=== PATIENT | female | born 1950 | race Caucasian/White ===

== ENCOUNTER 2016-12-08 02:57 | Observation (INO) | payer OTHER ==
[~2016-12-08] VITALS: Ht 180.3 cm; Wt 74.0 kg
[~2016-12-08 02:57] MED LIST: LSX20 PO; MELO15TA4 PO; NRN600 PO; ONDA4TAB10 SL; OXYC-609 PO; OXYC1TAB3 PO; POTA10TA33 PO
[2016-12-08] MEDS ORDERED: ONDANSETRON INJ 2 MG/ML 2 ML VIAL IV STA (03:10)
[2016-12-08] MEDS ORDERED: SODIUM CHLORIDE 0.9% 1000ML 1,000 ML IV STA ×2 (03:10)
[2016-12-08 03:21] LABS: BASO % 0.4 %; BASO ABS # 0.02 K/uL (0-0.2); COMPLETE YES; EOS % 1.4 %; HEMATOCRIT 35.4 % (37-47); IG% 0.2 %; LYMPH % 23.9 %; LYMPH ABS # 1.35 K/uL (1.2-3.4); MEAN CELL VOLUME 91.2 fL (80-100); MEAN CORPUSCULAR HEMOGLOBIN 31.4 pg (25-34); MEAN CORPUSCULAR HGB CONC 34.5 g/dl (32-36); MEAN PLATELET VOLUME 10.8 fL (7.4-10.4); MONO % 8.2 %; NEUT % 65.9 %; PLATELET COUNT 264 K/uL (130-400); RED BLOOD COUNT 3.88 M/uL (4.2-5.4); WHITE BLOOD COUNT 5.64 K/uL (4.8-10.8)
[2016-12-08] MEDS: MoRPHine SULFATE 4 MG/ML 1 ML CARP\\VIAL IV PRN ×2 (03:27→05:29)
[2016-12-08 03:39] LABS: ALT/SGPT 35 U/L (12-78); BLOOD UREA NITROGEN 16 mg/dl (7-18); BUN/CREATININE RATIO 27.8 (10-20); CALCIUM 7.8 mg/dl (8.5-10.1); CARBON DIOXIDE 23 mmol/L (21-32); CHLORIDE 113 mmol/L (98-107); CREATININE 0.58 mg/dl (0.60-1.20); GLUCOSE 82 mg/dl (70-99); MAGNESIUM 2.2 mg/dl (1.8-2.4); POTASSIUM 3.7 mmol/L (3.5-5.1); SODIUM 146 mmol/L (136-145)
[2016-12-08 03:40] LABS: ALKALINE PHOSPHATASE 182 U/L (45-117); AST/SGOT 30 U/L (15-37)
[2016-12-08] MEDS ORDERED: OXYC1TAB3 PO (03:49)
[2016-12-08 03:53] LABS: MANUAL MICROSCOPIC REQUIRED? NO; REVIEW REQ? NO; URINE APPEARANCE CLEAR (CLEAR); URINE BILIRUBIN NEG (NEG); URINE COLOR YELLOW; URINE EPITHELIAL CELL AUTO 20-30 /lpf (0-5); URINE NITRITE NEG (NEG); URINE PH 5.5 (4.5-7.5); URINE SPECIFIC GRAVITY 1.012 (1.000-1.030); UROBILINOGEN NEG (NEG)
--- NOTE | 2016-12-08 04:06 | EMERGENCY ROOM VISIT NOTE ---
History Report prepared by Antoinette: Delmis Hart Under the Supervision of: Norman GrahamO. First contact with patient: 03:00 Chief Complaint: ILLNESS Stated Complaint: NAUSEA/VOMITING/DIARRHEA History of Present Illness The patient is a 66 year old female who presents to the Emergency Room with complaints of a worsening illness for the past 6 weeks. She states that this started initially with nausea and vomiting. For the past 3-4 days she has been experiencing "uncontrollable diarrhea." She states that it is constant and she is unable to get off the toilet. She is feeling weak. Today she had a sudden onset of abdominal pain and states that she "doubled over in pain." Her abdomen is distended. She had a full gastric bypass surgery in 2010 and had a bowel obstruction after the surgery. The patient states that her current symptoms remind her of her previous bowel obstruction. She spoke with someone at [facility] who was concerned for a bowel obstruction and sent the patient to the ED for further evaluation. The patient was brought to the ED by ambulance. She received 110 mcg Fentanyl and 4 mg Zofran en route to the ED. This has helped alleviate her pain and she rates her current pain as a 1/10 in severity. The patient denies any personal history of C-diff colitis. She also denies any fevers. Source of History: patient Onset: AUDIOVISUAL TECH Position: abdomen Symptom Intensity: 1/10 Timing: worsening Modifying Factors (Relieving): narcotics, anti-emetics Associated Symptoms: + abdominal pain, + diarrhea, + nausea, + vomiting, + weakness, No fevers Review of Systems See HPI for pertinent positives & negatives. A total of 10 systems reviewed and were otherwise negative. Past Medical & Surgical Medical Problems: (1) Abdominal pain (2) Abdominal wall cellulitis (3) Abdominal wall cellulitis (4) Abdominal wall fluid collections (5) AMS - resolved suspect prescription medication abuse (6) Arm pain, left (7) Benign hypertension (8) Bypass gastroenterostomy (9) Cervical strain (10) Cholecystectomy (11) Chronic abdominal pain (12) Chronic hepatitis C (13) Closed head injury (14) Concussion (15) Contusion of hip (16) Depressive disorder (17) Diabetes mellitus type 2 (18) Esophageal Reflux (19) Hysterectomy (20) Knee contusion (21) Knee contusion (22) Left wrist fracture (23) Pain in wrist (24) Paralytic ileus (25) Polyneuropathy (26) Postoperative pain (27) Postoperative pain of extremity (28) Postoperative pain of extremity (29) Postoperative wound infection (30) PUD (peptic ulcer disease) (31) Pulmonary nodule (32) Shoulder contusion (33) Shoulder contusion (34) Suprapubic abdominal pain (35) Suprapubic abdominal pain (36) Urinary retention (37) Urinary tract infection (38) UTI (urinary tract infection) (39) UTI (urinary tract infection) (40) UTI (urinary tract infection) Surgical Problems: (1) H/O esophagogastroduodenoscopy Family History Diabetes mellitus Hypertension Social History Smoking Status: Current Every Day Smoker Alcohol Use: none Drug Use: none Marital Status: in relationship Housing Status: lives with significant other Occupation Status: disabled Current/Historical Medications Scheduled Oxycodone HCl (Oxycodone HCl), 5 MG PO QID Potassium Chloride (Potassium Chloride Sr), 10 MEQ PO DAILY Zolpidem Tartrate (Zolpidem Tartrate), 10 MG PO HS Scheduled PRN Furosemide (Furosemide), 20 MG PO DAILY PRN for Edema Gabapentin (Gabapentin), 600 MG PO TID PRN for Pain Oxycodone Ir (Roxicodone Ir), 5 MG PO Q6H PRN for Pain Allergies Coded Allergies: Iodinated Contrast Media (Verified Allergy, Severe, ANAHYLACTIC REACTION, 12/08/16) Acetaminophen (Verified Allergy, Mild, VOMITING, 12/08/16) Tramadol (Verified Allergy, Mild, nausea, hives, 12/08/16) Lisinopril (Verified Allergy, Unknown, FEELS LIKE SOMETHING IS CRAWLING ON HER., 12/08/16) Physical Exam Vital Signs Date Time Temp Pulse Resp B/P Pulse Ox O2 Delivery O2 Flow Rate FiO2 12/08/16 05:30 73 16 136/78 98 Room Air 12/08/16 04:00 68 16 133/74 94 Room Air 12/08/16 03:03 73 12/08/16 02:59 36.9 74 17 132/75 97 Room Air Physical Exam GENERAL: Patient is awake, alert, mildly anxious appearing. EYES: The conjunctivae are clear. The pupils are round and reactive. EARS, NOSE, MOUTH AND THROAT: The nose is without any evidence of any deformity. Mucous membranes are dry tongue is midline NECK: The neck is nontender and supple. RESPIRATORY: Normal respiratory effort is noted there is no evidence of wheezing rhonchi or rales CARDIOVASCULAR: Regular rate and rhythm noted there no murmurs rubs or gallops normal S1 normal S2 GASTROINTESTINAL: The abdomen is moderately distended and diffusely tender, no specific guarding or rigidity noted. MUSCULOSKELETAL/EXTREMITIES: There is no evidence of gross deformity full range of motion is noted in the hips and shoulders SKIN: There is no obvious evidence of any rash. There are no petechiae, pallor or cyanosis noted. NEUROLOGIC: Patient is awake alert and oriented x3 Medical Decision & Procedures ER Provider Diagnostic Interpretation: Chest x-ray as interpreted by myself reveals no free air, no acute infiltrates, cardiomegaly noted, no change from 04/24/16. Radiology results as stated below per my review and radiologist interpretation: CT ABDOMEN & PELVIS: The visualized lower thorax is unremarkable. The gallbladder is surgically absent with mild pneumobilia. The liver, spleen, pancreas, and adrenal glands are unremarkable. Nonobstructing calculus within the left kidney. Otherwise, the kidneys, ureters and urinary bladder are unremarkable. The uterus is surgically absent. No adnexal masses. Post surgical changes noted within the stomach and small bowel. No bowel obstruction, pneumatosis or free air. No free fluid. No acute osseous abnormality. Radiologist: Doroteo Bran MD Laboratory Results 12/08/16 02:28 Red Blood Count 3.88, Mean Corpuscular Volume 91.2, Mean Corpuscular Hemoglobin 31.4, Mean Corpuscular Hemoglobin Concent 34.5, Mean Platelet Volume 10.8, Neutrophils (%) (Auto) 65.9, Lymphocytes (%) (Auto) 23.9, Monocytes (%) (Auto) 8.2, Eosinophils (%) (Auto) 1.4, Basophils (%) (Auto) 0.4, Neutrophils # (Auto) 3.72, Lymphocytes # (Auto) 1.35, Monocytes # (Auto) 0.46, Eosinophils # (Auto) 0.08, Basophils # (Auto) 0.02 12/08/16 02:28 Test 12/08/16 02:28 12/08/16 03:25 White Blood Count 5.64 K/uL (4.8-10.8) Red Blood Count 3.88 M/uL (4.2-5.4) Hemoglobin 12.2 g/dL (12.0-16.0) Hematocrit 35.4 % (37-47) Mean Corpuscular Volume 91.2 fL (80-100) Mean Corpuscular Hemoglobin 31.4 pg (25-34) Mean Corpuscular Hemoglobin Concent 34.5 g/dl (32-36) Platelet Count 264 K/uL (130-400) Mean Platelet Volume 10.8 fL (7.4-10.4) Neutrophils (%) (Auto) 65.9 % Lymphocytes (%) (Auto) 23.9 % Monocytes (%) (Auto) 8.2 % Eosinophils (%) (Auto) 1.4 % Basophils (%) (Auto) 0.4 % Neutrophils # (Auto) 3.72 K/uL (1.4-6.5) Lymphocytes # (Auto) 1.35 K/uL (1.2-3.4) Monocytes # (Auto) 0.46 K/uL (0.11-0.59) Eosinophils # (Auto) 0.08 K/uL (0-0.5) Basophils # (Auto) 0.02 K/uL (0-0.2) RDW Standard Deviation 50.6 fL (36.4-46.3) RDW Coefficient of Variation 15.1 % (11.5-14.5) Immature Granulocyte % (Auto) 0.2 % Immature Granulocyte # (Auto) 0.01 K/uL (0.00-0.02) Anion Gap 10.0 mmol/L (3-11) Est Creatinine Clear Calc Drug Dose 103.2 ml/min Estimated GFR () 111.3 Estimated GFR (Non- 96.1 BUN/Creatinine Ratio 27.8 (10-20) Calcium Level 7.8 mg/dl (8.5-10.1) Magnesium Level 2.2 mg/dl (1.8-2.4) Total Bilirubin 0.3 mg/dl (0.2-1) Direct Bilirubin < 0.1 mg/dl (0-0.2) Aspartate Amino Transf (AST/SGOT) 30 U/L (15-37) Alanine Aminotransferase (ALT/SGPT) 35 U/L (12-78) Alkaline Phosphatase 182 U/L (45-117) Total Protein 6.1 gm/dl (6.4-8.2) Albumin 2.9 gm/dl (3.4-5.0) Lipase 287 U/L (73-393) Urine Color YELLOW Urine Appearance CLEAR (CLEAR) Urine pH 5.5 (4.5-7.5) Urine Specific [place] 1.012 (1.000-1.030) Urine Protein NEG (NEG) Urine Glucose (UA) NEG (NEG) Urine Ketones NEG (NEG) Urine Occult Blood NEG (NEG) Urine Nitrite NEG (NEG) Urine Bilirubin NEG (NEG) Urine Urobilinogen NEG (NEG) Urine Leukocyte Esterase TRACE (NEG) Urine WBC (Auto) 1-5 /hpf (0-5) Urine RBC (Auto) 0-4 /hpf (0-4) Urine Hyaline Casts (Auto) 0 /lpf (0-5) Urine Epithelial Cells (Auto) 20-30 /lpf (0-5) Urine Bacteria (Auto) NEG (NEG) Date/Time Source Procedure Growth Status 12/08/16 03:25 Stool C.difficile Toxin B Gene (PCR) - Final No C. difficile toxin B gene detected Complete Laboratory results per my review. Medications Administered Medications (Trade) Dose Ordered Sig/Rocky Route Start Time Stop Time Status Last Admin Dose Admin Sodium Chloride (Nss 1000ml) 1,000 ml @ 999 mls/hr Q1H1M STAT IV 12/08/16 03:10 12/08/16 04:10 DC 12/08/16 03:25 999 MLS/HR Morphine Sulfate (MoRPHine SULFATE INJ) 4 mg Q15M PRN IV 12/08/16 03:15 12/22/16 03:14 12/08/16 05:29 4 MG Ondansetron HCl (Zofran Inj) 4 mg NOW STAT IV 12/08/16 03:10 12/08/16 03:12 DC 12/08/16 03:25 4 MG ED Course 0308: The patient was evaluated in room B10. A complete history and physical examination were performed. 0310: Zofran 4 mg IV, NSS 1000 ml @ 250 mls/hr IV, NSS 1000 ml @ 999 mls/hr IV 0315: Morphine sulfate 4 mg IV PRN 0520: I reassessed the patient at this time. She is still uncomfortable. I discussed the results and treatment plan with the patient. I answered all pertaining questions that she had. She expressed understanding and verbalized agreement. 0531: I spoke with Dr. Bear. We discussed the patients results and treatment plan. The patient will be evaluated by the [facility] for further management. Medical Decision Differential diagnosis: Etiologies such as appendicitis, diverticulitis, PUD, biliary pathology, UTI, pancreatitis, obstruction, mesenteric ischemia, aortic pathology, infections, inflammatory bowel disease, renal colic, as well as others were entertained. Nursing notes reviewed. The prehospital medic command call was taken on this patient. The patient is a 66-year-old female who has a history gastric bypass who presented to the emergency department for an evaluation of abdominal pain nausea vomiting and diarrhea. The patient has a history of gastric bypass and has had similar episodes in the past. She has had ongoing symptoms for proximally 4 weeks but started having worsening symptoms over the last few days. The patient was treated with IV fluids IV pain medicine and IV antiemetics. Her CAT scan did not reveal any signs of definite obstruction. She was found have signs of dehydration on laboratory as well as clinical findings. Because the patient's ongoing symptoms I discussed her case with the on-call [facility] hospitalist group. They've agreed to evaluate the patient in the emergency department for further management and disposition. Consults Time Called: [phone] Consulting Physician: Dr. Bear Returned Call: [address] Bear. We discussed the patients results and treatment plan. The patient will be evaluated by the [facility] for further management. Impression Primary Impression: Diarrhea Additional Impressions: Diffuse abdominal pain Dehydration Scribe Attestation The scribe's documentation has been prepared under my direction and personally reviewed by me in its entirety. I confirm that the note above accurately reflects all work, treatment, procedures, and medical decision making performed by me. Departure Information Dispostion Being Evaluated By Hospitalist Referrals Justus Haynes M.D. (PCP) Patient Instructions My [facility] Problem Qualifiers Primary Impression: Diarrhea Diarrhea type: unspecified type Qualified Codes: R19.7 - Diarrhea, unspecified
[2016-12-08] MEDS ORDERED: OXYCODONE IR HOME PACK PO ONE (05:30)
[2016-12-08] MEDS ORDERED: ONDANSETRON HOME PACK 4MG OD TAB PO ONE (05:30)
--- NOTE | 2016-12-08 06:22 | History and Physical ---
History & Physical Date & Time of Service: Dec 08, 2016 at 06:09 Chief Complaint: Nausea/Vomiting/Diarrhea Primary Care Physician: Justus Haynes M.D. History of Present Illness Source: patient Michelle Mckee is a 66 year old female with history of gastric bypass in 2000 who presents with abdominal pain over the last 5 weeks. She reports she was concerned she may have a bowel obstruction as she did after her bypass surgery, which she ended up needing an EGD for dilation. She reports she has felt abdominal distention and bloating, but has not been vomiting. She woke up today and was dry heaving, writhing in pain, and so her daughter brought her in. She did have 5-6 loose bowel movements today. She denies any antibiotic use. Past Medical/Surgical History Medical Problems: (1) Abdominal pain Status: Resolved (2) Abdominal wall cellulitis Status: Resolved (3) Abdominal wall cellulitis Status: Resolved (4) Abdominal wall fluid collections Status: Resolved (5) AMS - resolved suspect prescription medication abuse Status: Resolved (6) Arm pain, left Status: Resolved (7) Benign hypertension Status: Chronic (8) Bypass gastroenterostomy Status: Resolved (9) Cervical strain Status: Resolved (10) Cholecystectomy Status: Resolved (11) Chronic abdominal pain Status: Chronic (12) Chronic hepatitis C Status: Chronic (13) Closed head injury Status: Resolved (14) Concussion Status: Resolved (15) Contusion of hip Status: Resolved (16) Depressive disorder Status: Chronic (17) Diabetes mellitus type 2 Status: Chronic (18) Esophageal Reflux Status: Chronic (19) Hysterectomy Status: Resolved (20) Knee contusion Status: Resolved (21) Knee contusion Status: Resolved (22) Left wrist fracture Status: Resolved (23) Pain in wrist Status: Resolved (24) Paralytic ileus Status: Resolved (25) Polyneuropathy Status: Chronic (26) Postoperative pain Status: Resolved (27) Postoperative pain of extremity Status: Resolved (28) Postoperative pain of extremity Status: Resolved (29) Postoperative wound infection Status: Resolved (30) PUD (peptic ulcer disease) Status: Chronic (31) Pulmonary nodule Status: Chronic (32) Shoulder contusion Status: Resolved (33) Shoulder contusion Status: Resolved (34) Suprapubic abdominal pain Status: Resolved (35) Suprapubic abdominal pain Status: Resolved (36) Urinary retention Status: Resolved (37) Urinary tract infection Status: Resolved (38) UTI (urinary tract infection) Status: Resolved (39) UTI (urinary tract infection) Status: Resolved (40) UTI (urinary tract infection) Status: Resolved Surgical Problems: (1) H/O esophagogastroduodenoscopy Status: Chronic Family History Diabetes mellitus Hypertension Social History Smoking Status: Current Every Day Smoker Drug Use: none Marital Status: in relationship Housing status: lives with family, other Occupational Status: disabled Immunizations History of Influenza Vaccine: No Influenza Vaccine Date: Sep 01, 2011 History of Tetanus Vaccine?: No Tetanus Immunization Date: Dec 29, 2001 History of Pneumococcal: Yes History of Hepatitis B Vaccine: Unknown Multi-Drug Resistant Organisms History of MDRO: No Allergies Coded Allergies: Iodinated Contrast Media (Verified Allergy, Severe, ANAHYLACTIC REACTION, 12/08/16) Acetaminophen (Verified Allergy, Mild, VOMITING, 12/08/16) Tramadol (Verified Allergy, Mild, nausea, hives, 12/08/16) Lisinopril (Verified Allergy, Unknown, FEELS LIKE SOMETHING IS CRAWLING ON HER., 12/08/16) Home Medications Scheduled Oxycodone HCl (Oxycodone HCl), 5 MG PO QID Potassium Chloride (Potassium Chloride Sr), 10 MEQ PO DAILY Zolpidem Tartrate (Zolpidem Tartrate), 10 MG PO HS Scheduled PRN Furosemide (Furosemide), 20 MG PO DAILY PRN for Edema Gabapentin (Gabapentin), 600 MG PO TID PRN for Pain Oxycodone Ir (Roxicodone Ir), 5 MG PO Q6H PRN for Pain Review of Systems See HPI for pertinent positives & negatives. A total of 10 systems reviewed and were otherwise negative. Physical Exam Vital Signs Date Time Temp Pulse Resp B/P Pulse Ox O2 Delivery O2 Flow Rate FiO2 12/08/16 05:30 73 16 136/78 98 Room Air 12/08/16 04:00 68 16 133/74 94 Room Air 12/08/16 03:03 73 12/08/16 02:59 36.9 74 17 132/75 97 Room Air General Appearance: WD/WN, + mild distress Head: normocephalic, atraumatic Eyes: normal inspection ENT: hearing grossly normal Neck: supple, no JVD Respiratory/Chest: lungs clear, normal breath sounds, no respiratory distress Cardiovascular: regular rate, rhythm, no murmur, normal peripheral pulses Abdomen/GI: soft, + tenderness (deep tenderness to RUQ), + pertinent finding ( soft bowel sounds) Back: no CVA tenderness, no muscle spasm Extremities/Musculoskelatal: no pedal edema Neurologic/Psych: alert, normal mood/affect, oriented x 3 Skin: no rash Diagnostics Laboratory Results Results Past 24 Hours Test 12/08/16 02:28 12/08/16 03:25 Range/Units White Blood Count 5.64 4.8-10.8 K/uL Red Blood Count 3.88 4.2-5.4 M/uL Hemoglobin 12.2 12.0-16.0 g/dL Hematocrit 35.4 37-47 % Mean Corpuscular Volume 91.2 80-100 fL Mean Corpuscular Hemoglobin 31.4 25-34 pg Mean Corpuscular Hemoglobin Concent 34.5 32-36 g/dl Platelet Count 264 130-400 K/uL Mean Platelet Volume 10.8 7.4-10.4 fL Neutrophils (%) (Auto) 65.9 % Lymphocytes (%) (Auto) 23.9 % Monocytes (%) (Auto) 8.2 % Eosinophils (%) (Auto) 1.4 % Basophils (%) (Auto) 0.4 % Neutrophils # (Auto) 3.72 1.4-6.5 K/uL Lymphocytes # (Auto) 1.35 1.2-3.4 K/uL Monocytes # (Auto) 0.46 0.11-0.59 K/uL Eosinophils # (Auto) 0.08 0-0.5 K/uL Basophils # (Auto) 0.02 0-0.2 K/uL RDW Standard Deviation 50.6 36.4-46.3 fL RDW Coefficient of Variation 15.1 11.5-14.5 % Immature Granulocyte % (Auto) 0.2 % Immature Granulocyte # (Auto) 0.01 0.00-0.02 K/uL Sodium Level 146 136-145 mmol/L Potassium Level 3.7 3.5-5.1 mmol/L Chloride Level 113 98-107 mmol/L Carbon Dioxide Level 23 21-32 mmol/L Anion Gap 10.0 3-11 mmol/L Blood Urea Nitrogen 16 7-18 mg/dl Creatinine 0.58 0.60-1.20 mg/dl Est Creatinine Clear Calc Drug Dose 103.2 ml/min Estimated GFR () 111.3 Estimated GFR (Non- 96.1 BUN/Creatinine Ratio 27.8 10-20 Random Glucose 82 70-99 mg/dl Calcium Level 7.8 8.5-10.1 mg/dl Magnesium Level 2.2 1.8-2.4 mg/dl Total Bilirubin 0.3 0.2-1 mg/dl Direct Bilirubin < 0.1 0-0.2 mg/dl Aspartate Amino Transf (AST/SGOT) 30 15-37 U/L Alanine Aminotransferase (ALT/SGPT) 35 12-78 U/L Alkaline Phosphatase 182 45-117 U/L Total Protein 6.1 6.4-8.2 gm/dl Albumin 2.9 3.4-5.0 gm/dl Lipase 287 73-393 U/L Urine Color YELLOW Urine Appearance CLEAR CLEAR Urine pH 5.5 4.5-7.5 Urine Specific [place] 1.012 1.000-1.030 Urine Protein NEG NEG Urine Glucose (UA) NEG NEG Urine Ketones NEG NEG Urine Occult Blood NEG NEG Urine Nitrite NEG NEG Urine Bilirubin NEG NEG Urine Urobilinogen NEG NEG Urine Leukocyte Esterase TRACE NEG Urine WBC (Auto) 1-5 0-5 /hpf Urine RBC (Auto) 0-4 0-4 /hpf Urine Hyaline Casts (Auto) 0 0-5 /lpf Urine Epithelial Cells (Auto) 20-30 0-5 /lpf Urine Bacteria (Auto) NEG NEG Microbiology Results 12/08/16 C.difficile Toxin B Gene (PCR) - Final, Complete No C. difficile toxin B gene detected 12/08/16 WBC Smear, Received Pending 12/08/16 Shiga Toxin Test, Received Pending 12/08/16 Stool Culture, Received Pending Diagnostic Radiology CT ABDOMEN & PELVIS: The visualized lower thorax is unremarkable. The gallbladder is surgically absent with mild pneumobilia. The liver, spleen, pancreas, and adrenal glands are unremarkable. Nonobstructing calculus within the left kidney. Otherwise, the kidneys, ureters and urinary bladder are unremarkable. The uterus is surgically absent. No adnexal masses. Post surgical changes noted within the stomach and small bowel. No bowel obstruction, pneumatosis or free air. No free fluid. No acute osseous abnormality. Radiologist: Doroteo Bran MD Impression Assessment and Plan Documented By: Jackson Bear 66 yo F with history of gastric bypass who presents with 5 week history of abdominal pain, bloating, and persistent nausea/ vomiting/diarrhea. Differential includes colitis, bowel obstruction (from hernia v adhesions) - it was attempted for pt to be transferred to [facility] for EGD / potential dilation but there were no beds. Plan: - Consult GI - NPO with IV fluids - Zofran / Phenergan PRN for nausea - Received morphine IV in ED - Dilaudid 0.5mg IV q6h for pain - SCDs - Hold PO Oxycodone / Ambien / Gabapentin - Will hold off on Heparin until coag repeated / ensure its normal - Pt clearly stated she would NOT want chest compressions or intubation in event of cardiac arrest - DNR Resident Physician Supervision Note: I was present with [Name of resident] during the history and exam. I discussed the case with the resident and agree with the findings and plan as documented in the note. Any exceptions or clarifications are listed here: Pt seen examined personally - has had above symptoms for over one month but claims acute worsening and has Hx of internal hernias. There is no current evidence of obstruction Plan: Was unable to tolerate PO in the ER and is admitted for IVF, antiemetics, pain control and GI eval - requesting referal to a local sizer hand as she currently travels to [place] Has explicitly stated she is DNR/DNI Level of Care Med/Surg Resuscitation Status DO NOT RESUSCITATE VTE Prophylaxis VTE Risk Assessment Done? Y/N: Yes Risk Level: Moderate Given or contraindicated: SCD's Resident Tracking Resident Involvement: Resident Care Provided Care Provided: Adult Hospital Medicine
[2016-12-08] MEDS ORDERED: IV FLUIDS COMPLETED PRN (06:30)
[2016-12-08 06:53] VITALS: BP 147/85; PULSE 67; TEMP 36.5; O2SAT 95
--- NOTE | 2016-12-08 07:11 | DIAGNOSTIC IMAGING REPORT ---
CT SCAN OF THE ABDOMEN AND PELVIS WITHOUT CONTRAST CLINICAL HISTORY: Upper abdominal pain. History of gastric bypass. COMPARISON STUDY: 07/04/2016 TECHNIQUE: CT scan of the abdomen and pelvis was performed from the lung bases to the proximal femurs. Images are reviewed in the axial, sagittal, and coronal planes. IV contrast was not administered for this examination. CT DOSE: 345.82 mGy.cm FINDINGS: Lower chest: The heart is normal in size and configuration, without pericardial effusion. The lung bases and pleural spaces are clear. There is elevation right hemidiaphragm Liver: There is pneumobilia. No focal masses are visualized in this noncontrast study. There is borderline hepatomegaly. Gallbladder: Surgically absent Spleen: Normal in size and attenuation. Pancreas: Unremarkable. Adrenal glands: Unremarkable. Kidneys: There is a 2 mm lower pole left renal calculus. There is a punctate upper pole left renal calculus. No right renal calculi are visualized. No ureteral or bladder calculi are visualized. Bowel: There are postsurgical changes relating to a prior gastric bypass. There is mild dilatation of proximal small bowel loops. There is a small bowel feces sign, and stasis is suspected. There are no findings to indicate a high-grade bowel obstruction. There is scattered stool within the colon. Peritoneum: There is no intraperitoneal free air or abdominal ascites. Vasculature: The abdominal aorta is normal in course and caliber. Adenopathy: None. Pelvic viscera: The uterus appears surgically absent Skeletal structures: No destructive osseous lesions are seen. IMPRESSION: 1. Surgically absent gallbladder and uterus. 2. Pneumobilia 3. Left-sided nephrolithiasis. No ureteral or bladder calculi identified 4. Postsurgical changes are prior gastric bypass. 5. Mildly dilated proximal small bowel loops with a small bowel feces sign. Stasis is suspected. There are no findings to indicate a high-grade bowel obstruction. There is no free air. Electronically signed by: Phuc Burton M.D. 12/08/2016 7:10 AM Dictated Date/Time: 12/08/2016 7:04 AM
--- NOTE | 2016-12-08 07:15 | DIAGNOSTIC IMAGING REPORT ---
SINGLE VIEW CHEST CLINICAL HISTORY: Generalized abdominal pain. Atypical chest pain. FINDINGS: An AP, portable, upright chest radiograph is compared to study dated 04/24/2016 and correlated with chest CT dated 01/18/2015. The examination is degraded by portable technique and patient rotation. The cardiomediastinal silhouette is unremarkable. There is chronic elevation of the right hemidiaphragm with mild bibasilar atelectasis. Apparent density at the medial right lung base likely represents vascular crowding due to volume loss. A calcification containing left upper lobe pulmonary nodule measuring up to 12 mm unchanged from prior studies. No large pleural effusion or pneumothorax is seen. The skeletal structures are osteopenic. There are healed left-sided rib fractures. IMPRESSION: No acute cardiopulmonary abnormality. Electronically signed by: Lei Love M.D. 12/08/2016 7:14 AM Dictated Date/Time: 12/08/2016 7:12 AM
[2016-12-08 07:59] LABS: PROTHROMBIN TIME (PATIENT) 11.1 SECONDS (9.0-12.0)
[2016-12-08 08:00] VITALS: BP 147/85; PULSE 67; TEMP 36.5; O2SAT 94; Ht 180.3 cm; Wt 74.0 kg
[2016-12-08] MEDS: SODIUM CHLOR 0.45% + 20MEQ KCL 1,000 ML IV SCH ×2 (08:00→16:24)
[2016-12-08] MEDS ORDERED: PANTOprazole INJ 40 MG in SYRINGE 0 ML IV SCH (09:30)
[2016-12-08] MEDS: HYDROmorphone INJ 0.5 MG/0.5 ML SYR IV PRN ×3 (10:55→22:34)
--- NOTE | 2016-12-08 11:28 | Gastrointestinal Consultation ---
Gastrointestinal Consultation Date of Consultation: Dec 08, 2016 Attending Physician: Satya Terry Consulting Physician: Jama Calle Reason for Consultation: Abd pain, bloating History of Present Illness Patient is a 66 year old female w hx of gastric bypass in 2011 who presented in ED w c/o abd pain across upper abd quadrants, n/v and loose stools x 1 week. She reported hx of ? gastric outlet after her bypass surgery needing dilation. Also noted to have marginal ulcer found in the past. She noticed red specks of particles in stools and emesis. Her H/H is normal. Cdiff obtained negative, stool cx pending. She had CXR which was unremarkable. CT abd/pelvis showed fecal stasis in small bowel loops but no signs of bowel obstruction or free air noted. She is a smoker, continues to smoke 1.5 PPD. Denies taking any PPI on daily basis, but did take some Mylanta from [facility] when recently her reflux symptoms are worse. Previous EGDs: 2010, 2011, 2013 - no signs of ulcer disease but hx of esophagitis treated w Misoprostol, Carafate, PPIs Previous Colonoscopy: 2012 - colon polyp Past Medical/Surgical History Medical Problems: (1) Acute chest pain Status: Acute (2) Chronic leukopenia Status: Acute (3) Dehydration Status: Acute (4) Diarrhea Status: Acute (5) Diffuse abdominal pain Status: Acute (6) Esophageal Reflux Status: Chronic (7) Fracture of fibula, distal, right, closed Status: Acute (8) Knee injury Status: Acute (9) PUD (peptic ulcer disease) Status: Chronic (10) Pyelonephritis Status: Acute Surgical Problems: (1) H/O esophagogastroduodenoscopy Status: Chronic Past Medical History: See above, also hx of abd cellulitis, AMS (suspected to be from Rx med abuse), HTN, Hep C, DM II, GERD Past Surgical History: Cholecystectomy Hysterectomy Family History Diabetes mellitus Hypertension Social History Smoking Status: Current Every Day Smoker Alcohol Use: none Drug Use: none, other (hx of prescriptive drug abuse ) Marital Status: in relationship Housing Status: lives with significant other Occupation Status: disabled Allergies Coded Allergies: Acetaminophen (Verified Allergy, Mild, VOMITING, 12/08/16) Tramadol (Verified Allergy, Mild, nausea, hives, 12/08/16) Iodinated Diagnostic Agents (Verified Allergy, Unknown, ANAPHYLACTIC REACTION, 12/08/16) Lisinopril (Verified Allergy, Unknown, FEELS LIKE SOMETHING IS CRAWLING ON HER., 12/08/16) Current Medications Home Meds and Scripts Medications Dose Route/Sig Max Daily Dose Days Date Category Dose Instructions Roxicodone Ir (Oxycodone HCl) 5 Mg Tab 5 Mg PO Q6H PRN 12/08/16 Reported Furosemide 20 Mg Tab 20 Mg PO DAILY PRN 10/09/16 Reported Zolpidem Tartrate 10 Mg Tab 10 Mg PO HS 10/09/16 Reported Oxycodone HCl 5 Mg Tab 5 Mg PO QID 10/09/16 Reported Gabapentin 600 Mg Tab 600 Mg PO TID PRN 10/09/16 Reported Potassium Chloride Sr (Potassium Chloride) 10 Meq Tab 10 Meq PO DAILY 10/09/16 Reported pt only takes when takes lasix Review of Systems Constitutional: No chills, No fever Respiratory: No cough, No shortness of breath Cardiac: No chest pain, No edema Abdomen: + diarrhea, + nausea, + pain, + vomiting Physical Exam Date Time Temp Pulse Resp B/P Pulse Ox O2 Delivery O2 Flow Rate FiO2 12/08/16 08:00 36.5 67 17 147/85 94 Room Air 12/08/16 06:53 36.5 67 17 147/85 95 Room Air 12/08/16 06:17 70 16 133/80 95 Room Air 12/08/16 05:30 73 16 136/78 98 Room Air 12/08/16 04:00 68 16 133/74 94 Room Air 12/08/16 03:03 73 12/08/16 02:59 36.9 74 17 132/75 97 Room Air General Appearance: WD/WN, no apparent distress Eyes: normal inspection, PERRL, EOMI Neck: supple, no JVD, trachea midline Respiratory/Chest: normal breath sounds, no respiratory distress, no accessory muscle use Cardiovascular: regular rate, rhythm, no gallop, no murmur Abdomen: normal bowel sounds, soft, + tenderness (epigastric) Extremities: normal inspection, no pedal edema, no calf tenderness Neurologic/Psych: alert, normal mood/affect, oriented x 3 Skin: normal color, no jaundice, no rash Laboratory Results Last 24 Hours Test 12/08/16 02:28 12/08/16 03:25 1/19/17 07:13 White Blood Count 5.64 K/uL Red Blood Count 3.88 M/uL Hemoglobin 12.2 g/dL Hematocrit 35.4 % Mean Corpuscular Volume 91.2 fL Mean Corpuscular Hemoglobin 31.4 pg Mean Corpuscular Hemoglobin Concent 34.5 g/dl Platelet Count 264 K/uL Mean Platelet Volume 10.8 fL Neutrophils (%) (Auto) 65.9 % Lymphocytes (%) (Auto) 23.9 % Monocytes (%) (Auto) 8.2 % Eosinophils (%) (Auto) 1.4 % Basophils (%) (Auto) 0.4 % Neutrophils # (Auto) 3.72 K/uL Lymphocytes # (Auto) 1.35 K/uL Monocytes # (Auto) 0.46 K/uL Eosinophils # (Auto) 0.08 K/uL Basophils # (Auto) 0.02 K/uL RDW Standard Deviation 50.6 fL RDW Coefficient of Variation 15.1 % Immature Granulocyte % (Auto) 0.2 % Immature Granulocyte # (Auto) 0.01 K/uL Sodium Level 146 mmol/L Potassium Level 3.7 mmol/L Chloride Level 113 mmol/L Carbon Dioxide Level 23 mmol/L Anion Gap 10.0 mmol/L Blood Urea Nitrogen 16 mg/dl Creatinine 0.58 mg/dl Est Creatinine Clear Calc Drug Dose 103.2 ml/min Estimated GFR () 111.3 Estimated GFR (Non- 96.1 BUN/Creatinine Ratio 27.8 Random Glucose 82 mg/dl Calcium Level 7.8 mg/dl Magnesium Level 2.2 mg/dl Total Bilirubin 0.3 mg/dl Direct Bilirubin < 0.1 mg/dl Aspartate Amino Transf (AST/SGOT) 30 U/L Alanine Aminotransferase (ALT/SGPT) 35 U/L Alkaline Phosphatase 182 U/L Total Protein 6.1 gm/dl Albumin 2.9 gm/dl Lipase 287 U/L Urine Color YELLOW Urine Appearance CLEAR Urine pH 5.5 Urine Specific [place] 1.012 Urine Protein NEG Urine Glucose (UA) NEG Urine Ketones NEG Urine Occult Blood NEG Urine Nitrite NEG Urine Bilirubin NEG Urine Urobilinogen NEG Urine Leukocyte Esterase TRACE Urine WBC (Auto) 1-5 /hpf Urine RBC (Auto) 0-4 /hpf Urine Hyaline Casts (Auto) 0 /lpf Urine Epithelial Cells (Auto) 20-30 /lpf Urine Bacteria (Auto) NEG Prothrombin Time 11.1 SECONDS Prothromb Time International Ratio 1.0 Impression Patient is a 66 year old female w upper quadrants abd pain, n/v, loose stools. Hx of gastric bypass w marginal ulcer disease, esophagitis. She continues to smoke 1.5 PPD, not taking any PPI. She had CXR - normal; CT abd/pelvis w/o signs of bowel obstruction or free air though fecal stasis in small bowel loops. Hx of narcotic abuse, suspect has narcotic induced constipation vs ulcer disease causing her abd pain Plan - Protonix 40mg BID - Keep NPO; EGD eval by Dr. Calle this AM - Relistor 12mg SC every 2 days x 2 doses - Start Miralax 17g BID bowel regimen - Avoid narcotic use on this pt. I performed a history and physical examination of the patient. I have discussed the patient's case, impression and plan with ANA Schneider. Her note reflects my findings and plan. After evaluating patient, an upper endoscopy will rule out high risk lesions. Jama Calle MD
[2016-12-08 11:30] VITALS: BP 147/85; PULSE 67; TEMP 36.5; O2SAT 94
[2016-12-08] MEDS ORDERED: LIDOCAINE HCL 2% 2 ML VIAL (20MG/ML) ONE (11:33)
[2016-12-08] MEDS ORDERED: PROPOFOL IV EMULSION 10 MG/ML 20 ML VIAL IV ONE (11:33)
[2016-12-08] MEDS ORDERED: MIDAZOLAM HCL 1 MG/ML 2ML VIAL ONE (11:57)
[2016-12-08] MEDS ORDERED: FENTANYL CITRATE INJ 50 MCG/1 ML 2 ML VIAL ONE (11:57)
--- NOTE | 2016-12-08 12:27 | Anesthesiology Progress Note ---
Anesthesia Post Op Note Date & Time Dec 08, 2016 at 12:26 Vital Signs Pain Intensity: 9.0 Vital Signs Past 12 Hours Date Time Temp Pulse Resp B/P Pulse Ox O2 Delivery O2 Flow Rate FiO2 12/08/16 12:20 36.8 67 18 99/53 93 Room Air 12/08/16 11:40 36.8 65 16 149/74 96 Room Air 12/08/16 11:30 36.5 67 17 147/85 94 Room Air 12/08/16 08:00 36.5 67 17 147/85 94 Room Air 12/08/16 06:53 36.5 67 17 147/85 95 Room Air 12/08/16 06:17 70 16 133/80 95 Room Air 12/08/16 05:30 73 16 136/78 98 Room Air 12/08/16 04:00 68 16 133/74 94 Room Air 12/08/16 03:03 73 12/08/16 02:59 36.9 74 17 132/75 97 Room Air Notes Mental Status: alert / awake / arousable, participated in evaluation Pt Amnestic to Procedure: Yes Nausea / Vomiting: adequately controlled Pain: adequately controlled Airway Patency, RR, SpO2: stable & adequate BP & HR: stable & adequate Hydration State: stable & adequate Anesthetic Complications: no major complications apparent
[2016-12-08] MEDS ORDERED: INFLUENZA VIRUS QUAD VACCINE 0.5 ML SYR IM. ONE (12:30)
[2016-12-08] MEDS ORDERED: INFLUENZA ADMINISTRATION CHARGE ONE (12:30)
[2016-12-08] MEDS ORDERED: PNEUMOCOCCAL ADMINISTRATION CHARGE ONE (12:30)
[2016-12-08] MEDS ORDERED: PNEUMOCOCCAL POLYSACCHARIDES 25 MCG/0.5 ML VIAL/SYR IM. ONE (12:30)
--- NOTE | 2016-12-08 12:30 | GI REPORT ---
Procedure Date: 12/08/2016 11:45 AM Procedure: Upper GI endoscopy Indications: Epigastric abdominal pain Medicines: See the Anesthesia note for documentation of the administered medications Complications: No immediate complications. Estimated Blood Loss: Estimated blood loss: none. Procedure: Pre-Anesthesia Assessment: - Prior to the procedure, a History and Physical was performed, and patient medications, allergies and sensitivities were reviewed. The patient's tolerance of previous anesthesia was reviewed. - The risks and benefits of the procedure and the sedation options and risks were discussed with the patient. All questions were answered and informed consent was obtained. - Patient identification and proposed procedure were verified prior to the procedure by the physician and the nurse. The procedure was verified in the pre-procedure area. - Pre-procedure physical examination revealed no contraindications to sedation. - After reviewing the risks and benefits, the patient was deemed in satisfactory condition to undergo the procedure. After obtaining informed consent, the endoscope was passed under direct vision. Throughout the procedure, the patient's blood pressure, pulse, and oxygen saturations were monitored continuously. The On-site loaner was introduced through the mouth, and advanced to the afferent and efferent jejunal loops. The upper GI endoscopy was accomplished without difficulty. The patient tolerated the procedure well. Findings: The esophagus was normal. Evidence of a gastric bypass was found. A gastric pouch with a normal size was found. The gastrojejunal anastomosis was characterized by healthy appearing mucosa. The jejunojejunal anastomosis was characterized by healthy appearing mucosa. The examined jejunum was normal. Impression: - Normal esophagus. - Gastric bypass with a normal-sized pouch. Gastrojejunal anastomosis characterized by healthy appearing mucosa. - No ulcers seen. - Normal examined jejunum. - No specimens collected. Recommendation: - [facility]. Jama Calle M.D. Jama Calle MD 12/08/2016 12:29:06 PM This report has been signed electronically. Note Initiated On: 12/08/2016 11:45 AM
[2016-12-08] MEDS: METHYLNALTREXONE BROMIDE INJ 12 MG/0.6 ML SYR SQ SCH (13:30)
[2016-12-08 14:58] VITALS: BP 137/77; PULSE 87; TEMP 36.6; O2SAT 96
[2016-12-08] MEDS: POLYETHYLENE (MIRALAX) 17 GM PACK PO SCH (20:15)
[2016-12-08] MEDS: PANTOprazole INJ 40 MG in SYRINGE 0 ML IV SCH (20:16)
[2016-12-08] MEDS: ZOLPIDEM TARTRATE 5 MG TAB PO PRN (21:13)
[2016-12-08 22:54] VITALS: BP 145/81; PULSE 65; TEMP 36.7; O2SAT 99
--- NOTE | 2016-12-08 23:04 | Progress Note ---
Progress Note Hospitalist Progress Note - 12/08/16 3502 S: pt underwent EGD today which showed normal gastric pouch mucosa and the anastomotic site was normal. I saw her post-EGD and she c/o bloating and abdominal pain (junction of epigastric region with the LUQ). She reports 1-2 months of "greasy, bubbly" stools. These occur almost immediately after eating, and occur several times/day. She also mentions vomiting sometimes filled with blood. No blood per rectum. O: VSS, no fever gen - NAD heart - RRR, s1, s2 lungs - CTA b/l abd - mildly distended/protuberant; midline scar; BS+; tender LUQ/epigastric region (mild) with palpation ext - no edema A/P: Chronic abd pain Chronic narcotic dependence (gets 120 tabs of oxycodone every 30 days per pharmacy records) Chronic diarrhea -- question malabsorption based on patient's description Fecal stasis in the small intestine on CT Appreciate GI input Send fecal fat r/o malabsorption Could this be bacterial overgrowth? Dumping? But less likely given that she is 7 years out from her bypass Infectious? Celiac? Other? try to limit narcotic use supportive care, IVF, advance diet as tolerated defer other recs to TERRY GUERRA MD
[2016-12-09] MEDS: SODIUM CHLOR 0.45% + 20MEQ KCL 1,000 ML IV SCH ×2 (00:04→08:11)
[2016-12-09] MEDS ORDERED: KETOROLAC TROMETHAMINE 10 MG TAB PO STA (02:13)
[2016-12-09] MEDS ORDERED: KETOROLAC TROMETHAMINE 10 MG TAB PO PRN (02:15)
[2016-12-09] MEDS ORDERED: NAPROXEN 375 MG TAB PO STA (02:30)
--- NOTE | 2016-12-09 02:30 | Progress Note ---
Progress Note RESIDENT NIGHT COVERAGE NOTE Overnight, received multiple calls that pt has been requesting her home doses of Oxycodone and Ambien 10mg qHS. Did not feel comfortable giving these at full doses. Gave 5mg Ambien. She reported severe pain despite dilaudid 0.5mg q6h previously ordered. Reported she is 'allergic' to tylenol, tramadol, and toradol. Will prescribe Naproxen and continue dilaudid q6h as prescribed. Day team to please review. Resident Tracking Resident Involvement: Stereotyper Coverage Note Care Provided: Adult Hospital Medicine
[2016-12-09] MEDS: HYDROmorphone INJ 0.5 MG/0.5 ML SYR IV PRN (05:24)
[2016-12-09 07:06] VITALS: BP 153/79; PULSE 59; TEMP 36.5; O2SAT 98
[2016-12-09] MEDS: POLYETHYLENE (MIRALAX) 17 GM PACK PO SCH ×2 (08:11→20:17)
[2016-12-09] MEDS: PANTOprazole INJ 40 MG in SYRINGE 0 ML IV SCH (08:11)
[2016-12-09 08:29] LABS: BUN/CREATININE RATIO 8.6 (10-20); CREATININE 0.49 mg/dl (0.60-1.20); POTASSIUM 4.4 mmol/L (3.5-5.1)
[2016-12-09] MEDS ORDERED: ERGOCALCIFEROL 50,000 INTER.UNIT CAP PO SCH (10:00)
[2016-12-09] MEDS: OXYCODONE HCL IR 5 MG TAB (IMMEDIATE RELEASE) PO PRN ×3 (10:42→20:17)
[2016-12-09] MEDS: CYANOCOBALAMIN 1000 MCG/ML VIAL IM SCH (10:42)
[2016-12-09] MEDS ORDERED: CHOLESTYRAMINE LIGHT 4 GM PKT PO ONE (12:16)
[2016-12-09 14:49] VITALS: BP 125/77; PULSE 58; TEMP 36.7; O2SAT 96
--- NOTE | 2016-12-09 16:27 | DIAGNOSTIC IMAGING REPORT ---
ABDOMEN 2 VIEWS CLINICAL HISTORY: Abdominal pain. History of gastric bypass. COMPARISON STUDY: 08/24/2014 FINDINGS: There is elevation right hemidiaphragm. No free air is visualized. There are surgical wallace and clips in the upper abdomen consistent with a prior gastric bypass. Surgical clips within the right upper quadrant likely representing prior cholecystectomy. There are mildly prominent gas-filled left upper quadrant small bowel loops, but there are no transition zones to indicate a high-grade bowel obstruction. There is scattered stool throughout the colon. IMPRESSION: 1. Postsurgical changes 2. Elevation right hemidiaphragm 3. Nonspecific bowel gas pattern with mildly prominent left upper quadrant small bowel loops. No conventional radiographic evidence of a high-grade bowel obstruction. No evidence of free air. Electronically signed by: Phuc Burton M.D. 12/09/2016 4:25 PM Dictated Date/Time: 12/09/2016 4:22 PM
[2016-12-09] MEDS: RIFAXIMIN TAB 550 MG TAB PO SCH (18:20)
--- NOTE | 2016-12-09 21:03 | Progress Note ---
Subjective Date of Service: Dec 09, 2016. Subjective Pt evaluation today including: conversation w/ patient, physical exam, chart review, lab review, review of studies (x-rays of abdomen), conversation w/ risk assessment consultant (GI), review of inpatient medication list Pain: continues with LUQ pain PO Intake: tolerating regular diet Voiding: no voiding problems reports ongoing "diarrhea" and that she was "up all night last night" because of diarrhea staff report that this cannot be confirmed and that she often flushes the toilet before staff can see the stool the stool has been reported to be pasty; patient states it is "greasy" and "bubbly" no nausea or emesis Problem List Medical Problems: (1) Acute chest pain Status: Acute (2) Chronic leukopenia Status: Acute (3) Dehydration Status: Acute (4) Diarrhea Status: Acute (5) Diffuse abdominal pain Status: Acute (6) Esophageal Reflux Status: Chronic (7) Fracture of fibula, distal, right, closed Status: Acute (8) Knee injury Status: Acute (9) PUD (peptic ulcer disease) Status: Chronic (10) Pyelonephritis Status: Acute Surgical Problems: (1) H/O esophagogastroduodenoscopy Status: Chronic Review of Systems Constitutional: No chills, No fever Respiratory: No shortness of breath Cardiac: No chest pain Abdomen: + diarrhea, + pain, + see HPI, No GI bleeding, No nausea, No vomiting Objective Vital Signs Date Time Temp Pulse Resp B/P Pulse Ox O2 Delivery O2 Flow Rate FiO2 12/09/16 16:00 Room Air 12/09/16 14:49 36.7 58 20 125/77 96 12/09/16 08:00 Room Air 12/09/16 07:06 36.5 59 20 153/79 98 12/09/16 00:00 Room Air 12/08/16 22:54 36.7 65 20 145/81 99 Room Air Physical Exam General Appearance: no apparent distress ENT: pharynx normal Neck: no JVD Respiratory/Chest: lungs clear, no respiratory distress, no accessory muscle use Cardiovascular: regular rate, rhythm, no gallop, no murmur Abdomen: normal bowel sounds, soft, no organomegaly, + distended (mild), + tenderness (LUQ) Extremities: no pedal edema Neurologic/Psychiatric: alert, oriented x 3 Skin: + pertinent finding (multiple tattoos) Comments: rectal (chaperoned by DRUM BARKER OPERATOR) - no fissures; one internal hemorrhoid, small, nontender; no masses; stool grossly normal with no blood; no fecal impaction. Laboratory Results Last 24 Hours Test 12/09/16 07:23 Erythrocyte Sedimentation Rate 2 mm/hr Sodium Level 143 mmol/L Potassium Level 4.4 mmol/L Chloride Level 111 mmol/L Carbon Dioxide Level 25 mmol/L Anion Gap 7.0 mmol/L Blood Urea Nitrogen 4 mg/dl Creatinine 0.49 mg/dl Est Creatinine Clear Calc Drug Dose 186.9 ml/min Estimated GFR () 117.7 Estimated GFR (Non- 101.5 BUN/Creatinine Ratio 8.6 Random Glucose 85 mg/dl Calcium Level 8.0 mg/dl Vitamin B12 Level 171 pg/mL 25-Hydroxy Vitamin D Total 13.4 ng/ml Folate 11.28 ng/mL Assessment and Plan 66yo female: 1. chronic LUQ abd pain - CT abd/pelvis at presentation with fecal stasis throughout the small bowel. No other pathology. Patient reporting copious "diarrhea." Stool cx and c diff negative. Fecal fat sent and pending. x-rays today with scattered stool but I don't see severe constipation. bile acid diarrhea with resulting pain? bacterial overgrowth? IBS? functional? narcotic related? other? questran started by GI today. in the event this is bacterial overgrowth will start rifaximin 550mg BID x 10 days. Monitor. EGD was normal; sed rate 2. 2. vit b12 def - 2nd to gastric bypass status. start b12 injections, 1000mcg daily x 7 days; then once weekly x 4 weeks; then monthly for life. 3. vit D def - ergocalciferol 94457 units twice weekly x 8 weeks. 4. 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 5. hypernatremia - resolved; stop fluids. 6. hepC status - noted. 7. mild protein calorie malnutrition - noted; MVI, boost, etc. 8. DVT proph - lovenox 40mg daily. Continued [facility] stay due to: other (abd pain) Discharge planning: home
[2016-12-09] MEDS ORDERED: ENOXAPARIN 40 MG/0.4 ML SYR SQ ONE (21:15)
[2016-12-09] MEDS: ZOLPIDEM TARTRATE 5 MG TAB PO PRN (21:29)
[2016-12-09] MEDS: CHOLESTYRAMINE LIGHT 4 GM PKT PO SCH (21:30)
[2016-12-09 23:20] VITALS: BP 152/85; PULSE 87; TEMP 36.5; O2SAT 96
[2016-12-10] MEDS: OXYCODONE HCL IR 5 MG TAB (IMMEDIATE RELEASE) PO PRN ×6 (00:18→21:13)
[2016-12-10] MEDS: RIFAXIMIN TAB 550 MG TAB PO SCH ×2 (06:14→16:58)
[2016-12-10 07:17] VITALS: BP 152/78; PULSE 60; TEMP 36.5; O2SAT 96
[2016-12-10] MEDS: CEROVITE ADV FORMULA TAB PO SCH (08:49)
[2016-12-10] MEDS: PANTOprazole SOD 40 MG TAB PO SCH (08:49)
[2016-12-10] MEDS: POLYETHYLENE (MIRALAX) 17 GM PACK PO SCH ×2 (08:50→20:09)
[2016-12-10] MEDS: BOOST VANILLA PO SCH ×4 (08:52→16:57)
[2016-12-10] MEDS: ENOXAPARIN 40 MG/0.4 ML SYR SQ SCH (08:54)
[2016-12-10] MEDS: CYANOCOBALAMIN 1000 MCG/ML VIAL IM SCH (08:58)
[2016-12-10] MEDS: CHOLESTYRAMINE LIGHT 4 GM PKT PO SCH ×2 (11:01→22:00)
[2016-12-10] MEDS: CARISOPRODOL 350 MG TAB PO SCH ×2 (13:12→20:09)
[2016-12-10] MEDS: METHYLNALTREXONE BROMIDE INJ 12 MG/0.6 ML SYR SQ SCH (13:16)
[2016-12-10 15:12] VITALS: BP 132/65; PULSE 88; TEMP 36.8; O2SAT 96
[2016-12-10 16:00] VITALS: O2SAT 96
[2016-12-10] MEDS: ZOLPIDEM TARTRATE 5 MG TAB PO PRN (21:12)
--- NOTE | 2016-12-10 21:32 | Progress Note ---
Subjective Date of Service: Dec 10, 2016. Subjective Pt evaluation today including: conversation w/ patient, physical exam, chart review, lab review, conversation w/ senior treasury consultant (GI) Pain: left side of abdomen mainly, and slight on right PO Intake: staff report she is eating despite the pain Voiding: no voiding problems continues to have "diarrhea like crazy - I was up all night with it" staff report some loose stool but they are not aware of copious diarrhea all night last night the stool is still "greasy and bubbly" no nausea she now has blood per rectum when she wipes feels bloated in her abdomen Problem List Medical Problems: (1) Acute chest pain Status: Acute (2) Chronic leukopenia Status: Acute (3) Dehydration Status: Acute (4) Diarrhea Status: Acute (5) Diffuse abdominal pain Status: Acute (6) Esophageal Reflux Status: Chronic (7) Fracture of fibula, distal, right, closed Status: Acute (8) Knee injury Status: Acute (9) PUD (peptic ulcer disease) Status: Chronic (10) Pyelonephritis Status: Acute Surgical Problems: (1) H/O esophagogastroduodenoscopy Status: Chronic Review of Systems Constitutional: No chills, No fever Respiratory: No shortness of breath Cardiac: No chest pain Abdomen: + pain, + see HPI Musculoskeletal: + problem reported (back pain - chronic) Objective Vital Signs Date Time Temp Pulse Resp B/P Pulse Ox O2 Delivery O2 Flow Rate FiO2 12/10/16 16:00 96 Room Air 12/10/16 15:12 36.8 88 20 132/65 96 12/10/16 08:00 Room Air 12/10/16 07:17 36.5 60 20 152/78 96 Room Air 12/10/16 04:02 Room Air 12/10/16 00:00 Room Air 12/09/16 23:20 36.5 87 18 152/85 96 Room Air Physical Exam General Appearance: no apparent distress ENT: pharynx normal Neck: no JVD Respiratory/Chest: lungs clear, no respiratory distress, no accessory muscle use Cardiovascular: regular rate, rhythm, no gallop, no murmur Abdomen: normal bowel sounds, no organomegaly, + distended (mild), + tenderness (LUQ) Extremities: no pedal edema Neurologic/Psychiatric: alert, + pertinent finding (anxious ) Laboratory Results Last 24 Hours Test 12/10/16 18:15 Assessment and Plan 66yo female: 1. chronic LUQ abd pain - CT abd/pelvis at presentation with fecal stasis throughout the small bowel. No other pathology. Patient reporting copious "diarrhea" with significant frequency but this has not been witnessed by staff. Stool cx and c diff negative. Fecal fat sent and pending. x-rays 12/09/16 with scattered stool and small amount of bowel dilatation in the left upper quadrant. bile acid diarrhea with resulting pain? bacterial overgrowth? IBS? celiac? other malabsorptive d/o? other? questran started by GI in the event this is bacterial overgrowth started rifaximin 550mg BID x 10 days --- today is day #2. EGD was normal; sed rate 2. send - * stool for giardia, O/P, and stool pH * check TTG to r/o celiac * consider stool for trypsin, chymotrypsin, etc but doubt she has pancreatic insufficiency will speak with GI again in am 2. vit b12 def - 2nd to gastric bypass status. started b12 injections, 1000mcg daily x 7 days; then once weekly x 4 weeks; then monthly for life. 3. vit D def - ergocalciferol 85731 units twice weekly x 8 weeks. 4. 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 5. hypernatremia - resolved. 6. hepC status - noted. Most recent HepC RNA was negative suggesting full clearance. 7. mild protein calorie malnutrition - noted; MVI, boost, etc. 8. DVT proph - lovenox 40mg daily. re-eval in AM recheck BMP in AM Continued [facility] stay due to: other (abd pain and ongoing diarrhea ) Discharge planning: home
[2016-12-11 00:07] VITALS: BP 111/66; PULSE 76; TEMP 36.5; O2SAT 94
[2016-12-11] MEDS: OXYCODONE HCL IR 5 MG TAB (IMMEDIATE RELEASE) PO PRN ×4 (01:43→15:06)
[2016-12-11] MEDS: RIFAXIMIN TAB 550 MG TAB PO SCH (06:09)
[2016-12-11 07:18] VITALS: BP 132/71; PULSE 65; TEMP 36.9; O2SAT 97
[2016-12-11 07:59] LABS: BUN/CREATININE RATIO 17.3 (10-20); CALCIUM 8.2 mg/dl (8.5-10.1); CREATININE 0.49 mg/dl (0.60-1.20); POTASSIUM 4.2 mmol/L (3.5-5.1)
[2016-12-11] MEDS: BOOST VANILLA PO SCH ×2 (08:46)
[2016-12-11] MEDS: CYANOCOBALAMIN 1000 MCG/ML VIAL IM SCH (08:49)
[2016-12-11] MEDS: PANTOprazole SOD 40 MG TAB PO SCH (08:50)
[2016-12-11] MEDS: CARISOPRODOL 350 MG TAB PO SCH ×2 (08:50→14:14)
[2016-12-11] MEDS: CEROVITE ADV FORMULA TAB PO SCH (08:50)
[2016-12-11] MEDS: POLYETHYLENE (MIRALAX) 17 GM PACK PO SCH (08:50)
[2016-12-11] MEDS: ENOXAPARIN 40 MG/0.4 ML SYR SQ SCH (08:51)
[2016-12-11] MEDS: CHOLESTYRAMINE LIGHT 4 GM PKT PO SCH (10:38)
[2016-12-11] MEDS ORDERED: NURSING VERBAL MED ORDER ONE (12:30)
[2016-12-11] MEDS ORDERED: ONDANSETRON INJ 2 MG/ML 2 ML VIAL IV PRN (12:45)
--- NOTE | 2016-12-11 13:55 | Progress Note ---
Progress Note Pt with continued nausea and diarrhea, symptoms seem unchanged from admit. Vital Signs Past 12 Hours Date Time Temp Pulse Resp B/P Pulse Ox O2 Delivery O2 Flow Rate FiO2 12/11/16 07:52 Room Air 12/11/16 07:18 36.9 65 18 132/71 97 Room Air 12/11/16 04:00 Room Air Appears comfortable - sitting by lunch tray, which is mostly eaten, and two empty yogurt containers. Abd - mild distention, non tender Labs reviewed A/P: Post RYGB Abd pain, diarrhea CT shows constipation - I believe that her diarrhea is from overflow, and that her abdominal pain is largely from dysmotility. I reviewed her prior imaging- it is possible that she has an anastamotic stricture at her distal enteroenteric anastamosis - there is some fecalization of her jejunum on her most recent CT, although I cannot precisely tell which SB loops are involved; also, prior CTs show mild dilation of her small intestine - but I think her symptom presentation at present is largely due to large bowel motility. - She appears to be tolerating PO quite well, per nursing reports, and labs do not show evidence of dehydration. She appears to be ok for d/c, but will defer to hospitalist regarding this. Would recommend completion of empiric therapy for SIB with Cipro 500 BID x 10 days; completion of miralax purge (1 bottle Miralax in 64 oz of Gatorade over 2 days); institution of maintenance laxative regimen with miralax and dulcolax. I also reviewed behavioral therapies for constipation - use of defecatory routine, squatty potty, abd massage, core strengthening exercises. She can f/u with us in clinic as needed, and may consider eventual enterography as outpt to again eval possibility of anastamotic stricture.
[2016-12-11] MEDS ORDERED: CIPR-255 PO (14:31)
[2016-12-11] MEDS ORDERED: CYNI1000 IM (14:31)
[2016-12-11] MEDS ORDERED: VTMD PO (14:31)
[2016-12-11] MEDS ORDERED: MRLP17 PO (14:31)
[2016-12-11] MEDS ORDERED: SM350 PO (14:31)
[2016-12-11] MEDS ORDERED: CNT PO (14:31)
--- NOTE | 2016-12-11 14:44 | Discharge Instructions ---
Discharge Instructions Admission Reason for Admission: Abdominal Pain Discharge Discharge Diagnosis / Problem: Abdominal pain likely due to severe/excess stool & gas in your colon Discharge Goals Goal(s): Decrease discomfort, Improve disease control, Learn about illness, Diagnostic testing, Therapeutic intervention Activity Recommendations Activity Limitations: resume your previous activity Driving or Machine Use: it is best not to drive if you are taking oxycodone / pain medication . Instructions / Follow-Up Instructions / Follow-Up From Dr. Fischer - 1. For your stool issues - * START miralax purge/prep first thing tomorrow AM * BUY 1 bottle of miralax and two 32 ounce gatorades * mix 1 capful of miralax in 8 ounces of gatorade * drink 1 glass of this mixture every 2 hours while awake on day #1 (Monday) * continue the same process on day #2 (Monday) * you will have consumed the entire bottle of miralax by the end of Monday evening * you will have large numbers of bowel movements with this "miralax purge" * starting Monday or of this week continue on a "bowel maintenance program" * take miralax 1 capful in 8 ounces of water/gatorade TWICE A DAY * take dulcolax by mouth daily or every other day * avoid use of immodium or pepto-bismal as this will make your problems worse * take cipro 500mg twice daily for 7 days; this will restore the normal, healthy "balance" of bacteria throughout your GI tract 2. There are numerous stool studies that have been sent out. These will take 1 week to return. We will contact you if any of these are abnormal. 3. Vitamin B12 deficiency - * you are scheduled to receive DAILY vitamin B12 injections this week - see the appointment information contained in this instruction sheet 4. Vitamin D deficiency - * take vitamin D capsule (ergocalciferol) 12156 units twice week (Mondays and Fridays) for 8 weeks * have your vitamin D and B12 levels rechecked in 2-3 months by your family doctor 5. Follow up appointments - * See Dr. Haynes's office tomorrow as scheduled * See the [facility] GI team in 1-2 weeks (ANA Schneider) Current Hospital Diet Patient's current hospital diet: Regular Diet Discharge Diet Recommended Diet: Regular Diet Procedures Procedures Performed: EGD - gastric pouch normal with no ulcer or irritation Pending Studies Studies pending at discharge: yes List of pending studies: stool studies Medical Emergencies . Who to Call and When: Medical Emergencies: If at any time you feel your situation is an emergency, please call 911 immediately. . Non-Emergent Contact Non-Emergency issues call your: Primary Care Provider Call Non-Emergent contact if: temperature is above 100.5, your pain is not controlled, your pain is worsening, your pain is unusual for you, your pain is concerning you, you have any medication questions . . "Provider Documentation" section prepared by Satya Fischer. VTE Core Measure Inpt VTE Proph given/why not?: SCD's
[2016-12-11 14:47] VITALS: BP 132/71; PULSE 65; TEMP 36.9; O2SAT 97
[2016-12-12] MEDS ORDERED: ONDA4TAB65 PO (15:54)
--- NOTE | 2016-12-12 15:58 | Progress Note ---
Progress Note Called by pt for missing rx. States she was to be sent with zofran yesterday but did not get a rx for this. Is having issues with bowel prep causing nausea. Zofran rx sent electronically to pharmacy confirmed by pt
--- NOTE | 2016-12-12 19:51 | Discharge Summary ---
Discharge Summary Admission Date: Dec 08, 2016 at 06:09 Discharge Date: Dec 11, 2016 Discharge Disposition: Home Principal Diagnosis: abdominal pain, thought 2nd to narcotic bowel Problems/Secondary Diagnoses: 1. gastric bypass status 2. vitamin B12 deficiency 3. vitamin D deficiency 4. 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 h/o PUD and GERD 6. h/o T2DM and HTN - presumably resolved in the setting of gastric bypass 7. hypernatremia - resolved 8. mild protein calorie malnutrition Immunizations: Have You Had Influenza Vaccine: No Influenza Vaccine Date: Sep 01, 2011 History of Tetanus Vaccine?: No Tetanus Immunization Date: Dec 29, 2001 History of Pneumococcal: Yes History of Hepatitis B Vaccine: Unknown Procedures: 1. CT abd/pelvis - IMPRESSION: 1. Surgically absent gallbladder and uterus. 2. Pneumobilia 3. Left-sided nephrolithiasis. No ureteral or bladder calculi identified 4. Postsurgical changes are prior gastric bypass. 5. Mildly dilated proximal small bowel loops with a small bowel feces sign. Stasis is suspected. There are no findings to indicate a high-grade bowel obstruction. There is no free air. 2. EGD - Jama Calle MD - Findings: The esophagus was normal. Evidence of a gastric bypass was found. A gastric pouch with a normal size was found. The gastrojejunal anastomosis was characterized by healthy appearing mucosa. The jejunojejunal anastomosis was characterized by healthy appearing mucosa. The examined jejunum was normal. Consultations: gastroenterology - Jama Calle MD Medication Reconciliation New Medications: Ciprofloxacin Hcl (Cipro) 500 Mg Tab 500 MG PO BID for 7 Days, #14 TAB 0 Refills Ondansetron Hcl (Zofran) 4 Mg Tab 4 MG PO PRN, #20 TAB Carisoprodol (Carisoprodol) 350 Mg Tab 350 MG PO TID, #1 TAB 0 Refills Cyanocobalamin (Cyanocobalamin) 1,000 Mcg/Ml Inj 1000 MCG IM DIRECTED, #1 0 Refills these will be provided at your family doctor's office Ergocalciferol (Vitamin D) 50,000 Interunit Cap 35203 INTERUNIT PO Mondays & Fridays, #8 CAP 1 Refill Multivitamins/Minerals (Certavite/Antioxidants) 1 Tab Tab 1 TAB PO QAM, #100 TAB 3 Refills Polyethylene (Miralax) 17 Gm Pow 17 GM PO DIRECTED, #1 BTL 1 Refill Continued Medications: Furosemide (Furosemide) 20 Mg Tab 20 MG PO DAILY PRN for Edema Gabapentin (Gabapentin) 600 Mg Tab 600 MG PO TID PRN for Pain Oxycodone HCl (Oxycodone HCl) 5 Mg Tab 5 MG PO QID Oxycodone Ir (Roxicodone Ir) 5 Mg Tab 5 MG PO Q6H PRN for Pain, TAB Potassium Chloride (Potassium Chloride Sr) 10 Meq Tab 10 MEQ PO DAILY pt only takes when takes lasix Zolpidem Tartrate (Zolpidem Tartrate) 10 Mg Tab 10 MG PO HS Referrals At Discharge Follow up Referrals: [facility] Referral - Please Call For Appointment with Keerthi Ding CRNP Discharge Exam Physical Exam: General Appearance: no apparent distress ENT: pharynx normal Neck: no JVD Respiratory/Chest: lungs clear, no respiratory distress, no accessory muscle use Cardiovascular: regular rate, rhythm, no gallop, no murmur, normal peripheral pulses Abdomen / GI: normal bowel sounds, non tender, soft, no organomegaly, + pertinent finding (old scar over abdominal wall ) Extremities: no pedal edema Neurologic/Psychiatric: alert, oriented x 3 Skin: + pertinent finding (tattoos) Hospital Course HISTORY OF PRESENT ILLNESS: Michelle Mckee is a 66 year old female with history of gastric bypass in 2000 who presented with left upper quadrant abdominal pain for approximately 5-6 weeks. She reports she was concerned she may have a bowel obstruction as she did after her bypass surgery, which she ended up needing an EGD for dilation. She reports she has felt abdominal distention and bloating but has not been vomiting. She woke up today and was dry heaving, writhing in pain, and so her daughter brought her in. She reports having at least 5-6 loose bowel movements each day for several weeks, described as "[place]." She denies any antibiotic use. HOSPITAL COURSE: The patient's GI symptoms were felt to be due to fecal stasis, likely as a result of narcotic bowel, as she had been taking oxycodone multiple times each day for several years. Bacterial overgrowth was also considered. She was seen in consultation by Meño STEWART and underwent EGD by Dr. Jama Calle to ensure her abdominal pain was not due to gastric pouch ulceration, an anastomotic ulcer or stricture, etc. The EGD was normal (see full report above). Stool studies were sent including stool culture and c. diff toxin both of which were negative. At discharge the following studies were pending - * TTG to exclude celiac disease * qualitative fecal fat * giardia antigen * stool pH * stool for O & P She was treated with relistor and other constipation aids during her stay with some relief of symptoms. A regular diet was tolerated without vomiting prior to discharge. At discharge the following was recommended: 1. completion of a 7-day course of cipro twice daily in the event some of her loose stools/bloating is due to bacterial overgrowth 2. miralax prep over 2 days, followed by bowel maintenance program with miralax & dulcolax 3. avoidance of immodium, pepto-bismol, etc She will follow-up with ANA Schneider, at [facility] to ensure resolution of all GI symptoms. Other issues addressed: 1. vitamin B12 deficiency - level was <200. She was given daily B12 injections , and was asked to resume daily injections starting on 12/12/16 at her PCP's office. After a week of daily injections recommend once weekly x 4 weeks, then monthly thereafter indefinitely due to gastric bypass status. 2. vitamin D deficiency - she was advised to take ergocalciferol 61770 units twice weekly for 2 months. Level was 13. All other medical problems including her chronic pain syndrome were stable while here. Total Time Spent: Greater than 30 minutes This includes examination of the patient, discharge planning, medication reconciliation, and communication with other providers. Discharge Instructions Please refer to the electronic Patient Visit Report (Discharge Instructions) for additional information. Follow-Up 1. see Dr. Justus Haynes's office for daily B12 injections for 5 days beginning 12/12/16 2. see ANA Schneider - [facility] - within 1-2 weeks 3. Ksenia Wolf PA-C on MondayDecember 13 at 11:00 am Additional Copies To Lorenza Mcgill M.D.; Justus Haynes M.D.; Jama Calle MD; Keerthi Ding CRNP; Ksenia WolfP.A.
[2016-12-20 14:31] LABS: O&P GIARDIA AG NOT DETECTED (NOT DETECTED); O&P SOURCE OTHER-STOOL; PH FECAL** TC 1304X 5.88 pH units (5.92-8.00)
[2017-05-13] MEDS ORDERED: MULT-890 PO (07:53)
[2017-05-13] MEDS ORDERED: CYNI1000 IM (07:53)
[2017-05-13] MEDS ORDERED: RXC5 PO (07:53)
[2017-05-13] MEDS ORDERED: LVNIS40 SQ (07:53)
[2017-05-13] MEDS ORDERED: CALCTAB7 PO (07:53)
[2017-05-13] MEDS ORDERED: ERGO1CAP41 PO (07:53)
[2017-08-10] MEDS ORDERED: POTA10TA33 PO (13:42)
== END 2016-12-11 15:05 | disposition home or self-care (01) ==
LOC: ENRESERVDT → ENRESERVTM → EDBD 02:57 → C.EDB 02:58 → C.MS2W 06:09
PROVIDERS: ADMIT Internal Medicine; ATTEND Internal Medicine
DX: R10.12 Left upper quadrant pain (principal); E53.8 Deficiency of other specified B group vitamins; E55.9 Vitamin D deficiency, unspecified; E87.0 Hyperosmolality and hypernatremia; E44.1 Mild protein-calorie malnutrition; M47.816 Spondylosis without myelopathy or radiculopathy, lumbar region; R19.7 Diarrhea, unspecified; K59.00 Constipation, unspecified; K21.9 Gastro-esophageal reflux disease without esophagitis; I10 Essential (primary) hypertension; B18.2 Chronic viral hepatitis C; F17.200 Nicotine dependence, unspecified, uncomplicated; Z51.81 Encounter for therapeutic drug level monitoring; Z79.899 Other long term (current) drug therapy; Z79.891 Long term (current) use of opiate analgesic; Z98.84 Bariatric surgery status; Z66 Do not resuscitate; Z86.79 Personal history of other diseases of the circulatory system; Z86.39 Personal history of other endocrine, nutritional and metabolic disease; Z87.11 Personal history of peptic ulcer disease; Z87.19 Personal history of other diseases of the digestive system; Z82.49 Family history of ischemic heart disease and other diseases of the circulatory system; Z83.3 Family history of diabetes mellitus

== ENCOUNTER 2017-01-30 21:02 | Emergency (ER) | payer OTHER ==
[~2017-01-30] VITALS: Ht 177.8 cm; Wt 78.4 kg
[~2017-01-30 21:02] MED LIST changes: +CIPR-255 PO; +CNT PO; +CYNI1000 IM; -MELO15TA4 PO; +MRLP17 PO; -ONDA4TAB10 SL; +SM350 PO; +VTMD PO
[2017-01-30 21:28] VITALS: TEMP 36.7; Ht 177.8 cm; Wt 78.4 kg
[2017-01-30] MEDS ORDERED: KETOROLAC TROMETHAMINE 60 MG/2 ML VIAL IM STA (21:42)
[2017-01-30] MEDS ORDERED: CYCLOBENZAPRINE HCL 10 MG TAB PO STA (21:42)
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
[2017-01-30 22:19] VITALS: BP 153/90
--- NOTE | 2017-01-30 22:32 | DIAGNOSTIC IMAGING REPORT ---
CT OF THE HEAD WITHOUT CONTRAST CLINICAL HISTORY: Headache. COMPARISON STUDY: Head CT January 18, 2015 and MRI of the brain January 19, 2015. CT DOSE: 537.48 mGy.cm TECHNIQUE: Helical axial images of the head were obtained without IV contrast. Automated exposure control was utilized for the study. FINDINGS: No acute intracranial hemorrhage, midline shift or mass effect is present. Ventricular system is normal. Basilar cisterns are patent. There are no extra-axial collections. Lyon-white differentiation is maintained. There are no CT findings to suggest acute dural sinus thrombosis or acute territorial infarct. Visualized portions of the sinuses and mastoid air cells are clear. IMPRESSION: No acute intracranial findings. Electronically signed by: Sukhwinder Mix M.D. 01/30/2017 10:31 PM Dictated Date/Time: 01/30/2017 10:29 PM
[2017-01-30] MEDS ORDERED: IBUP-1428 PO (23:09)
[2017-01-30] MEDS ORDERED: CYCL10TA6 PO (23:09)
[2017-01-30 23:44] VITALS: PULSE 70; O2SAT 97
[2017-05-13] MEDS ORDERED: ERGO1CAP41 PO (07:53)
[2017-05-13] MEDS ORDERED: CALCTAB7 PO (07:53)
[2017-05-13] MEDS ORDERED: CYNI1000 IM (07:53)
[2017-05-13] MEDS ORDERED: LVNIS40 SQ (07:53)
[2017-05-13] MEDS ORDERED: MULT-890 PO (07:53)
[2017-05-13] MEDS ORDERED: RXC5 PO (07:53)
[2017-08-10] MEDS ORDERED: POTA10TA33 PO (13:42)
== END 2017-01-30 23:46 | disposition home or self-care (01) ==
LOC: C.EDB 21:03
DX: G44.209 Tension-type headache, unspecified, not intractable (principal); R42 Dizziness and giddiness; R11.0 Nausea; I10 Essential (primary) hypertension; G89.29 Other chronic pain; R10.9 Unspecified abdominal pain; B18.2 Chronic viral hepatitis C; F32.9 Major depressive disorder, single episode, unspecified; E11.9 Type 2 diabetes mellitus without complications; K21.9 Gastro-esophageal reflux disease without esophagitis; K56.0 Paralytic ileus; G62.9 Polyneuropathy, unspecified; K27.9 Peptic ulcer, site unspecified, unspecified as acute or chronic, without hemorrhage or perforation; R91.1 Solitary pulmonary nodule; F17.200 Nicotine dependence, unspecified, uncomplicated; Z90.710 Acquired absence of both cervix and uterus; Z98.84 Bariatric surgery status; Z83.3 Family history of diabetes mellitus; Z82.49 Family history of ischemic heart disease and other diseases of the circulatory system

== ENCOUNTER → 2017-02-14 | Outpatient (CLI) | payer OTHER ==
[~2017-02-14] MED LIST changes: +CALCTAB7 PO; +CEPH500C PO; -CIPR-255 PO; -CNT PO; +ERGO1CAP41 PO; +ERGO500037 PO; +KETO10TA PO; +LVNIS40 SQ; -MRLP17 PO; +MULT-890 PO; +OXYC-164 PO; -OXYC-609 PO; -OXYC1TAB3 PO; +RXC5 PO; -SM350 PO; -VTMD PO; +ZOLP10TA6 PO
[2017-02-14 13:03] LABS: URINE APPEARANCE CLEAR (CLEAR); URINE BILIRUBIN NEG (NEG); URINE COLOR YELLOW; URINE NITRITE NEG (NEG); URINE SPECIFIC GRAVITY 1.018 (1.000-1.030); UROBILINOGEN NEG (NEG)
[2017-02-14 13:07] LABS: MANUAL MICROSCOPIC REQUIRED? NO; REVIEW REQ? NO
== END | disposition home or self-care (01) ==
LOC: C.LABBFT 09:05
PROVIDERS: ATTEND Physician Assistant Medical
DX: R35.0 Frequency of micturition (principal)

== ENCOUNTER 2017-05-09 15:41 | Inpatient (IN) | payer OTHER ==
[~2017-05-09] VITALS: Ht 177.8 cm; Wt 75.0 kg
[~2017-05-09 15:41] MED LIST changes: -CALCTAB7 PO; -CEPH500C PO; -CYNI1000 IM; -ERGO1CAP41 PO; -ERGO500037 PO; -KETO10TA PO; -LSX20 PO; -LVNIS40 SQ; -MULT-890 PO; -OXYC-164 PO; -POTA10TA33 PO; -RXC5 PO; -ZOLP10TA6 PO
[2017-05-09] MEDS ORDERED: SODIUM CHLORIDE 0.9% 1000ML 1,000 ML IV STA (15:53)
[2017-05-09] MEDS ORDERED: HYDROmorphone INJ 1 MG/ML SYR IV STA ×4 (15:53→18:40)
[2017-05-09] MEDS ORDERED: KETOROLAC TROMETHAMINE 30 MG/ML VIAL IV STA (15:53)
[2017-05-09] MEDS ORDERED: ONDANSETRON INJ 2 MG/ML 2 ML VIAL IV STA (15:53)
--- NOTE | 2017-05-09 16:10 | EMERGENCY ROOM VISIT NOTE ---
History Report prepared by Antoinette: Delmis Hart Under the Supervision of: Dr. Rell Nazario M.D. First contact with patient: 15:48 Chief Complaint: HIP PAIN Stated Complaint: FALL, HIP PAIN History of Present Illness The patient is a 66 year old female who presents to the Emergency Room with complaints of constant right hip pain secondary to a fall occurring COREMAKER BENCH. The patient states that she fell down 4-5 cement stairs two days ago and landed on her right hip. This afternoon she was trying to take the garbage out and she fell down the cement stairs again. She estimates that she fell down 4 stairs today and landed on her right hip. The patient is currently complaining of severe right hip pain that is worsened with movement. She does not take any blood thinners. She denies any other injury. She denies any alcohol use. The patient was brought to the ED by ambulance. Source of History: patient Onset: COREMAKER BENCH Position: other (right hip) Symptom Intensity: severe Timing: constant Modifying Factors (Worsening): movement Note: The patient denies any other injury. Review of Systems See HPI for pertinent positives & negatives. A total of 10 systems reviewed and were otherwise negative. Past Medical & Surgical Medical Problems: (1) Abdominal pain (2) Abdominal wall cellulitis (3) Abdominal wall cellulitis (4) Abdominal wall fluid collections (5) AMS - resolved suspect prescription medication abuse (6) Arm pain, left (7) Benign hypertension (8) Bypass gastroenterostomy (9) Cervical strain (10) Cholecystectomy (11) Chronic abdominal pain (12) Chronic hepatitis C (13) Closed head injury (14) Concussion (15) Contusion of hip (16) Depressive disorder (17) Diabetes mellitus type 2 (18) Esophageal Reflux (19) Hysterectomy (20) Knee contusion (21) Knee contusion (22) Left wrist fracture (23) Pain in wrist (24) Paralytic ileus (25) Polyneuropathy (26) Postoperative pain (27) Postoperative pain of extremity (28) Postoperative pain of extremity (29) Postoperative wound infection (30) PUD (peptic ulcer disease) (31) Pulmonary nodule (32) Shoulder contusion (33) Shoulder contusion (34) Suprapubic abdominal pain (35) Suprapubic abdominal pain (36) Urinary retention (37) Urinary tract infection (38) UTI (urinary tract infection) (39) UTI (urinary tract infection) (40) UTI (urinary tract infection) Surgical Problems: (1) H/O esophagogastroduodenoscopy (2) History of gastric bypass Family History Diabetes mellitus Hypertension Social History Smoking Status: Current Every Day Smoker Alcohol Use: none Drug Use: none, other Marital Status: in relationship Housing Status: lives with significant other Occupation Status: disabled Current/Historical Medications Scheduled Zolpidem Tartrate (Zolpidem Tartrate), 10 MG PO HS Scheduled PRN Gabapentin (Gabapentin), 600 MG PO TID PRN for Pain Allergies Coded Allergies: Tramadol (Verified Allergy, Mild, nausea, hives, 01/30/17) Iodinated Diagnostic Agents (Verified Allergy, Unknown, ANAPHYLACTIC REACTION, 01/30/17) Lisinopril (Verified Allergy, Unknown, FEELS LIKE SOMETHING IS CRAWLING ON HER., 01/30/17) Acetaminophen (Verified Adverse Reaction, Mild, VOMITING, 01/30/17) Physical Exam Vital Signs Date Time Temp Pulse Resp B/P (MAP) Pulse Ox O2 Delivery O2 Flow Rate FiO2 05/09/17 18:29 87 18 147/81 95 Room Air 05/09/17 18:01 83 16 139/95 94 Room Air 05/09/17 16:51 76 16 137/70 93 Room Air 05/09/17 16:15 76 05/09/17 16:13 76 18 174/88 95 Room Air 05/09/17 15:59 96 Room Air 05/09/17 15:50 36.6 82 16 149/88 96 Room Air Physical Exam GENERAL: Patient is a healthy-appearing well-nourished female. Tearful on exam. HEAD: Normocephalic atraumatic EYES: Ocular movements intact pupils equal and react to light OROPHARYNX mucous membranes are moist no exudates present no erythema or edema present NECK: Supple no nuchal rigidity CHEST: Good equal expansion LUNGS: Clear and equal to auscultation CARDIAC: Normal S1 and S2 ABDOMEN: Soft nontender no guarding BACK: No CVA tenderness EXTREMITIES: Severe bruising to the right hip area, 3/5 strength of the right hip, right foot in neurovascularly intact. NEURO: Patient is following commands and answering questions appropriately. Alert and oriented x3 Cranial Nerves 2-12 grossly intact Medical Decision & Procedures ER Provider Diagnostic Interpretation: Radiology results as stated below per my review and radiologist interpretation: PELVIS 1 OR 2 VIEW ROUTINE, RIGHT FEMUR 2 VIEWS ROUTINE CLINICAL HISTORY: Pt c/o Rt hip pain COMPARISON STUDY: Pelvis 01/18/2015. FINDINGS: Right femoral neck fracture which demonstrates mild superior displacement. The femoral head remains within the acetabulum. The pelvic bones and left hip show no fracture or dislocation the bones are osteopenic. No fractures within the distal right femur. IMPRESSION: Mild displaced right femoral neck fracture Electronically signed by: Raul Abreu M.D. 05/09/2017 4:56 PM Dictated Date/Time: 05/09/2017 4:48 PM PELVIS 1 OR 2 VIEW ROUTINE, RIGHT FEMUR 2 VIEWS ROUTINE CLINICAL HISTORY: Pt c/o Rt hip pain COMPARISON STUDY: Pelvis 01/18/2015. FINDINGS: Right femoral neck fracture which demonstrates mild superior displacement. The femoral head remains within the acetabulum. The pelvic bones and left hip show no fracture or dislocation the bones are osteopenic. No fractures within the distal right femur. IMPRESSION: Mild displaced right femoral neck fracture Electronically signed by: Raul Abreu M.D. 05/09/2017 4:56 PM Dictated Date/Time: 05/09/2017 4:48 PM CHEST ONE VIEW PORTABLE HISTORY: Hip fracture. Preop. COMPARISON: Chest 12/08/2016. FINDINGS: Mild elevation of the right hemidiaphragm, unchanged. Epigastric surgical clips and suture material are again noted. The heart remains mildly enlarged. No pleural effusions. No pneumothorax. No new focal lung consolidations. No evidence for pulmonary edema. Mild interstitial thickening is likely chronic. Old, healed left-sided rib fractures. Stable 1.2 cm left upper lobe nodule. IMPRESSION: No significant change compared to the prior study. No acute process. Additional findings as described above. Electronically signed by: Raul Abreu M.D. 05/09/2017 5:45 PM Dictated Date/Time: 05/09/2017 5:43 PM Laboratory Results 05/09/17 16:05 Red Blood Count 3.46, Mean Corpuscular Volume 94.2, Mean Corpuscular Hemoglobin 31.8, Mean Corpuscular Hemoglobin Concent 33.7, Mean Platelet Volume 10.2, Neutrophils (%) (Auto) 69.7, Lymphocytes (%) (Auto) 19.0, Monocytes (%) (Auto) 9.5, Eosinophils (%) (Auto) 1.1, Basophils (%) (Auto) 0.5, Neutrophils # (Auto) 3.09, Lymphocytes # (Auto) 0.84, Monocytes # (Auto) 0.42, Eosinophils # (Auto) 0.05, Basophils # (Auto) 0.02 05/09/17 16:05 Test 05/09/17 15:45 05/09/17 16:05 Bedside Glucose 98 mg/dl (70-90) White Blood Count 4.43 K/uL (4.8-10.8) Red Blood Count 3.46 M/uL (4.2-5.4) Hemoglobin 11.0 g/dL (12.0-16.0) Hematocrit 32.6 % (37-47) Mean Corpuscular Volume 94.2 fL (80-100) Mean Corpuscular Hemoglobin 31.8 pg (25-34) Mean Corpuscular Hemoglobin Concent 33.7 g/dl (32-36) Platelet Count 258 K/uL (130-400) Mean Platelet Volume 10.2 fL (7.4-10.4) Neutrophils (%) (Auto) 69.7 % Lymphocytes (%) (Auto) 19.0 % Monocytes (%) (Auto) 9.5 % Eosinophils (%) (Auto) 1.1 % Basophils (%) (Auto) 0.5 % Neutrophils # (Auto) 3.09 K/uL (1.4-6.5) Lymphocytes # (Auto) 0.84 K/uL (1.2-3.4) Monocytes # (Auto) 0.42 K/uL (0.11-0.59) Eosinophils # (Auto) 0.05 K/uL (0-0.5) Basophils # (Auto) 0.02 K/uL (0-0.2) RDW Standard Deviation 50.6 fL (36.4-46.3) RDW Coefficient of Variation 15.1 % (11.5-14.5) Immature Granulocyte % (Auto) 0.2 % Immature Granulocyte # (Auto) 0.01 K/uL (0.00-0.02) Prothrombin Time 11.0 SECONDS (9.0-12.0) Prothromb Time International Ratio 1.0 (0.9-1.1) Anion Gap 6.0 mmol/L (3-11) Est Creatinine Clear Calc Drug Dose 117.3 ml/min Estimated GFR () 116.1 Estimated GFR (Non- 100.2 BUN/Creatinine Ratio 14.7 (10-20) Calcium Level 7.3 mg/dl (8.5-10.1) Total Bilirubin 0.6 mg/dl (0.2-1) Direct Bilirubin 0.2 mg/dl (0-0.2) Aspartate Amino Transf (AST/SGOT) 48 U/L (15-37) Alanine Aminotransferase (ALT/SGPT) 42 U/L (12-78) Alkaline Phosphatase 189 U/L (45-117) Total Protein 5.5 gm/dl (6.4-8.2) Albumin 2.4 gm/dl (3.4-5.0) 25-Hydroxy Vitamin D Total 36.9 ng/ml (30-100) Ethyl Alcohol mg/dL < 3.0 mg/dl (0-3) Labs reviewed by ED physician. Medications Administered Medications (Trade) Dose Ordered Sig/Rocky Route Start Time Stop Time Status Last Admin Dose Admin Sodium Chloride 1,000 ml @ 999 mls/hr Q1H1M STAT IV 05/09/17 15:53 05/09/17 16:53 DC 05/09/17 16:11 999 MLS/HR Hydromorphone HCl (Dilaudid Inj) 1 mg NOW STAT IV 05/09/17 15:53 05/09/17 15:55 DC 05/09/17 16:11 1 MG Ketorolac Tromethamine (Toradol Inj) 30 mg NOW STAT IV 05/09/17 15:53 05/09/17 15:55 DC 05/09/17 16:12 30 MG Ondansetron HCl (Zofran Inj) 4 mg NOW STAT IV 05/09/17 15:53 05/09/17 15:55 DC 05/09/17 16:11 4 MG Hydromorphone HCl (Dilaudid Inj) 1 mg NOW STAT IV 05/09/17 16:34 05/09/17 16:36 DC 05/09/17 16:44 1 MG Metoclopramide HCl (Reglan Inj) 10 mg NOW STAT IV 05/09/17 16:34 05/09/17 16:36 DC 05/09/17 16:50 10 MG Hydromorphone HCl (Dilaudid Inj) 1 mg NOW STAT IV 05/09/17 17:04 05/09/17 17:05 DC 05/09/17 17:25 1 MG Hydromorphone HCl (Dilaudid Inj) 1 mg NOW STAT IV 05/09/17 18:40 05/09/17 18:42 DC 05/09/17 18:52 1 MG Promethazine HCl 25 mg/Sodium Chloride 51 ml @ 204 mls/hr NOW STAT IV 05/09/17 18:40 05/09/17 18:54 DC 05/09/17 19:16 204 MLS/HR Oxycodone HCl (Roxicodone Immediate Rel Tab) 5 mg Q4H PRN PO 05/09/17 18:45 05/23/17 18:44 05/09/17 20:40 5 MG Hydromorphone HCl (Dilaudid Inj) 0.5 mg Q20M PRN IV 05/09/17 18:45 05/23/17 18:44 05/09/17 22:27 0.5 MG ECG Indication: other Rate (beats per minute): 78 Rhythm: normal sinus Findings: no acute ischemic change, no ectopy ED Course 1548: Past medical records reviewed. The patient was evaluated in room A12A. A complete history and physical examination was performed. 1553: Zofran 4 mg IV, Toradol 30 mg IV, Dilaudid 1 mg IV, NSS 1000 ml @ 999 mls/ hr IV 1634: Reglan 10 mg IV, Dilaudid 1 mg IV 1701: I updated the patient on her results. She is still having pain. 1704: Dilaudid 1 mg IV 1718: I spoke with Dr. Guevara of orthopedics. We discussed the patient's case and he will evaluate her in the hospital for further management. 1730: I reassessed the patient at this time. I discussed the results and treatment plan with the patient. I answered all pertaining questions that she had. She expressed understanding and verbalized agreement. 1759: I spoke with Dr. Kendrick Pastor. We discussed the patients case, and the patient will be evaluated by the [facility] for further management. Medical Decision Differential diagnosis: Etiologies such as fracture, dislocation, neurovascular compromise, compartment syndrome, soft tissue injury, as well as others were entertained. Medication Reconciliation: I attest that I have personally reviewed the patient' s current medication list Blood pressure Screening: Patient was found to have a slightly elevated blood pressure due to circumstances. I do not believe that the patient requires hypertension monitoring. This is a 66-year-old female who presents emergency department complaining of right hip pain. Due to the nature the patient's pain the patient was sent for x -rays of her femur and pelvis. This was concerning for an intertrochanteric neck femoral fracture. I did discuss the case with both the hospitalist service as well as the orthopedic service. Patient was given multiple doses of Dilaudid 3 fully catheter was placed. Patient was in agreement with treatment plan. Consults Time Called: 171 Consulting Physician: Dr. Guevara Returned Call: [phone] Guevara of orthopedics. We discussed the patient's case and he will evaluate her in the hospital for further management. Additional Consults: Time Called: 1721 Consulted Physician: Dr. Kendrick Dorantes Returned Call: [phone] Additional Comments: I spoke with Dr. Kendrick Pastor. We discussed the patients case, and the patient will be evaluated by the [facility] for further management. Impression Primary Impression: Fall Additional Impression: Hip fracture, right Scribe Attestation The scribe's documentation has been prepared under my direction and personally reviewed by me in its entirety. I confirm that the note above accurately reflects all work, treatment, procedures, and medical decision making performed by me. Departure Information Dispostion Being Evaluated By Hospitalist Referrals Justus Haynes M.D. (PCP) Patient Instructions My [facility] Problem Qualifiers Primary Impression: Fall Encounter type: initial encounter Qualified Codes: W19.XXXA - Unspecified fall, initial encounter Additional Impression: Hip fracture, right Encounter type: initial encounter Fracture type: closed Qualified Codes: S72.001A - Fracture of unspecified part of neck of right femur, initial encounter for closed fracture
[2017-05-09 16:22] LABS: BASO % 0.5 %; BASO ABS # 0.02 K/uL (0-0.2); COMPLETE YES; EOS % 1.1 %; HEMATOCRIT 32.6 % (37-47); IG% 0.2 %; LYMPH ABS # 0.84 K/uL (1.2-3.4); MEAN CELL VOLUME 94.2 fL (80-100); MEAN CORPUSCULAR HEMOGLOBIN 31.8 pg (25-34); MEAN CORPUSCULAR HGB CONC 33.7 g/dl (32-36); MEAN PLATELET VOLUME 10.2 fL (7.4-10.4); MONO % 9.5 %; NEUT % 69.7 %; PLATELET COUNT 258 K/uL (130-400); RED BLOOD COUNT 3.46 M/uL (4.2-5.4); WHITE BLOOD COUNT 4.43 K/uL (4.8-10.8)
[2017-05-09] MEDS ORDERED: METOCLOPRAMIDE HCL INJ 5 MG/ML 2 ML VIAL IV STA (16:34)
[2017-05-09 16:42] LABS: BUN/CREATININE RATIO 14.7 (10-20); CALCIUM 7.3 mg/dl (8.5-10.1); CREATININE 0.51 mg/dl (0.60-1.20); POTASSIUM 3.3 mmol/L (3.5-5.1)
--- NOTE | 2017-05-09 16:57 | DIAGNOSTIC IMAGING REPORT ---
PELVIS 1 OR 2 VIEW ROUTINE, RIGHT FEMUR 2 VIEWS ROUTINE CLINICAL HISTORY: Pt c/o Rt hip pain COMPARISON STUDY: Pelvis 01/18/2015. FINDINGS: Right femoral neck fracture which demonstrates mild superior displacement. The femoral head remains within the acetabulum. The pelvic bones and left hip show no fracture or dislocation the bones are osteopenic. No fractures within the distal right femur. IMPRESSION: Mild displaced right femoral neck fracture Electronically signed by: Raul Abreu M.D. 05/09/2017 4:56 PM Dictated Date/Time: 05/09/2017 4:48 PM
--- NOTE | 2017-05-09 17:46 | DIAGNOSTIC IMAGING REPORT ---
CHEST ONE VIEW PORTABLE HISTORY: Hip fracture. Preop. COMPARISON: Chest 12/08/2016. FINDINGS: Mild elevation of the right hemidiaphragm, unchanged. Epigastric surgical clips and suture material are again noted. The heart remains mildly enlarged. No pleural effusions. No pneumothorax. No new focal lung consolidations. No evidence for pulmonary edema. Mild interstitial thickening is likely chronic. Old, healed left-sided rib fractures. Stable 1.2 cm left upper lobe nodule. IMPRESSION: No significant change compared to the prior study. No acute process. Additional findings as described above. Electronically signed by: Raul Abreu M.D. 05/09/2017 5:45 PM Dictated Date/Time: 05/09/2017 5:43 PM
[2017-05-09] MEDS ORDERED: PROMETHAZINE HCL INJ 25 MG in SODIUM CHLORIDE 0.9% 50ML 50 ML IV STA (18:40)
[2017-05-09] MEDS ORDERED: ONDANSETRON INJ 2 MG/ML 2 ML VIAL IV PRN (18:45)
[2017-05-09] MEDS ORDERED: NALOXONE HCL 0.4 MG/1 ML VIAL/CARP IV PRN (18:45)
[2017-05-09] MEDS ORDERED: HYDROmorphone INJ 0.5 MG/0.5 ML SYR IV PRN (18:45)
[2017-05-09] MEDS ORDERED: GABAPENTIN 600 MG TAB PO PRN (19:00)
[2017-05-09] MEDS ORDERED: HYDROmorphone INJ 1 MG/ML SYR IV PRN (19:00)
[2017-05-09] MEDS ORDERED: ALUMINUM/MAGNESIUM/SIMETH (MAALOX MAX) 30 ML UDC PO PRN (19:00)
[2017-05-09] MEDS ORDERED: MAGNESIUM HYDROXIDE SUSP 30 ML UDC PO PRN (19:00)
[2017-05-09] MEDS ORDERED: DIGOXIN IV 250 MCG in SYRINGE 9 ML IV ONE (19:00)
[2017-05-09] MEDS ORDERED: ACETAMINOPHEN 325 MG TAB PO PRN (19:00)
[2017-05-09] MEDS ORDERED: POLYETHYLENE (MIRALAX) 17 GM PACK PO PRN (19:30)
--- NOTE | 2017-05-09 19:43 | DIAGNOSTIC IMAGING REPORT ---
RIGHT HIP UNILATERAL 1 VIEW CLINICAL HISTORY: fracture Right COMPARISON STUDY: Right femur 05/09/2017. FINDINGS: Crosstable lateral view the right hip was submitted. The right femoral neck fracture is not well visualized due to the overlapping soft tissue. IMPRESSION: The right femoral neck fracture is not well visualized due to the overlapping soft tissue. Electronically signed by: Raul Abreu M.D. 05/09/2017 7:41 PM Dictated Date/Time: 05/09/2017 7:40 PM
--- NOTE | 2017-05-09 19:58 | History and Physical ---
History & Physical Date & Time of Service: May 09, 2017 at 18:59 Chief Complaint: Fall, Hip Pain Primary Care Physician: Justus Haynes M.D. History of Present Illness Source: patient, clinic records, hospital records This patient is a 66-year-old female that presents to the emergency department complaining of severe right hip pain for the last 2-1/2 days. The patient reports having 2 falls, the first being 2-1/2 days ago. She reports falling down for cement steps and landing on her right hip. She had a similar fall today while trying to take out the trash down the same steps. Her pain is worse with ambulation. She does admit that she felt slightly off balance the other day. She attributes this to drinking a large amount of Pepsi that day. She has a history of type 2 diabetes and does not typically drink Pepsi. When she does, she sometimes gets dizzy. She did not check her blood sugars at home. She cannot find her glucometer. Her symptoms have resolved. She denies any chest pain or pressure. No heart palpitations. No recent illnesses. Workup in the emergency department reveals a right femoral neck fracture. Orthopedics has been consulted. Pending clearance from medicine, there is plan for surgical repair in the morning. Of note, the patient is supposed to be taking a vitamin D supplement once weekly. She is also supposed to be taking vitamin B12 injections. 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 She has not been compliant with these medications as of late. Past Medical/Surgical History History of chronic back pain History of narcotic seeking behavior History of hepatitis C-treated Depression Diabetes-diet controlled Status post gastric bypass procedure Vitamin D and D deficiency Insomnia Status post gastric bypass as noted above, appendectomy, cholecystectomy, hysterectomy, carpal tunnel surgery Family History Diabetes mellitus Hypertension Social History Smoking Status: Current Every Day Smoker (smokes one to 2 packs of cigarettes per day) Alcohol Use: occasionally Drug Use: none, other Marital Status: , in relationship Housing status: lives with family, other Occupational Status: retired, disabled Immunizations History of Influenza Vaccine: No Influenza Vaccine Date: Sep 01, 2011 History of Tetanus Vaccine?: No Tetanus Immunization Date: Dec 29, 2001 History of Pneumococcal: Yes History of Hepatitis B Vaccine: Unknown Multi-Drug Resistant Organisms History of MDRO: No Allergies Coded Allergies: Tramadol (Verified Allergy, Mild, nausea, hives, 01/30/17) Iodinated Diagnostic Agents (Verified Allergy, Unknown, ANAPHYLACTIC REACTION, 01/30/17) Lisinopril (Verified Allergy, Unknown, FEELS LIKE SOMETHING IS CRAWLING ON HER., 01/30/17) Acetaminophen (Verified Adverse Reaction, Mild, VOMITING, 01/30/17) Home Medications Scheduled Zolpidem Tartrate (Zolpidem Tartrate), 10 MG PO HS Scheduled PRN Gabapentin (Gabapentin), 600 MG PO TID PRN for Pain Review of Systems 10 system review performed and negative unless noted in HPI or below Physical Exam Vital Signs Date Time Temp Pulse Resp B/P (MAP) Pulse Ox O2 Delivery O2 Flow Rate FiO2 05/09/17 18:29 87 18 147/81 95 Room Air 05/09/17 18:01 83 16 139/95 94 Room Air 05/09/17 16:51 76 16 137/70 93 Room Air 05/09/17 16:15 76 05/09/17 16:13 76 18 174/88 95 Room Air 05/09/17 15:59 96 Room Air 05/09/17 15:50 36.6 82 16 149/88 96 Room Air General Appearance: + mild distress (appears to be in mild pain) Head: normocephalic Eyes: EOMI Neck: no JVD Respiratory/Chest: lungs clear Cardiovascular: regular rate, rhythm Abdomen/GI: normal bowel sounds, non tender, soft Extremities/Musculoskelatal: + pertinent finding (no edema appreciated in the lower extremity is bilaterally. Right lower extremity is slightly shorter than the left. Right lower extremity is also externally rotated. Distal pulses intact bilaterally.) Neurologic/Psych: no motor/sensory deficits, oriented x 3 Skin: warm/dry Diagnostics Laboratory Results Results Past 24 Hours Test 05/09/17 16:05 Range/Units White Blood Count 4.43 4.8-10.8 K/uL Red Blood Count 3.46 4.2-5.4 M/uL Hemoglobin 11.0 12.0-16.0 g/dL Hematocrit 32.6 37-47 % Mean Corpuscular Volume 94.2 80-100 fL Mean Corpuscular Hemoglobin 31.8 25-34 pg Mean Corpuscular Hemoglobin Concent 33.7 32-36 g/dl Platelet Count 258 130-400 K/uL Mean Platelet Volume 10.2 7.4-10.4 fL Neutrophils (%) (Auto) 69.7 % Lymphocytes (%) (Auto) 19.0 % Monocytes (%) (Auto) 9.5 % Eosinophils (%) (Auto) 1.1 % Basophils (%) (Auto) 0.5 % Neutrophils # (Auto) 3.09 1.4-6.5 K/uL Lymphocytes # (Auto) 0.84 1.2-3.4 K/uL Monocytes # (Auto) 0.42 0.11-0.59 K/uL Eosinophils # (Auto) 0.05 0-0.5 K/uL Basophils # (Auto) 0.02 0-0.2 K/uL RDW Standard Deviation 50.6 36.4-46.3 fL RDW Coefficient of Variation 15.1 11.5-14.5 % Immature Granulocyte % (Auto) 0.2 % Immature Granulocyte # (Auto) 0.01 0.00-0.02 K/uL Prothrombin Time 11.0 9.0-12.0 SECONDS Prothromb Time International Ratio 1.0 0.9-1.1 Sodium Level 146 136-145 mmol/L Potassium Level 3.3 3.5-5.1 mmol/L Chloride Level 112 98-107 mmol/L Carbon Dioxide Level 28 21-32 mmol/L Anion Gap 6.0 3-11 mmol/L Blood Urea Nitrogen 7 7-18 mg/dl Creatinine 0.51 0.60-1.20 mg/dl Est Creatinine Clear Calc Drug Dose 117.3 ml/min Estimated GFR () 116.1 Estimated GFR (Non- 100.2 BUN/Creatinine Ratio 14.7 10-20 Random Glucose 82 70-99 mg/dl Calcium Level 7.3 8.5-10.1 mg/dl Total Bilirubin 0.6 0.2-1 mg/dl Direct Bilirubin 0.2 0-0.2 mg/dl Aspartate Amino Transf (AST/SGOT) 48 15-37 U/L Alanine Aminotransferase (ALT/SGPT) 42 12-78 U/L Alkaline Phosphatase 189 45-117 U/L Total Protein 5.5 6.4-8.2 gm/dl Albumin 2.4 3.4-5.0 gm/dl Ethyl Alcohol mg/dL < 3.0 0-3 mg/dl Diagnostic Radiology Patient: BRANDY REINA Address1: [address] [place] [address] Rec: [id number] Address2: Acct ID: [id number] [facility] Zip: [place] [address] Date: 1950 Sex: F Room/Bed: Ref Phy: Justus Haynes M.D. SC: JALEN Att Phy: Report #: [id number] Mattie Phy: Justus Haynes M.D. Test: CXR1P Admit Phy: Inseam Trimmer: JUAN JOSE Interpreting Phy: Raul Abreu MD Diagnosis: FALL, HIP PAIN Ordering Phy: Rell Nazario MD Service Date: 05/09/17 Admit Date: 05/09/17 MNE: PWRSCRIBE CONF: DICTATED BY: Raul Abreu M.D.]] CC: Rell Nazario, Justus Hale M.D. Endcc: [~ rep ct add3]] CHEST ONE VIEW PORTABLE HISTORY: Hip fracture. Preop. COMPARISON: Chest 12/08/2016. FINDINGS: Mild elevation of the right hemidiaphragm, unchanged. Epigastric surgical clips and suture material are again noted. The heart remains mildly enlarged. No pleural effusions. No pneumothorax. No new focal lung consolidations. No evidence for pulmonary edema. Mild interstitial thickening is likely chronic. Old, healed left-sided rib fractures. Stable 1.2 cm left upper lobe nodule. IMPRESSION: No significant change compared to the prior study. No acute process. Additional findings as described above. Electronically signed by: Raul Abreu M.D. 05/09/2017 5:45 PM Dictated Date/Time: 05/09/2017 5:43 PM The status of this report is Signed. Draft = Not yet reviewed or approved by Radiologist. Signed = Reviewed and approved by Radiologist. Patient: BRANDY REINA Address1: [address] [place] [address] Rec: [id number] Address2: Acct ID: [id number] [facility] Zip: [place] [address] Date: 1950 Sex: F Room/Bed: Ref Phy: Justus Haynes M.D. SC: JALEN Kc Phy: Report #: [id number] Mattie Phy: Justus Haynes M.D. Test: HIP1 Admit Phy: Inseam Trimmer: CARMINA Interpreting Phy: Raul Abreu MD Diagnosis: FALL, HIP PAIN Ordering Phy: Jayjay Guevara M.D. Service Date: 05/09/17 Admit Date: 05/09/17 MNE: PWRSCRIBE CONF: DICTATED BY: Raul Abreu M.D.]] CC: Rell Nazario MD Hester, Christopher E., M.D. Sherbondy, Paul S., M.D. Endcc: [~ rep ct add3]] RIGHT HIP UNILATERAL 1 VIEW CLINICAL HISTORY: fracture Right COMPARISON STUDY: Right femur 05/09/2017. FINDINGS: Crosstable lateral view the right hip was submitted. The right femoral neck fracture is not well visualized due to the overlapping soft tissue. IMPRESSION: The right femoral neck fracture is not well visualized due to the overlapping soft tissue. Electronically signed by: Raul Abreu M.D. 05/09/2017 7:41 PM Dictated Date/Time: 05/09/2017 7:40 PM The status of this report is Signed. Draft = Not yet reviewed or approved by Radiologist. Signed = Reviewed and approved by Radiologist. Impression Assessment and Plan 66 y/o female presenting to the emergency department complaining of severe right hip pain after 2 falls this week down 4-5 concrete steps. Found to have a right femoral neck fracture on x-ray. The patient does admit to feeling slightly off balance during the initial fall. It is possible that this is related to hyperglycemia as it has happened in the patient in the past when she indulges and drinking soda. Right hip fracture -Given the fact that the patient would never ambulate without surgical intervention, the benefit of surgery outweigh the risks; therefore, the patient is cleared to proceed with surgical intervention tomorrow -Dr. Guevara evaluated the patient in the emergency Department. Plan for OR in am -NPO after midnight -Check vitamin D level -Check vitamin B12 level -Begin vitamin D 50,000 units biweekly -Dilaudid 1 mg IV every 2 hours as needed for pain -PT/OT planning Chronic pain/diabetic neuropathy -Continue gabapentin 600 mg 3 times daily DM II-diet controlled -follow BSGs AC, HS and with meals -insulin sliding scale -check HgbA1C Mild hypernatremia/hypokalemia-likely secondary to dehydration -received NS 1 L bolus in ED -replete KCl 40 mg po x 1 -recheck PRP in am Insomnia -Continue Ambien 10 mg as needed at night Pulmonary nodule-noted and stable Tobacco abuse -encourage cessation DVT prophylaxis -Teds, SCDs for now. Chemical means will be held with the anticipation of surgery in the AM CODE STATUS -LEVEL I FULL CODE This chart was completed in part utilizing [employer] Speech Voice Recognition software. Attempts were made to minimize the grammatical errors, random word insertions, pronoun errors and incomplete sentences. Any formal questions or concerns about the content, text or information contained within the body of this dictation should be directly addressed to the provider for clarification. I personally and independently interviewed and examined the patient I reviewed labs and imaging I agree with above mentioned physical exam, History and ROS I discussed and formulated the assessment and plan with Mrs. Rodriguez 68-year-old female S/P recurrent mechanical fall and right hip fracture rest of ROS is positive for cough and syncope PE as above assessment: S/P fall with Right hip fracture (groud level , osteoporosis related) Plan: despite of her surgical risk, benefits out ways the risk and thus patient is cleared for surgical intervention in am Prosper Pastor [facility] Hospitalist Level of Care Med/Surg Resuscitation Status FULL RESUSCITATION VTE Prophylaxis VTE Risk Assessment Done? Y/N: Yes Risk Level: Moderate Given or contraindicated: T.E.D. Stockings, SCD's, Contraindicated
[2017-05-09 20:00] VITALS: BP 136/84; PULSE 76; TEMP 36.9; O2SAT 94; Ht 177.8 cm; Wt 75.0 kg
[2017-05-09] MEDS ORDERED: POTASSIUM CHLORIDE 10 MEQ TABCR PO SCH (20:00)
--- NOTE | 2017-05-09 20:16 | ORTHOPEDIC CONSULTATION ---
DATE OF CONSULTATION: 05/09/2017 CHIEF COMPLAINT: Right hip pain. HISTORY OF PRESENT ILLNESS: The patient is a 66-year-old female, who reports that she fell 2 days ago down 4 steps because her blood sugar was high and she lost her balance. She had pain in her right hip along with bruising. She was able to continue to walk, although she states she had pain in her right hip and she could not walk very far, but she was bearing full weight. She subsequently fell again today down several steps and was unable to walk. She lost her balance going down the steps because of pain in her right leg. She has no prior history of right hip injuries. PAST MEDICAL HISTORY: She has neuropathy. She may have a low bone density and she had diabetes in the past and she thinks it may have come back. She had a blood clot in her leg many, many years ago, but it is unclear whether this was actually a deep venous thrombosis or hematoma. She had it removed with surgery. PAST SURGICAL HISTORY: She states that surgically she has had hernias repaired in her abdomen, gallbladder removed, hysterectomy and a gastric bypass weight loss-type of surgery performed. MEDICATIONS: She takes vitamins, Ambien and gabapentin. ALLERGIES: TYLENOL CAUSES UPSET STOMACH. TRAMADOL GIVES HER A RASH. SHE ALSO HAS LISTED ALLERGIES TO IODINATED DIAGNOSTIC AGENTS AND LISINOPRIL. SOCIAL HISTORY: She states that she drinks rarely and she started smoking 1-2 packs of cigarettes a day, 3 years ago. She occasionally smoked prior to that. She is a retired hairdresser. REVIEW OF SYSTEMS: She is not having any issues with bleeding, recurrent infections drug resistant infections, MRSA or metal sensitivity. PHYSICAL EXAMINATION: She is awake and alert, responses to questions appropriately. She has full movement of the cervical spine and both upper extremities. She has no lumbar tenderness. Her pelvis is stable to compression and distraction. She has tenderness in the right hip area. There is a bluish and purple ecchymosis over a large area of the right hip, lateral and posterior. Her right leg is shortened and externally rotated. She reports altered sensation in both of her legs, more so on the right versus the left. She can feel light touch, but it does not feel normal. She has 2+ dorsalis pedis and posterior tib pulses. She can flex and extend her ankle and toes bilaterally with normal strength. She can do a leg lift on the left side and bend her knee, but other than moving her ankle, she cannot do anything on the right side. DIAGNOSTIC IMAGING: Radiographs of the pelvis, right hip and femur show a displaced midcervical femoral neck fracture. There is no arthritis. She radiographically appears to have diminished bone density. There is no fracture elsewhere of the femur. There is no hip arthritis. IMPRESSION: Right femoral neck fracture. PLAN: Findings are discussed. I have recommended that she be admitted to the hospital. Pain control. The geriatric fracture program pathway. I have recommended operative intervention. She agrees to proceed. The plan will be for a bipolar hemiarthroplasty, cemented versus uncemented. We discussed the benefits of hip replacement surgery including early ambulatory mobility. We discussed risks of surgery including, leg length inequality, instability, wearing out or malfunctioning or breakage of the implant, a possible need for further surgery. There is a risk of things like infection, bleeding, pain, scarring, blood vessel injury, blood clots, embolisms, heart attack, stroke or . She will be made n.p.o. after midnight. She is not on any blood thinners. She received a preop dose of intravenous antibiotics. Mechanical devices will be utilized for DVT prophylaxis along with a pillow between her knees. She will eventually need assessment for fall precautions, education as well as a home safety education and balance/fall prevention program, osteoporosis assessment. Currently, she will need decubitus precautions and pain control. LABORATORY DATA: Her white count is 4, hemoglobin 11, hematocrit 33, platelet count 258. INR is 1. Chemistry shows sodium 146, potassium 3.3, creatinine is 0.5, total protein and albumin are low. AST is 48. Her alcohol was less than 3.0. MTDD
--- NOTE | 2017-05-09 20:24 | Anesthesiology Progress Note ---
Anesthesia Progress Note Date of Service May 09, 2017. Progress Notes The patient is a 66 y/o female scheduled for R hip bipolar hemiarthroplasty tomorrow. She fell down steps today with no LOC. PMH includes smoking, hepatitis C, GERD, diet controlled DM, anemia, and depression. The patient had a gastric bypass several in 2010 and was active prior to her fall. Her CXR shows NAD with mild elevated R hemidiaphragm and a long nodule. Her EKG shows NSR with nonspecific ST changes. Labs are significant for hgb 11 and potassium of 3.3. On exam the patient has MP 1 airway with good neck extension. She has upper and lower dentures. Her lungs are clear. Her heart is RRR and she is negative for carotid bruits. The patient was consented for both general anesthesia and spinal anesthesia which will be determined tomorrow. She was counseled to remain NPO after 2300 except for sips of water with pills.
[2017-05-09] MEDS: OXYCODONE HCL IR 5 MG TAB (IMMEDIATE RELEASE) PO PRN (20:40)
[2017-05-09] MEDS: ZOLPIDEM TARTRATE 10 MG TAB PO SCH (20:44)
[2017-05-09] MEDS ORDERED: INSULIN ASPART 100 UNITS/ML 3 ML PEN SC SCH (21:00)
[2017-05-09] MEDS: DOCUSATE SODIUM/SENNA 50/8.6MG TAB PO SCH (21:00)
[2017-05-09] MEDS: HYDROmorphone INJ 0.5 MG/0.5 ML SYR IV PRN (22:27)
[2017-05-09 22:45] LABS: URINE APPEARANCE CLEAR (CLEAR); URINE BILIRUBIN NEG (NEG); URINE COLOR DK YELLOW; URINE EPITHELIAL CELL AUTO >30 /lpf (0-5); URINE NITRITE NEG (NEG); URINE PH 5.5 (4.5-7.5); URINE SPECIFIC GRAVITY 1.022 (1.000-1.030); UROBILINOGEN NEG (NEG)
[2017-05-09 22:49] LABS: MANUAL MICROSCOPIC REQUIRED? NO; REVIEW REQ? YES
[2017-05-09 23:51] VITALS: BP 130/71; PULSE 82; TEMP 36.6; O2SAT 95
[2017-05-10] VITALS (9 sets, daily range): BP systolic 97–143; BP diastolic 59–82; PULSE 54–99; TEMP 36.6–38.3; O2SAT 96–99
[2017-05-10] MEDS: HYDROmorphone INJ 0.5 MG/0.5 ML SYR IV PRN ×5 (00:49→17:21)
[2017-05-10] MEDS ORDERED: NURSING DECISION MEDICATION ORDER SCH (01:00)
[2017-05-10] MEDS: OXYCODONE HCL IR 5 MG TAB (IMMEDIATE RELEASE) PO PRN ×4 (05:06→23:45)
[2017-05-10] MEDS: INSULIN ASPART 100 UNITS/ML 3 ML PEN SC SCH ×3 (05:56→18:00)
[2017-05-10] MEDS ORDERED: CEFAZOLIN IV 2,000 MG in DEXTROSE 5% 50ML 50 ML IV SCH (06:00)
[2017-05-10] MEDS ORDERED: CEFAZOLIN 2000 MG/60 ML D5W IV SCH (06:00)
[2017-05-10] MEDS ORDERED: BUPIVACAINE 0.5 % 5 MG/1 ML PF 10ML VIAL ONE ×2 (06:24→06:58)
[2017-05-10] MEDS ORDERED: MIDAZOLAM HCL 1 MG/ML 2ML VIAL ONE (06:38)
[2017-05-10] MEDS ORDERED: FENTANYL CITRATE INJ 50 MCG/1 ML 2 ML VIAL ONE (06:38)
--- NOTE | 2017-05-10 06:38 | History & Physical Bridge Note ---
H&P Re-Evaluation Bridge Note: I have examined the patient, reviewed the History & Physical and in the interval since the performance of the History & Physical I have noted the following changes of clinical significance: No changes noted
[2017-05-10] MEDS ORDERED: HYDROmorphone INJ 2 MG/ML SYR/VIAL ONE (08:03)
[2017-05-10] MEDS ORDERED: DEXAMETHASONE SOD INJ 4 MG/ML VIAL ONE (08:16)
[2017-05-10] MEDS ORDERED: GLYCOPYRROLATE INJ 0.2 MG/ML VIAL ONE (08:16)
[2017-05-10] MEDS ORDERED: ONDANSETRON INJ 2 MG/ML 2 ML VIAL ONE (08:16)
[2017-05-10] MEDS ORDERED: LIDOCAINE HCL 2% 2 ML VIAL (20MG/ML) ONE (08:16)
[2017-05-10] MEDS ORDERED: PROPOFOL IV EMULSION 10 MG/ML 20 ML VIAL IV ONE (08:16)
[2017-05-10] MEDS ORDERED: NEOSTIGMINE METHYLSULFATE 5 MG/5 ML SYR ONE (08:16)
[2017-05-10] MEDS ORDERED: ROCURONIUM BROMIDE 10 MG/ML 5 ML VIAL ONE (08:16)
[2017-05-10] MEDS ORDERED: EpHEDrine SULFATE INJ 50 MG/ML AMP IV PRN (08:30)
[2017-05-10] MEDS ORDERED: ATROPINE SULFATE 0.1 MG/ML 5ML SYR IV PRN (08:30)
[2017-05-10] MEDS ORDERED: ONDANSETRON INJ 2 MG/ML 2 ML VIAL IV PRN (08:30)
[2017-05-10] MEDS ORDERED: BACITRACIN 50000 UNIT VIAL IR ONE (08:39)
[2017-05-10] MEDS ORDERED: ERGOCALCIFEROL 50,000 INTER.UNIT CAP PO SCH (09:00)
[2017-05-10] MEDS ORDERED: BUPIVACAINE 0.5 % 5 MG/1 ML MPF 30ML VIAL ONE (09:58)
[2017-05-10] MEDS ORDERED: LIDOCAINE/EPINEPHRINE 1% 20 ML VIAL ONE (09:58)
--- NOTE | 2017-05-10 10:00 | [facility] Operative Report ---
Operative Report Operative Date May 10, 2017. Pre-Operative Diagnosis Right Femoral Neck Fracture Post-Operative Diagnosis same Procedure(s) Performed right hip hemiarthroplasty Surgeon Dr. Jayjay Guevara Meter Installer And Remover Surgeon(s) Lul Mckeon PA-C Findings same Specimens A. Right Femoral Head Drains none Anesthesia spinal Complication(s) None Disposition Recovery Room / PACU Indications sustained injury to right hip, xrays obtained, surgery recommended, consents signed Description of Procedure taken to the OR, prepped and draped, I was present the entire case, please see Dr. Guevara's op note for further detail. I attest to the content of the Intraoperative Record and any orders documented therein. Any exceptions are noted below.
[2017-05-10] MEDS ORDERED: MAGNESIUM HYDROXIDE SUSP 30 ML UDC PO PRN (10:15)
[2017-05-10] MEDS ORDERED: BISACODYL 10 MG SUPP PR PRN (10:15)
[2017-05-10] MEDS ORDERED: SOD PHOSPHATE/SOD BIPHOSPHATE ENEMA 132 ML BTL PR PRN (10:15)
--- NOTE | 2017-05-10 10:20 | [facility] Post Operative Brief Note ---
Immediate Operative Summary Operative Date May 10, 2017. Pre-Operative Diagnosis Right Femoral Neck Fracture Post-Operative Diagnosis Right Femoral Neck Fracture Procedure(s) Performed Right Hip Bipolar Hemiarthroplasty Surgeon Dr. Jayjay Guevara Property Management Intern Surgeon(s) Lul Mckeon PA-C, angelina hartmann Estimated Blood Loss 50ml Findings femoral neck fracture Specimens A. Right Femoral Head Drains 0 Anesthesia general Complication(s) None Disposition Recovery Room / PACU
[2017-05-10] MEDS: FENTANYL CITRATE INJ 50 MCG/1 ML 2 ML VIAL IV PRN ×4 (10:51→11:04)
[2017-05-10] MEDS: HYDROmorphone INJ 1 MG/ML SYR IV PRN ×4 (11:09→11:24)
--- NOTE | 2017-05-10 11:14 | OPERATIVE REPORT ---
DATE OF OPERATION: 05/10/2017 PREOPERATIVE DIAGNOSIS: Right femoral neck fracture. POSTOPERATIVE DIAGNOSIS: Same. PROCEDURE: Cemented right hip bipolar hemiarthroplasty. SURGEON: Dr. Guevara. BROOMCORN PRESS FEEDER: Dr. Alonso Borrego. SECOND BROOMCORN PRESS FEEDER: Lul Mckeon PA-C. ANESTHESIA: General. INDICATIONS FOR PROCEDURE: The patient is a 66-year-old female status post fall resulting in a displaced right femoral neck fracture. She has been admitted to the hospital, cleared and evaluated by medicine, and is here for surgical fixation. PROCEDURE IN DETAIL: Informed consent was obtained, the patient identified as Michelle Mckee. She identified the operative site as the right hip, I marked it with my initials. A preop surgical timeout was performed. A preop dose of IV antibiotics was given. She was taken to the operating room, positioned supine on the operating room table. Spinal anesthetic was attempted but not successful. A general anesthetic was given. She was positioned decubitus with the right side up. The Stulberg positioner was utilized. An axillary roll was inserted. Bony prominences were inspected and padded. Her right leg supine was a centimeter shorter than the left which was perhaps 1.5 cm in the lateral position. The entire right lower extremity was prepped and draped in the usual sterile fashion. There was a large bluish black and purple bruise over the buttocks and right upper lateral thigh. DVT prophylaxis intraoperatively with SCDs, postoperatively early mobility, mechanical devices and Lovenox. The procedure began by performing a posterior approach to the hip using approximately 15-20 cm incision. Electrocautery was utilized down through the 2-inch adipose layer until the abductor mechanism was identified which was then divided in line with the incision. The short external rotators were then released off the proximal femur. The gemelli were tied for later repair. A capsulotomy was performed and preserved for later repair. The femoral neck fracture was evident. After dividing the iliotibial band, it was noted that there was serosanguineous fluid collected consistent with a small hematoma which was evacuated. The femoral head was removed from the acetabulum and sized to a 50. The ligamentum teres was transected near the acetabulum. The labrum was intact circumferentially. The 50 trial was assessed and found to have good stability and fit. The neck cutting guide was applied. The hemalatha was made and the cut was then made approximately 1 fingerbreadth above the lesser trochanter. Box cutting guide, followed by the canal finder and lateralizing reamer. Broaching began at size 9 and proceeded up to size 15, at which point the broach could not be countersunk and there was good fit and fill and no rotational laxity. The calcar was planed and trialing was performed with reasonable stability with the 0 neck length. The canal was plugged 1.5 cm distal to the tip of the implant. The canal was prepared with pulse lavage and dried. This was followed by retrograde fill and pressurization using 2 bags of Simplex P cement in a doughy liquidy state. The implant was then inserted, taking care to avoid varus positioning and placed into approximately 20-25 degrees of anteversion which is the position of broaching. After the cement had hardened and extraneous cement was dried, trialing again was performed. There was a shuck in extension and in mid position which was eliminated by going up to the +3.5 neck length. The neck was cleaned and the head shell and liner were applied. The acetabulum was inspected. All soft tissues were irrigated. The hip was reduced. The leg lengths at this time showed lengthening of about a centimeter. There was a negative shuck in full extension and mid position. The hip could be internally rotated 45 degrees in abduction and flexion and about 30 degrees in adduction and flexion prior to any tendency for dislocation to occur. Irrigation was performed. Because of her IODINE ALLERGY, we did not use Ioban or iodine solution. The external rotators were repaired to the joint capsule after the joint capsule was repaired back to the greater trochanter using stitches pass through the bone and the hip abductor tendon. The skin was closed in layers with 0 and 2-0 Vicryl to eliminate space. This was preceded by closure on the gluteal fascia with a running #1 Vicryl and the IT band with interrupted #2 FiberWire. #1 Vicryl was utilized on the gluteal fascia. The leg was cleaned with wet and dry sponges. A soft sterile dressing was applied along with an abduction pillow. The patient awoke from anesthesia without difficulty, taken to recovery in stable condition. Resected bone was sent for specimen. Counts were correct at the end of case. Blood loss was approximately 50 mL. At the conclusion of the operation, there was no one available to speak to. Components inserted were a Kevin LDFX size 14 stem, a 50 mm outer diameter bipolar shell, a 28 mm +3.5 head, and a distal cementralizer 13 mm plus appropriate bipolar polyethylene liner. The distal cementralizer was affixed to the implant with cement prior to insertion. The plan will be for DVT prophylaxis with Lovenox, hip precautions, rehab, PT and OT, probable correction facility versus acute care rehab. Will need fall prevention program as well as osteoporosis assessment and workup. I attest to the content of the Intraoperative Record and any orders documented therein. Any exceptions are noted below. [facility]
--- NOTE | 2017-05-10 11:20 | DIAGNOSTIC IMAGING REPORT ---
AP PELVIS, CROSSTABLE LATERAL RIGHT HIP History: Right hip hemiarthroplasty. Degenerative arthritis. Postop. FINDINGS: The patient is status post a right hip hemiarthroplasty. The hardware is intact. No fracture or dislocation. Skin wallace are in place. IMPRESSION: Right hip hemiarthroplasty. No evidence for hardware complication Electronically signed by: Raul Abreu M.D. 05/10/2017 11:19 AM Dictated Date/Time: 05/10/2017 11:18 AM
--- NOTE | 2017-05-10 11:44 | Anesthesiology Progress Note ---
Anesthesia Post Op Note Date & Time May 10, 2017 at 11:43 Vital Signs Pain Intensity: 4 Vital Signs Past 12 Hours Date Time Temp Pulse Resp B/P (MAP) Pulse Ox O2 Delivery O2 Flow Rate FiO2 05/10/17 11:35 36.4 50 16 113/54 99 Nasal Cannula 2 05/10/17 11:25 66 16 103/49 100 Nasal Cannula 2 05/10/17 11:15 48 16 101/53 100 Nasal Cannula 2 05/10/17 11:05 55 16 123/64 100 Nasal Cannula 2 05/10/17 10:55 50 16 113/53 100 Nasal Cannula 2 05/10/17 10:45 70 16 131/61 100 Mask 10 05/10/17 10:35 63 16 125/56 100 Mask 10 05/10/17 10:27 36.7 80 16 135/84 100 Mask 10 05/10/17 06:04 36.7 78 16 143/79 (100) 97 Room Air 05/09/17 23:51 36.6 82 16 130/71 (90) 95 Room Air Notes Mental Status: alert / awake / arousable, participated in evaluation Pt Amnestic to Procedure: Yes Nausea / Vomiting: adequately controlled Pain: adequately controlled Airway Patency, RR, SpO2: stable & adequate BP & HR: stable & adequate Hydration State: stable & adequate Anesthetic Complications: no major complications apparent
[2017-05-10] MEDS: KETOROLAC TROMETHAMINE 15 MG/ML VIAL IV. SCH ×3 (12:12→23:45)
[2017-05-10] MEDS: SODIUM CHLORIDE 0.9% 1000ML 1,000 ML IV SCH ×2 (12:12→20:02)
--- NOTE | 2017-05-10 15:29 | Progress Note ---
Subjective Date of Service: May 10, 2017. Subjective Pt evaluation today including: conversation w/ patient, physical exam, chart review, lab review, review of studies, conversation w/ solar sales consultant, review of inpatient medication list Has procedure done this morning Pain fairly controlled No complaining Deny fever and chill Denied chest pain Problem List Medical Problems: (1) Acute chest pain Status: Acute (2) Chronic leukopenia Status: Acute (3) Dehydration Status: Acute (4) Diarrhea Status: Acute (5) Diffuse abdominal pain Status: Acute (6) Esophageal Reflux Status: Chronic (7) Fall Status: Acute (8) Fracture of fibula, distal, right, closed Status: Acute (9) Headache Status: Acute (10) Hip fracture, right Status: Acute (11) Knee injury Status: Acute (12) PUD (peptic ulcer disease) Status: Chronic (13) Pyelonephritis Status: Acute Surgical Problems: (1) H/O esophagogastroduodenoscopy Status: Chronic Review of Systems Constitutional: No fever, No chills, No sweats, No weight loss, No weakness, No fatigue, No problem reported Eyes: No worsening of vision, No eye pain, No redness, No discharge, No diplopia ENT: No hearing loss, No unusual epistaxis, No nasal symptoms, No sore throat, No tinnitus, No dental problems, No trouble swallowing Respiratory: No cough, No sputum, No wheezing, No shortness of breath, No dyspnea on exertion, No dyspnea at rest, No hemoptysis Cardiac: No chest pain, No orthopnea, No PND, No edema, No claudication, No palpitations Abdomen: No pain, No nausea, No vomiting, No diarrhea, No constipation Musculoskeletal: + joint pain, No muscle pain, No swelling, No calf pain Female : No dysuria, No urinary frequency, No hematuria, No incontinence, No abnormal vaginal bleeding, No vaginal discharge Neurologic: No memory loss, No paralysis, No weakness, No numbness/tingling, No vertigo, No balance problems Psychiatric: No depression symptoms, No anhedonism, No anxiety, No insomnia, No substance abuse Heme: No abnormal bleeding/bruising, No clotting problems, No swollen lymph nodes, No night sweats Endo: No fatigue, No excessive thirst, No excessive urination Skin: No rash, No itch, No new/changing skin lesions, No color change, No bleeding Objective Vital Signs Date Time Temp Pulse Resp B/P (MAP) Pulse Ox O2 Delivery O2 Flow Rate FiO2 05/10/17 14:00 78 16 109/61 (77) 99 2.0 05/10/17 13:03 78 16 134/74 (94) 99 2.0 05/10/17 12:30 54 16 122/82 (95) 98 2.0 05/10/17 12:00 36.6 55 16 97/59 (72) 96 Nasal Cannula 2.0 05/10/17 12:00 96 Nasal Cannula 2.0 05/10/17 12:00 96 Room Air 2.0 05/10/17 11:35 36.4 50 16 113/54 99 Nasal Cannula 2 05/10/17 11:25 66 16 103/49 100 Nasal Cannula 2 05/10/17 11:15 48 16 101/53 100 Nasal Cannula 2 05/10/17 11:05 55 16 123/64 100 Nasal Cannula 2 05/10/17 10:55 50 16 113/53 100 Nasal Cannula 2 05/10/17 10:45 70 16 131/61 100 Mask 10 05/10/17 10:35 63 16 125/56 100 Mask 10 05/10/17 10:27 36.7 80 16 135/84 100 Mask 10 05/10/17 06:04 36.7 78 16 143/79 (100) 97 Room Air 05/09/17 23:51 36.6 82 16 130/71 (90) 95 Room Air 05/09/17 23:20 Room Air 05/09/17 20:00 36.9 76 18 136/84 94 Room Air 05/09/17 19:30 81 19 142/80 05/09/17 19:16 144/74 98 Room Air 05/09/17 19:00 89 20 156/79 94 Room Air 05/09/17 18:29 87 18 147/81 95 Room Air 05/09/17 18:01 83 16 139/95 94 Room Air 05/09/17 16:51 76 16 137/70 93 Room Air 05/09/17 16:15 76 05/09/17 16:13 76 18 174/88 95 Room Air 05/09/17 15:59 96 Room Air 05/09/17 15:50 36.6 82 16 149/88 96 Room Air Physical Exam General Appearance: WD/WN, no apparent distress, + thin, + pertinent finding ( local mild pale) Eyes: normal inspection, PERRL, EOMI, sclerae normal ENT: normal ENT inspection, hearing grossly normal, pharynx normal Neck: supple, no adenopathy, thyroid normal, no JVD, no carotid bruits, trachea midline Respiratory/Chest: chest non-tender, normal breath sounds, no respiratory distress, no accessory muscle use, + decreased breath sounds Cardiovascular: regular rate, rhythm, no edema, no gallop, no JVD, no murmur Abdomen: normal bowel sounds, non tender, soft, no organomegaly, no pulsatile mass Extremities: normal range of motion, non-tender, normal inspection, no pedal edema, no calf tenderness, normal capillary refill, pelvis stable Neurologic/Psychiatric: 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, no motor/sensory deficits, alert, normal mood/affect, oriented x 3 Skin: normal color, warm/dry, no rash Lymphatic: no adenopathy Laboratory Results Last 24 Hours Test 05/09/17 15:45 05/09/17 16:05 05/09/17 20:20 05/09/17 22:30 Bedside Glucose 98 mg/dl White Blood Count 4.43 K/uL Red Blood Count 3.46 M/uL Hemoglobin 11.0 g/dL Hematocrit 32.6 % Mean Corpuscular Volume 94.2 fL Mean Corpuscular Hemoglobin 31.8 pg Mean Corpuscular Hemoglobin Concent 33.7 g/dl Platelet Count 258 K/uL Mean Platelet Volume 10.2 fL Neutrophils (%) (Auto) 69.7 % Lymphocytes (%) (Auto) 19.0 % Monocytes (%) (Auto) 9.5 % Eosinophils (%) (Auto) 1.1 % Basophils (%) (Auto) 0.5 % Neutrophils # (Auto) 3.09 K/uL Lymphocytes # (Auto) 0.84 K/uL Monocytes # (Auto) 0.42 K/uL Eosinophils # (Auto) 0.05 K/uL Basophils # (Auto) 0.02 K/uL RDW Standard Deviation 50.6 fL RDW Coefficient of Variation 15.1 % Immature Granulocyte % (Auto) 0.2 % Immature Granulocyte # (Auto) 0.01 K/uL Prothrombin Time 11.0 SECONDS Prothromb Time International Ratio 1.0 Sodium Level 146 mmol/L Potassium Level 3.3 mmol/L Chloride Level 112 mmol/L Carbon Dioxide Level 28 mmol/L Anion Gap 6.0 mmol/L Blood Urea Nitrogen 7 mg/dl Creatinine 0.51 mg/dl Est Creatinine Clear Calc Drug Dose 117.3 ml/min Estimated GFR () 116.1 Estimated GFR (Non- 100.2 BUN/Creatinine Ratio 14.7 Random Glucose 82 mg/dl Calcium Level 7.3 mg/dl Total Bilirubin 0.6 mg/dl Direct Bilirubin 0.2 mg/dl Aspartate Amino Transf (AST/SGOT) 48 U/L Alanine Aminotransferase (ALT/SGPT) 42 U/L Alkaline Phosphatase 189 U/L Total Protein 5.5 gm/dl Albumin 2.4 gm/dl 25-Hydroxy Vitamin D Total 36.9 ng/ml Ethyl Alcohol mg/dL < 3.0 mg/dl Vitamin B12 Level 194 pg/mL Urine Color DK YELLOW Urine Appearance CLEAR Urine pH 5.5 Urine Specific [place] 1.022 Urine Protein TRACE Urine Glucose (UA) NEG Urine Ketones NEG Urine Occult Blood NEG Urine Nitrite NEG Urine Bilirubin NEG Urine Urobilinogen NEG Urine Leukocyte Esterase TRACE Urine WBC (Auto) 10-30 /hpf Urine RBC (Auto) 0-4 /hpf Urine Hyaline Casts (Auto) 10-30 /lpf Urine Epithelial Cells (Auto) >30 /lpf Urine Bacteria (Auto) NEG Urine Renal Epithelial Cells 0-5 /lpf Test 05/10/17 04:44 05/10/17 05:54 05/10/17 10:32 Bedside Glucose 99 mg/dl 143 mg/dl Assessment and Plan 66-year-old white female admitted because of Right Femoral Neck Fracture on Right Femoral Neck Fracture s/p: Right Hip Bipolar Hemiarthroplasty on 05/10/[address] Jayjay Guevara Stable PT OT, activity, discharge plan, DVT prophylaxis, will discussed with orthopedic surgeon Mechanical falls continue PT OT evaluation and treatment Hyper-natremia upon admission, will follow-up labs Hypokinemia upon admission, will follow-up labs Vitamin B12 deficiency was started supplementation Vitamin D level checked which is normal -Dilaudid 1 mg IV every 2 hours as needed for pain -PT/OT planning Chronic pain/diabetic neuropathy -Continue gabapentin 600 mg 3 times daily DM II-diet controlled -follow BSGs AC, HS and with meals -insulin sliding scale -check HgbA1C Mild hypernatremia/hypokalemia-likely secondary to dehydration -received NS 1 L bolus in ED -replete KCl 40 mg po x 1 -recheck PRP in am Insomnia -Continue Ambien 10 mg as needed at night Pulmonary nodule-noted and stable Tobacco abuse -encourage cessation DVT prophylaxis -Teds, SCDs for now. Chemical means will be held with the anticipation of surgery in the AM CODE STATUS -LEVEL I FULL CODE Continued [facility] stay due to: multiple IV medications needed Discharge planning: rehab hospital
[2017-05-10] MEDS: CEFAZOLIN IV 1,000 MG in DEXTROSE 5% 50ML 50 ML IV SCH ×2 (15:37→21:41)
[2017-05-10] MEDS ORDERED: CYANOCOBALAMIN 1000 MCG/ML VIAL IM SCH (16:00)
[2017-05-10 16:25] LABS: BASO % 0.2 %; BASO ABS # 0.01 K/uL (0-0.2); COMPLETE YES; HEMATOCRIT 30.6 % (37-47); IG% 0.2 %; LYMPH % 9.9 %; LYMPH ABS # 0.58 K/uL (1.2-3.4); MEAN CELL VOLUME 96.5 fL (80-100); MEAN CORPUSCULAR HEMOGLOBIN 31.9 pg (25-34); MEAN PLATELET VOLUME 9.7 fL (7.4-10.4); MONO % 10.1 %; NEUT % 79.6 %; PLATELET COUNT 225 K/uL (130-400); RED BLOOD COUNT 3.17 M/uL (4.2-5.4); WHITE BLOOD COUNT 5.87 K/uL (4.8-10.8)
[2017-05-10 16:44] LABS: BUN/CREATININE RATIO 14.7 (10-20); CALCIUM 7.2 mg/dl (8.5-10.1); CREATININE 0.58 mg/dl (0.60-1.20); MAGNESIUM 2.1 mg/dl (1.8-2.4)
[2017-05-10 16:48] LABS: POTASSIUM 3.7 mmol/L (3.5-5.1)
--- NOTE | 2017-05-10 18:06 | PROGRESS NOTE ---
DATE: 05/10/2017 SUBJECTIVE: Michelle is in pain. I have spoken to her nurse about her pain medication regimen and I have also contacted pharmacy. Will increase her dose of Dilaudid and double her dosage of the oxycodone. She also has Tylenol, which causes nausea and Toradol for pain. Pain medications are adjusted and reviewed with nurse. She is afebrile. Her vital signs are stable. Her dressing is clean and dry. Her thigh is soft. Bruising is noted. She has a 2+ dorsalis pedis. She reports less sensation diffusely in the right leg versus the left but does have intact sensation to light touch. She has 5/5 ankle and toe plantar flexion and dorsiflexion strength. Her abduction pillow is in place. Radiographs of the right hip show good alignment of the implant. The prosthesis is reduced. Leg lengths are difficult to determine, but approximately look equal. There is no fracture or complication evident. IMPRESSION: Right femoral neck fracture status post bipolar hemiarthroplasty. PLAN: I spoke to the patient and her daughter about the surgery. Everything went well. Will do our best as possible to get her pain under control. We talked about the plan in terms of therapy and rehabilitation. Continue routine course of postop IV antibiotics. She will be started on Lovenox for DVT prophylaxis along with mechanical devices.
[2017-05-10] MEDS: DOCUSATE SODIUM/SENNA 50/8.6MG TAB PO SCH (21:41)
[2017-05-10] MEDS: ZOLPIDEM TARTRATE 10 MG TAB PO SCH (21:41)
[2017-05-10] MEDS ORDERED: NURSING VERBAL MED ORDER ONE (23:15)
[2017-05-11] MEDS: HYDROmorphone INJ 1 MG/ML SYR IV PRN ×3 (02:35→18:58)
[2017-05-11 02:50] VITALS: BP 132/70; PULSE 82; TEMP 37.3; O2SAT 95
[2017-05-11] MEDS: SODIUM CHLORIDE 0.9% 1000ML 1,000 ML IV SCH (05:58)
[2017-05-11] MEDS: KETOROLAC TROMETHAMINE 15 MG/ML VIAL IV. SCH (05:58)
[2017-05-11 07:10] VITALS: BP 129/76; PULSE 78; TEMP 37.2; O2SAT 96
[2017-05-11 07:31] LABS: BASO % 0.2 %; BASO ABS # 0.01 K/uL (0-0.2); EOS % 1.6 %; HEMATOCRIT 24.6 % (37-47); LYMPH % 16.9 %; LYMPH ABS # 0.75 K/uL (1.2-3.4); MEAN CELL VOLUME 95.7 fL (80-100); MEAN CORPUSCULAR HEMOGLOBIN 30.4 pg (25-34); MEAN CORPUSCULAR HGB CONC 31.7 g/dl (32-36); MEAN PLATELET VOLUME 10.1 fL (7.4-10.4); NEUT % 70.3 %; PLATELET COUNT 194 K/uL (130-400); RED BLOOD COUNT 2.57 M/uL (4.2-5.4); WHITE BLOOD COUNT 4.44 K/uL (4.8-10.8)
[2017-05-11] MEDS: OXYCODONE HCL IR 5 MG TAB (IMMEDIATE RELEASE) PO PRN ×3 (07:47→20:25)
[2017-05-11 07:51] LABS: COMPLETE YES
[2017-05-11 07:53] LABS: ESTIMATED AVERAGE GLUCOSE 82 mg/dl; HA1C FLAG Normal (Normal)
[2017-05-11 08:05] LABS: BUN/CREATININE RATIO 22.9 (10-20); CALCIUM 6.6 mg/dl (8.5-10.1); CREATININE 0.37 mg/dl (0.60-1.20); MAGNESIUM 2.1 mg/dl (1.8-2.4); POTASSIUM 3.9 mmol/L (3.5-5.1)
--- NOTE | 2017-05-11 09:06 | Progress Note ---
Orthopedic SOAP Note Subjective Date of Service: May 11, 2017. Post OP Day: 1 Reports: feeling well, pain controlled w PO medications, Denies: complaints, chest pain, SOB, nausea / vomiting, light headedness, calf pain, using SHAGGER Problem List Medical Problems: (1) Acute chest pain Status: Acute (2) Chronic leukopenia Status: Acute (3) Dehydration Status: Acute (4) Diarrhea Status: Acute (5) Diffuse abdominal pain Status: Acute (6) Esophageal Reflux Status: Chronic (7) Fall Status: Acute (8) Fracture of fibula, distal, right, closed Status: Acute (9) Headache Status: Acute (10) Hip fracture, right Status: Acute (11) Knee injury Status: Acute (12) PUD (peptic ulcer disease) Status: Chronic (13) Pyelonephritis Status: Acute Surgical Problems: (1) H/O esophagogastroduodenoscopy Status: Chronic Objective calves soft nontender, N/V intact, hip located, capillary refill less than 2 sec., dressing C/D/I, A&O x3, toes mobile resting comfortably, sitting up, eating breakfast in bed Date Time Temp Pulse Resp B/P (MAP) Pulse Ox O2 Delivery O2 Flow Rate FiO2 05/11/17 07:10 37.2 78 17 129/76 (93) 96 Room Air 05/11/17 02:50 37.3 82 18 132/70 (90) 95 Room Air 05/10/17 23:50 Room Air 05/10/17 23:42 37.1 05/10/17 22:51 38.3 05/10/17 22:47 38.3 99 16 142/69 (93) 99 Room Air 05/10/17 15:45 Room Air 05/10/17 15:41 36.7 86 20 133/79 (97) 98 Nasal Cannula 2.0 05/10/17 14:00 78 16 109/61 (77) 99 2.0 05/10/17 13:03 78 16 134/74 (94) 99 2.0 05/10/17 12:30 54 16 122/82 (95) 98 2.0 05/10/17 12:00 36.6 55 16 97/59 (72) 96 Nasal Cannula 2.0 05/10/17 12:00 96 Nasal Cannula 2.0 05/10/17 12:00 96 Room Air 2.0 05/10/17 11:35 36.4 50 16 113/54 99 Nasal Cannula 2 05/10/17 11:25 66 16 103/49 100 Nasal Cannula 2 05/10/17 11:15 48 16 101/53 100 Nasal Cannula 2 05/10/17 11:05 55 16 123/64 100 Nasal Cannula 2 05/10/17 10:55 50 16 113/53 100 Nasal Cannula 2 05/10/17 10:45 70 16 131/61 100 Mask 10 05/10/17 10:35 63 16 125/56 100 Mask 10 05/10/17 10:27 36.7 80 16 135/84 100 Mask 10 Laboratory Results 24 Hours: Test 05/10/17 16:16 05/11/17 07:20 White Blood Count 5.87 K/uL 4.44 K/uL Red Blood Count 3.17 M/uL 2.57 M/uL Hemoglobin 10.1 g/dL 7.8 g/dL Hematocrit 30.6 % 24.6 % Mean Corpuscular Volume 96.5 fL 95.7 fL Mean Corpuscular Hemoglobin 31.9 pg 30.4 pg Mean Corpuscular Hemoglobin Concent 33.0 g/dl 31.7 g/dl Platelet Count 225 K/uL 194 K/uL Mean Platelet Volume 9.7 fL 10.1 fL Neutrophils (%) (Auto) 79.6 % 70.3 % Lymphocytes (%) (Auto) 9.9 % 16.9 % Monocytes (%) (Auto) 10.1 % 11.0 % Eosinophils (%) (Auto) 0.0 % 1.6 % Basophils (%) (Auto) 0.2 % 0.2 % Neutrophils # (Auto) 4.68 K/uL 3.12 K/uL Lymphocytes # (Auto) 0.58 K/uL 0.75 K/uL Monocytes # (Auto) 0.59 K/uL 0.49 K/uL Eosinophils # (Auto) 0.00 K/uL 0.07 K/uL Basophils # (Auto) 0.01 K/uL 0.01 K/uL Assessment post op day 1 s/p Right hip hemiarthroplasty Plan continue post op care DVT prophylaxis with Lovenox 40mg daily pain control with prescribed medications PT/OT WBAT right LE with walker total hip precautions abduction pillow while in bed ice right hip change dressing tomorrow morning resume diet discharge planning will discuss findings further with Dr. Guevara
[2017-05-11] MEDS ORDERED: NURSING VERBAL MED ORDER ONE (09:30)
[2017-05-11] MEDS: MULTIVITAMIN TAB PO SCH (09:32)
[2017-05-11] MEDS: ENOXAPARIN 40 MG/0.4 ML SYR SQ SCH (09:33)
[2017-05-11] MEDS: INSULIN ASPART 100 UNITS/ML 3 ML PEN SC SCH ×4 (09:38→21:53)
--- NOTE | 2017-05-11 12:15 | Progress Note ---
Subjective Date of Service: May 11, 2017. Subjective Pt evaluation today including: conversation w/ patient, physical exam, chart review, lab review, review of studies, conversation w/ senior health consultant, review of inpatient medication list Doing well, pleasant, pain well controlled, no complaining Eating meals, Problem List Medical Problems: (1) Acute chest pain Status: Acute (2) Chronic leukopenia Status: Acute (3) Dehydration Status: Acute (4) Diarrhea Status: Acute (5) Diffuse abdominal pain Status: Acute (6) Esophageal Reflux Status: Chronic (7) Fall Status: Acute (8) Fracture of fibula, distal, right, closed Status: Acute (9) Headache Status: Acute (10) Hip fracture, right Status: Acute (11) Knee injury Status: Acute (12) PUD (peptic ulcer disease) Status: Chronic (13) Pyelonephritis Status: Acute Surgical Problems: (1) H/O esophagogastroduodenoscopy Status: Chronic Review of Systems Constitutional: No fever, No chills, No sweats, No weight loss, No weakness, No fatigue, No problem reported Eyes: No worsening of vision, No eye pain, No redness, No discharge, No diplopia ENT: No hearing loss, No unusual epistaxis, No nasal symptoms, No sore throat, No tinnitus, No dental problems, No trouble swallowing Respiratory: No cough, No sputum, No wheezing, No shortness of breath, No dyspnea on exertion, No dyspnea at rest, No hemoptysis Cardiac: No chest pain, No orthopnea, No PND, No edema, No claudication, No palpitations Abdomen: No pain, No nausea, No vomiting, No diarrhea, No constipation Musculoskeletal: + joint pain, No muscle pain, No swelling, No calf pain Female : No dysuria, No urinary frequency, No hematuria, No incontinence, No abnormal vaginal bleeding, No vaginal discharge Neurologic: No memory loss, No paralysis, No weakness, No numbness/tingling, No vertigo, No balance problems Psychiatric: No depression symptoms, No anhedonism, No anxiety, No insomnia, No substance abuse Heme: No abnormal bleeding/bruising, No clotting problems, No swollen lymph nodes, No night sweats Endo: No fatigue, No excessive thirst, No excessive urination Skin: No rash, No itch, No new/changing skin lesions, No color change, No bleeding Objective Vital Signs Date Time Temp Pulse Resp B/P (MAP) Pulse Ox O2 Delivery O2 Flow Rate FiO2 05/11/17 07:50 Room Air 05/11/17 07:10 37.2 78 17 129/76 (93) 96 Room Air 05/11/17 02:50 37.3 82 18 132/70 (90) 95 Room Air 05/10/17 23:50 Room Air 05/10/17 23:42 37.1 05/10/17 22:51 38.3 05/10/17 22:47 38.3 99 16 142/69 (93) 99 Room Air 05/10/17 15:45 Room Air 05/10/17 15:41 36.7 86 20 133/79 (97) 98 Nasal Cannula 2.0 05/10/17 14:00 78 16 109/61 (77) 99 2.0 05/10/17 13:03 78 16 134/74 (94) 99 2.0 05/10/17 12:30 54 16 122/82 (95) 98 2.0 Physical Exam General Appearance: WD/WN, no apparent distress Eyes: normal inspection, PERRL, EOMI, sclerae normal ENT: normal ENT inspection, hearing grossly normal, pharynx normal Neck: supple, no adenopathy, thyroid normal, no JVD, no carotid bruits, trachea midline Respiratory/Chest: chest non-tender, lungs clear, normal breath sounds, no respiratory distress, no accessory muscle use Cardiovascular: regular rate, rhythm, no edema, no gallop, no JVD, no murmur Abdomen: normal bowel sounds, non tender, soft, no organomegaly, no pulsatile mass Extremities: non-tender, normal inspection, no pedal edema, no calf tenderness , normal capillary refill, pelvis stable 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, no motor/sensory deficits, alert, normal mood/affect, oriented x 3 Skin: normal color, warm/dry, no rash Lymphatic: no adenopathy Laboratory Results Last 24 Hours Test 05/10/17 16:16 05/10/17 16:50 05/10/17 20:29 05/11/17 07:20 White Blood Count 5.87 K/uL 4.44 K/uL Red Blood Count 3.17 M/uL 2.57 M/uL Hemoglobin 10.1 g/dL 7.8 g/dL Hematocrit 30.6 % 24.6 % Mean Corpuscular Volume 96.5 fL 95.7 fL Mean Corpuscular Hemoglobin 31.9 pg 30.4 pg Mean Corpuscular Hemoglobin Concent 33.0 g/dl 31.7 g/dl Platelet Count 225 K/uL 194 K/uL Mean Platelet Volume 9.7 fL 10.1 fL Neutrophils (%) (Auto) 79.6 % 70.3 % Lymphocytes (%) (Auto) 9.9 % 16.9 % Monocytes (%) (Auto) 10.1 % 11.0 % Eosinophils (%) (Auto) 0.0 % 1.6 % Basophils (%) (Auto) 0.2 % 0.2 % Neutrophils # (Auto) 4.68 K/uL 3.12 K/uL Lymphocytes # (Auto) 0.58 K/uL 0.75 K/uL Monocytes # (Auto) 0.59 K/uL 0.49 K/uL Eosinophils # (Auto) 0.00 K/uL 0.07 K/uL Basophils # (Auto) 0.01 K/uL 0.01 K/uL RDW Standard Deviation 53.4 fL 53.8 fL RDW Coefficient of Variation 15.3 % 15.4 % Immature Granulocyte % (Auto) 0.2 % 0.0 % Immature Granulocyte # (Auto) 0.01 K/uL 0.00 K/uL Sodium Level 141 mmol/L 142 mmol/L Potassium Level 3.7 mmol/L 3.9 mmol/L Chloride Level 107 mmol/L 110 mmol/L Carbon Dioxide Level 29 mmol/L 27 mmol/L Anion Gap 5.0 mmol/L 5.0 mmol/L Blood Urea Nitrogen 9 mg/dl 8 mg/dl Creatinine 0.58 mg/dl 0.37 mg/dl Est Creatinine Clear Calc Drug Dose 103.2 ml/min 161.7 ml/min Estimated GFR () 111.3 129.1 Estimated GFR (Non- 96.1 111.4 BUN/Creatinine Ratio 14.7 22.9 Random Glucose 106 mg/dl 119 mg/dl Estimated Average Glucose 82 mg/dl Hemoglobin A1c 4.5 % Calcium Level 7.2 mg/dl 6.6 mg/dl Magnesium Level 2.1 mg/dl 2.1 mg/dl Bedside Glucose 116 mg/dl 185 mg/dl Red Blood Cell Morphology Unremarkable Test 05/11/17 08:04 Bedside Glucose 125 mg/dl Assessment and Plan 66-year-old white female admitted because of Right Femoral Neck Fracture on Right Femoral Neck Fracture s/p: Right Hip Bipolar Hemiarthroplasty on 05/10/[address] Jayjay Guevara Continue Stable PT OT, activity, discharge plan, DVT prophylaxis has started, Per recommend of orthopedic surgeon , which can be seen in [place] continue post op care DVT prophylaxis with Lovenox 40mg daily pain control with prescribed medications PT/OT WBAT right LE with walker total hip precautions abduction pillow while in bed ice right hip change dressing tomorrow morning resume diet discharge planning Was having spiking fever last p.m. up to 38.3, patient has no any signs of infection, no more fever, will continue watch Mechanical falls continue PT OT evaluation and treatment Hyper-natremia upon admission, will follow-up labs Hypokinemia upon admission, will follow-up labs Vitamin B12 deficiency was started supplementation Vitamin D level checked which is normal -Dilaudid 1 mg IV every 2 hours as needed for pain Chronic pain/diabetic neuropathy -Continue gabapentin 600 mg 3 times daily DM II-diet controlled, -follow BSGs AC, HS and with meals -insulin sliding scale -checked HgbA1C which is 5.4 Mild hypernatremia/hypokalemia-likely secondary to dehydration Resolved Insomnia -Continue Ambien 10 mg as needed at night Pulmonary nodule-noted and stable Tobacco abuse -encourage cessation DVT prophylaxis -Teds, SCDs for now. Chemical means will be held with the anticipation of surgery in the AM CODE STATUS -LEVEL I FULL CODE Continued [facility] stay due to: multiple IV medications needed Discharge planning: rehab hospital
--- NOTE | 2017-05-11 13:54 | Orthopedic Progress Note ---
Orthopedic Progress Note Date of Service May 11, 2017. Subjective Post OP Day: 1 Reports: feeling well, complaints (states that she has never had this much pain with surgery before. Describes her pain as a deep burning pain. More tolerable today.), Denies: chest pain, SOB, nausea / vomiting, light headedness , calf pain Objective calves soft nontender, N/V intact, hip located, capillary refill less than 2 sec., dressing C/D/I, A&O x3, toes mobile Ecchymosis around right hip and thigh. Nontender with palpation right knee. Strength 5/5 distally. Distal pulses 1+ Date Time Temp Pulse Resp B/P (MAP) Pulse Ox O2 Delivery O2 Flow Rate FiO2 05/11/17 07:50 Room Air 05/11/17 07:10 37.2 78 17 129/76 (93) 96 Room Air 05/11/17 02:50 37.3 82 18 132/70 (90) 95 Room Air 05/10/17 23:50 Room Air 05/10/17 23:42 37.1 05/10/17 22:51 38.3 05/10/17 22:47 38.3 99 16 142/69 (93) 99 Room Air 05/10/17 15:45 Room Air 05/10/17 15:41 36.7 86 20 133/79 (97) 98 Nasal Cannula 2.0 05/10/17 14:00 78 16 109/61 (77) 99 2.0 Laboratory Results 24 Hours: Test 05/10/17 16:16 05/11/17 07:20 White Blood Count 5.87 K/uL 4.44 K/uL Red Blood Count 3.17 M/uL 2.57 M/uL Hemoglobin 10.1 g/dL 7.8 g/dL Hematocrit 30.6 % 24.6 % Mean Corpuscular Volume 96.5 fL 95.7 fL Mean Corpuscular Hemoglobin 31.9 pg 30.4 pg Mean Corpuscular Hemoglobin Concent 33.0 g/dl 31.7 g/dl Platelet Count 225 K/uL 194 K/uL Mean Platelet Volume 9.7 fL 10.1 fL Neutrophils (%) (Auto) 79.6 % 70.3 % Lymphocytes (%) (Auto) 9.9 % 16.9 % Monocytes (%) (Auto) 10.1 % 11.0 % Eosinophils (%) (Auto) 0.0 % 1.6 % Basophils (%) (Auto) 0.2 % 0.2 % Neutrophils # (Auto) 4.68 K/uL 3.12 K/uL Lymphocytes # (Auto) 0.58 K/uL 0.75 K/uL Monocytes # (Auto) 0.59 K/uL 0.49 K/uL Eosinophils # (Auto) 0.00 K/uL 0.07 K/uL Basophils # (Auto) 0.01 K/uL 0.01 K/uL Assessment & Plan Assessment: 1. post op day 1 s/p Right hip hemiarthroplasty 2. Acute blood loss anemia - asymptomatic Plan: Continue to monitor H/H. Asymptomatic. No need for transfusion at this time. Had post op fever of 83.3, but resolved currently. Patient seen by director of admissions, not diabetic according to hgb A1C and FBG. Smoking cessation. DVT prophylaxis with Lovenox 40mg daily x 4 weeks pain control with prescribed medications PT/OT WBAT right LE with walker total hip precautions abduction pillow while in bed ice right hip change dressing tomorrow morning resume diet Plan for discharge to [facility] - referral placed, possible discharge Monday. will discuss findings further with Dr. Guevara seen and examined. agree with above. PSS Discharge Planning Discharge Planning: rehab hospital Pain Management: Percocet DVT Prophylaxis: TEDs, Lovenox (40mg daily x 4 weeks) Therapy: Physical Therapy, Occupational Therapy
--- NOTE | 2017-05-11 14:05 | Discharge Instructions ---
Discharge Instructions Date of Service May 11, 2017. Admission Reason for Admission: Hip Fracture, Right Discharge Discharge Diagnosis / Problem: right femoral neck fracture Discharge Goals Goal(s): Decrease discomfort, Improve function, Increase independence Activity Recommendations Activity Level: Assistance Required Therapies: Physical Therapy, Weight Bearing Status (WBAT RLE), Occupational Therapy Weightbearing Status: Right weightbearing (as tolerated) Shower/Bathe: may shower/bathe in 3 days . Additional Information Patient informed of condition: Yes Advance Directives: No DNR: No Level of Care: Acute Rehab Communicable Disease: No Prognosis: Stable Beck Catheter: No Instructions / Follow-Up Instructions / Follow-Up New Medicine: * You will likely be taking one or more of these medications: 1. Lovenox - You will be on Lovenox for 4 weeks after surgery to prevent blood clots. Aspirin, 81 mg is OK is ok to take while on Lovenox. 2. Percocet - Take, as directed, when you need it, every four to six hours to control your pain. 4. Colace & Senokot - Take to prevent constipation which can be caused by narcotics. These can be bought [id number] at the pharmacy * The most common side effects of pain medicine and iron are nausea and constipation. If nausea or constipation is too much of a problem or if you have any questions about your new medicines or doses, call [facility] at . We will try to help you manage these issues. VERY IMPORTANT TO READ AND REVIEW" Blood Clots and Blood Thinning Medicine: * You are given Lovenox during the immediate post-operative period to lessen the risk of blood clots forming in your legs and/or lungs. * You need to get your blood checked in a week - CBC Physical Therapy: * Do your physical therapy at home. These are the exercises you learned while in the hospital (quad sets, leg raises, calf pumps, gluteal squeezes, knee bending, and heel props.) You should do these exercises 3-4 times per day. * You will either go to inpatient rehab ([facility]), home with Home Therapy and nursing or home with outpatient rehab. You should do rehab with the therapist 2-3 times per week. You should do therapy on your own daily. * You may bear full weight on your leg with crutches or walker unless otherwise advised. Home Exercise: * You were shown a series of exercises (heel props, heel slides, etc.) in the hospital. Do these exercises three to four times each day including the exercises you were shown in physical therapy. Walking: * You may be up for short periods of time. Standing and walking for 1-2 hours at a time is usually okay. You should not stand or walk for excessive periods of time as this may cause increased pain and swelling. SELF CARE INSTRUCTIONS AFTER TOTAL HIP REPLACEMENT Until the incision and soft tissues around your hip have healed, there is a possibility that the hip prosthesis could dislocate. A. Observe the following precautions to prevent dislocation: 1. Don't bend your hip greater than 90 degrees. 2. Avoid crossing your legs or ankles while standing or lying. 3. Sit with your feet placed 6 inches apart. 4. When sitting, keep your knees below your hips. Sit on a firm surface, avoid deep, soft chairs and couches. Use an elevated toilet seat in the bathroom. 5. Don't bend over at the waist. Use a long handled shoehorn and a sock aid to help you put on your shoes and socks. A fraternity adviser can help you supervisor picking crew objects that are too high or too low to reach. 6. Keep car riding to a minimum for at least one month after surgery. B. Your balance may be shaky for a while. Use crutches or a walker until directed by your doctor. C. Use hand rails when walking on stairs. D. Wear low heeled shoes with non-slip soles. E. Be sure that your floors are free of things that could trip you - throw rugs , electrical cords, small objects. Avoid wet and waxed floors, especially with crutches and canes. F. Try to walk several times a day with rest periods between. G. Continue with all the exercises taught to you in the hospital. Again, make walking a part of your daily routine. VERY IMPORTANT TO READ AND REVIEW A. Take Coumadin (blood thinning medication) as directed by your doctor. If you are on Coumadin, have a pro-time (blood test) drawn according to your doctor's instructions. This will tell the doctor how well the Coumadin is thinning your blood. B. There are a few signs you need to watch for after you are home. If you notice any of the followin. Increased severe hip pain. Some pain is expected especially when you exercise. 2. Increased swelling in your leg or knee; pain or swelling of the calf muscle in either lower leg. 3. Any fluid drainage from the incision. 4. Shortness of breath or chest pain. TEDs/Elastic Stockings: * The white elastic stockings help limit swelling and prevent blood clots from forming in your legs. The more you wear them, the more they work. * Wear them for six weeks. Prevention of Infection: * Take antibiotics one hour before any dental cleaning, dental work, urological procedure, gastrointestinal procedure or any invasive surgery in order to prevent your new joint from getting infected. * You may get the antibiotics from the doctor performing the procedure or we will call in a prescription to the pharmacy of your choice. Call the office for a prescription at least 2 days prior to your appointment. Things to Watch For: * Drainage from the incision site that occurs more than one week after your surgery. * Severely increased leg pain or swelling. * Increased redness at the incision site. * Fever above 101 degrees Fahrenheit. * Unusual chest pain or shortness of breath. * Unusual pain or burning with urination. Follow-Up Visit: You will follow-up with Dr. Guevara 10-14 days after surgery. The office number is . You have a follow up scheduled with Dr. Guevara/Dede Morejon PA-C on at 9:15 a.m. Current Hospital Diet Patient's current hospital diet: Diabetes Type 2 Diet Discharge Diet Recommended Diet: Regular Diet Procedures Procedures Performed: Right Hip Bipolar Hemiarthroplasty Pending Studies Studies pending at discharge: no Physician Orders On Transfer Special Precautions: Posterior hip precautions Dressing Changes: Daily and as needed. Ok to shower, do not scrub or soak wound. Pat incision dry. Vital Signs: per routine Laboratory Results Hemoglobin A1c Test 05/10/17 16:16 Range/Units Estimated Average Glucose 82 mg/dl Hemoglobin A1c 4.5 4.5-5.6 % Medical Emergencies . Who to Call and When: Medical Emergencies: If at any time you feel your situation is an emergency, please call 911 immediately. . Non-Emergent Contact Non-Emergency issues call your: Surgeon Call Non-Emergent contact if: temperature is above 101, wound has increased drainage, wound has increased redness, wound has increased pain, you have any medication questions . . "Provider Documentation" section prepared by Dede Morejon. . Core Measure Problem Core Measures: None [place] Drug Monitoring [place] Search Results: patient reviewed within database, see additional documentation (Patient received 120 oxycodone 5mg on 04/03/17. She may need additional pain medication to help with her immediate post operative pain control.)
[2017-05-11 15:32] VITALS: BP 101/59; PULSE 96; TEMP 38; O2SAT 95
[2017-05-11] MEDS: ZOLPIDEM TARTRATE 10 MG TAB PO SCH (21:48)
[2017-05-11] MEDS: DOCUSATE SODIUM/SENNA 50/8.6MG TAB PO SCH (21:49)
[2017-05-11] MEDS: CALCIUM 600MG + VIT D 400 IU TAB PO SCH (21:49)
[2017-05-11 22:23] VITALS: BP 136/97; PULSE 88; TEMP 37.2; O2SAT 96
[2017-05-12] MEDS: OXYCODONE HCL IR 5 MG TAB (IMMEDIATE RELEASE) PO PRN ×6 (00:57→21:59)
[2017-05-12 07:23] VITALS: BP 103/69; PULSE 86; TEMP 36.9; O2SAT 94
[2017-05-12 07:32] LABS: BASO % 0.4 %; BASO ABS # 0.02 K/uL (0-0.2); EOS % 1.3 %; HEMATOCRIT 25.1 % (37-47); IG% 0.2 %; LYMPH % 18.6 %; LYMPH ABS # 1.01 K/uL (1.2-3.4); MEAN CELL VOLUME 96.2 fL (80-100); MEAN CORPUSCULAR HEMOGLOBIN 31.8 pg (25-34); MEAN CORPUSCULAR HGB CONC 33.1 g/dl (32-36); NEUT % 70.5 %; PLATELET COUNT 182 K/uL (130-400); RED BLOOD COUNT 2.61 M/uL (4.2-5.4); WHITE BLOOD COUNT 5.44 K/uL (4.8-10.8)
[2017-05-12] MEDS: INSULIN ASPART 100 UNITS/ML 3 ML PEN SC SCH ×4 (08:00→21:00)
[2017-05-12 08:13] LABS: ANISOCYTOSIS PRESENT; COMPLETE YES; POLYCHROMASIA 1+
--- NOTE | 2017-05-12 08:22 | Orthopedic Progress Note ---
Orthopedic Progress Note Date of Service May 12, 2017. Subjective Post OP Day: 2 Reports: complaints (States had a "horrible night" last night, doesn't think she 's getting pain meds as often as she should. States "that she shouldn't have to deal with this while she's here. She getting up and moving and doing the best she can and the pain could be better controlled". She states its a deep burning pain), chest pain (states mild pain in chest at rest, occasionally. "doesn't think it's anything to worry about"), Denies: SOB, nausea / vomiting, light headedness Additional Notes: States feels weak. I asked about her pain medication usage prior to admission, she stated that she hasn't taken pain medication in 3 months prior to her admission. She also wants to talk to someone regarding her gabapentin. She states that it makes her lose her balance and she's afraid of falling again. Objective calves soft nontender, N/V intact, hip located, capillary refill less than 2 sec., incision C/D/I, A&O x3, toes mobile Ecchymosis of right thigh. Tolerates flexion of knee, turning on her left side for dressing change. Tolerates gentle log rolling of right hip without any pain. Date Time Temp Pulse Resp B/P (MAP) Pulse Ox O2 Delivery O2 Flow Rate FiO2 05/12/17 07:23 36.9 86 19 103/69 (80) 94 Room Air 05/11/17 23:15 Room Air 05/11/17 22:23 37.2 88 18 136/97 (110) 96 Room Air 05/11/17 15:45 Room Air 05/11/17 15:32 38.0 96 18 101/59 (73) 95 Room Air Laboratory Results 24 Hours: Test 05/12/17 07:25 White Blood Count 5.44 K/uL Red Blood Count 2.61 M/uL Hemoglobin 8.3 g/dL Hematocrit 25.1 % Mean Corpuscular Volume 96.2 fL Mean Corpuscular Hemoglobin 31.8 pg Mean Corpuscular Hemoglobin Concent 33.1 g/dl Platelet Count 182 K/uL Mean Platelet Volume 10.0 fL Neutrophils (%) (Auto) 70.5 % Lymphocytes (%) (Auto) 18.6 % Monocytes (%) (Auto) 9.0 % Eosinophils (%) (Auto) 1.3 % Basophils (%) (Auto) 0.4 % Neutrophils # (Auto) 3.84 K/uL Lymphocytes # (Auto) 1.01 K/uL Monocytes # (Auto) 0.49 K/uL Eosinophils # (Auto) 0.07 K/uL Basophils # (Auto) 0.02 K/uL Assessment & Plan Assessment: 1. post op day 2 s/p Right hip hemiarthroplasty 2. Acute blood loss anemia - asymptomatic Plan: Continue to monitor H/H. Asymptomatic. No need for transfusion at this time. Had post op slight fever thru the night, resolved with Tylenol Patient seen by forming department supervisor, not diabetic according to hgb A1C and FBG. Smoking cessation discussed. DVT prophylaxis with Lovenox 40mg daily x 4 weeks pain control with prescribed medications PT/OT WBAT right LE with walker total hip precautions abduction pillow while in bed ice right hip Resume diet Plan for discharge to [facility] - referral Rufus kessler from ortho standpoint for discharge to [facility] when medically stable. will discuss findings further with Dr. Guevara Discharge Planning Discharge Planning: rehab hospital Pain Management: Percocet DVT Prophylaxis: TEDs, Lovenox (40mg daily x 4 weeks) Therapy: Physical Therapy, Occupational Therapy
[2017-05-12] MEDS ORDERED: ERGOCALCIFEROL 50,000 INTER.UNIT CAP PO SCH (09:00)
[2017-05-12] MEDS: ENOXAPARIN 40 MG/0.4 ML SYR SQ SCH (10:28)
[2017-05-12] MEDS: CALCIUM 600MG + VIT D 400 IU TAB PO SCH ×2 (10:28→21:03)
[2017-05-12] MEDS: MULTIVITAMIN TAB PO SCH (10:29)
--- NOTE | 2017-05-12 15:04 | PROGRESS NOTE ---
DATE: 05/12/2017 Michelle should continue on Lovenox 40 mg subQ daily for a period of 4-6 weeks for DVT prophylaxis.
--- NOTE | 2017-05-12 15:04 | PROGRESS NOTE ---
DATE: 05/12/2017 DATE: 05/12/2017. SUBJECTIVE: Michelle is happy, resting comfortably in bed. She has recently got some pain medication. She did have a bad night last evening regarding her pain medication. I spoke with her nurse. I also spoke with Michelle and discussed with her that she has 2 different medications that are narcotics and are available for pain control. She can have these every 4 hours and if she staggers them she can have pain medication every 2 hours if that is what was necessary. She reports doing well with therapy. I have reviewed the therapy notes. She is not lightheaded or dizzy. She did have a temperature of 38.0, otherwise vital signs are stable. Blood pressure is good. She is not tachycardic. Her hemoglobin today is 8, platelet count 182. Hemoglobin A1c is within normal limits. Her leg is not notably swollen. She has normal motor function intact sensation, 1+ posterior tibial pulses. The right leg may be approximately a centimeter longer than the left as measured clinically. She has not noted any leg length inequality when ambulating. IMPRESSION: Right hip bipolar hemiarthroplasty. PLAN: Findings were discussed. She will follow up with me in 2 weeks. She can be released to [facility] when she is accepted. She will need to continue her pain medication and a stool softener as well as her regular medicines. If there are any issues with her wound, drainage, fevers or any other problems or questions, please call my office or return to see me sooner. She can weightbear as tolerated with walker. She will eventually need a fall prevention program and assessment of her bone density. She should stop smoking. Total hip precautions are reinforced as well as use of the hip abduction pillow.
[2017-05-12 15:06] VITALS: BP 112/70; PULSE 85; TEMP 37.2; O2SAT 93
--- NOTE | 2017-05-12 15:38 | Progress Note ---
Subjective Date of Service: May 12, 2017. Subjective Pt evaluation today including: conversation w/ patient, physical exam, chart review, lab review, review of studies, conversation w/ organizational development consultant, review of inpatient medication list Reportedly was having a rough night last night because of right hip pain not well controlled Currently the pain is better controlled Problem List Medical Problems: (1) Acute chest pain Status: Acute (2) Chronic leukopenia Status: Acute (3) Dehydration Status: Acute (4) Diarrhea Status: Acute (5) Diffuse abdominal pain Status: Acute (6) Esophageal Reflux Status: Chronic (7) Fall Status: Acute (8) Fracture of fibula, distal, right, closed Status: Acute (9) Headache Status: Acute (10) Hip fracture, right Status: Acute (11) Knee injury Status: Acute (12) PUD (peptic ulcer disease) Status: Chronic (13) Pyelonephritis Status: Acute Surgical Problems: (1) H/O esophagogastroduodenoscopy Status: Chronic Review of Systems Constitutional: + fatigue, No fever, No chills, No sweats, No weight loss, No weakness, No problem reported Eyes: No worsening of vision, No eye pain, No redness, No discharge, No diplopia ENT: No hearing loss, No unusual epistaxis, No nasal symptoms, No sore throat, No tinnitus, No dental problems, No trouble swallowing Respiratory: No cough, No sputum, No wheezing, No shortness of breath, No dyspnea on exertion, No dyspnea at rest, No hemoptysis Cardiac: No chest pain, No orthopnea, No PND, No edema, No claudication, No palpitations Abdomen: No pain, No nausea, No vomiting, No diarrhea, No constipation Musculoskeletal: + joint pain, No muscle pain, No swelling, No calf pain Female : No dysuria, No urinary frequency, No hematuria, No incontinence, No abnormal vaginal bleeding, No vaginal discharge Neurologic: No memory loss, No paralysis, No weakness, No numbness/tingling, No vertigo, No balance problems Psychiatric: No depression symptoms, No anhedonism, No anxiety, No insomnia, No substance abuse Heme: No abnormal bleeding/bruising, No clotting problems, No swollen lymph nodes, No night sweats Endo: No fatigue, No excessive thirst, No excessive urination Skin: No rash, No itch, No new/changing skin lesions, No color change, No bleeding Objective Vital Signs Date Time Temp Pulse Resp B/P (MAP) Pulse Ox O2 Delivery O2 Flow Rate FiO2 05/12/17 15:06 37.2 85 18 112/70 (84) 93 Room Air 05/12/17 09:00 Room Air 05/12/17 07:23 36.9 86 19 103/69 (80) 94 Room Air 05/11/17 23:15 Room Air 05/11/17 22:23 37.2 88 18 136/97 (110) 96 Room Air 05/11/17 15:45 Room Air Physical Exam General Appearance: WD/WN, no apparent distress, + pertinent finding (present conversational) Eyes: normal inspection, PERRL, EOMI, sclerae normal ENT: normal ENT inspection, hearing grossly normal, pharynx normal Neck: supple, no adenopathy, thyroid normal, no JVD, no carotid bruits, trachea midline Respiratory/Chest: chest non-tender, lungs clear, normal breath sounds, no respiratory distress, no accessory muscle use Cardiovascular: regular rate, rhythm, no edema, no gallop, no JVD, no murmur Abdomen: normal bowel sounds, non tender, soft, no organomegaly, no pulsatile mass Extremities: non-tender, no pedal edema, no calf tenderness, normal capillary refill, pelvis stable, + pertinent finding (right hip in dress) Neurologic/Psychiatric: molecular biologist II-XII nml as tested, no motor/sensory deficits, alert, normal mood/affect, oriented x 3 Skin: normal color, warm/dry, no rash Lymphatic: no adenopathy Laboratory Results Last 24 Hours Test 05/11/17 16:49 05/11/17 20:48 05/12/17 07:25 05/12/17 08:10 Bedside Glucose 116 mg/dl 112 mg/dl 98 mg/dl White Blood Count 5.44 K/uL Red Blood Count 2.61 M/uL Hemoglobin 8.3 g/dL Hematocrit 25.1 % Mean Corpuscular Volume 96.2 fL Mean Corpuscular Hemoglobin 31.8 pg Mean Corpuscular Hemoglobin Concent 33.1 g/dl Platelet Count 182 K/uL Mean Platelet Volume 10.0 fL Neutrophils (%) (Auto) 70.5 % Lymphocytes (%) (Auto) 18.6 % Monocytes (%) (Auto) 9.0 % Eosinophils (%) (Auto) 1.3 % Basophils (%) (Auto) 0.4 % Neutrophils # (Auto) 3.84 K/uL Lymphocytes # (Auto) 1.01 K/uL Monocytes # (Auto) 0.49 K/uL Eosinophils # (Auto) 0.07 K/uL Basophils # (Auto) 0.02 K/uL RDW Standard Deviation 54.0 fL RDW Coefficient of Variation 15.4 % Immature Granulocyte % (Auto) 0.2 % Immature Granulocyte # (Auto) 0.01 K/uL Polychromasia 1+ Anisocytosis PRESENT Test 05/12/17 12:14 Bedside Glucose 109 mg/dl Assessment and Plan 66-year-old white female admitted because of Right Femoral Neck Fracture on Right Femoral Neck Fracture s/p: Right Hip Bipolar Hemiarthroplasty on 05/10/[address] Jayjay Guevara Continue Stable Possible acute blood loss anemia, hemoglobin stable and better PT OT, activity, discharge plan, DVT prophylaxis has started, Per recommend of orthopedic surgeon , which can be seen in below Continue to monitor H/H. Asymptomatic. No need for transfusion at this time. Had post op slight fever thru the night, resolved with Tylenol Patient seen by community association manager, not diabetic according to hgb A1C and FBG. Smoking cessation discussed. DVT prophylaxis with Lovenox 40mg daily x 4 weeks pain control with prescribed medications WBAT right LE with walker total hip precautions abduction pillow while in bed ice right hip Plan for discharge to [facility] - referral placed,Ok from ortho standpoint for discharge to [facility] when medically stable. Was having spiking fever last p.m. up to 38 post op, no more fever, however and this is second time spiking fever after admission Will follow up closely patient has no any signs of infection, Mechanical falls continue PT OT evaluation and treatment Hyper-natremia upon admission, will follow-up labs Hypokinemia upon admission, will follow-up labs Vitamin B12 deficiency was started supplementation Vitamin D level checked which is normal -Dilaudid 1 mg IV every 2 hours as needed for pain Chronic pain/diabetic neuropathy -Patient said she is not able to tolerate gabapentin 600 mg 3 times daily, - She requested discontinuation - She reported she did not taking at home - I agreed, I encouraged patient to talk to PCP about this the follow up with DM II-diet controlled, -follow BSGs AC, HS and with meals -insulin sliding scale -checked HgbA1C which is 5.4 Mild hypernatremia/hypokalemia-likely secondary to dehydration Resolved Insomnia -Continue Ambien 10 mg as needed at night Pulmonary nodule-noted and stable Tobacco abuse -encourage cessation DVT prophylaxis -Teds, SCDs for now. Chemical means will be held with the anticipation of surgery in the AM CODE STATUS -LEVEL I FULL CODE Continued [facility] stay due to: multiple IV medications needed Discharge planning: rehab hospital
[2017-05-12] MEDS: HYDROmorphone INJ 1 MG/ML SYR IV PRN (16:51)
[2017-05-12] MEDS: ZOLPIDEM TARTRATE 10 MG TAB PO SCH (21:03)
[2017-05-12] MEDS: DOCUSATE SODIUM/SENNA 50/8.6MG TAB PO SCH (21:03)
[2017-05-13 00:16] VITALS: BP 104/64; PULSE 86; TEMP 37.1; O2SAT 93
[2017-05-13] MEDS: OXYCODONE HCL IR 5 MG TAB (IMMEDIATE RELEASE) PO PRN ×3 (02:13→10:28)
[2017-05-13 06:09] LABS: BASO % 0.4 %; BASO ABS # 0.02 K/uL (0-0.2); EOS % 2.1 %; HEMATOCRIT 24.5 % (37-47); IG% 0.4 %; LYMPH % 23.4 %; LYMPH ABS # 1.22 K/uL (1.2-3.4); MEAN CELL VOLUME 95.7 fL (80-100); MEAN CORPUSCULAR HEMOGLOBIN 32.4 pg (25-34); MEAN CORPUSCULAR HGB CONC 33.9 g/dl (32-36); MEAN PLATELET VOLUME 10.1 fL (7.4-10.4); NEUT % 63.7 %; PLATELET COUNT 214 K/uL (130-400); RED BLOOD COUNT 2.56 M/uL (4.2-5.4); WHITE BLOOD COUNT 5.21 K/uL (4.8-10.8)
[2017-05-13 06:32] LABS: COMPLETE YES
[2017-05-13 06:48] LABS: CREATININE 0.49 mg/dl (0.60-1.20); PHOSPHORUS 3.7 mg/dl (2.5-4.9); POTASSIUM 4.5 mmol/L (3.5-5.1)
[2017-05-13 07:38] VITALS: BP 110/68; PULSE 77; TEMP 36.9; O2SAT 94
[2017-05-13] MEDS ORDERED: CYNI1000 IM (07:53)
[2017-05-13] MEDS ORDERED: LVNIS40 SQ (07:53)
[2017-05-13] MEDS ORDERED: RXC5 PO (07:53)
[2017-05-13] MEDS ORDERED: ERGO1CAP41 PO (07:53)
[2017-05-13] MEDS ORDERED: MULT-890 PO (07:53)
[2017-05-13] MEDS ORDERED: CALCTAB7 PO (07:53)
[2017-05-13] MEDS: INSULIN ASPART 100 UNITS/ML 3 ML PEN SC SCH ×2 (08:00→12:00)
[2017-05-13] MEDS: MULTIVITAMIN TAB PO SCH (09:16)
[2017-05-13] MEDS: ENOXAPARIN 40 MG/0.4 ML SYR SQ SCH (09:16)
[2017-05-13] MEDS: CALCIUM 600MG + VIT D 400 IU TAB PO SCH (09:16)
[2017-05-13] MEDS ORDERED: OXYC-164 PO (10:30)
--- NOTE | 2017-05-13 11:48 | Discharge Instructions ---
Discharge Instructions Date of Service May 13, 2017. Admission Reason for Admission: Hip Fracture, Right Discharge Discharge Diagnosis / Problem: Right hip fracture Discharge Goals Goal(s): Decrease discomfort, Improve function, Diagnostic testing, Therapeutic intervention Activity Recommendations Activity Limitations: resume your previous activity (as tolerated. See orthopedics discharge instructions) . Instructions / Follow-Up Instructions / Follow-Up You were admitted to the hospital after presenting with severe right hip pain following a fall. You were found to have a fracture of the right femoral neck. You had surgical correction with a right hip bipolar hemiarthroplasty with Dr. Guevara on 05/10. Your vitamin D levels were on the low side of normal while in the hospital, so it is recommended that your take vitamin D supplements as prescribed in order to help prevent future fractures. You also have a known vitamin B12 deficiency, and it is also recommended that you take vitamin B injections as prescribed. Following your surgery, physical therapy had recommended that you go to an acute inpatient rehab facility. As you are now not able to go due to family issues, you have been set up with home health services. You have also been given a prescription for a rolling walker to help you ambulate. If you feel that you are not safe to get around at home, you can call [facility] who may be able to take you for rehab from home due to your insurance. It is highly recommended that you go to the rehab facility as you are currently at a very high risk of falling again, having another fracture or other injury. Please note that refusing rehab may result in future hospitalizations and trauma. Medications: *Please take Caltrate 600 Plus 1 tablet by mouth twice a day. *Please take vitamin B12 1000 mcg intramuscular injections weekly. *You will need to inject Lovenox (enoxaparin) 40 mg subcutaneously every day for the next 4 weeks to help prevent a clot forming in your legs or going to your lungs. *Please take vitamin D supplement twice a week as prescribed. *Take a multivitamin every day. *You may take oxycodone 5 mg up to every 4 hours as needed for moderate pain ( pain rating 4-6 out of 10). *You may take oxycodone 10 mg up to every 8 hours as needed for severe pain ( pain rating over 5 out of 10). *STOP taking gabapentin. Follow up: *Follow up with your primary care provider within 1 week regarding your hospital stay and changes to your medications. *Follow recommendations per home physical therapy services. Please seek medical attention if you experience fevers, chills, sweats, lightheadedness/dizziness, loss of consciousness, falls, chest pain, shortness of breath, nausea, vomiting, numbness and tingling. Current Hospital Diet Patient's current hospital diet: Diabetes Type 2 Diet Discharge Diet Recommended Diet: Diabetes Type 2 Diet Procedures Procedures Performed: Right Hip Bipolar Hemiarthroplasty Pending Studies Studies pending at discharge: no Laboratory Results Hemoglobin A1c Test 05/10/17 16:16 Range/Units Estimated Average Glucose 82 mg/dl Hemoglobin A1c 4.5 4.5-5.6 % Medical Emergencies . Who to Call and When: Medical Emergencies: If at any time you feel your situation is an emergency, please call 911 immediately. . Non-Emergent Contact Non-Emergency issues call your: Primary Care Provider . Past History Medical & Surgical History: (1) Hip fracture, right . "Provider Documentation" section prepared by Gita Gilliland. . VTE Core Measure Inpt VTE Proph given/why not?: TUzma. Stockings, SCD's, Contraindicated [place] Drug Monitoring [place] Search Results: patient reviewed within database
[2017-05-13 13:30] VITALS: BP 110/68; PULSE 77; TEMP 36.9; O2SAT 94
--- NOTE | 2017-05-13 13:57 | Discharge Summary ---
Discharge Summary Date of Service May 13, 2017. Discharge Summary Admission Date: May 09, 2017 at 18:59 Discharge Date: May 13, 2017 Discharge Disposition: Home with services Principal Diagnosis: Right hip fracture Problems/Secondary Diagnoses: (1) Esophageal Reflux Status: Chronic (2) H/O esophagogastroduodenoscopy Status: Chronic (3) PUD (peptic ulcer disease) Status: Chronic Immunizations: Have You Had Influenza Vaccine: No Influenza Vaccine Date: Sep 01, 2011 History of Tetanus Vaccine?: No Tetanus Immunization Date: Dec 29, 2001 History of Pneumococcal: Yes History of Hepatitis B Vaccine: Unknown Procedures: [place] Operative Summary Note Patient Name: BRANDY REINA Admit Date: 05/09/1706/20/17 [facility] Rec: [id number] Att Phy: Dion Davis MD, PhD Acct ID: [id number] Mattie Phy: Justus Haynes M.D. Date: 1950 [facility] Phy: Justus Haynes M.D. Age: 66 Location: [facility] Sex: F Room/Bed: N387-2 CC: Justus Haynes M.D. Sherbondy, Paul S., M.D. *NOTICE TO RECEIVING DEMOCRAT/AGENCY This information is strictly Confidential and protected under [place] law. [place] law prohibits you from making any further disclosure of this information unless further disclosure is expressly permitted by the written consent of the person to whom it pertains or is authorized by law. A general authorization for the release of medical or other information is not sufficient for this purpose. Hospital accepts no responsibility if the information is made available to any other person, INCLUDING THE PATIENT. Immediate Operative Summary Operative Date May 10, 2017. Pre-Operative Diagnosis Right Femoral Neck Fracture Post-Operative Diagnosis Right Femoral Neck Fracture Procedure(s) Performed Right Hip Bipolar Hemiarthroplasty Surgeon Dr. Jayjay Guevara Top And Trim Worker Surgeon(s) Lul Mckeon PA-C, angelina hartmann Estimated Blood Loss 50ml Findings femoral neck fracture Specimens A. Right Femoral Head Drains 0 Anesthesia general Complication(s) None Disposition Recovery Room / PACU <Electronically signed by Jayjay Guevara M.D.> Signed: 05/10/17 1020 Signed: The status of this report is Signed * If report status is Draft, the document has not been finalized by the responsible provider Consultations: Orthopedics--Dr. Guevara Medication Reconciliation New Medications: Oxycodone Hcl (Oxycodone Hcl) 10 Mg Tab 1 TAB PO Q8 PRN for Pain for 3 Days, #5 TAB May take 1 tablet up to every 8 hours as needed for pain rating over 5 out of 10. Calcium Carbonate-Vitamin D W/ (Caltrate 600 Plus) 1 Tab Tab 1 TAB PO BID for 30 Days, #60 TAB Cyanocobalamin (Cyanocobalamin) 1,000 Mcg/Ml Inj 1000 MCG IM Q7D for 30 Days Enoxaparin (Enoxaparin Sodium) 40 Mg/0.4 Ml Inj 40 MG SQ DAILY for 28 Days Ergocalciferol (Vitamin D 26141 Unit) 50,000 Unit Cap 88565 INTERUNIT PO MoFr@0900 for 30 Days, CAP Multiple Vitamin (Daily-Annalee) 1 Tab Tab 1 TAB PO QAM for 30 Days, #30 TAB Oxycodone HCl (Oxycodone HCl) 5 Mg Tab 5-10 MG PO Q4H PRN for Moderate pain (pain scale 4-6) for 3 Days, #10 TAB Continued Medications: Zolpidem Tartrate (Zolpidem Tartrate) 10 Mg Tab 10 MG PO HS Discontinued Medications: Gabapentin (Gabapentin) 600 Mg Tab 600 MG PO TID PRN for Pain Referrals At Discharge Follow up Referrals: Family Practice Referral - Within 1 Week with Justus Haynes M.D. Discharge Exam Patient complains of 9/10 burning pain in her right hip currently that radiates part way down her right lateral thigh. She denies numbness/tingling. She states she is able to walk down the moss with the roller walker and states her right leg feels pretty steady when doing so, although she does note weakness in the right leg. She is feeling well otherwise. The patient had been agreeable to [facility] and had been accepted, but a family emergency at home arose, and so she became insistent on going home to be with family instead. Risks of going home were explained but patient was adamant. Friends will be with her to help her navigate the steps up into her apartment, and a friend will also bring her a walker as the medical supply store is closed today. She will be sent home with home services, including physical therapy. The patient denies fevers , chills, sweats, chest pain, palpitations, claudication, cough, wheezing, shortness of breath, nausea, vomiting, abdominal pain, dysuria, hematuria, urinary retention, paralysis, numbness and tingling. Review of Systems: Constitutional: No fever, No chills, No sweats Eyes: No worsening of vision, No eye pain, No diplopia ENT: No hearing loss, No sore throat, No trouble swallowing Respiratory: No cough, No wheezing, No shortness of breath Cardiovascular: No chest pain, No claudication, No palpitations Abdomen: No pain, No nausea, No vomiting Musculoskeletal: + joint pain (right hip), No swelling, No calf pain Genitourinary - Female: No dysuria, No urinary retention, No hematuria Neurologic: + weakness, No paralysis, No numbness/tingling Integumentary: No rash, No itch, No color change Physical Exam: General Appearance: WD/WN, no apparent distress Eyes: normal inspection, PERRL, EOMI ENT: normal ENT inspection, hearing grossly normal, pharynx normal Neck: supple, no JVD, trachea midline Respiratory/Chest: lungs clear, normal breath sounds, no respiratory distress Cardiovascular: regular rate, rhythm, no gallop, no murmur Abdomen / GI: normal bowel sounds, non tender, soft Extremities: normal capillary refill, no pedal edema, + pertinent finding ( right hip and right lateral thigh TTP. surgical incision right hip dressed.) Neurologic/Psychiatric: alert, normal mood/affect, oriented x 3 Skin: normal color, warm/dry, no rash Hospital Course 66 y/o female with a history of DM II, chronic pain/neuropathy, and insomnia who was admitted because of Right Femoral Neck Fracture on 05/09/2017 Right Femoral Neck Fracture following mechanical fall--resolved -s/p Right Hip Bipolar Hemiarthroplasty on 05/10/[address] Jayjay Guevara -Ortho recs: WBAT right LE with walker, total hip precautions, abduction pillow while in bed, ice right hip -Developed post op fever 05/11, resolved with Tylenol. No recurrence -Lovenox 40 mg SC qd x 4 weeks for DVT prophylaxis -Pain control with oxycodone, advised to use only as prescribed -PT/OT evaluate and treat, recommend acute inpatient rehab. Pt had been set up to go to [facility]. On day of discharge a family emergency arose at home, so pt was then refusing rehab and adamant about going home instead with critical access hospital. Pt was warned about the risks of not going to rehab as recommended, such as another fall, fracture, injury, or future hospitalizations and she was strongly advised to go to rehab. Pt vocalized understanding of these risks and agrees to accept these risks on her own and go against our medical advice. -Pt set up with [facility] -Rep from [facility] will be in contact with patient; she may later go to [facility] from home if necessary -Vitamin D level checked, low normal in 30s -Vitamin D supplementation for home Acute blood loss anemia in postoperative setting--improving -Hgb remains stable/improving, no transfusions required -Asymptomatic H/o diabetes mellitus type 2--HgbA1c 4.5 on 05/10 -Insulin sliding scale -Check BSGs q ac and qhs Chronic pain/diabetic neuropathy--stable - Patient said she is not able to tolerate gabapentin 600 mg 3 times daily, request this be discontinued and reports she has not been taking at home anyway - D/c'd at discharge, encouraged patient to talk to PCP about this at follow up Tobacco use -Smoking cessation discussed. Mild hypernatremia/hypokalemia--likely secondary to dehydration -Resolved H/o Vitamine B12 deficiency--supposed to take injections at home but has been non-compliant -Continue weekly 1000 mcg IM injections -B12 level low inpatient Insomnia -Continue Ambien 10 mg as needed at night Pulmonary nodule-noted and stable -Pulm consulted: will need outpatient follow up, no invasive work up right now DVT prophylaxis -Teds, SCDs -Lovenox as above x 4 weeks CODE STATUS -LEVEL I FULL CODE Total Time Spent: Greater than 30 minutes This includes examination of the patient, discharge planning, medication reconciliation, and communication with other providers. Discharge Instructions Please refer to the electronic Patient Visit Report (Discharge Instructions) for additional information. Additional Copies To Justus Haynes M.D.
[2017-08-10] MEDS ORDERED: POTA10TA33 PO (13:42)
== END 2017-05-13 14:01 | disposition home or self-care (01) | DRG 470 ==
LOC: EDBD 15:41 → C.EDA 15:42 → C.MSN 18:59 → ENRESERV 19:18
PROVIDERS: ADMIT Internal Medicine; ATTEND Hospitalist
PROC: 0SR9029 Replacement of Right Hip Joint with Metal on Polyethylene Synthetic Substitute, Cemented, Open Approach (ICD-10-PCS; principal; 2017-05-10 07:00)
DX: S72.001A Fracture of unspecified part of neck of right femur, initial encounter for closed fracture (principal); D62 Acute posthemorrhagic anemia; E87.0 Hyperosmolality and hypernatremia; E08.49 Diabetes mellitus due to underlying condition with other diabetic neurological complication; E87.6 Hypokalemia; E53.8 Deficiency of other specified B group vitamins; G47.00 Insomnia, unspecified; E56.9 Vitamin deficiency, unspecified; W10.9XXA Fall (on) (from) unspecified stairs and steps, initial encounter; F17.210 Nicotine dependence, cigarettes, uncomplicated; Z83.3 Family history of diabetes mellitus; Z82.49 Family history of ischemic heart disease and other diseases of the circulatory system; Z91.14 Patient's other noncompliance with medication regimen; Z91.19 Patient's noncompliance with other medical treatment and regimen

== ENCOUNTER 2017-05-15 14:06 | Emergency (ER) | payer OTHER ==
[~2017-05-15] VITALS: Ht 177.8 cm; Wt 78.7 kg
[~2017-05-15 14:06] MED LIST changes: +CALCTAB7 PO; +CYNI1000 IM; +ERGO500011 PO; +LVNIS40 SQ; +MULT-890 PO; -NRN600 PO; +OXYC-164 PO; +RXC5 PO
[2017-05-15 14:10] VITALS: Ht 177.8 cm; Wt 78.7 kg
[2017-05-15] MEDS ORDERED: PROMETHAZINE HCL INJ 25 MG/ML 1 ML VIAL IM STA (14:18)
[2017-05-15] MEDS ORDERED: HYDROmorphone INJ 2 MG/ML SYR/VIAL IM STA ×2 (14:18→16:43)
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
--- NOTE | 2017-05-15 15:26 | DIAGNOSTIC IMAGING REPORT ---
SINGLE VIEW PELVIS CLINICAL HISTORY: Right leg pain. Recent hip arthroplasty. FINDINGS: An AP pelvic radiograph is compared to study dated 05/09/2017. The skeletal structures are osteopenic. A unipolar right hip arthroplasty is in near-anatomic alignment. No acute fracture is seen. Minimal arthritic change is seen in the left hip. Skin clips and soft tissue edema overlying the right hip are expected postoperative changes. Mild lumbosacral spondylosis is observed. There is a nonobstructed abdominal bowel gas pattern. Left gluteal calcifications are noted. A surgical clip is identified in the left hemipelvis. IMPRESSION: 1. No acute bony abnormality is seen in the hips or pelvis. 2. A right hip arthroplasty is in near-anatomic alignment. Electronically signed by: Lei Love M.D. 05/15/2017 3:25 PM Dictated Date/Time: 05/15/2017 3:20 PM
--- NOTE | 2017-05-15 15:27 | DIAGNOSTIC IMAGING REPORT ---
RIGHT FEMUR 2 VIEWS ROUTINE CLINICAL HISTORY: Severe right hip pain. Recent right hip replacement. COMPARISON: Right hip radiographs May 10, 2017. FINDINGS: Alignment of the total right hip arthroplasty is anatomic. There are skin wallace. There is no periprosthetic fracture or unexpected radiopaque foreign body. Alignment of the right knee is anatomic. There is no right knee joint effusion. IMPRESSION: Status post total right hip arthroplasty. Anatomic alignment with no periprosthetic fracture. Electronically signed by: Sukhwinder Mix M.D. 05/15/2017 3:26 PM Dictated Date/Time: 05/15/2017 3:25 PM
--- NOTE | 2017-05-15 15:57 | DIAGNOSTIC IMAGING REPORT ---
ULTRASOUND RIGHT LOWER EXTREMITY VENOUS CLINICAL HISTORY: Hip pain. COMPARISON STUDY: Lower extremity ultrasound dated 04/23/2012. TECHNIQUE: Real-time, grayscale, and color Doppler sonography of the deep veins of the right lower extremity was performed from the inguinal crease to the calf. Compression and augmentation were utilized. FINDINGS: There is no sonographic evidence of deep venous thrombosis identified in the right lower extremity. The common femoral, superficial femoral, and popliteal veins are patent and normally compressible. The greater saphenous vein and the profunda femoris vein at the junction with the common femoral vein are clear. The visualized calf veins are patent. There is a complex fluid collection identified in the right upper thigh at the indicated site of interest. This measures approximately 12 x 2 x 7 cm. IMPRESSION: 1. There is no sonographic evidence of deep venous thrombosis identified in the right lower extremity. 2. There is a complex nonvascular fluid collection identified in the upper outer right thigh as above. This likely represents a postoperative hematoma. Clinical correlation will be required and clinical follow-up to resolution is recommended. Electronically signed by: Lei Love M.D. 05/15/2017 3:56 PM Dictated Date/Time: 05/15/2017 3:50 PM
[2017-05-15] MEDS ORDERED: ONDANSETRON 4MG OD TAB PO STA (16:43)
[2017-05-15 17:51] VITALS: BP 147/57; PULSE 78; TEMP 36.8; O2SAT 97
[2017-08-10] MEDS ORDERED: POTA10TA33 PO (13:42)
== END 2017-05-15 17:52 ==
LOC: C.EDB 14:06 → EDBD 14:06 → C.EDB 17:52
DX: M25.551 Pain in right hip (principal); I10 Essential (primary) hypertension; E11.9 Type 2 diabetes mellitus without complications; F17.200 Nicotine dependence, unspecified, uncomplicated; Z98.890 Other specified postprocedural states; Z90.49 Acquired absence of other specified parts of digestive tract; Z87.828 Personal history of other (healed) physical injury and trauma; Z87.820 Personal history of traumatic brain injury; Z90.710 Acquired absence of both cervix and uterus; Z87.440 Personal history of urinary (tract) infections; Z98.84 Bariatric surgery status; Z87.11 Personal history of peptic ulcer disease; Z79.01 Long term (current) use of anticoagulants; Z83.3 Family history of diabetes mellitus; Z82.49 Family history of ischemic heart disease and other diseases of the circulatory system

== ENCOUNTER → 2017-05-26 | Outpatient (CLI) | payer OTHER ==
[~2017-05-26] MED LIST changes: +CEPH500C PO; +ERGO1CAP41 PO; -ERGO500011 PO; +ERGO500037 PO; +KETO10TA PO; +LSX20 PO; +NRN600 PO; +POTA10TA33 PO; +ZOLP10TA6 PO
--- NOTE | 2017-05-26 10:12 | DIAGNOSTIC IMAGING REPORT ---
RIGHT FEMUR 2 VIEWS CLINICAL HISTORY: RIGHT FEMORAL NECK FX Right postoperative evaluation COMPARISON: 05/15/2017 DISCUSSION: Status post total right hip replacement. Good contact between prosthetic and underlying bone. No evidence for acetabular protrusion. Expected soft tissue postoperative change IMPRESSION: Anatomic alignment status post total right hip replacement. Electronically signed by: Jose Couch M.D. 05/26/2017 10:10 AM Dictated Date/Time: 05/26/2017 10:09 AM
--- NOTE | 2017-05-26 11:16 | DIAGNOSTIC IMAGING REPORT ---
PELVIS 1 OR 2 VIEWS CLINICAL HISTORY: 67 years-old Female presenting with RIGHT FEMORAL NECK FX. TECHNIQUE: Single frontal AP view of the pelvis was obtained. COMPARISON: 05/15/2017. FINDINGS: Right hip arthroplasty in anatomic alignment with the [place] acetabulum. Surgical skin wallace overlie the right femoral region. No apparent hardware consultation. Left hip joint congruent. Calcification within the left buttock projects over the left hemipelvis. No acute osseous injury of the pelvis. Surgical clip also project over the left hemipelvis. Moderate stool burden in the rectum. IMPRESSION: 1. Postsurgical changes of right hip arthroplasty. No malalignment. Electronically signed by: Jayjay Thomas 05/26/2017 11:15 AM Dictated Date/Time: 05/26/2017 11:12 AM
== END | disposition home or self-care (01) ==
LOC: C.RDSM 09:40
PROVIDERS: ATTEND Physician Assistant
DX: S72.001A Fracture of unspecified part of neck of right femur, initial encounter for closed fracture (principal); X58.XXXA Exposure to other specified factors, initial encounter

== ENCOUNTER 2017-06-04 13:21 | Emergency (ER) | payer OTHER ==
[~2017-06-04] VITALS: Ht 177.8 cm; Wt 73.0 kg
[~2017-06-04 13:21] MED LIST changes: -CEPH500C PO; -ERGO500037 PO; -KETO10TA PO; -LSX20 PO; -NRN600 PO; -OXYC-164 PO; -POTA10TA33 PO; -ZOLP10TA6 PO
[2017-06-04 13:26] VITALS: TEMP 36.7; Ht 177.8 cm; Wt 73.0 kg
[2017-06-04] MEDS ORDERED: LSX20 PO (13:42)
[2017-06-04] MEDS ORDERED: ERGO500037 PO (13:42)
[2017-06-04] MEDS ORDERED: KETOROLAC TROMETHAMINE 60 MG/2 ML VIAL IM STA (14:15)
--- NOTE | 2017-06-04 14:27 | DIAGNOSTIC IMAGING REPORT ---
RIGHT HIP UNILATERAL 2 VIEWS CLINICAL HISTORY: pain Right pain COMPARISON: None. DISCUSSION: Total right hip prosthetic in good position. No evidence for acetabular protrusion. No significant evidence for loosening. There is no evidence for soft tissue swelling. IMPRESSION: No acute process status post total right hip replacement The above report was generated using voice recognition software. It may contain grammatical, syntax or spelling errors. Electronically signed by: Jose Couch M.D. 06/04/2017 2:26 PM Dictated Date/Time: 06/04/2017 2:25 PM
--- NOTE | 2017-06-04 15:05 | DIAGNOSTIC IMAGING REPORT ---
RIGHT VENOUS DOPP LOWER EXT UNILAT CLINICAL HISTORY: right leg pain Right pain. Edema. TECHNIQUE: Venous Doppler COMPARISON STUDY: None FINDINGS: Normal study IMPRESSION: Normal venous Doppler right leg The above report was generated using voice recognition software. It may contain grammatical, syntax or spelling errors. Electronically signed by: Jose Couch M.D. 06/04/2017 3:04 PM Dictated Date/Time: 06/04/2017 3:03 PM
[2017-06-04] MEDS ORDERED: KETO10TA PO (15:26)
--- NOTE | 2017-06-04 15:26 | EMERGENCY ROOM VISIT NOTE ---
History Report prepared by Antoinette: Carmella Reagan Under the Supervision of: Dr. Rell Morales D.O. First contact with patient: 14:07 Chief Complaint: HIP PAIN Stated Complaint: HIP REPLACE/SEVERE PAIN History of Present Illness The patient is a 67 year old female who presents to the Emergency Room with complaints of constant right hip pain beginning 4 days ago. The patient states that on 05/09 she tripped and fell down 6 stairs and broke her hip. She reports that she had a hip replacement and was prescribed oxycodone that she ran out of a few days ago. She notes that she has been having groin pain, leg pain, and pain that radiates into her knee. The patient states that she called her doctor this morning and he cannot see her for 4 days. She notes that she did get 10 days worth of oxycodone 9 days ago and was told that she could take it as needed for pain. She denies any abdominal pain. She states that walking and putting pressure on her leg worsens her symptoms. Source of History: patient Onset: 4 days ago Position: other (right hip) Timing: constant Modifying Factors (Worsening): other (walking) Note: Pt complains of right leg pain, groin pain, and knee pain. Review of Systems See HPI for pertinent positives & negatives. A total of 10 systems reviewed and were otherwise negative. Past Medical & Surgical Medical Problems: (1) Abdominal pain (2) Abdominal wall cellulitis (3) Abdominal wall cellulitis (4) Abdominal wall fluid collections (5) AMS - resolved suspect prescription medication abuse (6) Arm pain, left (7) Benign hypertension (8) Bypass gastroenterostomy (9) Cervical strain (10) Cholecystectomy (11) Chronic abdominal pain (12) Chronic hepatitis C (13) Closed head injury (14) Closed right femoral fracture (15) Concussion (16) Contusion of hip (17) Depressive disorder (18) Diabetes mellitus type 2 (19) Displaced fracture of right femoral neck (20) Esophageal Reflux (21) Hysterectomy (22) Knee contusion (23) Knee contusion (24) Left wrist fracture (25) Pain in wrist (26) Paralytic ileus (27) Polyneuropathy (28) Postoperative pain (29) Postoperative pain of extremity (30) Postoperative pain of extremity (31) Postoperative wound infection (32) PUD (peptic ulcer disease) (33) Pulmonary nodule (34) Shoulder contusion (35) Shoulder contusion (36) Suprapubic abdominal pain (37) Suprapubic abdominal pain (38) Urinary retention (39) Urinary tract infection (40) UTI (urinary tract infection) (41) UTI (urinary tract infection) (42) UTI (urinary tract infection) Surgical Problems: (1) H/O esophagogastroduodenoscopy (2) History of gastric bypass Family History Diabetes mellitus Hypertension Social History Smoking Status: Current Every Day Smoker Alcohol Use: none Drug Use: none, other Marital Status: , in relationship Housing Status: lives with significant other Occupation Status: retired, disabled Current/Historical Medications Scheduled Calcium Carbonate-Vitamin D W/ (Caltrate 600 Plus), 1 TAB PO BID Cyanocobalamin (Cyanocobalamin), 1,000 MCG IM Q7D Enoxaparin (Enoxaparin Sodium), 40 MG SQ DAILY Ergocalciferol (Vitamin D 79400 Unit), 50,000 UNIT PO WK Zolpidem Tartrate (Zolpidem Tartrate), 10 MG PO HS Scheduled PRN Furosemide (Furosemide), 20 MG PO BID PRN for UNDECIDED Ketorolac (Toradol), 10 MG PO Q6H PRN for Pain Potassium Chloride (Potassium Chloride Sr), 10 MEQ PO DAILY PRN for UNDECIDED Allergies Coded Allergies: Iodinated Diagnostic Agents (Verified Allergy, Severe, ANAPHYLACTIC REACTION, 05/29/17) Tramadol (Verified Allergy, Mild, nausea, hives, 01/30/17) Acetaminophen (Verified Adverse Reaction, Mild, VOMITING, 01/30/17) Lisinopril (Verified Adverse Reaction, Unknown, FEELS LIKE SOMETHING IS CRAWLING ON HER., 05/29/17) Physical Exam Vital Signs Date Time Temp Pulse Resp B/P (MAP) Pulse Ox O2 Delivery O2 Flow Rate FiO2 06/04/17 13:26 36.7 79 20 141/86 96 Room Air Physical Exam CONSTITUTIONAL/VITAL SIGNS: Reviewed / noted above. GENERAL: Non-toxic in appearance. INTEGUMENTARY: Warm, dry, and [place]. HEAD: Normocephalic. EYES: without scleral icterus or trauma. ENT/OROPHARYNX: clear and moist. LYMPHADENOPATHY/NECK: Is supple without lymphadenopathy or meningismus. RESPIRATORY: Lungs clear and equal. CARDIOVASCULAR: Regular rate and rhythm. GI/ABDOMEN: Soft and nontender. No organomegaly or pulsatile mass. No rebound or guarding. Normal bowel sounds. EXTREMITIES: Warm and well perfused. Full range of motion of the right leg, right hip, right knee, right ankle without significant discomfort, no rashes, no significant swelling. Normal pulses. BACK: No CVA tenderness. NEUROLOGICAL: Intact without focal deficits. PSYCHIATRIC: normal affect. MUSCULOSKELETAL: Normally developed with good muscle tone. Medical Decision & Procedures ER Provider Diagnostic Interpretation: Radiology results as stated below per my review and radiologist interpretation: RIGHT HIP UNILATERAL 2 VIEWS DISCUSSION: Total right hip prosthetic in good position. No evidence for acetabular protrusion. No significant evidence for loosening. There is no evidence for soft tissue swelling. IMPRESSION: No acute process status post total right hip replacement The above report was generated using voice recognition software. It may contain grammatical, syntax or spelling errors. Electronically signed by: Jose Couch M.D. 06/04/2017 2:26 PM Dictated Date/Time: 06/04/2017 2:25 PM RIGHT VENOUS DOPP LOWER EXT UNILAT FINDINGS: Normal study IMPRESSION: Normal venous Doppler right leg The above report was generated using voice recognition software. It may contain grammatical, syntax or spelling errors. Electronically signed by: Jose Couch M.D. 06/04/2017 3:04 PM Dictated Date/Time: 06/04/2017 3:03 PM Medications Administered Medications (Trade) Dose Ordered Sig/Rocky Route Start Time Stop Time Status Last Admin Dose Admin Ketorolac Tromethamine (Toradol Inj) 60 mg NOW STAT IM 06/04/17 14:15 06/04/17 14:17 DC 06/04/17 14:28 60 MG ED Course 1407: Previous medical records were reviewed. The patient was evaluated in room B2. A complete history and physical examination was performed. 1415: Toradol inj 60mg IM. 1530: On reevaluation, the patient is doing well. I discussed the results and findings with the patient. She verbalized agreement of the treatment plan. The patient was discharged home. Medical Decision Differential diagnosis: Etiologies such as DVT, musculoskeletal, infection, joint effusion, trauma, lymphedema, idiopathic, CHF, as well as others were entertained. Medication Reconciliation: I attest that I have personally reviewed the patient' s current medication list. Patient was found to have a slightly elevated blood pressure due to circumstances. I do not believe that the patient requires hypertension monitoring. This is a 67-year-old female who presents to the ED with a chief complaint of hip pain. The patient states that she ran out of her oxycodone that was prescribed May 26. The patient states that she is unable to see her orthopedist for about 4 days. The patient had a fall in May 09 and required a right hip arthroplasty. The patient complains of increasing pain in the right hip in the area. Her vital signs are normal. Her exam was unremarkable. She is full range of motion without any abnormalities. There is no obvious trauma. There is no swelling. X-ray of the hip did not show any abnormalities. Ultrasound leg did not show DVT. The patient was treated with Toradol IM. She is given a prescription for Toradol by mouth. BMP program reveals that the patient had been receiving high quantities of oxycodone and 2016 from a physician in [place]. [place] Drug Monitoring Program Search Results: patient reviewed within database Drug Monitoring Findings: On 05/26/17 the patient received got 40 tablets of oxycodone. Impression Primary Impression: Right leg pain Scribe Attestation The scribe's documentation has been prepared under my direction and personally reviewed by me in its entirety. I confirm that the note above accurately reflects all work, treatment, procedures, and medical decision making performed by me. Departure Information Dispostion Home / Self-Care Prescriptions Ketorolac (Toradol) 10 Mg Tab 10 MG PO Q6H Y for Pain, #20 TAB Prov: Rell Morales D.O. 06/04/17 Referrals No Doctor, Assigned (PCP) Forms HOME CARE DOCUMENTATION FORM, IMPORTANT VISIT INFORMATION, WORK / SCHOOL INSTRUCTIONS Patient Instructions My [facility] Additional Instructions Follow-up with your doctor for further care and evaluation in 1-2 days. Return to the emergency department for worsening or new symptoms or any concerns. You have been examined and treated today on an emergency basis only. This is not a substitute for, or an effort to provide, complete comprehensive medical care. It is impossible to recognize and treat all injuries or illnesses in a single emergency department visit. It is therefore important that you follow up closely with your doctor. Call as soon as possible for an appointment. Toradol as prescribed for pain.
[2017-06-04 15:49] VITALS: BP 151/75; PULSE 72; O2SAT 98
[2017-08-10] MEDS ORDERED: POTA10TA33 PO (13:42)
== END 2017-06-04 16:02 | disposition home or self-care (01) ==
LOC: C.EDB 13:22
DX: M79.604 Pain in right leg (principal); Z96.641 Presence of right artificial hip joint; I10 Essential (primary) hypertension; B19.20 Unspecified viral hepatitis C without hepatic coma; F32.9 Major depressive disorder, single episode, unspecified; E11.9 Type 2 diabetes mellitus without complications; K21.9 Gastro-esophageal reflux disease without esophagitis; K27.9 Peptic ulcer, site unspecified, unspecified as acute or chronic, without hemorrhage or perforation; Z87.440 Personal history of urinary (tract) infections; Z98.84 Bariatric surgery status; Z83.3 Family history of diabetes mellitus; Z82.49 Family history of ischemic heart disease and other diseases of the circulatory system; F17.210 Nicotine dependence, cigarettes, uncomplicated; Z79.899 Other long term (current) drug therapy

== ENCOUNTER → 2017-06-13 | Outpatient (CLI) | payer OTHER ==
[~2017-06-13] MED LIST changes: +CEPH500C PO; -ERGO1CAP41 PO; +ERGO500037 PO; +KETO10TA PO; +LSX20 PO; -MULT-890 PO; +NRN600 PO; +OXYC-164 PO; +POTA10TA33 PO; -RXC5 PO; +ZOLP10TA6 PO
== END | disposition home or self-care (01) ==
LOC: C.RDSM 13:27
PROVIDERS: ATTEND Physical Medicine & Rehabilitation Sports Medicine
DX: Z96.641 Presence of right artificial hip joint (principal); M79.661 Pain in right lower leg; M79.671 Pain in right foot; M79.672 Pain in left foot

== ENCOUNTER 2017-08-10 19:52 | Emergency (ER) | payer OTHER ==
[~2017-08-10] VITALS: Ht 177.8 cm; Wt 71.0 kg
[~2017-08-10 19:52] MED LIST changes: -CEPH500C PO; -NRN600 PO; -OXYC-164 PO; -ZOLP10TA6 PO
[2017-08-10 20:42] VITALS: TEMP 36.9; Ht 177.8 cm; Wt 71.0 kg
[2017-08-10] MEDS ORDERED: ZOLP10TA6 PO (21:36)
[2017-08-10] MEDS ORDERED: OXYCODONE/ACETAMINOPHEN 10/325MG TAB PO STA (21:42)
[2017-08-10] MEDS ORDERED: OXYC-164 PO (22:35)
[2017-08-10] MEDS ORDERED: NRN600 PO (22:35)
[2017-08-10 22:38] LABS: BASO % 0.6 %; BASO ABS # 0.02 K/uL (0-0.2); COMPLETE YES; EOS % 2.6 %; HEMATOCRIT 34.1 % (37-47); IG% 0.3 %; LYMPH % 34.6 %; MEAN CELL VOLUME 96.1 fL (80-100); MEAN CORPUSCULAR HEMOGLOBIN 31.3 pg (25-34); MEAN CORPUSCULAR HGB CONC 32.6 g/dl (32-36); MONO % 10.1 %; NEUT % 51.8 %; PLATELET COUNT 261 K/uL (130-400); RED BLOOD COUNT 3.55 M/uL (4.2-5.4); WHITE BLOOD COUNT 3.47 K/uL (4.8-10.8)
[2017-08-10 22:47] LABS: INR 1.1 (0.9-1.1); PROTHROMBIN TIME (PATIENT) 11.4 SECONDS (9.0-12.0)
[2017-08-10 22:55] LABS: BUN/CREATININE RATIO 18.6 (10-20); CREATININE 0.59 mg/dl (0.60-1.20); POTASSIUM 3.9 mmol/L (3.5-5.1)
[2017-08-10 23:04] LABS: ALB/GLOB RATIO 0.8 (0.9-2)
[2017-08-11] MEDS ORDERED: OXYCODONE/ACETAMINOPHEN 10/325MG TAB PO STA (00:50)
[2017-08-11] MEDS ORDERED: CEPHALEXIN 500MG HOME PACK 1 EA BTL PO ONE (01:00)
[2017-08-11 01:03] VITALS: BP 150/65; PULSE 89; O2SAT 98
[2017-08-11] MEDS ORDERED: CEPH500C PO (01:19)
--- NOTE | 2017-08-11 01:20 | EMERGENCY ROOM VISIT NOTE ---
History First contact with patient: 21:34 Chief Complaint: SWELLING TO EXTREMITY Stated Complaint: BLOOD CLOTS L LEG History of Present Illness The patient is a 67 year old female who presents to the Emergency Room with complaints of swelling of the left leg. The patient states that her left leg has been swollen for the past 2-3 weeks. She reports pain in the leg which she rates an 8/10. The patient also does have chronic pain in both of the legs. She takes Percocet at home for this. She had a total hip replacement performed 4 months ago. She does smoke. She denies any hormone replacement or recent travel. She denies any fevers/chills or recent injury to her leg. She saw her pain management provider today and they recommended that she come here for evaluation. The patient denies chest pain or shortness of breath. Review of Systems A complete 10 point review of systems was reviewed with the patient with pertinent positives and negatives as per history of present illness. All else were negative. Past Medical/Surgical History Medical Problems: (1) Abdominal pain (2) Abdominal wall cellulitis (3) Abdominal wall cellulitis (4) Abdominal wall fluid collections (5) AMS - resolved suspect prescription medication abuse (6) Arm pain, left (7) Benign hypertension (8) Bypass gastroenterostomy (9) Cervical strain (10) Cholecystectomy (11) Chronic abdominal pain (12) Chronic hepatitis C (13) Closed head injury (14) Closed right femoral fracture (15) Concussion (16) Contusion of hip (17) Depressive disorder (18) Diabetes mellitus type 2 (19) Displaced fracture of right femoral neck (20) Esophageal Reflux (21) Hysterectomy (22) Knee contusion (23) Knee contusion (24) Left wrist fracture (25) Pain in wrist (26) Paralytic ileus (27) Polyneuropathy (28) Postoperative pain (29) Postoperative pain of extremity (30) Postoperative pain of extremity (31) Postoperative wound infection (32) PUD (peptic ulcer disease) (33) Pulmonary nodule (34) Shoulder contusion (35) Shoulder contusion (36) Suprapubic abdominal pain (37) Suprapubic abdominal pain (38) Urinary retention (39) Urinary tract infection (40) UTI (urinary tract infection) (41) UTI (urinary tract infection) (42) UTI (urinary tract infection) Surgical Problems: (1) H/O esophagogastroduodenoscopy (2) History of gastric bypass Family History Diabetes mellitus Hypertension Social History Smoking Status: Current Every Day Smoker Alcohol Use: none Drug Use: none, other Marital Status: , in relationship Housing Status: lives with significant other Occupation Status: retired, disabled Current/Historical Medications Scheduled Cephalexin Monohydrate (Keflex), 500 MG PO QID Cyanocobalamin (Cyanocobalamin), 1,000 MCG IM Q7D Ergocalciferol (Vitamin D 18397 Unit), 50,000 UNIT PO WK Oxycodone Hcl (Oxycodone Hcl), 10 MG PO QID Zolpidem Tartrate (Zolpidem Tartrate), 10 MG PO HS Scheduled PRN Furosemide (Furosemide), 20 MG PO BID PRN for UNDECIDED Gabapentin (Gabapentin), 600 MG PO TID PRN for NEUROPATHY Potassium Chloride (Potassium Chloride Sr), 10 MEQ PO DAILY PRN for UNDECIDED Physical Exam Vital Signs Date Time Temp Pulse Resp B/P (MAP) Pulse Ox O2 Delivery O2 Flow Rate FiO2 08/11/17 01:03 89 20 150/65 98 Room Air 08/10/17 22:05 80 19 156/77 97 Room Air 08/10/17 20:42 36.9 83 20 148/86 97 Room Air Physical Exam VITALS: Vitals are noted on the nurse's note and reviewed by myself. Vital signs stable. GENERAL: This is a 67-year-old female, in no acute distress, nondiaphoretic, well-developed well-nourished. SKIN: The skin was without rashes. HEART: Regular rate and rhythm without murmurs gallops or rubs. LUNGS: Clear to auscultation bilaterally without wheezes, rales or rhonchi. EXTREMITIES: There is moderate nonpitting edema of the left lower extremity with mild erythema extending from the mid calf to the ankle. NEURO: Patient was alert and oriented to person place and time. Normal sensation to light and sharp touch. Medical Decision & Procedures ER Provider Diagnostic Interpretation: US VENOUS LEFT LOWER EXTREMITY: No evidence of deep venous thrombosis. Soft tissue edema. Radiologist: Justus Proctor MD Laboratory Results 08/10/17 22:24 Red Blood Count 3.55, Mean Corpuscular Volume 96.1, Mean Corpuscular Hemoglobin 31.3, Mean Corpuscular Hemoglobin Concent 32.6, Mean Platelet Volume 10.0, Neutrophils (%) (Auto) 51.8, Lymphocytes (%) (Auto) 34.6, Monocytes (%) (Auto) 10.1, Eosinophils (%) (Auto) 2.6, Basophils (%) (Auto) 0.6, Neutrophils # (Auto ) 1.80, Lymphocytes # (Auto) 1.20, Monocytes # (Auto) 0.35, Eosinophils # (Auto ) 0.09, Basophils # (Auto) 0.02 08/10/17 22:24 Test 08/10/17 22:24 White Blood Count 3.47 K/uL (4.8-10.8) Red Blood Count 3.55 M/uL (4.2-5.4) Hemoglobin 11.1 g/dL (12.0-16.0) Hematocrit 34.1 % (37-47) Mean Corpuscular Volume 96.1 fL (80-100) Mean Corpuscular Hemoglobin 31.3 pg (25-34) Mean Corpuscular Hemoglobin Concent 32.6 g/dl (32-36) Platelet Count 261 K/uL (130-400) Mean Platelet Volume 10.0 fL (7.4-10.4) Neutrophils (%) (Auto) 51.8 % Lymphocytes (%) (Auto) 34.6 % Monocytes (%) (Auto) 10.1 % Eosinophils (%) (Auto) 2.6 % Basophils (%) (Auto) 0.6 % Neutrophils # (Auto) 1.80 K/uL (1.4-6.5) Lymphocytes # (Auto) 1.20 K/uL (1.2-3.4) Monocytes # (Auto) 0.35 K/uL (0.11-0.59) Eosinophils # (Auto) 0.09 K/uL (0-0.5) Basophils # (Auto) 0.02 K/uL (0-0.2) RDW Standard Deviation 56.3 fL (36.4-46.3) RDW Coefficient of Variation 16.1 % (11.5-14.5) Immature Granulocyte % (Auto) 0.3 % Immature Granulocyte # (Auto) 0.01 K/uL (0.00-0.02) Prothrombin Time 11.4 SECONDS (9.0-12.0) Prothromb Time International Ratio 1.1 (0.9-1.1) Activated Partial Thromboplast Time 25.7 SECONDS (21.0-31.0) Partial Thromboplastin Ratio 1.0 Anion Gap 7.0 mmol/L (3-11) Est Creatinine Clear Calc Drug Dose 100.1 ml/min Estimated GFR () 109.9 Estimated GFR (Non- 94.8 BUN/Creatinine Ratio 18.6 (10-20) Calcium Level 8.0 mg/dl (8.5-10.1) Total Bilirubin 0.5 mg/dl (0.2-1) Aspartate Amino Transf (AST/SGOT) 17 U/L (15-37) Alanine Aminotransferase (ALT/SGPT) 21 U/L (12-78) Alkaline Phosphatase 184 U/L (45-117) Total Protein 5.7 gm/dl (6.4-8.2) Albumin 2.5 gm/dl (3.4-5.0) Globulin 3.2 gm/dl (2.5-4.0) Albumin/Globulin Ratio 0.8 (0.9-2) Medications Administered Medications (Trade) Dose Ordered Sig/Rocky Route Start Time Stop Time Status Last Admin Dose Admin Oxycodone/ Acetaminophen (Percocet 10-325MG Tab) 1 tab NOW STAT PO 08/10/17 21:42 08/10/17 21:43 DC 08/10/17 21:58 1 TAB Oxycodone/ Acetaminophen (Percocet 10-325MG Tab) 1 tab NOW STAT PO 08/11/17 00:50 08/11/17 00:52 DC 08/11/17 01:02 1 TAB Cephalexin Monohydrate (Keflex 500MG Home Pack) 1 homepack NOW ONCE PO 08/11/17 01:00 08/11/17 01:01 DC 08/11/17 01:01 1 HOMEPACK ED Course The patient was evaluated as above. Labs were drawn and IV access was obtained. Patient was medicated with 1 tablet of Percocet 10/325 mg. Ultrasound of the left leg was performed and read by radiology as above. Patient was reevaluated and findings were discussed. Patient was given an additional tablet of Percocet and a homepack of Keflex. Discharge instructions were reviewed with the patient. The patient verbalized understanding of my assessment and treatment plan and was discharged home in good condition. Medical Decision Differential diagnosis includes DVT, superficial thrombosis, cellulitis, among others. The patient is a 67-year-old female who presents today complaining of left leg swelling. Leg is moderately swollen on exam with some erythema. Symptoms have been ongoing for 2-3 weeks. Labs revealed no leukocytosis. Ultrasound of the leg was performed and read by statregine and did not reveal any evidence of DVT. Patient appears to have a cellulitis. This is not extensive. She is afebrile. Patient is stable for discharge on oral antibiotics. She will be placed on Keflex and was advised to follow-up with her primary care provider for a recheck. The patient was educated to return to the emergency department for any worsening of their current condition or new/concerning symptoms. She verbalized understanding of my assessment and treatment plan was discharged home in good condition. Medication Reconcilliation Current Medication List: was personally reviewed by me Blood Pressure Screening Patient's blood pressure: Elevated blood pressure Blood pressure disposition: Elevated BP felt to be situational Impression Primary Impression: Cellulitis of left leg Departure Information Dispostion Home / Self-Care Condition GOOD Prescriptions Cephalexin Monohydrate (Keflex) 500 Mg Cap 500 MG PO QID for 10 Days, #40 CAP Prov: Lulu Downing ., KRISTI 08/11/17 Referrals Justus Haynes M.D. (PCP) Patient Instructions My [facility] Additional Instructions You were prescribed Keflex to be taken four times daily as prescribed. This is an antibiotic. All antibiotics have the potential to cause diarrhea. Stop this medication and contact a medical provider if you were to develop any significant adverse side effects including: wheezing, shortness of breath, passing out, vomiting, or a diffuse rash. Always take antibiotics as directed and COMPLETE the ENTIRE course regardless of the improvement of your symptoms. For pain control, you can use the following [id number] medicines (if >12 yo): - Regular strength (325mg/tab) Tylenol (acetaminophen) 2 tabs every 4-6 hours as needed. Do not exceed 12 tablets in a 24 hour period. Avoid taking more than 4 grams (4000 mg) of Tylenol per day. This includes any other sources of acetaminophen you may take on a regular basis. - Regular strength (200 mg/tab) Advil (ibuprofen) 1-2 tabs every 4-6 hours as needed. Do not exceed a dose of 3200 mg per day. Follow-up with Dr. Haynes within 48 hours.
--- NOTE | 2017-08-11 06:27 | DIAGNOSTIC IMAGING REPORT ---
ULTRASOUND VENOUS DOPPLER ULTRASOUND OF THE LEFT LOWER EXTREMITY CLINICAL HISTORY: left leg swelling, recent surgery COMPARISON STUDY: No previous studies for comparison. FINDINGS: Real-time and color flow Doppler imaging were performed. Flow was seen within the femoral, popliteal and calf veins with no intraluminal thrombus demonstrated. The saphenous vein is patent. There is superficial edema present. IMPRESSION: No evidence of left lower extremity DVT. Electronically signed by: Phuc Burton M.D. 08/11/2017 6:26 AM Dictated Date/Time: 08/11/2017 6:25 AM
== END 2017-08-11 01:25 | disposition home or self-care (01) ==
LOC: C.EDB 19:53
DX: L03.116 Cellulitis of left lower limb (principal); M79.604 Pain in right leg; M79.605 Pain in left leg; R10.9 Unspecified abdominal pain; G89.29 Other chronic pain; I10 Essential (primary) hypertension; B18.2 Chronic viral hepatitis C; F32.9 Major depressive disorder, single episode, unspecified; K21.9 Gastro-esophageal reflux disease without esophagitis; E11.42 Type 2 diabetes mellitus with diabetic polyneuropathy; K27.9 Peptic ulcer, site unspecified, unspecified as acute or chronic, without hemorrhage or perforation; R91.1 Solitary pulmonary nodule; F17.200 Nicotine dependence, unspecified, uncomplicated; Z98.84 Bariatric surgery status; Z90.710 Acquired absence of both cervix and uterus; Z87.440 Personal history of urinary (tract) infections; Z83.3 Family history of diabetes mellitus; Z82.49 Family history of ischemic heart disease and other diseases of the circulatory system; Z96.649 Presence of unspecified artificial hip joint

== ENCOUNTER → 2017-08-17 | Outpatient (CLI) | payer OTHER ==
[~2017-08-17] MED LIST changes: -CALCTAB7 PO; +CEPH500C PO; -KETO10TA PO; -LVNIS40 SQ; +NRN600 PO; +OXYC-164 PO; +ZOLP10TA6 PO
[2017-08-17 12:33] LABS: URINE APPEARANCE CLEAR (CLEAR); URINE BILIRUBIN NEG (NEG); URINE COLOR YELLOW; URINE EPITHELIAL CELL AUTO >30 /lpf (0-5); URINE NITRITE NEG (NEG); URINE PH 5.5 (4.5-7.5); UROBILINOGEN NEG (NEG)
[2017-08-17 12:41] LABS: MANUAL MICROSCOPIC REQUIRED? NO; REVIEW REQ? NO
== END | disposition home or self-care (01) ==
LOC: C.LABBFT 09:42
PROVIDERS: ATTEND Physician Assistant Medical
DX: N39.0 Urinary tract infection, site not specified (principal)

== ENCOUNTER 2018-01-16 18:49 | Emergency (ER) | payer OTHER ==
[~2018-01-16] VITALS: Ht 179.1 cm; Wt 75.3 kg
[~2018-01-16 18:49] MED LIST changes: -CEPH500C PO; -ZOLP10TA6 PO
[2018-01-16 18:59] VITALS: TEMP 37; Ht 179.1 cm; Wt 75.3 kg
[2018-01-16] MEDS ORDERED: OXYCODONE HCL IR 5 MG TAB (IMMEDIATE RELEASE) PO STA (19:33)
--- NOTE | 2018-01-16 20:13 | EMERGENCY ROOM VISIT NOTE ---
ED Visit Note First contact with patient: 19:02 The patient was seen and examined with Luisa Ritchie PA-C. I agree with the history, physical and findings. Please see the note for disposition and details.
--- NOTE | 2018-01-16 20:36 | DIAGNOSTIC IMAGING REPORT ---
R SHOULDER MIN 2 VIEWS ROUTINE CLINICAL HISTORY: Right shoulder pain. COMPARISON: Right shoulder radiographs August 18, 2015. FINDINGS: There is slight elevation of the distal right clavicle with respect to the acromion. This has developed since exam of August 19, 2015. No acute fractures identified. Alignment of the right glenohumeral joint is anatomic. There is moderate arthritis of the right acromioclavicular joint and mild arthritis of the right glenohumeral joint. IMPRESSION: 1. No acute fracture. 2. Slight elevation of the distal right clavicle which raises the possibility of a mild age indeterminate AC joint separation. 3. Moderate osteoarthritis of the right acromioclavicular joint. Electronically signed by: Sukhwinder Mix M.D. 01/16/2018 8:35 PM Dictated Date/Time: 01/16/2018 8:33 PM
--- NOTE | 2018-01-16 20:37 | DIAGNOSTIC IMAGING REPORT ---
R SHOULDER 1 VIEW CLINICAL HISTORY: Impingement bu/shoulder pain COMPARISON: Right shoulder radiograph August 18, 2015. FINDINGS: Alignment of the right glenohumeral joint is anatomic with there may be slight elevation of the distal right clavicle. No fracture is identified. Subacromial space appears preserved. IMPRESSION: 1. Anatomic alignment of right glenohumeral joint. 2. Preserved subacromial space by radiography. 3. Possible slight elevation of the distal right clavicle with respect to the acromion. Electronically signed by: Sukhwinder Mix M.D. 01/16/2018 8:36 PM Dictated Date/Time: 01/16/2018 8:35 PM
[2018-01-16] MEDS ORDERED: CTP/1 PO (20:39)
--- NOTE | 2018-01-16 20:48 | EMERGENCY ROOM VISIT NOTE ---
ED Visit Note First contact with patient: 19:02 CHIEF COMPLAINT: Right shoulder pain HISTORY OF PRESENT ILLNESS: This 67-year-old female presents to ER with chief complaint of right shoulder pain. The patient states that last night she picked up a gallon of iced tea with her right hand and went to pour it felt a sharp pain in her right shoulder and she dropped the ice tea. Since that time she has been having pain in the right shoulder and some weakness in her right hand. The patient states she has a history of a rotator cuff tear in the shoulder which she saw orthopedics in the past and was in therapy for several weeks. She never had surgery since she declined at that time. The patient thinks she saw Dr. Fitzpatrick. The patient states that she has oxycodone at home for chronic back pain. She took one this morning and got up approximately 3 hours relief of the pain but did not want to take another one before she came to the ER. REVIEW OF SYSTEMS: 6 system review was performed and was negative unless stated otherwise in history of present illness. PMH: The patient is healthy; prior right rotator cuff tear, asthma, kidney stones, hypertension, cholecystectomy, gastric bypass, hip replacement SOCIAL HISTORY: Patient lives at home. The patient admits to tobacco use and occasional alcohol use. PHYSICAL EXAM: Vital Signs: Were reviewed reviewed nurse's notes. General: 67- year-old thin white female appears in no acute distress. MENTAL Status: Alert and oriented 3. RIGHT SHOULDER: The shoulder is not swollen or deformed on inspection. The range of motion is limited in all directions because of the pain. There is no tenderness of the distal clavicle. The patient has no increased pain with resisted supination of the hand with elbow down by her side. Matcher Operator strength is 5 out of 5 as compared to the left. EMERGENCY DEPARTMENT COURSE: The patient was evaluated. The patient was given OxyIR 5 mg p.o. for pain. X-ray of the right shoulder was ordered and interpreted by the radiologist and myself DIAGNOSTICS:R SHOULDER MIN 2 VIEWS ROUTINE CLINICAL HISTORY: Right shoulder pain. COMPARISON: Right shoulder radiographs August 18, 2015. FINDINGS: There is slight elevation of the distal right clavicle with respect to the acromion. This has developed since exam of August 19, 2015. No acute fractures identified. Alignment of the right glenohumeral joint is anatomic. There is moderate arthritis of the right acromioclavicular joint and mild arthritis of the right glenohumeral joint. IMPRESSION: 1. No acute fracture. 2. Slight elevation of the distal right clavicle which raises the possibility of a mild age indeterminate AC joint separation. 3. Moderate osteoarthritis of the right acromioclavicular joint. Electronically signed by: Sukhwinder Mix M.D. 01/16/2018 8:35 PM R SHOULDER 1 VIEW CLINICAL HISTORY: Impingement bu/shoulder pain COMPARISON: Right shoulder radiograph August 18, 2015. FINDINGS: Alignment of the right glenohumeral joint is anatomic with there may be slight elevation of the distal right clavicle. No fracture is identified. Subacromial space appears preserved. IMPRESSION: 1. Anatomic alignment of right glenohumeral joint. 2. Preserved subacromial space by radiography. 3. Possible slight elevation of the distal right clavicle with respect to the acromion. Electronically signed by: Sukhwinder Mix M.D. 01/16/2018 8:36 PM Dictated Date/Time: 01/16/2018 8:35 PM The patient was informed of the findings. Patient was independently evaluated by Dr. Guillermo who agrees with treatment plan. The patient was placed in an arm sling. The patient stated that she would like to see Dr. Carrillo for her shoulder. The patient was discharged home in stable condition. DIAGNOSIS: Right shoulder pain DISCHARGE INSTRUCTIONS & TREATMENT: Rest the arm in a sling until the pain subsides. Continue oxycodone as prescribed for your back this will also help with your shoulder. Call Dr. Carrillo tomorrow for follow-up appointment. Problem List Medical Problems: (1) Abdominal pain Status: Resolved (2) Abdominal wall cellulitis Status: Resolved (3) Abdominal wall cellulitis Status: Resolved (4) Abdominal wall fluid collections Status: Resolved (5) AMS - resolved suspect prescription medication abuse Status: Resolved (6) Arm pain, left Status: Resolved (7) Benign hypertension Status: Chronic (8) Bypass gastroenterostomy Status: Resolved (9) Cervical strain Status: Resolved (10) Cholecystectomy Status: Resolved (11) Chronic abdominal pain Status: Chronic (12) Chronic hepatitis C Status: Chronic (13) Closed head injury Status: Resolved (14) Concussion Status: Resolved (15) Contusion of hip Status: Resolved (16) Depressive disorder Status: Chronic (17) Diabetes mellitus type 2 Status: Chronic (18) Esophageal Reflux Status: Chronic (19) Hysterectomy Status: Resolved (20) Knee contusion Status: Resolved (21) Knee contusion Status: Resolved (22) Left wrist fracture Status: Resolved (23) Pain in wrist Status: Resolved (24) Paralytic ileus Status: Resolved (25) Polyneuropathy Status: Chronic (26) Postoperative pain Status: Resolved (27) Postoperative pain of extremity Status: Resolved (28) Postoperative pain of extremity Status: Resolved (29) Postoperative wound infection Status: Resolved (30) PUD (peptic ulcer disease) Status: Chronic (31) Pulmonary nodule Status: Chronic (32) Shoulder contusion Status: Resolved (33) Shoulder contusion Status: Resolved (34) Suprapubic abdominal pain Status: Resolved (35) Suprapubic abdominal pain Status: Resolved (36) Urinary retention Status: Resolved (37) Urinary tract infection Status: Resolved (38) UTI (urinary tract infection) Status: Resolved (39) UTI (urinary tract infection) Status: Resolved (40) UTI (urinary tract infection) Status: Resolved Surgical Problems: (1) H/O esophagogastroduodenoscopy Status: Chronic Current/Historical Medications Scheduled Clonidine Hcl (Catapres), 0.1 MG PO BID Cyanocobalamin (Cyanocobalamin), 1,000 MCG IM Q7D Ergocalciferol (Vitamin D 79852 Unit), 50,000 UNIT PO WK Scheduled PRN Furosemide (Furosemide), 20 MG PO BID PRN for UNDECIDED Potassium Chloride (Potassium Chloride Sr), 10 MEQ PO DAILY PRN for UNDECIDED Zolpidem Tartrate (Zolpidem Tartrate), 10 MG PO HS PRN for Sleep Allergies Coded Allergies: Iodinated Diagnostic Agents (Verified Allergy, Severe, ANAPHYLACTIC REACTION, 05/29/17) Tramadol (Verified Allergy, Mild, nausea, hives, 01/30/17) Acetaminophen (Verified Adverse Reaction, Mild, VOMITING, 01/30/17) Lisinopril (Verified Adverse Reaction, Unknown, FEELS LIKE SOMETHING IS CRAWLING ON HER., 05/29/17) Vital Signs Date Time Temp Pulse Resp B/P (MAP) Pulse Ox O2 Delivery O2 Flow Rate FiO2 01/16/18 18:59 37.0 81 18 150/78 95 Room Air Medications Administered Medications (Trade) Dose Ordered Sig/Rocky Route Start Time Stop Time Status Last Admin Dose Admin Oxycodone HCl (Roxicodone Immediate Rel Tab) 5 mg NOW STAT PO 01/16/18 19:33 01/16/18 19:35 DC 01/16/18 19:49 5 MG Departure Information Referrals No Doctor, Assigned (PCP) Patient Instructions [facility]
[2018-01-16 21:03] VITALS: BP 138/80; PULSE 80; O2SAT 97
[2018-01-16] MEDS ORDERED: ZOLP10TA6 PO (21:36)
== END 2018-01-16 21:04 | disposition home or self-care (01) ==
LOC: C.EDB 18:51 → C.EDD 21:04
DX: M25.511 Pain in right shoulder (principal); G89.29 Other chronic pain; M54.9 Dorsalgia, unspecified; J45.909 Unspecified asthma, uncomplicated; Z87.442 Personal history of urinary calculi; I10 Essential (primary) hypertension; Z90.49 Acquired absence of other specified parts of digestive tract; Z95.1 Presence of aortocoronary bypass graft; Z96.649 Presence of unspecified artificial hip joint; Z72.0 Tobacco use; B18.2 Chronic viral hepatitis C; F32.9 Major depressive disorder, single episode, unspecified; K21.9 Gastro-esophageal reflux disease without esophagitis; Z90.710 Acquired absence of both cervix and uterus; E11.42 Type 2 diabetes mellitus with diabetic polyneuropathy; K27.9 Peptic ulcer, site unspecified, unspecified as acute or chronic, without hemorrhage or perforation; R91.1 Solitary pulmonary nodule; Z87.440 Personal history of urinary (tract) infections; Z79.899 Other long term (current) drug therapy; Z88.8 Allergy status to other drugs, medicaments and biological substances; Z91.041 Radiographic dye allergy status; Z88.6 Allergy status to analgesic agent

== ENCOUNTER → 2018-03-14 | Outpatient (CLI) | payer OTHER ==
[~2018-03-14] MED LIST changes: +CTP/1 PO; -NRN600 PO; -OXYC-164 PO; +ZOLP10TA6 PO
[2018-03-14 17:15] LABS: BASO % 0.6 %; BASO ABS # 0.03 K/uL (0-0.2); EOS % 1.3 %; EOS ABS # 0.07 K/uL (0-0.5); HEMATOCRIT 36.1 % (37-47); HEMOGLOBIN 11.5 g/dL (12.0-16.0); IG# 0.01 K/uL (0.00-0.02); LYMPH ABS # 1.31 K/uL (1.2-3.4); MEAN CELL VOLUME 90.9 fL (80-100); MEAN CORPUSCULAR HGB CONC 31.9 g/dl (32-36); MEAN PLATELET VOLUME 10.4 fL (7.4-10.4); MONO % 9.2 %; MONO ABS # 0.48 K/uL (0.11-0.59); NEUT % 63.7 %; NEUT ABS # 3.34 K/uL (1.4-6.5); PLATELET COUNT 301 K/uL (130-400); RED CELL DISTRIBUTION WIDTH CV 15.2 % (11.5-14.5); WHITE BLOOD COUNT 5.24 K/uL (4.8-10.8)
[2018-03-14 18:09] LABS: ALKALINE PHOSPHATASE 245 U/L (45-117); ALT/SGPT 30 U/L (12-78); BLOOD UREA NITROGEN 12 mg/dl (7-18); CALCIUM 8.1 mg/dl (8.5-10.1); CARBON DIOXIDE 29 mmol/L (21-32); CREATININE 0.57 mg/dl (0.60-1.20); GLUCOSE 92 mg/dl (70-99); POTASSIUM 4.1 mmol/L (3.5-5.1); SODIUM 140 mmol/L (136-145); TOTAL PROTEIN 6.5 gm/dl (6.4-8.2)
[2018-03-14 18:13] LABS: AST/SGOT 28 U/L (15-37); TRANSFERRIN 338 mg/dl (200-360)
== END | disposition home or self-care (01) ==
LOC: C.LABBFT 15:41
PROVIDERS: ATTEND Physician Assistant Medical
DX: D64.9 Anemia, unspecified (principal); N39.0 Urinary tract infection, site not specified

== ENCOUNTER → 2018-03-15 | Outpatient (CLI) | payer OTHER | END | disposition home or self-care (01) | LOC: C.LABBFT 12:24 | PROVIDERS: ATTEND Physician Assistant Medical | DX: N39.0 Urinary tract infection, site not specified (principal) ==

== ENCOUNTER 2018-06-28 16:00 | Emergency (ER) | payer OTHER ==
[~2018-06-28] VITALS: Ht 179.1 cm; Wt 70.7 kg
[2018-06-28 16:17] VITALS: TEMP 36.6; Ht 179.1 cm; Wt 70.7 kg
[2018-06-28] MEDS ORDERED: MoRPHine SULFATE 10 MG/ML CARP/VIAL IM STA (16:41)
[2018-06-28] MEDS ORDERED: CYNI1000 INJ (16:47)
--- NOTE | 2018-06-28 17:23 | DIAGNOSTIC IMAGING REPORT ---
TWO VIEW CHEST CLINICAL HISTORY: Fall. Right-sided chest pain. FINDINGS: PA and lateral chest radiograph is compared to study dated 05/09/2017 and 08/24/2014. Correlation is made with chest CT dated 01/18/2015. The the PA view is degraded by patient rotation. The heart is top normal for projection and there is atherosclerotic calcification of the thoracic aorta. The pulmonary vasculature is noncongested. There is chronic elevation of the right hemidiaphragm with associated atelectasis. No airspace consolidation or pleural effusion is identified. An 11 mm left upper lobe pulmonary nodule is unchanged from the 2013 examination. No pneumothorax is seen. The skeletal structures are osteopenic. There are healed left-sided rib fractures. Surgical clips and suture material are noted in the upper abdomen. IMPRESSION: 1. No acute cardiopulmonary abnormality. 2. An 11 mm left upper lobe pulmonary nodule is unchanged dating back to 2013. Electronically signed by: Lei Love M.D. 06/28/2018 5:22 PM Dictated Date/Time: 06/28/2018 5:19 PM
--- NOTE | 2018-06-28 17:29 | DIAGNOSTIC IMAGING REPORT ---
RIGHT SHOULDER 3 VIEWS CLINICAL HISTORY: Fall with right shoulder pain. FINDINGS: 3 views of the right shoulder are compared to study dated 01/16/2018. The skeletal structures are osteopenic. There is a distracted fracture of the distal clavicle. Additionally, there is an acute fracture of the right anterior second rib. There is no radiographic evidence of right shoulder dislocation. The glenohumeral articulation is preserved. Minimal sclerotic degenerative changes noted in the greater tuberosity of the humeral head. The overlying soft tissues are normal as imaged. The visualized right lung parenchyma appears clear. There is no evidence of right-sided pneumothorax. IMPRESSION: 1. There is a distracted fracture of the distal right clavicle. 2. There is a nondistracted right anterior second rib fracture. 3. The proximal humerus appears intact. Electronically signed by: Lei Love M.D. 06/28/2018 5:28 PM Dictated Date/Time: 06/28/2018 5:26 PM
[2018-06-28] MEDS ORDERED: MoRPHine SULFATE 4 MG/ML 1 ML CARP\\VIAL IM STA (17:43)
--- NOTE | 2018-06-28 17:48 | EMERGENCY ROOM VISIT NOTE ---
ED Visit Note First contact with patient: 16:30 This Patient was discussed with the physician pathologist assistant, Lulu Dowinng PA-C. The pertinent historical and physical exam findings were confirmed. I agree with the studies ordered and with the interpretations of these studies. I agree with the disposition and care plan.
--- NOTE | 2018-06-28 17:51 | EMERGENCY ROOM VISIT NOTE ---
History First contact with patient: 16:30 Chief Complaint: SHOULDER PAIN Stated Complaint: SEVERE PAIN IN RIGHT SHOULDER DUE TO FALL History of Present Illness The patient is a 68 year old female who presents to the Emergency Room with complaints of pain in her right shoulder. The patient states that she fell and hurt her shoulder 4 days ago. She reports that she was rushing to the bathroom in the middle of the night when she tripped over a rug shampoo. She landed onto her right shoulder. She states she did not hit her head. She reports pain in the shoulder rated an 8/10 which radiates into the chest and upper back. She states her pain is worse with movement. She has been taking her prescribed oxycodone at home without relief. She denies any numbness or weakness. Review of Systems A complete 10 point review of systems was reviewed with the patient with pertinent positives and negatives as per history of present illness. All else were negative. Past Medical/Surgical History Medical Problems: (1) Abdominal pain (2) Abdominal wall cellulitis (3) Abdominal wall cellulitis (4) Abdominal wall fluid collections (5) AMS - resolved suspect prescription medication abuse (6) Arm pain, left (7) Benign hypertension (8) Bypass gastroenterostomy (9) Cervical strain (10) Cholecystectomy (11) Chronic abdominal pain (12) Chronic hepatitis C (13) Closed head injury (14) Closed right femoral fracture (15) Concussion (16) Contusion of hip (17) Depressive disorder (18) Diabetes mellitus type 2 (19) Displaced fracture of right femoral neck (20) Esophageal Reflux (21) Hysterectomy (22) Knee contusion (23) Knee contusion (24) Left wrist fracture (25) Pain in wrist (26) Paralytic ileus (27) Polyneuropathy (28) Postoperative pain (29) Postoperative pain of extremity (30) Postoperative pain of extremity (31) Postoperative wound infection (32) PUD (peptic ulcer disease) (33) Pulmonary nodule (34) Shoulder contusion (35) Shoulder contusion (36) Suprapubic abdominal pain (37) Suprapubic abdominal pain (38) Urinary retention (39) Urinary tract infection (40) UTI (urinary tract infection) (41) UTI (urinary tract infection) (42) UTI (urinary tract infection) Surgical Problems: (1) H/O esophagogastroduodenoscopy (2) History of gastric bypass Family History Diabetes mellitus Hypertension Social History Smoking Status: Current Every Day Smoker Alcohol Use: none Drug Use: none, other Marital Status: , in relationship Housing Status: lives with significant other Occupation Status: retired, disabled Current/Historical Medications Scheduled Clonidine Hcl (Catapres), 0.1 MG PO BID Cyanocobalamin (Cyanocobalamin), 1,000 MCG INJ Q7DAYS Ergocalciferol (Vitamin D 67516 Unit), 50,000 UNIT PO WK Scheduled PRN Furosemide (Furosemide), 20 MG PO BID PRN for UNDECIDED Potassium Chloride (Potassium Chloride Sr), 10 MEQ PO DAILY PRN for UNDECIDED Zolpidem Tartrate (Zolpidem Tartrate), 10 MG PO HS PRN for Sleep Physical Exam Vital Signs Date Time Temp Pulse Resp B/P (MAP) Pulse Ox O2 Delivery O2 Flow Rate FiO2 06/28/18 17:55 78 16 151/91 98 Room Air 06/28/18 16:17 36.6 81 20 162/83 97 Room Air Physical Exam VITALS: Vitals are noted on the nurse's note and reviewed by myself. Vital signs stable. GENERAL: This is a 68-year-old female, in no acute distress, nondiaphoretic, well-developed well-nourished. SKIN: Ecchymosis noted to the right upper arm. No lacerations or abrasions. NECK: Cervical spine nontender. HEART: Regular rate and rhythm without murmurs gallops or rubs. LUNGS: Clear to auscultation bilaterally without wheezes, rales or rhonchi. MUSCULOSKELETAL: There is tenderness to palpation of the posterior aspect of the right shoulder and the distal right clavicle. There is mild tenderness to palpation of the anterior right chest wall. Decreased range of motion of the shoulder secondary to patient discomfort. No tenderness of the distal humerus, forearm or wrist. Radial pulse 2+. Capillary refill within 2 seconds. NEURO: Patient was alert and oriented to person place and time. Distal sensation intact. Medical Decision & Procedures ER Provider Diagnostic Interpretation: RIGHT SHOULDER 3 VIEWS IMPRESSION: 1. There is a distracted fracture of the distal right clavicle. 2. There is a nondistracted right anterior second rib fracture. 3. The proximal humerus appears intact. TWO VIEW CHEST IMPRESSION: 1. No acute cardiopulmonary abnormality. 2. An 11 mm left upper lobe pulmonary nodule is unchanged dating back to 2013. Medications Administered Medications (Trade) Dose Ordered Sig/Rocky Route Start Time Stop Time Status Last Admin Dose Admin Morphine Sulfate (MoRPHine SULFATE INJ) 6 mg NOW STAT IM 06/28/18 16:41 06/28/18 16:43 DC 06/28/18 16:49 6 MG Morphine Sulfate (MoRPHine SULFATE INJ) 4 mg NOW STAT IM 06/28/18 17:43 06/28/18 17:45 DC 06/28/18 17:52 4 MG Medical Decision Differential diagnosis includes fracture, contusion, dislocation, pneumothorax, rib fracture, among others. The patient was evaluated as above. She was treated with IM morphine while in the emergency department. Imaging studies were performed and read by radiology as above. Patient sustained a fracture of the right clavicle and right second rib. There is no pneumothorax or other findings of the lungs. The patient is already prescribed daily oxycodone and was advised to take this and contact her pain management provider for any further prescriptions. She was placed in an arm sling and given information for orthopedic follow-up. She verbalized understanding of my assessment and treatment plan and was discharged home in good condition. The patient was independently evaluated by Dr. Bajwa, ED attending physician, who agreed with my assessment and treatment plan. [place] Drug Monitoring Program Search Results: patient reviewed within database Medication Reconcilliation Current Medication List: was personally reviewed by me Blood Pressure Screening Patient's blood pressure: Elevated blood pressure Impression Primary Impression: Clavicle fracture Additional Impression: Rib fracture Departure Information Dispostion Home / Self-Care Condition GOOD Referrals No Doctor, Assigned (PCP) Jayjay Guevara M.D. Patient Instructions My [facility] Additional Instructions You have been treated in the Emergency Department for a fracture of your collarbone and a fracture of 1 of your ribs. Take your oxycodone as needed for pain. For pain control, you can use the following [id number] medicines (if >12 yo): - Regular strength (325mg/tab) Tylenol (acetaminophen) 2 tabs every 4-6 hours as needed. Do not exceed 12 tablets in a 24 hour period. Avoid taking more than 4 grams (4000 mg) of Tylenol per day. This includes any other sources of acetaminophen you may take on a regular basis. - Regular strength (200 mg/tab) Advil (ibuprofen) 1-2 tabs every 4-6 hours as needed. Do not exceed a dose of 3200 mg per day. If this is a recent injury (<24 hrs), ice can be applied to the area of pain for the first 3 days to help decrease pain and inflammation. You have been provided the number for an Orthopaedic Surgeon. You should call this number as soon as possible to establish a follow-up visit from today's Emergency Department visit. Wear the sling until follow-up with orthopedics. Make sure to use the incentive spirometer as instructed. Return to the Emergency Department if your current symptoms worsen despite treatment course outlined above, or if you develop any of the following symptoms : intractable pain despite aforementioned treatment course or new onset of numbness or tingling of the arm. Problem Qualifiers Primary Impression: Clavicle fracture Encounter type: initial encounter Clavicle location: lateral end Fracture type: closed Fracture alignment: displaced Laterality: right Qualified Codes: S42.031A - Displaced fracture of lateral end of right clavicle, initial encounter for closed fracture Additional Impression: Rib fracture Encounter type: initial encounter Rib fracture type: single rib Fracture type: closed Laterality: right Qualified Codes: S22.31XA - Fracture of one rib, right side, initial encounter for closed fracture
[2018-06-28 17:55] VITALS: BP 151/91; PULSE 78; O2SAT 98
== END 2018-06-28 18:16 | disposition home or self-care (01) ==
LOC: C.EDB 16:01 → C.EDD 18:16
DX: S42.031A Displaced fracture of lateral end of right clavicle, initial encounter for closed fracture (principal); S22.31XA Fracture of one rib, right side, initial encounter for closed fracture; W18.09XA Striking against other object with subsequent fall, initial encounter; Y93.89 Activity, other specified; Y99.8 Other external cause status; I10 Essential (primary) hypertension; Z87.820 Personal history of traumatic brain injury; E11.42 Type 2 diabetes mellitus with diabetic polyneuropathy; R58 Hemorrhage, not elsewhere classified

== ENCOUNTER 2020-09-27 06:27 | Inpatient (IN) ==
--- NOTE | 2020-09-27 06:54 | Emergency Department Note ---
Impression & Plan Chest pain, Slurring of speech, A-fib ED Provider Note Provider: Griffin Emery MD DATE OF SERVICE:09/27/2020 CHIEF COMPLAINT: Chest pain, shortness of breath HISTORY OF PRESENT ILLNESS: Patient is a 70-year-old female with a past medical history including hepatitis C, hypertension, history of gastric bypass, diastolic dysfunction presenting via ambulance today from home reporting to 3 weeks of shortness of breath worsening as well as approximately 2 days of "explosive "central chest pain. Denies abdominal pain or nausea or vomiting. Patient states pain has been consistent and denies any falls. Denies significant pain with movement. Patient reports her breathing is "bad "and mae es a similar history of this or her chest pain. Patient states that she is also having slurred speech and that she is talking like she is drunk. Patient states this is been ongoing for several weeks as well. Patient denies difficulty with movement in the arms of the legs or numbness here. Patient states that her daughter has been unhelpful for her at home and the pain is very bad. Patient states the ambulance gave her for aspirin but she does not normally take aspirin. Patient states she was recently evaluated in the emergency department several days ago sent home with the diagnosis of UTI. 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 Patient also states that she is concerned about her her living environment at home with her daughter as her daughter "wished her to ". REVIEW OF SYSTEMS: A total of 10 review of systems was obtained and negative except as stated above in the HPI. PAST MEDICAL HISTORY: As noted above MEDICATIONS: Reviewed home medication listings SOCIAL HISTORY: Lives at home with daughter, smoker PHYSICAL EXAM: GENERAL: alert and oriented on the stretcher Head: normocephalic and atraumatic EYES: No injection, discharge or icterus. NECK: Trachea midline. Supple. ENT: Mucous membranes pink and moist. LUNGS: Airway patent. No retractions. Breath sounds clear HEART: Regular and tachycardic rate and rhythm. No chest wall tenderness ABDOMEN: Soft and non-tender, without guarding or rebound. SKIN: Acyanotic, warm, dry. EXTREMITIES: Without tenderness or deformity with trace bilateral pedal edema. NEUROLOGICAL: No aphasia. No facial droop mildly slurred speech. Sensation normal in all 4 extremities to gross touch. Moving all extremities without significant weakness appreciated. EK bpm atrial fibrillation with PVC noted rarely without acute ST segment elevation. QTc 448. Compared to previous from September 24 of this year, similar although PVC is present today. CONTINUOUS CARDIAC MONITORING: was ordered and showed a heart rate of 98 bpm in atrial fibrillation occasionally rising into the 110's for A. fib RVR Patient's laboratory studies and imaging reviewed. Differential includes Infection, dehydration, metabolic abnormality, hypo/hyperglycemia, electrolyte disturbance, anemia, hypoxia, cardiac sources, intracerebral event, toxicologic, neurologic, as well as other pathologies. IMPRESSION/MEDICAL DECISION MAKING: Patient presents today with several complaints. Patient reports shortness of breath for several weeks with several days of chest pain. Reviewed medical record including emergency department note from 3 days ago and recent cardiac visit from July. Patient had work-up including a negative chest x-ray, negative CT of the head, negative bio fire, influenza, Covid but question of possible UTI and was started on Keflex. Patient was noted to have new onset atrial fibrillation and was recommended she follow-up with cardiology for this. Reviewing the note from 3 days ago states that the patient denied chest pain, shortness of breath, cough, headache, visual changes, or dizziness. blood cultures obtained from 3 days ago without growth at 48 hours. Urine culture with 3 mixed romeo organisms. Patient received 4 aspirin 81mg for EMS. Patient had prior EGD in April 2019 normal with normal Wilson-en-Y anatomy at that time. Patient has a benign abdomen without significant tenderness and denies abdominal pain. Doubt acute gastric perforation. Do not believe we need repeat Covid test given just performed 3 days ago. Patient does have some slightly slurred s peech noted that she states is new but no other large focal deficits. Given this a CT of the head was ordered as she is at risk given her atrial fibrillation. She does relay that she is taken a bit of Ambien and Ativan and this could be confounding her speech issues. Heart rate has been in the high 80s to low 100s here hand is predominantly rate controlled. Patient's not on anticoagulation. Patient's contrast allergy presents CT angiogram was evaluate for LVO, however given that she reports the symptoms have been ongoing for days to weeks and lack of large extremity deficit doubt an LVO in this patient. Patient not significantly hypertensive and denies radiation of the pain to the back and have a lower suspicion at this time for acute aortic dissection. Patient was given a small dose of fentanyl for some pain control here. Given some mildly slurred speech I did complete a medical alcohol to exclude this as a confounder and this was undetectable. Patient does not have significant lower extremity swelling noted and I doubt significant fluid overload at this time. Chest x-ray without acute change with some noted right hemidiaphragm elevation. No findings concerning for pneumothorax or pneumonia per radiology and my review of the image. CT the head without acute findings of mass-effect or intracranial hemorrhage per radiology report. Laboratory station is good leukocytosis or anemia. Mild hypernatremia noted 3 days ago is improving today and renal function appears stable. Mild transaminitis noted just above 100 slightly higher than the previous values and does have a known history of hepatitis C. Lipase is mildly elevated 537. Bilirubin within normal limits of 0.2. TSH slightly elevated free T4 is within normal limits. Troponin is undetectable likely. proBNP mildly elevated at 1250 but again do not believe this represents acute volume overload/heart failure at this time given the x-ray and clinical exam. Given the mild lipase elevation a CT abdomen pelvis was completed to exclude pancreatitis although again she is not having significant abdominal tenderness question if this could represent pancreatitis. CT scan questions a calcification near the pancreatic head but not having obstructive findings on the bilirubin. Given this along with persistent slurred speech at this time and the A. fib discussed with the patient options. Patient on site monitor was noted occasionally to have heart rates into the 110s and given a dose of metoprolol here for improved rate control. Patient's pain is improved with some fentanyl here initially. Discussed with the patient by strong recommendation for admission for further cardiac and neurological evaluation given her complaints. She was in agreement with this plan. DIAGNOSIS: Chest pain, slurred speech, Afib DISPOSITION: Hospitalist will evaluate Past Med/Surg History Medical History Congestive heart failure Diabetes mellitus, type 2 NO LONGER HAS, NO MEDS--HAD GASTRIC BYPASS Fibrocystic breast changes of both breasts Generalized edema Hiatal hernia History of anesthesia reaction "TAKES A LOT OF ANESTHESIA TO GET ME DOWN" Kidney stones Peripheral edema Surgical History History of appendectomy History of breast biopsy BILT--BENIGN History of cardiac cath 2016 @ [facility], NO STENT History of carpal tunnel release LEFT History of cataract surgery History of section History of colonoscopy History of dilatation and curettage X2 History of gastric bypass 2010 @ [facility] [place] History of tooth extraction ALL TEETH History of total abdominal hysterectomy and bilateral salpingo-oophorectomy Family History Daughter Family history of reaction to anesthesia "TAKES A LOT OF ANESTHESIA TO GET HER DOWN" Mother Family history of diabetes mellitus Social History Smoking Status: Current every day smoker Cigarettes Per Day: 20-30; Second Hand Exposure: Yes (parents smoked); Do You Dip or Chew Tobacco: No; Hx Alcohol Use: No Hx Substance Use: No Preferred Language: Georgian Communication Ability: Effective Helmet Binder Required: No Beliefs That Will Affect Care: None Current Living Situation: Family Current Living Situation Comment: lives with daughter Other Information That Helps Us Care for You: No Feels Safe at Home: Yes Safety Concerns: Feels Safe At This Time Assistive Devices: Cane, Denture - Upper, Denture - Lower and Glasses Allergies Allergies Allergy/AdvReac Type Severity Reaction Status Date / Time Iodinated Contrast Media Allergy Severe ANAPHYLACTIC Verified 09/27/20 06:44 REACTION tramadol Allergy Mild nausea, Verified 09/27/20 06:44 hives lisinopril AdvReac Intermediate FEELS LIKE Verified 09/27/20 06:44 SOMETHING IS CRAWLING ON HER. acetaminophen AdvReac Mild VOMITING Verified 09/27/20 06:44 Home Meds Home Medications Medication Instructions Recorded Confirmed cyanocobalamin (vitamin B-12) 1,000 mcg IM MONTHLY 05/16/19 09/27/20 lorazepam 0.5 mg PO TID 05/30/20 09/27/20 zolpidem 10 mg PO HS 05/30/20 09/27/20 gabapentin 600 mg PO TID 09/24/20 09/27/20 sertraline 50 mg PO DAILY 09/24/20 09/27/20 furosemide 40 mg PO DAILY PRN 09/27/20 09/27/20 potassium chloride 20 meq PO QAM PRN 09/27/20 09/27/20 Previous Rx's Medication Instructions Recorded cephalexin [Keflex] 500 mg PO BID 7 Days #14 cap 09/24/20 ondansetron HCl 4 mg tablet 4 mg PO Q8H PRN #30 tab 09/25/20 Results & Data (ED) Vital Signs Vital Signs - 24 hr 09/27/20 06:37 09/27/20 06:47 09/27/20 07:58 Temperature 37.3 C Temperature Source Oral Pulse Rate 101 H 114 H Pulse Rate [Right Finger] Pulse Rate from SpO2 Sensor Respiratory Rate 22 Respiratory Effort / Characteristics Non-Labored Spontaneous Respiratory Depth Normal Respiratory Pattern Blood Pressure 133/79 114/78 Blood Pressure [Right Arm] Blood Pressure Mean 97 Blood Pressure Mean [Right Arm] Blood Pressure Position [Right Arm] Pulse Oximetry 97 Oxygen Delivery Method Room Air Room Air Sepsis Recent Fever Within 48 Hours No Sepsis New/Unexplained Change in Mental Status No Sepsis Action Taken by Nursing No Action Required 09/27/20 08:01 09/27/20 09:18 09/27/20 11:31 Temperature Temperature Source Pulse Rate 93 H Pulse Rate [Right Finger] 90 82 Pulse Rate from SpO2 Sensor 92 H Respiratory Rate 18 20 23 Respiratory Effort / Characteristics Non-Labored Spontaneous Non-Labored Respiratory Depth Normal Normal Respiratory Pattern Regular Blood Pressure 114/79 Blood Pressure [Right Arm] 113/78 129/61 Blood Pressure Mean 94 Blood Pressure Mean [Right Arm] 89 83 Blood Pressure Position [Right Arm] Lying Lying Pulse Oximetry 95 95 98 Oxygen Delivery Method Room Air Room Air Sepsis Recent Fever Within 48 Hours Sepsis New/Unexplained Change in Mental Status Sepsis Action Taken by Nursing 09/27/20 11:45 09/27/20 12:00 09/27/20 12:30 Temperature Temperature Source Pulse Rate 95 H 86 83 Pulse Rate [Right Finger] Pulse Rate from SpO2 Sensor 72 78 80 Respiratory Rate 22 22 20 Respiratory Effort / Characteristics Respiratory Depth Respiratory Pattern Blood Pressure 125/72 120/60 Blood Pressure [Right Arm] Blood Pressure Mean 107 83 Blood Pressure Mean [Right Arm] Blood Pressure Position [Right Arm] Pulse Oximetry 98 98 99 Oxygen Delivery Method Sepsis Recent Fever Within 48 Hours Sepsis New/Unexplained Change in Mental Status Sepsis Action Taken by Nursing 09/27/20 12:37 09/27/20 13:00 Temperature Temperature Source Pulse Rate 99 H Pulse Rate [Right Finger] 81 Pulse Rate from SpO2 Sensor 85 Respiratory Rate 18 20 Respiratory Effort / Characteristics Non-Labored Spontaneous Respiratory Depth Normal Respiratory Pattern Blood Pressure 133/83 Blood Pressure [Right Arm] 120/60 Blood Pressure Mean 89 Blood Pressure Mean [Right Arm] 80 Blood Pressure Position [Right Arm] Lying Pulse Oximetry 98 100 Oxygen Delivery Method Room Air Sepsis Recent Fever Within 48 Hours Sepsis New/Unexplained Change in Mental Status Sepsis Action Taken by Nursing Laboratory Data Result diagrams: 09/27/20 07:10 09/27/20 07:10 Lab Results 09/27/20 09/27/20 09/27/20 Range/Units 07:10 07:10 07:10 WBC 5.36 (4.8-10.8) K/uL RBC 3.73 L (4.2-5.4) M/uL Hgb 12.1 (12.0-16.0) g/dL Hct 37.6 (37-47) % MCV 100.8 H (80-100) fL MCH 32.4 (25-34) pg MCHC 32.2 (32-36) g/dL RDW Std Deviation 53.0 H (36.4-46.3) fL RDW Coeff of Geri 14.5 (11.5-14.5) % Plt Count 222 (130-400) K/uL MPV 10.6 H (7.4-10.4) fL Immature Gran % (Auto) 0.0 % Neut % (Auto) 64.6 % Lymph % (Auto) 25.2 % Lassen % (Auto) 7.6 % Eos % (Auto) 2.2 % Baso % (Auto) 0.4 % Neut # (Auto) 3.46 (1.4-6.5) K/uL Lymph # (Auto) 1.35 (1.2-3.4) K/uL Lassen # (Auto) 0.41 (0.11-0.59) K/uL Eos # (Auto) 0.12 (0-0.5) K/uL Baso # (Auto) 0.02 (0-0.2) K/uL Immature Gran # (Auto) 0.00 (0.00-0.02) K/uL PT 11.2 (9.0-12.0) Seconds INR 1.1 (0.9-1.1) APTT 26.2 (21.0-31.0) Seconds PTT Ratio 0.9 Sodium 145 (136-145) mmol/L Potassium 4.6 (3.5-5.1) mmol/L Chloride 117 H (98-107) mmol/L Carbon Dioxide 26 (21-32) mmol/L Anion Gap 3.0 (3-11) BUN 12 (7-18) mg/dl Creatinine 0.55 L (0.6-1.2) mg/dl Est Cr Clr Drug Dosing 99.5 ml/min Est GFR ( Amer) 110.1 Est GFR (Non-Af Amer) 95.0 BUN/Creatinine Ratio 21.4 H (10-20) Glucose 88 (70-99) mg/dl Calcium 7.8 L (8.5-10.1) mg/dl Magnesium 2.4 (1.8-2.4) mg/dl Total Bilirubin 0.2 (0.2-1) mg/dl AST 126 H (15-37) U/L ALT 101 H (12-78) U/L Alkaline Phosphatase 310 H (45-117) U/L Troponin I < 0.015 (0-0.045) ng/ml NT-Pro-B Natriuret Pep 1250 H (0-900) pg/ml Total Protein 5.9 L (6.4-8.2) gm/dl Albumin 2.4 L (3.4-5.0) gm/dl Globulin 3.5 (2.5-4.0) gm/dl Albumin/Globulin Ratio 0.7 L (0.9-2) Lipase 537 H (73-393) U/L TSH 4.530 H (0.300-4.500) uIu/ml Free T4 0.85 (0.8-1.6) ng/dl Ethyl Alcohol mg/dL (0-3) mg/dl COVID-19 Eval Order COVID-19 PCR (Negative) SARS-CoV-2, RNA, NAAT 09/27/20 09/27/20 09/27/20 Range/Units 07:10 10:40 10:40 WBC (4.8-10.8) K/uL RBC (4.2-5.4) M/uL Hgb (12.0-16.0) g/dL Hct (37-47) % MCV (80-100) fL MCH (25-34) pg MCHC (32-36) g/dL RDW Std Deviation (36.4-46.3) fL RDW Coeff of Geri (11.5-14.5) % Plt Count (130-400) K/uL MPV (7.4-10.4) fL Immature Gran % (Auto) % Neut % (Auto) % Lymph % (Auto) % Lassen % (Auto) % Eos % (Auto) % Baso % (Auto) % Neut # (Auto) (1.4-6.5) K/uL Lymph # (Auto) (1.2-3.4) K/uL Lassen # (Auto) (0.11-0.59) K/uL Eos # (Auto) (0-0.5) K/uL Baso # (Auto) (0-0.2) K/uL Immature Gran # (Auto) (0.00-0.02) K/uL PT (9.0-12.0) Seconds INR (0.9-1.1) APTT (21.0-31.0) Seconds PTT Ratio Sodium (136-145) mmol/L Potassium (3.5-5.1) mmol/L Chloride (98-107) mmol/L Carbon Dioxide (21-32) mmol/L Anion Gap (3-11) BUN (7-18) mg/dl Creatinine (0.6-1.2) mg/dl Est Cr Clr Drug Dosing ml/min Est GFR ( Amer) Est GFR (Non-Af Amer) BUN/Creatinine Ratio (10-20) Glucose (70-99) mg/dl Calcium (8.5-10.1) mg/dl Magnesium (1.8-2.4) mg/dl Total Bilirubin (0.2-1) mg/dl AST (15-37) U/L ALT (12-78) U/L Alkaline Phosphatase (45-117) U/L Troponin I (0-0.045) ng/ml NT-Pro-B Natriuret Pep (0-900) pg/ml Total Protein (6.4-8.2) gm/dl Albumin (3.4-5.0) gm/dl Globulin (2.5-4.0) gm/dl Albumin/Globulin Ratio (0.9-2) Lipase (73-393) U/L TSH (0.300-4.500) uIu/ml Free T4 (0.8-1.6) ng/dl Ethyl Alcohol mg/dL < 3.0 (0-3) mg/dl COVID-19 Eval Order Covid19 Done at [facility] COVID-19 PCR (Negative) SARS-CoV-2, RNA, NAAT Cancelled 09/27/20 Range/Units 10:40 WBC (4.8-10.8) K/uL RBC (4.2-5.4) M/uL Hgb (12.0-16.0) g/dL Hct (37-47) % MCV (80-100) fL MCH (25-34) pg MCHC (32-36) g/dL RDW Std Deviation (36.4-46.3) fL RDW Coeff of Geri (11.5-14.5) % Plt Count (130-400) K/uL MPV (7.4-10.4) fL Immature Gran % (Auto) % Neut % (Auto) % Lymph % (Auto) % Lassen % (Auto) % Eos % (Auto) % Baso % (Auto) % Neut # (Auto) (1.4-6.5) K/uL Lymph # (Auto) (1.2-3.4) K/uL Lassen # (Auto) (0.11-0.59) K/uL Eos # (Auto) (0-0.5) K/uL Baso # (Auto) (0-0.2) K/uL Immature Gran # (Auto) (0.00-0.02) K/uL PT (9.0-12.0) Seconds INR (0.9-1.1) APTT (21.0-31.0) Seconds PTT Ratio Sodium (136-145) mmol/L Potassium (3.5-5.1) mmol/L Chloride (98-107) mmol/L Carbon Dioxide (21-32) mmol/L Anion Gap (3-11) BUN (7-18) mg/dl Creatinine (0.6-1.2) mg/dl Est Cr Clr Drug Dosing ml/min Est GFR ( Amer) Est GFR (Non-Af Amer) BUN/Creatinine Ratio (10-20) Glucose (70-99) mg/dl Calcium (8.5-10.1) mg/dl Magnesium (1.8-2.4) mg/dl Total Bilirubin (0.2-1) mg/dl AST (15-37) U/L ALT (12-78) U/L Alkaline Phosphatase (45-117) U/L Troponin I (0-0.045) ng/ml NT-Pro-B Natriuret Pep (0-900) pg/ml Total Protein (6.4-8.2) gm/dl Albumin (3.4-5.0) gm/dl Globulin (2.5-4.0) gm/dl Albumin/Globulin Ratio (0.9-2) Lipase (73-393) U/L TSH (0.300-4.500) uIu/ml Free T4 (0.8-1.6) ng/dl Ethyl Alcohol mg/dL (0-3) mg/dl COVID-19 Eval Order COVID-19 PCR NEGATIVE (Negative) SARS-CoV-2, RNA, NAAT Administered Medications Discontinued Medications Fentanyl Citrate (Fentanyl Citrate 100 Mcg/2 Ml Vial) 50 mcg IV NOW STA Stop: 09/27/20 07:02 Last Admin: 09/27/20 07:12 Dose: 50 mcg Documented by: [id number] Fentanyl Citrate (Fentanyl Citrate 100 Mcg/2 Ml Vial) 50 mcg IV NOW STA Stop: 09/27/20 08:40 Last Admin: 09/27/20 10:22 Dose: Not Given Documented by: [id number] Fentanyl Citrate (Fentanyl Citrate 100 Mcg/2 Ml Vial) 25 mcg IV NOW STA Stop: 09/27/20 08:41 Last Admin: 09/27/20 09:11 Dose: 25 mcg Documented by: [id number] Ketorolac Tromethamine (Ketorolac Tromethamine 15 Mg/Ml Vial) 10 mg IV NOW STA Stop: 09/27/20 13:20 Last Admin: 09/27/20 13:23 Dose: 10 mg Documented by: [id number] Metoprolol Tartrate (Metoprolol Tartrate 1 Mg/Ml Vial) 5 mg IV NOW STA Stop: 09/27/20 07:57 Last Admin: 09/27/20 07:58 Dose: 5 mg Documented by: [id number] Discharge Plan Visit Data Chief Complaint: Cardiac Assessment Stated Complaint: SHORTNESS OF BREATH/CHEST PAIN ED Provider: Griffin Emery Discharge Problem: Chest pain, Slurring of speech, A-fib Forms Stand Alone Forms: My [facility] Prescriptions Prescriptions: No Action ondansetron HCl 4 mg tablet 4 mg PO Q8H PRN (Reason: Nausea) Qty: 30 RF: 0 lorazepam 0.5 mg tablet 0.5 mg PO TID RF: 0 zolpidem 10 mg tablet 10 mg PO HS RF: 0 sertraline 50 mg tablet 50 mg PO DAILY RF: 0 gabapentin 600 mg tablet 600 mg PO TID RF: 0 cephalexin [Keflex] 500 mg capsule 500 mg PO BID 7 Days Qty: 14 RF: 0 cyanocobalamin (vitamin B-12) 1,000 mcg/mL solution 1,000 mcg IM MONTHLY RF: 0 furosemide 40 mg tablet 40 mg PO DAILY PRN (Reason: Edema) RF: 0 potassium chloride 20 mEq tablet extended release 20 meq PO QAM PRN (Reason: WHEN TAKES LASIX) RF: 0 Discharge Problem: Chest pain Qualifiers: Chest pain type: unspecified Qualified Code(s): R07.9 - Chest pain, unspecified A-fib Qualifiers: Atrial fibrillation type: unspecified Qualified Code(s): I48.91 - Unspecified atrial fibrillation
[2020-09-27] MEDS ORDERED: fentaNYL citrate 100 MCG/2 ML VIAL IV STA ×3 (07:01→08:40)
[2020-09-27 07:23] LABS: Basophils # (auto) 0.02 K/uL (0-0.2); Basophils % (auto) 0.4 %; Eosinophils # (auto) 0.12 K/uL (0-0.5); Eosinophils % (auto) 2.2 %; Hematocrit (blood only) 37.6 % (37-47); Hemoglobin 12.1 g/dL (12.0-16.0); Lymphocytes # (auto) 1.35 K/uL (1.2-3.4); Lymphocytes % (auto) 25.2 %; Mean Corpuscular Hemoglobin 32.4 pg (25-34); Mean Corpuscular Hgb Conc 32.2 g/dL (32-36); Mean Corpuscular Volume 100.8 fL (80-100); Mean Platelet Volume 10.6 fL (7.4-10.4); Monocytes # (auto) 0.41 K/uL (0.11-0.59); Monocytes % (auto) 7.6 %; Neutrophils # (auto) 3.46 K/uL (1.4-6.5); Neutrophils % (auto) 64.6 %; Platelet Count 222 K/uL (130-400); RDW Coefficient of Variation 14.5 % (11.5-14.5); Red Blood Count 3.73 M/uL (4.2-5.4); White Blood Count 5.36 K/uL (4.8-10.8)
--- NOTE | 2020-09-27 07:38 | CT Scan Report ---
CT OF THE HEAD WITHOUT CONTRAST CLINICAL HISTORY: slurred speech COMPARISON STUDY: Head CT January 07, 2019 and September 24, 2020. CT DOSE: 614.27 mGy.cm TECHNIQUE: Helical axial images of the head were obtained without IV contrast. Automated exposure con trol was utilized for the study. A dose lowering technique was utilized adhering to the principles o f ALARA. FINDINGS: No acute intracranial hemorrhage, midline shift or mass effect is present. Mild white matte r hypodensities are unchanged and suggest small vessel disease. The ventricular system is unremarkabl e. The basal cisterns are patent. No extra-axial collections are present. There are no findings to childers ggest acute dural sinus thrombosis or acute territorial infarct. No significant calvarial abnormaliti es are present. Visualized portions of the sinuses and mastoid air cells are clear. IMPRESSION: No acute intracranial findings. ACT 112: Negative or not required by law. Electronically signed by: Sukhwinder Mix M.D. 09/27/2020 7:36 AM
[2020-09-27 07:40] LABS: Alanine Aminotransferase 101 U/L (12-78); Albumin Level 2.4 gm/dl (3.4-5.0); Aspartate Aminotransferase 126 U/L (15-37); BUN Creatinine Ratio 21.4 (10-20); Blood Urea Nitrogen 12 mg/dl (7-18); Calcium 7.8 mg/dl (8.5-10.1); Carbon Dioxide 26 mmol/L (21-32); Chloride 117 mmol/L (98-107); Creatinine Clr Calc Pharmacy 99.5 ml/min; Est GFR (African American) 110.1; Glucose 88 mg/dl (70-99); Lipase 537 U/L (73-393); Magnesium 2.4 mg/dl (1.8-2.4); Potassium 4.6 mmol/L (3.5-5.1); Sodium 145 mmol/L (136-145)
--- NOTE | 2020-09-27 07:44 | XRay Report ---
XR chest 1V portable CLINICAL HISTORY: Chest Pain COMPARISON STUDY: Chest radiograph September 24, 2020. FINDINGS: A left upper lobe calcified granuloma is unchanged. Elevation of the right hemidiaphragm is also unchanged. Cardiomediastinal silhouette is stable. There is no pneumothorax or pleural effusion . There are multiple old bilateral rib fractures. Pulmonary vascularity is normal. Postoperative find ings within the upper abdomen are incidentally noted. IMPRESSION: No acute cardiopulmonary findings. No change in appearance of the chest. ACT 112: Negative or not required by law. Electronically signed by: Sukhwinder Mix M.D. 09/27/2020 7:43 AM
[2020-09-27 07:50] LABS: Albumin Globulin Ratio 0.7 (0.9-2); Alkaline Phosphatase 310 U/L (45-117); Bilirubin,Total 0.2 mg/dl (0.2-1); Globulin 3.5 gm/dl (2.5-4.0); NT Pro B Type Natriuretic Pept 1250 pg/ml (0-900); Total Protein 5.9 gm/dl (6.4-8.2); Troponin I < 0.015 ng/ml (0-0.045)
[2020-09-27] MEDS ORDERED: METOPROLOL TARTRATE 1 MG/ML VIAL IV STA (07:56)
[2020-09-27 08:03] LABS: T4 Free Thyroxine 0.85 ng/dl (0.8-1.6)
[2020-09-27 08:17] LABS: INR 1.1 (0.9-1.1); Partial Thromboplastin Ratio 0.9; Partial Thromboplastin Time 26.2 Seconds (21.0-31.0); Prothrombin Time 11.2 Seconds (9.0-12.0)
--- NOTE | 2020-09-27 08:31 | CT Scan Report ---
CT OF THE ABDOMEN AND PELVIS WITHOUT CONTRAST CLINICAL HISTORY: epigastric/cp pain, mild lipase elevation COMPARISON STUDY: CT of the abdomen and pelvis May 20, 2019. Right upper quadrant ultrasound July 07, 2020. TECHNIQUE: Axial images of the abdomen and pelvis were obtained without IV contrast. Images were revi ewed in the axial, sagittal, and coronal planes. Automated exposure control was utilized for the rayne dy. A dose lowering technique was utilized adhering to the principles of ALARA. FINDINGS: Elevation of the right hemidiaphragm is unchanged. No pneumatosis, free air or portal venou s gas is present. Evaluation of the abdomen and pelvis is suboptimal on this unenhanced examination. Postoperative findings within the stomach are noted. There is no evidence for a bowel obstruction. Se clark hepatic steatosis is noted. Unenhanced images of the spleen, adrenal gland and right kidney are normal. There is a 2 mm calculus within the lower pole of the left kidney. There is multifocal left r enal scarring. There is no hydronephrosis. No ureteral calculi are present. A few pancreatic parenchy mal calcifications suggest chronic pancreatitis. The gallbladder surgically absent. No peripancreatic infiltration is noted. A new 7 mm calcification projects over the pancreatic head on axial image 229 of 491. Right hip arthroplasty is noted. There is no lymphadenopathy. There is no fluid collection. Moderate amount of stool is noted. There is no evidence for a bowel obstruction. No acute fracture or suspicious lesion within visualized skeletal structures is noted. IMPRESSION: 1. 7 mm calcification which projects over the pancreatic head and is new since prior CT. This could r eflect a common bile duct calculus. MRCP could be obtained for further evaluation. No significant lynda iary ductal dilatation status post cholecystectomy. 2. Severe hepatic steatosis. 3. No peripancreatic infiltration or fluid. 4. Moderate amount of stool within the colon and rectum. No bowel obstruction. ACT 112: Negative or not required by law. Electronically signed by: Sukhwinder Mix M.D. 09/27/2020 8:30 AM
--- NOTE | 2020-09-27 09:31 | History & Physical Report ---
Date of Service September 27, 2020 Assessment & Plan (1) Patient requests second opinion: After the patient was admitted to the floor there was called by nursing as the patient requested her pain medication and Ativan. With concern for slurred speech we are not going to administer these medications until we were sure there was no central nervous system event going on to make it more challenging for her to swallow and to assess her neurological function. Subsequently her daughter called and demanded a phone call back. During that conversation the daughter requested the patient be transferred to [facility] as she had a good experience while at hospital. I spoke with Dr. Quiroz who accepted the patient in transfer to their telemetry unit for chest pain and atrial fibrillation which are part of her system complex. We will continue to work the patient up in our facility as they feel they have a very full hospital census and cannot guarantee a time of transfer. I did phone the family back and inform of this condition the patient's daughter felt that the patient may stay here as long as "we treat her nice". I did tell the daughter that does not mean we will give the patient opiates or benzodiazepines. At the end of the conversation I left a that the patient will still be transferred if a bed opens up prior to her finishing her hospital work- up. Not in any. Of note prior to her being admitted to our facility we did retest a Covid test and she is had 2 - Covid tests now over the last 3 days. (2) Slurring of speech: Patient's initial presentation is with slurring of speech this is corroborated by the emergency room physician. Initial CT head is unremarkable. Will obtain a tox screen her initial alcohol was unremarkable and we will get an MRI of her brain (3) Transaminitis: Patient is evidence of mildly elevated elevated transaminases alkaline phosphatase and lipase but normal T bili. CT of the abdomen pelvis there is a calcification difficult to determine its exact location and suggestion for MRCP. Patient will be kept with a clear liquid diet at this point time we will trend her transaminases alkaline phosphatase and lipase. We will order the MRCP as recommended (4) A-fib: Atrial fibrillation is rate controlled, patient has neither been on rate controlling agents or anticoagulation, patient will be monitored. We will check an echocardiogram discussed anticoagulation with her once we completely rule out a [employer] event. Initial CT of the head is unremarkable we will perform an MRI. (5) UTI (urinary tract infection), bacterial: Urinalysis from 09/24 results shows multiple organisms all high counts this will be recollected to be a source of metabolic encephalopathy patient was placed on cephalexin as an outpatient (6) Congestive heart failure: Patient has seen Dr. Jewell in the past does not feel she is got a diagnosis of congestive heart failure this was based upon a July 2020 evaluation. He believes her lower extremity swelling is nutritional and related to venous incompetence. We will obtain the echocardiogram for her atrial fibrillation work-up. Certainly if she is got paroxysmal atrial fibrillation she could have some diastolic failure based upon rapid rates (7) History of diabetes mellitus: Patient is diet-controlled diabetic we will check a hemoglobin A1c placed on sliding scale if glucoses are persistently a problem (8) Vitamin B12 deficiency: Patient has macrocytosis but not anemia. She is a history of B12 deficiency in the past we will recheck vitamin B12 in presentation (9) Depression: Patient made some statement on presentation that her daughter wants her dad this is likely continued exacerbation of her depression. She remains on Zoloft therapy. It is continues to be more of an issue we will get a psychiatric consultation History of Present Illness Primary Care Provider: Justus Haynes MD 70-year-old female with a past medical history including hepatitis C, hypertension, history of gastric bypass, diastolic dysfunction presenting via ambulance today from home reporting to 3 weeks of shortness of breath worsening as well as approximately 2 days of "explosive "central chest pain. Denies abdominal pain or nausea or vomiting. Patient states pain has been consistent and denies any falls. Denies significant pain with movement. Patient reports her breathing is "bad "and denies a similar history of this or her chest pain. Patient states that she is also having slurred speech and that she is talking like she is drunk. Patient states this is been ongoing for several weeks as well. Patient denies difficulty with movement in the arms of the legs or numbness here. Patient states that her daughter has been unhelpful for her at home and the pain is very bad. Patient states the ambulance gave her for aspirin but she does not normally take aspirin. Patient states she was recently evaluated in the emergency department several days ago sent home with the diagnosis of UTI. 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 Patient also states that she is concerned about her her living environment at home with her daughter as her daughter "wished her to ". Allergies Allergy/AdvReac Type Severity Reaction Status Date / Time Iodinated Contrast Media Allergy Severe ANAPHYLACTIC Verified 09/27/20 06:44 REACTION tramadol Allergy Mild nausea, Verified 09/27/20 06:44 hives lisinopril AdvReac Intermediate FEELS LIKE Verified 09/27/20 06:44 SOMETHING IS CRAWLING ON HER. acetaminophen AdvReac Mild VOMITING Verified 09/27/20 06:44 Home Medications Home Medications Medication Instructions Recorded Confirmed Type cyanocobalamin (vitamin B-12) 1,000 mcg IM MONTHLY 05/16/19 09/27/20 History lorazepam 0.5 mg PO TID 05/30/20 09/27/20 History zolpidem 10 mg PO HS 05/30/20 09/27/20 History cephalexin [Keflex] 500 mg PO BID 7 Days #14 cap 09/24/20 09/27/20 Rx gabapentin 600 mg PO TID 09/24/20 09/27/20 History sertraline 50 mg PO DAILY 09/24/20 09/27/20 History ondansetron HCl 4 mg tablet 4 mg PO Q8H PRN #30 tab 09/25/20 09/27/20 Rx furosemide 40 mg PO DAILY PRN 09/27/20 09/27/20 History potassium chloride 20 meq PO QAM PRN 09/27/20 09/27/20 History Past Med/Surg History Medical History Congestive heart failure Diabetes mellitus, type 2 NO LONGER HAS, NO MEDS--HAD GASTRIC BYPASS Fibrocystic breast changes of both breasts Generalized edema Hiatal hernia History of anesthesia reaction "TAKES A LOT OF ANESTHESIA TO GET ME DOWN" Kidney stones Peripheral edema Surgical History History of appendectomy History of breast biopsy BILT--BENIGN History of cardiac cath 2015 @ [facility], NO STENT History of carpal tunnel release LEFT History of cataract surgery History of section History of colonoscopy History of dilatation and curettage X2 History of gastric bypass 2010 @ [facility] [place] History of tooth extraction ALL TEETH History of total abdominal hysterectomy and bilateral salpingo-oophorectomy Family History Daughter Family history of reaction to anesthesia "TAKES A LOT OF ANESTHESIA TO GET HER DOWN" Mother Family history of diabetes mellitus Social History Smoking Status: Current every day smoker Cigarettes Per Day: 20-30; Second Hand Exposure: Yes (parents smoked); Hx Alcohol Use: No Hx Substance Use: No Preferred Language: Macedonian Communication Ability: Effective Lathe Tender Required: No Beliefs That Will Affect Care: None Current Living Situation: Family Current Living Situation Comment: lives with daughter Feels Safe at Home: Yes Assistive Devices: Cane, Denture - Upper, Denture - Lower and Glasses Review of Systems Review of Systems: Mild distress and fatigue no headache, blurry or double vision no speech or swallowing issues no chest pain, pressure or palpitations no shortness of breath, cough or wheezes no abdominal pain, nausea or vomiting, diarrhea or constipation no dysuria, hematuria or frequency no focal joint pain or swelling no back pain, CVA tenderness or radicular pain no bruising, bleeding or rashes no focal signs of weakness or numbness or altered sensation no complaints of anxiety or depression. Physical Exam Physical Exam: The patient appeared well nourished and normally developed. Vital signs as documented. Head exam is normocephalic atraumatic no scleral icterus Neck is without JVD, thyromegaly, or carotid bruits. Lungs are clear to auscultation, no focal loss of breath sounds Cardiac exam, Rhythm is regular.. No murmurs, rubs or gallops. Abdominal exam reveals normal bowel sounds, soft non tender, no masses Extremities are nonedematous and both pedal pulses are present Neurologic exam is alert and oriented, no focal loss of strength or sensation Skin is without bruises or rashes Psychologically is without concerns for anxiety or depression. Results & Data Results & Data ([facility]) Vital Signs (Past 12 Hours) Vital Signs Temp Pulse Pulse Resp BP BP Pulse Ox 09/27/20 09:18 82 20 129/61 95 09/27/20 08:01 90 18 113/78 95 09/27/20 07:58 114 H 114/78 09/27/20 06:37 99.1 F 101 H 22 133/[address] scan abdomen pelvis 09/27/2020 IMPRESSION: 1. 7 mm calcification which projects over the pancreatic head and is new since prior CT. This could reflect a common bile duct calculus. MRCP could be obtained for further evaluation. No significant biliary ductal dilatation status post cholecystectomy. 2. Severe hepatic steatosis. 3. No peripancreatic infiltration or fluid. 4. Moderate amount of stool within the colon and rectum. No bowel obstruction. CT head and chest x-ray on presentation were unremarkable for acute events or changes EKG shows atrial fibrillation with rate controlled no acute ST or T wave changes PG Care Time/CCT Total # of Minutes Spent Total Time Spent with Patient: Total time spent is greater than 50% in coordination of care (as documented) at patient's floor/unit and/or counseling patient: Coding Level of Care Code 28762 Initial Inpt Care Lvl 3 Diagnoses Patient requests second opinion Slurring of speech R47.81 Transaminitis R74.01 A-fib I48.91 Atrial fibrillation type: unspecified UTI (urinary tract infection), bacterial N39.0; A49.9 Congestive heart failure I50.9 History of diabetes mellitus Z86.39 Vitamin B12 deficiency E53.8 Depression F32.9 (1) A-fib Atrial fibrillation type: unspecified Qualified Code(s): I48.91 - Unspecified atrial fibrillation
--- NOTE | 2020-09-27 12:42 | Electrocardiogram Report ---
Test Reason : Blood Pressure : / mmHG Vent. Rate : 101 BPM Atrial Rate : 117 BPM P-R Int : 000 ms QRS Dur : 078 ms QT Int : 346 ms P-R-T Axes : 000 007 026 degrees QTc Int : 448 ms Atrial fibrillation with rapid ventricular response with premature ventricular or aberrantly conducte d complexes Abnormal ECG When compared with ECG of 24-SEP-2020 02:25, No significant change was found Confirmed by Ramesh Hair ([id number]) on 09/27/2020 12:42:05 PM Referred By: REFERRED SELF Confirmed By:Ramesh Hair
[2020-09-27] MEDS ORDERED: ACETAMINOPHEN 325 MG TAB PO STA (13:12)
[2020-09-27] MEDS ORDERED: KETOROLAC TROMETHAMINE 15 MG/ML VIAL IV STA (13:19)
[2020-09-27] MEDS ORDERED: ONDANSETRON INJ 2 MG/ML 2 ML VIAL IV PRN (14:27)
[2020-09-27] MEDS ORDERED: ACETAMINOPHEN 325 MG TAB PO PRN (14:27)
[2020-09-27] MEDS ORDERED: KETOROLAC TROMETHAMINE 15 MG/ML VIAL IV PRN (14:59)
--- NOTE | 2020-09-27 16:11 | Magnetic Resonance Report ---
MRI OF THE BRAIN WITHOUT CONTRAST CLINICAL HISTORY: slurred speech h/o afib not on ac COMPARISON STUDY: MRI of the brain January 19, 2015. Head CT performed earlier today. TECHNIQUE: Utilizing a 1.5 Heather magnet and dedicated coil, multiplanar, multiecho imaging of the bra in was performed without IV contrast. FINDINGS: Exam is mildly compromised by motion artifact. There are no foci of restricted diffusion to suggest acute infarct. No acute intracranial hemorrhage, midline shift or mass effect is present. Th e ventricular system is normal. Basilar cisterns are patent. There are no extra-axial collections. Fl ow-voids for the major intracranial vessels are present. No intracranial masses identified on this un enhanced examination. The appearance of the brain is similar to previous MRI. There is mild atrophy. A mucous retention cyst within the right maxillary sinus is incidentally noted. No foci of susceptibi lity artifact are noted on the gradient echo sequence. IMPRESSION: No acute intracranial findings. ACT 112: Negative or not required by law. Electronically signed by: Sukhwinder Mix M.D. 09/27/2020 4:10 PM
--- NOTE | 2020-09-27 16:59 | Magnetic Resonance Report ---
MRCP CLINICAL HISTORY: abn lft, ? abnormality on ct TECHNIQUE: Utilizing a 1.5 Heather magnet and dedicated coil, multiplanar, multiecho imaging of the [facility] abdomen was performed utilizing heavily T2 weighted pulsing sequences without IV contrast. COMPARISON STUDY: CT of the abdomen and pelvis performed earlier today and May 20, 2019. FINDINGS: The gallbladder is surgically absent. Note is made of dilatation of the common hepatic duct , measuring 1.3 cm in caliber. The caliber of the common bile duct is normal. The caliber of the intr ahepatic bile ducts is also normal. There is borderline dilatation of the main pancreatic duct. Note is made of a 7 mm T2 hypointense focus which projects over the pancreatic head/medial wall of the duo denum. This corresponds to the calcification shown on CT. This exam is compromised by motion artifact which makes evaluation difficult however this suspected stone appears to be at the ampulla with poss ible common channel of the common bile duct and main pancreatic duct. There is also possible pancreas divisum. There is no peripancreatic infiltration or fluid. Severe hepatic steatosis is better depict ed on CT. Hepatomegaly is noted. Unenhanced images of the spleen, adrenal glands and kidneys are unre markable with the exception of multifocal left renal scarring. Caliber of visualized small and large bowel are normal IMPRESSION: 1. 7 mm T2 hypointense focus which corresponds to the calcification on CT from earlier today. Althoug h exam compromised by motion artifact, this suspected calculus may be at the ampulla and projects ove r the distal pancreatic and common bile ducts with possible common channel. 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 No dilatation of the common bile duct. Dilated common hepatic duct which is likely unchanged from e arlier exams and likely related to cholecystectomy. 2. Severe hepatic steatosis. Hepatomegaly. 3. No peripancreatic infiltration or fluid. Pancreatic glandular atrophy. ACT 112: Negative or not required by law. Electronically signed by: Sukhwinder Mix M.D. 09/27/2020 4:58 PM
[2020-09-27] MEDS ORDERED: cephALEXin 500 MG CAP PO SCH (21:00)
[2020-09-28] MEDS ORDERED: ASPIRIN 81 MG ECTAB PO SCH (09:00)
[2020-09-28] MEDS ORDERED: SERTRALINE HCL 50 MG TABLET PO SCH (09:00)
[2020-09-28] MEDS ORDERED: ENOXAPARIN INJ 40 MG/0.4 ML SYR SQ SCH (09:00)
--- NOTE | 2020-10-05 07:16 | Discharge Summary ---
Date of Service September 27, 2020 Admission HPI Per Admitting Provider 70-year-old female with a past medical history including hepatitis C, hypertension, history of gastric bypass, diastolic dysfunction presenting via ambulance today from home reporting to 3 weeks of shortness of breath worsening as well as approximately 2 days of "explosive "central chest pain. Denies abdominal pain or nausea or vomiting. Patient states pain has been consistent and denies any falls. Denies significant pain with movement. Patient reports her breathing is "bad "and denies a similar history of this or her chest pain. Patient states that she is also having slurred speech and that she is talking like she is drunk. Patient states this is been ongoing for several weeks as well. Patient denies difficulty with movement in the arms of the legs or numbness here. Patient states that her daughter has been unhelpful for her at home and the pain is very bad. Patient states the ambulance gave her for aspirin but she does not normally take aspirin. Patient states she was recently evaluated in the emergency department several days ago sent home with the diagnosis of UTI. 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 Patient also states that she is concerned about her her living environment at home with her daughter as her daughter "wished her to ". Principal Diagnosis encephalopathy Discharge Exam no changes from admission exam on same day Discharge Data Allergies Allergy/AdvReac Type Severity Reaction Status Date / Time Iodinated Contrast Media Allergy Severe ANAPHYLACTIC Verified 09/27/20 06:44 REACTION tramadol Allergy Mild nausea, Verified 09/27/20 06:44 hives lisinopril AdvReac Intermediate FEELS LIKE Verified 09/27/20 06:44 SOMETHING IS CRAWLING ON HER. acetaminophen AdvReac Mild VOMITING Verified 09/27/20 06:44 Consultations 09/27/20 08:52 ED Decision to Admit Stat 09/27/20 17:36 Burn CD for patient Stat Ordered Studies 09/27/20 06:42 CT head/brain wo con Urgent 09/27/20 07:51 CT Abd and Pelvis [CT abd pelvis wo con] Stat 09/27/20 14:27 MR MRCP Stat MR brain wo con Stat Hospital Course (1) Patient requests second opinion: After the patient was admitted to the floor there was called by nursing as the patient requested her pain medication and Ativan. With concern for slurred speech we are not going to administer these medications until we were sure there was no central nervous system event going on to make it more challenging for her to swallow and to assess her neurological function. Subsequently her daughter called and demanded a phone call back. During that conversation the daughter requested the patient be transferred to [facility] as she had a good experience while at hospital. I spoke with Dr. Quiroz who accepted the patient in transfer to their telemetry unit for chest pain and atrial fibrillation which are part of her system complex. We will continue to work the patient up in our facility as they feel they have a very full hospital census and cannot guarantee a time of transfer. I did phone the family back and inform of this condition the patient's daughter felt that the patient may stay here as long as "we treat her nice". I did tell the daughter that does not mean we will give the patient opiates or benzodiazepines. At the end of the conversation I left a that the patient will still be transferred if a bed opens up prior to her finishing her hospital work- up. Not in any. Of note prior to her being admitted to our facility we did retest a Covid test and she is had 2 - Covid tests now over the last 3 days. (2) Slurring of speech: Patient's initial presentation is with slurring of speech this is rosalind borated by the emergency room physician. Initial CT head is unremarkable. Will obtain a tox screen her initial alcohol was unremarkable and we will get an MRI of her brain (3) Transaminitis: Patient is evidence of mildly elevated elevated transaminases alkaline phosphatase and lipase but normal T bili. CT of the abdomen pelvis there is a calcification difficult to determine its exact location and suggestion for MRCP. Patient will be kept with a clear liquid diet at this point time we will trend her transaminases alkaline phosphatase and lipase. We will order the MRCP as recommended (4) A-fib: Atrial fibrillation is rate controlled, patient has neither been on rate controlling agents or anticoagulation, patient will be monitored. We will check an echocardiogram discussed anticoagulation with her once we completely rule out a REINFORCING ROD LAYER event. Initial CT of the head is unremarkable we will perform an MRI. (5) UTI (urinary tract infection), bacterial: Urinalysis from 09/24 results shows multiple organisms all high counts this will be recollected to be a source of metabolic encephalopathy patient was placed on cephalexin as an outpatient (6) Congestive heart failure: Patient has seen Dr. Jewell in the past does not feel she is got a diagnosis of congestive heart failure this was based upon a July 2020 evaluation. He believes her lower extremity swelling is nutritional and related to venous incompetence. We will obtain the echocardiogram for her atrial fibrillation work-up. Certainly if she is got paroxysmal atrial fibrillation she could have some diastolic failure based upon rapid rates (7) History of diabetes mellitus: Patient is diet-controlled diabetic we will check a hemoglobin A1c placed on sliding scale if glucoses are persistently a problem (8) Vitamin B12 deficiency: Patient has macrocytosis but not anemia. She is a history of B12 deficiency in the past we will recheck vitamin B12 in presentation (9) Depression: Patient made some statement on presentation that her daughter wants her dad this is likely continued exacerbation of her depression. She remains on Zoloft therapy. It is continues to be more of an issue we will get a psychiatric consultation Total Time Total Time Spent Total Time Spent (In Minutes): > 30 minutes Discharge Plan Discharge Items Patient Disposition: Transfer Acute Care Hospital Reason For Visit: ENCEPAHLOPATHY Discharge Diagnosis: Slurred speech Chest pain with new onset A. fib controlled ventricular rate Abnormal liver function tests possible stone at the ampulla of Vater Activity: Per Instructions section Activity Comment: As per inpatient stay Non-emergency contact: Primary Care Provider, Licensing Representative and Granulator Tender Call non-emergency contact if: you have any medication questions Follow-up/Referrals: Diego Haynes MD [Primary Care Provider] - Diet: Clear liquid Addtl Attending Provider Instructions: Patient's family requested transfer to a [facility] due to previous stay there. Patient has minor elevations of liver function test and possible equivocal stone of the ampulla Vater. We will downgrade her diet to clear liquids and recommend further follow-up at the next acute facility she resides. Initial cardiac work-up has been unrevealing with negative troponin negative EKG echocardiogram was not performed at this time, the patient states that her chest pain has been present for weeks does however feel like a pressure on her chest, she is on an aspirin therapy has not been on statin therapy due to previous history of hepatitis C Patient did have COVID-19 testing prior to transfer which was negative Pending Studies at Discharge: Yes Stand-Alone Forms: My [facility] Skilled Items Patient informed of condition?: Yes DNR: No Discharge Level of Care: Other Communicable Disease: No Discharge Prognosis: Stable Lines: None Urinary Catheter: No Medications and DC Order Prescriptions: New aspirin 81 mg Tablet,Delayed Release (Dr/Ec) 81 mg PO QAM Qty: 30 RF: 0 Continued ondansetron HCl 4 mg tablet 4 mg PO Q8H PRN (Reason: Nausea) Qty: 30 RF: 0 lorazepam 0.5 mg tablet 0.5 mg PO TID RF: 0 sertraline 50 mg tablet 50 mg PO DAILY RF: 0 gabapentin 600 mg tablet 600 mg PO TID RF: 0 cyanocobalamin (vitamin B-12) 1,000 mcg/mL solution 1,000 mcg IM MONTHLY RF: 0 Discontinued zolpidem 10 mg tablet 10 mg PO HS RF: 0 furosemide 40 mg tablet 40 mg PO DAILY PRN (Reason: Edema) RF: 0 potassium chloride 20 mEq tablet extended release 20 meq PO QAM PRN (Reason: WHEN TAKES LASIX) RF: 0 Discharge Orders: Discharge Order (Routine); Ordered 09/27/20 Ordered By: Isacc Ivan Admission Data Admit Date/Time: 09/27/20 09:47 Attending Provider: Isacc Ivan Admit Provider: Isacc Ivan Primary Care Provider: Diego Haynes Other Providers: Isacc Ivan Other Interventions: Discharge Summary Assessment (RN) Last Done: 09/27/20 17:38 Coding Level of Care Code D/C Day Management <30 mins Diagnoses Patient requests second opinion Slurring of speech R47.81 Transaminitis R74.01 A-fib I48.91 Atrial fibrillation type: unspecified UTI (urinary tract infection), bacterial N39.0; A49.9 Congestive heart failure I50.9 History of diabetes mellitus Z86.39 Vitamin B12 deficiency E53.8 Depression F32.9
== END 2020-09-27 19:30 | disposition short-term general hospital (02) | DRG 92 ==
LOC: ED 06:27 → 2N 09:47

== ENCOUNTER 2021-01-07 03:44 | Inpatient (IN) ==
[2021-01-07] MEDS ORDERED: SODIUM CHLORIDE 0.9% 1000ML 1,000 ML IV SCH (04:00)
[2021-01-07] MEDS ORDERED: METOPROLOL TARTRATE 1 MG/ML VIAL IV STA (04:01)
--- NOTE | 2021-01-07 04:10 | Emergency Department Note ---
History of Present Illness General Chief complaint: Tachycardia Stated complaint: SOB/BACK AND CHEST PAIN Time Seen by Provider: 01/07/21 03:49 Source: patient Mode of arrival: EMS Limitations: no limitations History of Present Illness Provider complaint: Shortness of breath, chest pain, back pain Onset (ago): month(s) 1 Location: chest Radiation: back Severity: moderate Pain Consistency: + colicky Quality: + constant Relieved By: + none Exacerbated By: + movement Associated symptoms: + chest pain, + cough, + fever/chills, + malaise and + shortness of breath; no headaches and no nausea/vomiting Treatments prior to arrival: none This is a 70-year-old female who presents via EMS due to concern for increased shortness of breath, chest pain and back pain. Patient states the pain is along bilateral rib margins and radiates around bilateral flank into her back. Patient states symptoms initially started approximately a month ago when she stopped taking her metoprolol and Eliquis for her atrial fibrillation. She states she stopped them because she was feeling dizzy and did not know which one was contributing to her symptoms. Patient states she has had intermittent lower extremity edema for at least a year now that "no one can figure out". Patient does states she has a history of a prior blood clot and is concerned that she may have one in her chest. Patient states in the course of the last month symptoms she was diagnosed with bronchitis. She states she does use an MDI at home due to her history of tobacco abuse however it does not help with her symptoms. Patient states since Monday her breathing has gotten significantly worse. Patient states her sputum is thicker compared to normal however has not noted any discoloration, she feels this is in part to her poor vision. Patient denies any change in urine or bowel movements. Patient denies any overt fevers but states she is having intermittent chills. Patient states she lives with her daughter, both she and her daughter were tested for coronavirus last week and were negative. Patient states she did try using extra breathing treatments at home and this did not help with her breathing. Patient denies any other sick contacts or potential exposures. Patient states she sees Dr. Jewell. Pt seen during a time of high acuity and national emergency pandemic while wearing PPE. Home Medications Medication Instructions Recorded Confirmed Type lorazepam 0.5 mg PO TID 05/30/20 01/07/21 History gabapentin 600 mg PO TID 09/24/20 01/07/21 History apixaban 5 mg tablet 5 mg PO BID #60 tab 10/06/20 01/07/21 Rx metoprolol succinate 100 mg 100 mg PO DAILY #30 tab 10/06/20 01/07/21 Rx tablet,extended release 24 hr zolpidem 10 mg tablet 10 mg PO HS #30 tab 10/06/20 01/07/21 Rx albuterol sulfate 90 mcg/actuation 1 inh INHALATION QID PRN #8.5 g 12/22/20 01/07/21 Rx aerosol inhaler cholecalciferol (vitamin D3) 1,250 50,000 unit PO .weekly #14 cap 12/22/20 01/07/21 Rx mcg (50,000 unit) capsule ondansetron HCl 4 mg tablet 4 mg PO Q8H PRN #30 tab 12/22/20 01/07/21 Rx nicotine See Rx Instructions TRANSDERMAL 12/24/20 01/07/21 Rx 21mg/24hr-14mg/24hr-7mg/24hr daily .COMPLEX #56 patch transderm patches,sequentl furosemide 20 - 40 mg PO DAILY 01/07/21 01/07/21 History sucralfate 1 g PO QID PRN 01/07/21 01/07/21 History Allergies Allergy/AdvReac Type Severity Reaction Status Date / Time Iodinated Contrast Media Allergy Severe ANAPHYLACTIC Verified 01/07/21 04:30 REACTION tramadol Allergy Mild nausea, Verified 01/07/21 04:30 hives lisinopril AdvReac Intermediate FEELS LIKE Verified 01/07/21 04:30 SOMETHING IS CRAWLING ON HER. acetaminophen AdvReac Mild VOMITING Verified 01/07/21 04:30 Past Med/Surg History Medical History Diabetes mellitus, type 2 NO LONGER HAS, NO MEDS--HAD GASTRIC BYPASS Fibrocystic breast changes of both breasts Generalized edema Hiatal hernia History of anesthesia reaction "TAKES A LOT OF ANESTHESIA TO GET ME DOWN" Kidney stones Peripheral edema Tobacco abuse Surgical History History of appendectomy History of breast biopsy BILT--BENIGN History of cardiac cath 2016 @ [facility], NO STENT History of carpal tunnel release LEFT History of cataract surgery History of section History of colonoscopy History of dilatation and curettage X2 History of gastric bypass 2010 @ [place] History of tooth extraction ALL TEETH History of total abdominal hysterectomy and bilateral salpingo-oophorectomy Family History Daughter Family history of reaction to anesthesia "TAKES A LOT OF ANESTHESIA TO GET HER DOWN" Mother Family history of diabetes mellitus Social History Smoking Status: Current every day smoker Tobacco Type: Cigarettes Cigarettes Per Day: 20-30; Second Hand Exposure: Yes (parents smoked); Hx Alcohol Use: No Hx Substance Use: No Preferred Language: German Communication Ability: Effective Die Holder Required: No Beliefs That Will Affect Care: Buddhism Current Living Situation: Family Current Living Situation Comment: lives with daughter Feels Safe at Home: Yes Assistive Devices: Denture - Upper, Denture - Lower and Glasses Review of Systems See HPI for pertinent positives & negatives. and A total of 10 systems reviewed and were otherwise negative Physical Exam Vital Signs Vital Signs - 24 hr 01/07/21 03:53 01/07/21 04:09 01/07/21 04:41 Temperature 36.4 C L Temperature Source Oral Pulse Rate 135 H 102 H Respiratory Rate 16 Blood Pressure 127/65 127/65 Blood Pressure [Left Arm] Blood Pressure Mean 85 Blood Pressure Mean [Left Arm] Blood Pressure Position [Left Arm] Pulse Oximetry 93 Oxygen Delivery Method Room Air Room Air Sepsis Recent Fever Within 48 Hours No Sepsis New/Unexplained Change in Mental Status N/A Sepsis Action Taken by Nursing No Action Required 01/07/21 05:53 Temperature Temperature Source Pulse Rate Respiratory Rate Blood Pressure Blood Pressure [Left Arm] 127/88 Blood Pressure Mean Blood Pressure Mean [Left Arm] 101 Blood Pressure Position [Left Arm] Lying Pulse Oximetry Oxygen Delivery Method Sepsis Recent Fever Within 48 Hours Sepsis New/Unexplained Change in Mental Status Sepsis Action Taken by Nursing GENERAL: alert, well appearing, well nourished, no distress, non-toxic EYE EXAM: normal conjunctiva, PERRL and EOM's grossly intact OROPHARYNX: no exudate, no erythema, lips, buccal mucosa, and tongue normal and mucous membranes are moist NECK: supple, no nuchal rigidity, no adenopathy, non-tender LUNGS: Clear but decreased to auscultation. Barrel chested. Normal chest wall mechanics, no w/r/r, no reproducible pain with palpation along the ribs bilaterally. HEART: no murmurs, S1 normal and S2 normal, a.fib with RVR on tele ABDOMEN: abdomen soft, non-tender, normo-active bowel sounds, no masses, no rebo und or guarding. BACK: Back is symmetrical on inspection and there is no deformity, no midline tenderness, no CVA tenderness. SKIN: no rashes and no bruising UPPER EXTREMITIES: upper extremities are grossly normal. FROM, nml pulses b/l. LOWER EXTREMITIES: No pitting edema. FROM, nml pulses b/l. NEURO EXAM: Normal sensorium, cranial nerves II-XII grossly intact, normal speech, no gross weakness of arms, no gross weakness of legs. Gross sensation intact. Course Course 0545: Patient's heart rate is improved after dose of metoprolol. Patient states she had a sharp episode of chest pain again while her legs were being imaged. Patient does state that she had a PE back in 2013. She does not recall being on blood thinners for it. Administered Medications Apixaban (Apixaban 5 Mg Tablet) 10 mg PO BID [facility] Stop: 01/14/21 20:59 Last Admin: 01/07/21 20:45 Dose: 10 mg Documented by: [id number] Gabapentin (Gabapentin 600 Mg Tab) 600 mg PO TID [facility] Stop: 02/06/21 13:59 Last Admin: 01/07/21 20:45 Dose: 600 mg Documented by: [id number] Admin: 01/07/21 14:26 Dose: 600 mg Documented by: [id number] Potassium Chloride/Sodium Chloride (Normal Saline W/20 Meq Kcl) 20 meq in 1,000 mls @ 80 mls/hr IV .[id number] [facility] Stop: 02/06/21 08:59 Last Admin: 01/07/21 21:50 Dose: 80 mls/hr Documented by: [id number] Infusion: 01/07/21 21:25 Dose: 80 mls/hr Documented by: [id number] Admin: 01/07/21 08:55 Dose: 80 mls/hr Documented by: [id number] Famotidine 20 mg/ Syringe 5 mls @ 2.5 mls/min IV Q12H [facility] Stop: 02/06/21 08:59 Last Admin: 01/07/21 20:42 Dose: 2.5 mls/min Documented by: [id number] Admin: 01/07/21 08:55 Dose: 2.5 mls/min Documented by: [id number] Lorazepam (Lorazepam 0.5 Mg Tab) 0.5 mg PO TID PRN PRN Reason: Anxiety Stop: 02/06/21 16:02 Last Admin: 01/07/21 22:33 Dose: 0.5 mg Documented by: [id number] Nicotine (Nicotine 21 Mg/24 Hr Tdsy) 21 mg TD DAILY [facility] Stop: 02/06/21 12:29 Last Admin: 01/07/21 12:27 Dose: 21 mg Documented by: [id number] Sucralfate (Sucralfate 1 Gm Tab) 1 gm PO QID PRN PRN Reason: STOMACH ISSUES Stop: 02/06/21 11:37 Last Admin: 01/07/21 18:14 Dose: 1 gm Documented by: [id number] Verapamil HCl (Verapamil Hcl 40 Mg Tab) 40 mg PO Q6 [facility] Stop: 02/06/21 12:14 Last Admin: 01/07/21 23:34 Dose: 40 mg Documented by: [id number] Admin: 01/07/21 18:14 Dose: 40 mg Documented by: [id number] Admin: 01/07/21 12:27 Dose: 40 mg Documented by: [id number] Zolpidem Tartrate (Zolpidem Tartrate 10 Mg Tab) 10 mg PO HS PRN PRN Reason: Sleep Stop: 02/06/21 16:03 Last Admin: 01/07/21 20:51 Dose: 10 mg Documented by: [id number] Discontinued Medications Heparin Sodium/Dextrose (Heparin Iv Low Dose *No* Bolus) 1 ea N/A ONE ONE; Protocol Stop: 01/07/21 05:25 Last Admin: 01/07/21 08:39 Dose: Not Given Documented by: [id number] Sodium Chloride (Nss 1000ml) 1,000 mls @ 125 mls/hr IV .Q8H [facility] Stop: 02/06/21 03:59 Last Infusion: 01/07/21 08:46 Dose: 0 mls/hr Documented by: [id number] Admin: 01/07/21 04:40 Dose: 125 mls/hr Documented by: [id number] Heparin Sodium/Dextrose (Heparin Sodium/Dextrose) 25,000 units in 500 mls @ 21 mls/hr IV .[id number] [facility]; Protocol Stop: 01/07/21 20:00 Last Titration: 01/07/21 20:20 Dose: 0 units/hr, 0 mls/hr Documented by: [id number] Cosigned by: [id number] Titration: 01/07/21 14:56 Dose: 1,050 units/hr, 21 mls/hr Documented by: [id number] Cosigned by: [id number] Titration: 01/07/21 13:59 Dose: 1,050 units/hr, 21 mls/hr Documented by: [id number] Cosigned by: [id number] Titration: 01/07/21 09:15 Dose: 850 units/hr, 17 mls/hr Documented by: [id number] Cosigned by: [id number] Titration: 01/07/21 09:02 Dose: 0 units/hr, 0 mls/hr Documented by: [id number] Cosigned by: [id number] Admin: 01/07/21 05:44 Dose: 850 units/hr, 17 mls/hr Documented by: [id number] Cosigned by: [id number] Lorazepam (Ativan) 0.25 mg in 0.5 mls @ 0.5 mls/min IV Q6H PRN PRN Reason: Anxiety Stop: 02/06/21 08:14 Last Admin: 01/07/21 13:23 Dose: 0.5 mls/min Documented by: [id number] Heparin Sodium (Porcine) 4,500 (units/ Syringe) 4.5 mls @ 10 mls/min IV ONE ONE Stop: 01/07/21 14:16 Last Admin: 01/07/21 14:27 Dose: 10 mls/min Documented by: [id number] Cosigned by: [id number] Metoprolol Succinate (Metoprolol Succ 50mg Ext Rel Tab) 100 mg PO DAILY [facility] Stop: 02/06/21 11:44 Last Admin: 01/07/21 12:12 Dose: Not Given Documented by: [id number] Metoprolol Tartrate (Metoprolol Tartrate 1 Mg/Ml Vial) 5 mg IV NOW STA Stop: 01/07/21 04:02 Last Admin: 01/07/21 04:41 Dose: 5 mg Documented by: [id number] Miscellaneous (Stop Order) 1 ea N/A ONE ONE Stop: 01/07/21 20:01 Last Admin: 01/07/21 20:45 Dose: 1 ea Documented by: [id number] Critical Care Time Critical Care Time: Yes Total Critical Care Time: 42 Critical care of 42 min performed to assess and manage high likelihood of life-threatening dyspnea and dysrhythmia, involving labs and imaging performed with assessment to evaluate dyspnea and dysrhythmia diagnosis with frequent reassessment. This time includes bedside time, treatment discussions with patient/family/consultants, documentation time and excludes procedure time. Medical Decision Making Differential Diagnosis Differential diagnoses includes but is not limited to pneumonia, bronchitis, COPD/Asthma exacerbation, pneumothorax, pulmonary embolism, congestive heart failure, acute coronary syndrome Medical Records Attestation: I reviewed the patient's medical records. Home Medications Current Medication List: was personally reviewed by me Laboratory Data Attestation: I reviewed the patient's lab results. Result diagrams: 01/07/21 04:45 01/07/21 04:45 Lab Results 01/07/21 01/07/21 01/07/21 Range/Units 04:45 04:45 04:45 WBC 9.06 (4.8-10.8) K/uL RBC 3.43 L (4.2-5.4) M/uL Hgb 10.8 L (12.0-16.0) g/dL Hct 32.8 L (37-47) % MCV 95.6 (80-100) fL MCH 31.5 (25-34) pg MCHC 32.9 (32-36) g/dL RDW Std Deviation 64.2 H (36.4-46.3) fL RDW Coeff of Geri 18.7 H (11.5-14.5) % Plt Count 265 (130-400) K/uL MPV 11.0 H (7.4-10.4) fL Immature Gran % (Auto) 0.2 % Neut % (Auto) 73.5 % Lymph % (Auto) 17.7 % [place] % (Auto) 7.4 % Eos % (Auto) 0.8 % Baso % (Auto) 0.4 % Neut # (Auto) 6.66 H (1.4-6.5) K/uL Lymph # (Auto) 1.60 (1.2-3.4) K/uL [place] # (Auto) 0.67 H (0.11-0.59) K/uL Eos # (Auto) 0.07 (0-0.5) K/uL Baso # (Auto) 0.04 (0-0.2) K/uL Immature Gran # (Auto) 0.02 (0.00-0.02) K/uL APTT 23.3 (21.0-31.0) Seconds PTT Ratio 0.9 Sodium 139 (136-145) mmol/L Potassium 3.8 (3.5-5.1) mmol/L Chloride 107 (98-107) mmol/L Carbon Dioxide 26 (21-32) mmol/L Anion Gap 6.0 (3-11) BUN 7 (7-18) mg/dl Creatinine 0.53 L (0.6-1.2) mg/dl Est Cr Clr Drug Dosing 103.2 ml/min Est GFR ( Amer) 111.5 Est GFR (Non-Af Amer) 96.2 BUN/Creatinine Ratio 13.4 (10-20) Glucose 101 H (70-99) mg/dl Calcium 8.1 L (8.5-10.1) mg/dl Magnesium 2.1 (1.8-2.4) mg/dl Total Bilirubin 2.2 H (0.2-1) mg/dl AST 33 (15-37) U/L ALT 29 (12-78) U/L Alkaline Phosphatase 234 H (45-117) U/L Troponin I < 0.015 (0-0.045) ng/ml NT-Pro-B Natriuret Pep 1033 H (0-900) pg/ml Total Protein 6.7 (6.4-8.2) gm/dl Albumin 3.0 L (3.4-5.0) gm/dl Globulin 3.7 (2.5-4.0) gm/dl Albumin/Globulin Ratio 0.8 L (0.9-2) Lipase 88 (73-393) U/L TSH 3.220 (0.300-4.500) uIu/ml Imaging Data My Impression: X-ray: I interpreted the following studies. Chest: A single view study of the chest was reviewed and was negative for cardiomegaly, focal infiltrate, effusion, or wide mediastinum. Elevated right hemidiaphragm noted. Slightly increased interstitial markings bilaterally. Radiologist's Impression: Ultrasound venous bilateral lower extremities: No evidence of DVT within the lower extremities. Radiologist: Jose E Artis MD ECG Data Attestation: I personally reviewed and interpreted this ECG as follows: Indication: + SOB/dyspnea Rate (beats per minute): 124 Rhythm: + atrial fibrillation ECG Intervals/blocks: + Normal QRS and + Normal QT ECG Alfred: + Normal ECG Findings: + PVCs Additional Comments: low voltage MDM Narrative This is a 70-year-old female who complains of 1 month of being short of breath despite outpatient treatment for possible bronchitis and a negative Covid test which is now worse in the last 3 to 4 days. Patient admits to noncompliant with prior treatment for atrial fibrillation and she felt dizzy so she stopped her metoprolol and Eliquis. Patient admits to over a year of intermittent lower extremity edema, denies any acute changes there. Patient does admit to ongoing tobacco abuse, and use of MDIs at home. Patient states she does not wear home oxygen. Patient barrel chested here and slightly dyspneic with prolonged conversation or movement. Patient was found to be in rapid atrial fibrillation in the 130s initially, however this did respond to a dose of IV metoprolol and was done in the low 100s. Patient otherwise hemodynamically stable and not overtly hypoxic. Patient states she did try a breathing treatment prior to arrival without any improvement in her symptoms. Due to an anaphylactic allergy to IV dye, patient could not be sent for CT to rule out PE so lower extremity Dopplers were ordered. Patient's other labs were reassuring including a negative troponin. Patient did have a mildly elevated BNP of unclear etiology. Did no need for additional management of her cardiac issues as well as unclear etiology for her dyspnea, case discussed with hospitalist for additional evaluation management. Patient's Covid test was ordered and was negative. Did discuss with her the possibility of a nuclear study in the morning for better evaluation of possible PE. On review of EMR with the assistance of case management, patient does have a prior history of pulmonary nodules, I cannot see a previously documented PE. There is mention of a prior DVT. Patient does appear to be anemic although this is not a significant change compared to prior levels in review of EMR. Patient denied any recent blood loss, black or bloody stools. Due to concern for ongoing atrial fibrillation as well as possibility of PE, a heparin drip was started on the patient. Patient remained hemodynamically stable in the emergency room, was kept up-to-date and all results, verbalized understanding and agreement with plan. Pt seen during a time of high acuity and national emergency pandemic while wearing PPE. Impression & Plan Acute dyspnea, Atrial fibrillation with rapid ventricular response, Tobacco abuse, COPD (chronic obstructive pulmonary disease), Bilateral edema of lower extremity, Noncompliance, Anemia, Elevated brain natriuretic peptide (BNP) level Discharge Plan Visit Data Chief Complaint: Tachycardia Stated Complaint: SOB/BACK AND CHEST PAIN ED Provider: Julissa Calloway Discharge Problem: Acute dyspnea, Atrial fibrillation with rapid ventricular response, Tobacco abuse, COPD (chronic obstructive pulmonary disease), Bilateral edema of lower extremity, Noncompliance, Anemia, Elevated brain natriuretic peptide (BNP) level Patient Disposition: Admitted As Inpatient Discharge Instructions Interventions: ED Discharge Assessment Last Done: 01/07/21 07:48 Discharge Problem: COPD (chronic obstructive pulmonary disease) Qualifiers: COPD type: unspecified COPD Qualified Code(s): J44.9 - Chronic obstructive pulmonary disease, unspecified Anemia Qualifiers: Anemia type: unspecified type Qualified Code(s): D64.9 - Anemia, unspecified
[2021-01-07 04:54] LABS: Basophils # (auto) 0.04 K/uL (0-0.2); Basophils % (auto) 0.4 %; Eosinophils # (auto) 0.07 K/uL (0-0.5); Eosinophils % (auto) 0.8 %; Hematocrit (blood only) 32.8 % (37-47); Hemoglobin 10.8 g/dL (12.0-16.0); Immature Granulocytes # (auto) 0.02 K/uL (0.00-0.02); Immature Granulocytes % (auto) 0.2 %; Lymphocytes % (auto) 17.7 %; Mean Corpuscular Hemoglobin 31.5 pg (25-34); Mean Corpuscular Hgb Conc 32.9 g/dL (32-36); Mean Corpuscular Volume 95.6 fL (80-100); Monocytes # (auto) 0.67 K/uL (0.11-0.59); Monocytes % (auto) 7.4 %; Neutrophils # (auto) 6.66 K/uL (1.4-6.5); Neutrophils % (auto) 73.5 %; Platelet Count 265 K/uL (130-400); RDW Coefficient of Variation 18.7 % (11.5-14.5); RDW Standard Deviation 64.2 fL (36.4-46.3); Red Blood Count 3.43 M/uL (4.2-5.4); White Blood Count 9.06 K/uL (4.8-10.8)
[2021-01-07 05:12] LABS: Alanine Aminotransferase 29 U/L (12-78); Aspartate Aminotransferase 33 U/L (15-37); BUN Creatinine Ratio 13.4 (10-20); Blood Urea Nitrogen 7 mg/dl (7-18); Calcium 8.1 mg/dl (8.5-10.1); Carbon Dioxide 26 mmol/L (21-32); Chloride 107 mmol/L (98-107); Creatinine Clr Calc Pharmacy 103.2 ml/min; Est GFR (African American) 111.5; Est GFR (Non-African American) 96.2; Glucose 101 mg/dl (70-99); Lipase 88 U/L (73-393); Magnesium 2.1 mg/dl (1.8-2.4); Potassium 3.8 mmol/L (3.5-5.1); Sodium 139 mmol/L (136-145)
[2021-01-07 05:23] LABS: Albumin Globulin Ratio 0.8 (0.9-2); Alkaline Phosphatase 234 U/L (45-117); Bilirubin,Total 2.2 mg/dl (0.2-1); Globulin 3.7 gm/dl (2.5-4.0); NT Pro B Type Natriuretic Pept 1033 pg/ml (0-900); Total Protein 6.7 gm/dl (6.4-8.2); Troponin I < 0.015 ng/ml (0-0.045)
[2021-01-07] MEDS ORDERED: Heparin IV Low Dose *NO* Bolus ONE (05:24)
[2021-01-07] MEDS ORDERED: HEPARIN SODIUM/DEXTROSE 25,000 UNITS/500 ML BAG IV SCH (05:30)
[2021-01-07] MEDS ORDERED: METOPROLOL TARTRATE 1 MG/ML VIAL IV PRN (06:43)
--- NOTE | 2021-01-07 06:43 | History & Physical Report ---
Date of Service January 07, 2021 Assessment & Plan (1) Chest pain: Acute onset of chest pain- May be secondary to atrial fibrillation with RVR by itself, and/or associated with pulmonary embolism. Patient unable to get CT angiography PE protocol due to anaphylactic reaction to the line. Will order VQ scan to be done today. In the interim, continue heparin drip standard concentration per protocol, that was begun in the ED. Present on Admission?: Yes (2) Atrial fibrillation with RVR: Received a single dose of Lopressor 5 mg IV with heart rate in the low 100s, systolic blood pressure in the mid 105 area. Patient reports she was diagnosed recently with atrial fibrillation, and had been on metoprolol and apixaban, but she stopped both about a month ago because she was lightheaded and did not know which one was causing it. Present on Admission?: Yes (3) A-fib: (4) Chronic venous insufficiency: Chronic venous insufficiency/hypoalbuminemia/likely on the nutritional basis. Asymmetric edema left greater than right with palpable varicosities left lower extremity. Venous Doppler results in ED tonight are negative for DVT bilaterally. Present on Admission?: Yes (5) Hypoalbuminemia: (6) H/O bypass gastroenterostomy: (7) Depression: Anxiety/depression- For now patient can be n.p.o., however lorazepam available as needed IV. Present on Admission?: Yes (8) Tobacco abuse: Cessation counseling. Patient reports he has not smoked for 3 days. Hold off on nicotine patch due to present heart arrhythmia. Present on Admission?: Yes (9) Nutritional deficiency: Secondary to previous GI bypass surgeries- Documented with B12, iron, vitamin D deficiencies Present on Admission?: Yes (10) Lower extremity edema: Holding furosemide as noted. Present on Admission?: Yes (11) Hepatitis C: History of Present Illness Chief Complaint: The patient presents to the emergency department with complaint of acute onset of severe substernal chest pain, became concerned about a Pulmonary Embolism, and Presented to the ED for Assessment Via Ambulance Primary Care Provider: Justus Haynes MD The patient is a 70-year-old female with a past medical history including COPD, atrial fibrillation, chronic venous insufficiency, hypoalbuminemia, nutritional deficiency, lower extremity edema, history of bypass gastroenterostomy, diabetes mellitus, iron deficiency anemia, vitamin B12 deficiency, vitamin D deficiency, spinal stenosis, hypertension, hepatitis C, chronic back pain, and erosion of implanted mesh to organ or tissue. She reports that the first time she knew she had atrial fibrillation was when she was in route to one of the hospitals and was told so by the ambulance staff. She reports that she had been started recently on metoprolol and apixaban, but stopped both because she was concerned about being dizzy and was not sure which medications was doing it. She reports her left leg is chronically more swollen than the right, and that is where she is concerned she may have a clot, and/or a clot may have gone from her left leg to her lung. She also has a complicated history of a 7 mm calcification which was thought to be a common bile duct stone, that she reports was initially detected at [facility], then she was sent to [facility], then she was transferred because of her daughter to [place], who then transferred her to [facility]. She reports that at [facility] that they were initially going to remove the stone and then they said they were too busy. She then reports on the second day they went take to her down but she said they decided they were not going to do the procedure. Overall, patient is somewhat confused about how she relates this history. Allergies Allergy/AdvReac Type Severity Reaction Status Date / Time Iodinated Contrast Media Allergy Severe ANAPHYLACTIC Verified 01/07/21 04:30 REACTION tramadol Allergy Mild nausea, Verified 01/07/21 04:30 hives lisinopril AdvReac Intermediate FEELS LIKE Verified 01/07/21 04:30 SOMETHING IS CRAWLING ON HER. acetaminophen AdvReac Mild VOMITING Verified 01/07/21 04:30 Home Medications Medication Instructions Recorded Confirmed Type lorazepam 0.5 mg PO TID 05/30/20 01/07/21 History gabapentin 600 mg PO TID 09/24/20 01/07/21 History apixaban 5 mg tablet 5 mg PO BID #60 tab 10/06/20 01/07/21 Rx metoprolol succinate 100 mg 100 mg PO DAILY #30 tab 10/06/20 01/07/21 Rx tablet,extended release 24 hr zolpidem 10 mg tablet 10 mg PO HS #30 tab 10/06/20 01/07/21 Rx albuterol sulfate 90 mcg/actuation 1 inh INHALATION QID PRN #8.5 g 12/22/20 01/07/21 Rx aerosol inhaler cholecalciferol (vitamin D3) 1,250 50,000 unit PO .weekly #14 cap 12/22/20 01/07/21 Rx mcg (50,000 unit) capsule ondansetron HCl 4 mg tablet 4 mg PO Q8H PRN #30 tab 12/22/20 01/07/21 Rx nicotine See Rx Instructions TRANSDERMAL 12/24/20 01/07/21 Rx 21mg/24hr-14mg/24hr-7mg/24hr daily .COMPLEX #56 patch transderm patches,sequentl furosemide 20 - 40 mg PO DAILY 01/07/21 01/07/21 History sucralfate 1 g PO QID PRN 01/07/21 01/07/21 History Past Med/Surg History Medical History (Updated 01/07/21 @ 06:58 by Tyshawn Ching MD) Diabetes mellitus, type 2 NO LONGER HAS, NO MEDS--HAD GASTRIC BYPASS Fibrocystic breast changes of both breasts Generalized edema Hiatal hernia History of anesthesia reaction "TAKES A LOT OF ANESTHESIA TO GET ME DOWN" Kidney stones Peripheral edema Tobacco abuse Surgical History History of appendectomy History of breast biopsy BILT--BENIGN History of cardiac cath 2016 @ [facility], NO STENT History of carpal tunnel release LEFT History of cataract surgery History of section History of colonoscopy History of dilatation and curettage X2 [place] [facility] [place] of tooth extraction ALL TEETH History of total abdominal hysterectomy and bilateral salpingo-oophorectomy Family History Daughter Family history of reaction to anesthesia "TAKES A LOT OF ANESTHESIA TO GET HER DOWN" Mother Family history of diabetes mellitus Social History Smoking Status: Current every day smoker Tobacco Type: Cigarettes Cigarettes Per Day: 20-30; Second Hand Exposure: Yes (parents smoked); Do You Dip or Chew Tobacco: No; Hx Alcohol Use: No Hx Substance Use: No Preferred Language: Estonian Communication Ability: Effective Bath Solution Maker Required: No Beliefs That Will Affect Care: None Current Living Situation: Family Current Living Situation Comment: lives with daughter Other Information That Helps Us Care for You: No Feels Safe at Home: Yes Safety Concerns: Feels Safe At This Time Assistive Devices: Denture - Upper, Denture - Lower and Glasses Review of Systems Review of Systems: The patient denies palpitations, sore throat, fevers, chills, sweats, nausea, vomiting, diarrhea , constipation, abdominal pain, pelvic pain, blood in urine or stool, dysuria, urinary frequency or urgency, lightheadedness, dizziness, headache, memory loss, loss of consciousness, rash, abnormal bruising or bleeding, imbalance, focal or generalized weakness, numbness or tingling in arms or legs, change in her chronic back pain, or night sweats. The review of systems is otherwise negative other than for that already noted above, and at least 10 systems have been reviewed. Physical Exam Physical Exam: The patient is awake, alert and oriented 3, normocephalic and atraumatic, lying in bed and in no acute distress. HEENT--PERRL, EOMI, mucous membranes and oropharynx dry. Neck--supple. No JVD. No bruits. Thyroid normal, trachea midline, no adenopathy. Heart--normal S1 and S2. No murmurs, rubs or gallops. Lungs--decreased breath sounds throughout, with scattered wheezes. No re spiratory distress, no accessory muscle use. Abdomen--normal bowel sounds and soft. Nontender. Nondistended, no hernias or masses, no organomegaly. Extremities--right lower extremity with no edema. Left lower extremity with palpable varicosities and 1+ pitting edema, with larger circumference than the right. Dermatologic--normal skin turgor, normal color, no abnormal lymph nodes, no rash. Neurologic--cranial nerves II through XII grossly intact. Rheumatologic--normal range of motion. Psychiatric--normal affect. Results & Data Results & Data ([facility]) Vital Signs (Past 12 Hours) Vital Signs Temp Pulse Resp BP BP Pulse Ox 01/07/21 05:53 127/88 01/07/21 04:41 102 H 127/65 01/07/21 03:53 97.5 F L 135 H 16 127/65 93 Laboratory Results Laboratory Results WBC 9.06 K/uL (4.8-10.8) 01/07/21 04:45 RBC 3.43 M/uL (4.2-5.4) L 01/07/21 04:45 Hgb 10.8 g/dL (12.0-16.0) L 01/07/21 04:45 Hct 32.8 % (37-47) L 01/07/21 04:45 MCV 95.6 fL (80-100) 01/07/21 04:45 MCH 31.5 pg (25-34) 01/07/21 04:45 MCHC 32.9 g/dL (32-36) 01/07/21 04:45 RDW Std Deviation 64.2 fL (36.4-46.3) H 01/07/21 04:45 RDW Coeff of Geri 18.7 % (11.5-14.5) H 01/07/21 04:45 Plt Count 265 K/uL (130-400) 01/07/21 04:45 MPV 11.0 fL (7.4-10.4) H 01/07/21 04:45 Immature Gran % (Auto) 0.2 % 01/07/21 04:45 Neut % (Auto) 73.5 % 01/07/21 04:45 Lymph % (Auto) 17.7 % 01/07/21 04:45 [place] % (Auto) 7.4 % 01/07/21 04:45 Eos % (Auto) 0.8 % 01/07/21 04:45 Baso % (Auto) 0.4 % 01/07/21 04:45 Neut # (Auto) 6.66 K/uL (1.4-6.5) H 01/07/21 04:45 Lymph # (Auto) 1.60 K/uL (1.2-3.4) 01/07/21 04:45 [place] # (Auto) 0.67 K/uL (0.11-0.59) H 01/07/21 04:45 Eos # (Auto) 0.07 K/uL (0-0.5) 01/07/21 04:45 Baso # (Auto) 0.04 K/uL (0-0.2) 01/07/21 04:45 Immature Gran # (Auto) 0.02 K/uL (0.00-0.02) 01/07/21 04:45 APTT 23.3 Seconds (21.0-31.0) 01/07/21 04:45 PTT Ratio 0.9 01/07/21 04:45 Sodium 139 mmol/L (136-145) 01/07/21 04:45 Potassium 3.8 mmol/L (3.5-5.1) 01/07/21 04:45 Chloride 107 mmol/L (98-107) 01/07/21 04:45 Carbon Dioxide 26 mmol/L (21-32) 01/07/21 04:45 Anion Gap 6.0 (3-11) 01/07/21 04:45 BUN 7 mg/dl (7-18) 01/07/21 04:45 Creatinine 0.53 mg/dl (0.6-1.2) L 01/07/21 04:45 Est Cr Clr Drug Dosing 103.2 ml/min 01/07/21 04:45 Est GFR ( Amer) 111.5 01/07/21 04:45 Est GFR (Non-Af Amer) 96.2 01/07/21 04:45 BUN/Creatinine Ratio 13.4 (10-20) 01/07/21 04:45 Glucose 101 mg/dl (70-99) H 01/07/21 04:45 Calcium 8.1 mg/dl (8.5-10.1) L 01/07/21 04:45 Magnesium 2.1 mg/dl (1.8-2.4) 01/07/21 04:45 Total Bilirubin 2.2 mg/dl (0.2-1) H 01/07/21 04:45 AST 33 U/L (15-37) 01/07/21 04:45 ALT 29 U/L (12-78) 01/07/21 04:45 Alkaline Phosphatase 234 U/L (45-117) H 01/07/21 04:45 Troponin I < 0.015 ng/ml (0-0.045) 01/07/21 04:45 NT-Pro-B Natriuret Pep 1033 pg/ml (0-900) H 01/07/21 04:45 Total Protein 6.7 gm/dl (6.4-8.2) 01/07/21 04:45 Albumin 3.0 gm/dl (3.4-5.0) L 01/07/21 04:45 Globulin 3.7 gm/dl (2.5-4.0) 01/07/21 04:45 Albumin/Globulin Ratio 0.8 (0.9-2) L 01/07/21 04:45 Lipase 88 U/L (73-393) 01/07/21 04:45 TSH 3.220 uIu/ml (0.300-4.500) 01/07/21 04:45 COVID-19 Eval Order CovFluRsv at [facility] 01/07/21 Unknown Diagnostic Findings Accession Numbers: [id number] Preliminary Findings Only See Final Report For Complete Findings US VENOUS BILATERAL LOWER EXTREMITIES: No evidence of DVT within the lower extremities. Radiologist: Jose E Artis MD Study ready at 05:48 and initial results transmitted at 05:52 *This report constitutes a preliminary interpretation only. Non-acute findings felt to be unrelated to the clinical presentation may not be discussed in this report. The study will be interpreted and a final report will be generated by the local Radiologist the following shift. To reach the hospital radiology department call [phone]. If a discrepancy is found between the preliminary and final interpretations of this study, please notify us via our Client Portal at [email or web address] under QA Exams.You can also fax this report with a description of the discrepancy, or include the final report, to our daytime fax number [phone].If faxing, please indicate the severity of discrepancy using one of the following categories: [ ] 1 - Agree/Informational [ ] 2 - Unlikely to Affect Management [ ] 3 - Possible Eventual Change of Management [ ] 4 - Probable Immediate Change of Management For all other patient related information, please fax us at [phone]. [id number] Code Status & VTE Plan Code Status Full code VTE Prophylaxis Plan VTE Prophylaxis will be ordered: Yes PG Care Time/CCT Total # of Minutes Spent Total Time Spent with Patient: Total time spent is greater than 50% in coordination of care (as documented) at patient's floor/unit and/or counseling patient: Coding Level of Care Code 01761 Initial Inpt Care Lvl 3 Diagnoses Chest pain R07.9 Chest pain type: unspecified Atrial fibrillation with RVR I48.91 A-fib I48.91 Atrial fibrillation type: unspecified Chronic venous insufficiency I87.2 Hypoalbuminemia E88.09 H/O bypass gastroenterostomy Z98.0 Depression F32.9 Tobacco abuse Z72.0 Nutritional deficiency E63.9 Lower extremity edema R60.0 Hepatitis C B19.20 (1) A-fib Atrial fibrillation type: unspecified Qualified Code(s): I48.91 - Unspecified atrial fibrillation (2) Chest pain Chest pain type: unspecified Qualified Code(s): R07.9 - Chest pain, unspecified
[2021-01-07 06:49] LABS: Partial Thromboplastin Ratio 0.9; Partial Thromboplastin Time 23.3 Seconds (21.0-31.0)
--- NOTE | 2021-01-07 07:11 | Ultrasound Report ---
BILATERAL LOWER EXTREMITY VENOUS DOPPLER HISTORY: leg swelling, sob COMPARISON STUDY: None. FINDINGS: There is normal compressibility, flow, and augmentation within the bilateral lower extremit y deep venous systems. IMPRESSION: No DVT within the right or left lower extremity. ACT 112: Negative or not required by law. Electronically signed by: Raul Abreu M.D. 01/07/2021 7:10 AM
[2021-01-07 07:19] LABS: Influenza A virus by PCR Negative (Neg); Influenza B virus by PCR Negative (Neg); RSV by PCR Negative (Neg); SARS CoV2 RNA(COVID-19) InHosp NEGATIVE (Negative)
--- NOTE | 2021-01-07 07:59 | XRay Report ---
XR chest 1V portable CLINICAL HISTORY: Shortness of breath COMPARISON STUDY: 09/27/2020 FINDINGS: The heart is borderline enlarged. There is elevation the right hemidiaphragm. There is no l obar consolidation. A small left pleural effusion is suspected. There is minor left basilar atelectas is[the previously identified left suprahilar nodule is partially obscured due to overlying cardiac el ectrode IMPRESSION: 1. Persistent elevation right hemidiaphragm 2. Probable small left pleural effusion with left basilar atelectasis ACT 112: Negative or not required by law. Electronically signed by: Phuc Burton M.D. 01/07/2021 7:57 AM
[2021-01-07] MEDS ORDERED: ONDANSETRON INJ 2 MG/ML 2 ML VIAL IV PRN (08:15)
[2021-01-07] MEDS ORDERED: LORazepam 0.25 MG/0.5 ML VIAL IV PRN (08:15)
[2021-01-07] MEDS: NSS + 20MEQ KCL 20 MEQ/1,000 ML BAG IV SCH ×2 (08:55→21:50)
[2021-01-07] MEDS: FAMOTIDINE 20 MG in SYRINGE 3 ML IV SCH ×2 (08:55→20:42)
[2021-01-07 09:37] LABS: Appearance Urine Clear (Clear); Color Urine Orange; Specific Gravity Urine 1.009 (1.000-1.030)
[2021-01-07 09:53] LABS: Epithelial Cell Urine 0-5 /lpf (0-5)
[2021-01-07 10:01] LABS: Bacteria Urine 1+ (Negative)
[2021-01-07 10:41] LABS: Amphetamines+Metham, Urine Neg (Neg); Barbiturates, Urine Neg (Neg); Benzodiazepine, Urine Neg (Neg); Cocaine, Urine Neg (Neg); MDMA (Ecstacy), Urine Neg (Neg); Methadone, Urine Neg (Neg); Opiate, Urine Neg (Neg); Phencyclidine, Urine Neg (Neg)
--- NOTE | 2021-01-07 11:29 | Hospitalist Progress Note ---
Date of Service January 07, 2021 Assessment & Plan (1) Chest pain: #Chest Pain with SOB Acute onset of chest pain May be secondary to atrial fibrillation with RVR by itself, and/or associated with pulmonary embolism. Certainly could be a component of anxiety exacerbation. A CT angio with a PE protocol was attempted last night however the patient had a poor reaction to the dye. Scheduled for VQ scan on 01/07 currently on a heparin drip. -Follow-up echo -LV low normal systolic function EF 50-55 no regional wall motion abnormalities mild concentric left ventricular hypertrophy. -Follow-up VQ scan -Doppler ultrasound negative -Several small to moderate perfusion defects. Indeterminate with regards to PE -Continue heparin transition back to DOAC when able -EKG with chest pain -On telemetry -Continue to trend troponins #Afib with RVR Spoke with patient's daughter regarding history. It is unclear when she was diagnosed with atrial fibrillation however it appears to be many months ago. At that time she was placed on metoprolol and apixaban. On discharge from the hospital she stopped taking apixaban and metoprolol as she thought that they were making her dizzy. She has not been on metoprolol or apixaban for a number of months. The exact timeframe is unclear. In the ED she was given IV 5 Lopressor and responded well. Currently she is on a heparin drip pending results of VQ scan, plan to transition back to oral DOAC -transitioned to q6h verapmil -f/u echo -Transition off heparin and resume DOAC when able #Chronic Venous Insuffiency Chronic venous insufficiency/hypoalbuminemia/likely on the nutritional basis. Asymmetric edema left greater than right with palpable varicosities left lower extremity. Venous Doppler results in ED tonight are negative for DVT bilaterally. #Pressured speech, concern for clair versus dementia Uncertain of patient's baseline. On presentation, she was quite talkative, and intermittently tearful. Her thought process is not logical and is disorder. There is no continuity of thought process. At times her speech seems very p ressured. She does have a history of TId Ativan use.this past weekend due to not feeling well. I attempted to contact her daughter to obtain a collateral history, her daughter explained that a number of months ago she stopped taking the apixaban and metoprolol. This past weekend she stopped taking the Ativan. The daughter reports that there has been a change in her personality recently. I attempted to screen for bipolar symptoms however the daughter said," my mom is not bipolar". To help further clarify the diagnosis we have consulted psych in the interim we will withhold resuming home meds -Psychiatry consulted appreciate help in clarifying differential of clair versus #Depression/anxiety Patient was previously on Ativan 3 times daily, stop taking this past Monday. This could certainly be the cause of her current presentation. -concern for ativan withdrawal #Tobacco abuse Cessation counseling. Patient reports he has not smoked for 3 days. Despite this apparently she attended the light of a cigarette while in the emergency department bathroom. -Nicotine patch #Nutritional deficiency Secondary to previous GI bypass surgeries- -Documented with B12, iron, vitamin D deficiencies #Lower extremity edema -Furosemide 20 mg as needed edema FENa:Regular Code Status: Full DVT PPX: Heparin PT/OT: Not indicated Dispo: Telemetry Lalo Magana MD PGY 2, FCM This chart was completed utilizing [employer] voice recognition software. Grammatical errors, random word insertions, pronoun errors, and in complete sentences are an occasional consequence of the system. Any questions or concerns about the content, text, or information contained within the body of this dictation should be addressed directly to the physician for clarification. (2) Atrial fibrillation with RVR: (3) A-fib: (4) Chronic venous insufficiency: (5) Hypoalbuminemia: (6) H/O bypass gastroenterostomy: (7) Depression: (8) Tobacco abuse: (9) Nutritional deficiency: (10) Lower extremity edema: (11) Hepatitis C: Admission and Anticipated Discharge Date Admission Date: January 07, 2021 Supervising Physician Co-Signing Physician Notes I personally examined the patient and verified all hill points of history and exam, discussed case, and agree with decision making with Dr Magana. Ongoing shortness of breath. Did have a little bit of pleuritic type chest pain prior to going down for her VQ scan. Extensive discussions with patient. Spent nearly an hour in the room. Vitals noted, in general she is awake and alert pleasant no distress. HEENT normocephalic atraumatic mucous membranes moist. Breathing unlabored no accessory muscle use good effort. Skin shows no rashes no pallor or icterus. Neuro shows no focal deficits. Dyspnealikely multifactorial between subacute pulmonary emboli, and uncontrolled A. fib. Treat both, anticipate slow improvement. Fortunately she is stable on room air Uncontrolled atrial fibrillationshe had stopped metoprolol due to feeling weak and lightheaded, but had not apparently informed her PCP and therefore no substitution treatment was initiated. Her rates have improved nicely on metoprolol here, but she notes having felt lousy on it before understandably she does not want that to be her ongoing course of therapy. We discussed alternates and arrived at utilizing a calcium channel leonie. For now will use short acting verapamil and follow her rates, with anticipation of transitioning to long-acting. We also discussed stroke risk and anticoagulation, she is amenable. Eliquis was affordable, and after we discussed that it was almost certainly the metoprolol making her feel weak and lightheaded not the Eliquis, she is okay with going back on it. Subacute pulmonary emboliher V/Q was obviously incomplete without ventilation studies, but with her symptoms a little bit of pleuritic pain, and with multiple areas suspicious on the perfusion scan, it certainly fits with pulmonary emboli. Given that she needs to be anticoagulated for atrial fibrillation, the only real difference is starting with 10 mg for the first week with her apixaban. Again with her atrial fibrillation she will need to be lifelong anticoagulated, but given that it appeared that these would have been fairly unprovoked clots, it also would be quite reasonable to suggest that she should have open ended a nticoagulation for this as well, given that the risk of recurrence of unprovoked venous thromboembolic events is quite high in the ensuing years Anxietyfor now resume her Ativan at 0.5 mg 3 times daily. We had a very cady discussion that generally speaking long-term anxiety management with benzodiazepines is right with problems, not the least of which being that it does not really treat the underlying cause, but we really emphasized the fact that once anybody has any degree of physical dependency on benzodiazepines it can be very difficult to sort out what is anxiety versus what is simply med wearing off/mild withdrawal. At this point time it would be poor time to put her through benzo withdrawal at all, so for now we will continue her prior regimen, but asked her to discuss better ongoing anxiety treatment as an outpatient. Otherwise as above. Subjective Patient lying in bed this morning anxious with pressured speech, intermittently tearful. Extremely difficult to obtain a history from the patient and his current thought process is very tangential, thoughts are loosely strung together, and there is not continuity of thought process. From what I can gather the patient is here for a chief complaint increasing shortness of breath over the past several days. This past weekend she stopped taking all of her medicines it is unclear why. She did endorse taking Ativan 3 times daily, and has stopped since Monday. Patient denies any history of drug or alcohol abuse, significant psych history, or other associated diagnoses. Patient reports her symptoms started over this past weekend with and have remained about the same since then. Additionally she notes left leg swelling that is chronic in nature but is greater than right. She also endorses recent history of UTI. Given the patient's tangential thought process I contacted her daughter for collateral information. Her daughter was not entirely clear on the patient's medical history, explaining that she had recently been to 3 hospitals. The daughter endorsed that the patient stopped taking her metoprolol and apixaban immediately upon discharge from hospital several months ago. The daughter reported it was this past weekend on Monday that the patient stopped taking her Ativan. Daughter also reports patient has been having suprapubic pressure and was taking Azo as an outpatient for presumed urinary tract infection. The daughter does note a recent change in the patient's personality stating she has become a bit more talkative. I attempted to screen the daughter for bipolar symptoms in her mother, however the daughter responded "my mom does not have bipolar, I used to work in psychiatry has been ordered ". Acute concerns related to his shortness of breath, questions were answered Physical Exam Physical Exam: General: Lying in bed, anxious HEENT: Normocephalic atraumatic Neck: Normal visual inspection Cardiac: Sinus tachycardia otherwise regular rate and rhythm I do not appreciate significant murmurs rubs or gallops, normal S1, normal S2 Respiratory: Clear to auscultation bilaterally with symmetrical chest expansion I did not appreciate significant wheezes, rales, rhonchi GI: Soft, nontender, nondistended, suprapubic pressure and tenderness present MSK: Moves all extremities Neuro: Alert and oriented x4, extensive neurological exam within normal limits, CN II through XII grossly intact, sensory perception intact, motor function intact Psych: A: A bit unkempt B: not appropriate, all over the place, anxious S: Pressured M: "I'm Anxious and concerned for my health, concerned that I will not be able to return home, daughter" A: congruent T: Abnormal, not logical, not ordered, tangential Results & Data Results & Data ([facility]) Vital Signs (Past 12 Hours) Vital Signs Temp Pulse Pulse Resp BP BP Pulse Ox 01/07/21 08:37 36.9 C 109 H 20 134/91 91 01/07/21 08:23 102 H 01/07/21 07:48 114 H 18 117/75 93 01/07/21 06:57 99 H 18 92/72 L 92 01/07/21 05:53 127/88 01/07/21 04:41 102 H 127/65 01/07/21 03:53 36.4 C L 135 H 16 127/65 93 Laboratory Results 01/07/21 01/07/21 01/07/21 Range/Units Unknown Unknown 09:33 WBC (4.8-10.8) K/uL RBC (4.2-5.4) M/uL Hgb (12.0-16.0) g/dL Hct (37-47) % MCV (80-100) fL MCH (25-34) pg MCHC (32-36) g/dL RDW Std Deviation (36.4-46.3) fL RDW Coeff of Geri (11.5-14.5) % Plt Count (130-400) K/uL MPV (7.4-10.4) fL Immature Gran % (Auto) % Neut % (Auto) % Lymph % (Auto) % [place] % (Auto) % Eos % (Auto) % Baso % (Auto) % Neut # (Auto) (1.4-6.5) K/uL Lymph # (Auto) (1.2-3.4) K/uL [place] # (Auto) (0.11-0.59) K/uL Eos # (Auto) (0-0.5) K/uL Baso # (Auto) (0-0.2) K/uL Immature Gran # (Auto) (0.00-0.02) K/uL APTT (21.0-31.0) Seconds PTT Ratio Sodium (136-145) mmol/L Potassium (3.5-5.1) mmol/L Chloride (98-107) mmol/L Carbon Dioxide (21-32) mmol/L Anion Gap (3-11) BUN (7-18) mg/dl Creatinine (0.6-1.2) mg/dl Est Cr Clr Drug Dosing ml/min Est GFR ( Amer) Est GFR (Non-Af Amer) BUN/Creatinine Ratio (10-20) Glucose (70-99) mg/dl Calcium (8.5-10.1) mg/dl Magnesium (1.8-2.4) mg/dl Total Bilirubin (0.2-1) mg/dl AST (15-37) U/L ALT (12-78) U/L Alkaline Phosphatase (45-117) U/L Troponin I (0-0.045) ng/ml NT-Pro-B Natriuret Pep (0-900) pg/ml Total Protein (6.4-8.2) gm/dl Albumin (3.4-5.0) gm/dl Globulin (2.5-4.0) gm/dl Albumin/Globulin Ratio (0.9-2) Lipase (73-393) U/L TSH (0.300-4.500) uIu/ml Urine Color Urine Appearance (Clear) Urine pH (4.5-7.5) Ur Specific [place] (1.000-1.030) Urine Protein (Negative) Urine Glucose (UA) (Negative) Urine Ketones (Negative) Urine Blood (Negative) Urine Nitrite (Negative) Urine Bilirubin (Negative) Urine Urobilinogen (Negative) Ur Leukocyte Esterase (Negative) Urine RBC (0-4) /hpf Urine WBC (0-5) /hpf Ur Epithelial Cells (0-5) /lpf Urine Bacteria (Negative) Urine Opiates Screen Neg (Neg) Ur Methadone, Qual Neg (Neg) Urine Barbiturates Neg (Neg) Ur Phencyclidine (PCP) Neg (Neg) U Amphetamin/Meth Scrn Neg (Neg) MDMA (Ecstasy) Screen Neg (Neg) U Benzodiazepines Scrn Neg (Neg) Ur Cocaine Metabolite Neg (Neg) U Marijuana (THC) Screen Neg (Neg) COVID-19 Eval Order [facility]Rsv at [facility] SARS-CoV-2 (PCR) NEGATIVE (Negative) Influenza Type A (PCR) Negative (Neg) Influenza Type B (PCR) Negative (Neg) RSV (RT-PCR) Negative (Neg) 01/07/21 01/07/21 01/07/21 Range/Units 09:00 04:45 04:45 WBC (4.8-10.8) K/uL RBC (4.2-5.4) M/uL Hgb (12.0-16.0) g/dL Hct (37-47) % MCV (80-100) fL MCH (25-34) pg MCHC (32-36) g/dL RDW Std Deviation (36.4-46.3) fL RDW Coeff of Geri (11.5-14.5) % Plt Count (130-400) K/uL MPV (7.4-10.4) fL Immature Gran % (Auto) % Neut % (Auto) % Lymph % (Auto) % [place] % (Auto) % Eos % (Auto) % Baso % (Auto) % Neut # (Auto) (1.4-6.5) K/uL Lymph # (Auto) (1.2-3.4) K/uL [place] # (Auto) (0.11-0.59) K/uL Eos # (Auto) (0-0.5) K/uL Baso # (Auto) (0-0.2) K/uL Immature Gran # (Auto) (0.00-0.02) K/uL APTT 23.3 (21.0-31.0) Seconds PTT Ratio 0.9 Sodium 139 (136-145) mmol/L Potassium 3.8 (3.5-5.1) mmol/L Chloride 107 (98-107) mmol/L Carbon Dioxide 26 (21-32) mmol/L Anion Gap 6.0 (3-11) BUN 7 (7-18) mg/dl Creatinine 0.53 L (0.6-1.2) mg/dl Est Cr Clr Drug Dosing 103.2 ml/min Est GFR ( Amer) 111.5 Est GFR (Non-Af Amer) 96.2 BUN/Creatinine Ratio 13.4 (10-20) Glucose 101 H (70-99) mg/dl Calcium 8.1 L (8.5-10.1) mg/dl Magnesium 2.1 (1.8-2.4) mg/dl Total Bilirubin 2.2 H (0.2-1) mg/dl AST 33 (15-37) U/L ALT 29 (12-78) U/L Alkaline Phosphatase 234 H (45-117) U/L Troponin I < 0.015 (0-0.045) ng/ml NT-Pro-B Natriuret Pep 1033 H (0-900) pg/ml Total Protein 6.7 (6.4-8.2) gm/dl Albumin 3.0 L (3.4-5.0) gm/dl Globulin 3.7 (2.5-4.0) gm/dl Albumin/Globulin Ratio 0.8 L (0.9-2) Lipase 88 (73-393) U/L TSH 3.220 (0.300-4.500) uIu/ml Urine Color [place] Urine Appearance Clear (Clear) Urine pH (4.5-7.5) Ur Specific [place] 1.009 (1.000-1.030) Urine Protein (Negative) Urine Glucose (UA) (Negative) Urine Ketones (Negative) Urine Blood (Negative) Urine Nitrite (Negative) Urine Bilirubin (Negative) Urine Urobilinogen (Negative) Ur Leukocyte Esterase (Negative) Urine RBC 5-10 H (0-4) /hpf Urine WBC 10-30 H (0-5) /hpf Ur Epithelial Cells 0-5 (0-5) /lpf Urine Bacteria 1+ H (Negative) Urine Opiates Screen (Neg) Ur Methadone, Qual (Neg) Urine Barbiturates (Neg) Ur Phencyclidine (PCP) (Neg) U Amphetamin/Meth Scrn (Neg) MDMA (Ecstasy) Screen (Neg) U Benzodiazepines Scrn (Neg) Ur Cocaine Metabolite (Neg) U Marijuana (THC) Screen (Neg) COVID-19 Eval Order SARS-CoV-2 (PCR) (Negative) Influenza Type A (PCR) (Neg) Influenza Type B (PCR) (Neg) RSV (RT-PCR) (Neg) 01/07/21 Range/Units 04:45 WBC 9.06 (4.8-10.8) K/uL RBC 3.43 L (4.2-5.4) M/uL Hgb 10.8 L (12.0-16.0) g/dL Hct 32.8 L (37-47) % MCV 95.6 (80-100) fL MCH 31.5 (25-34) pg MCHC 32.9 (32-36) g/dL RDW Std Deviation 64.2 H (36.4-46.3) fL RDW Coeff of Geri 18.7 H (11.5-14.5) % Plt Count 265 (130-400) K/uL MPV 11.0 H (7.4-10.4) fL Immature Gran % (Auto) 0.2 % Neut % (Auto) 73.5 % Lymph % (Auto) 17.7 % [place] % (Auto) 7.4 % Eos % (Auto) 0.8 % Baso % (Auto) 0.4 % Neut # (Auto) 6.66 H (1.4-6.5) K/uL Lymph # (Auto) 1.60 (1.2-3.4) K/uL [place] # (Auto) 0.67 H (0.11-0.59) K/uL Eos # (Auto) 0.07 (0-0.5) K/uL Baso # (Auto) 0.04 (0-0.2) K/uL Immature Gran # (Auto) 0.02 (0.00-0.02) K/uL APTT (21.0-31.0) Seconds PTT Ratio Sodium (136-145) mmol/L Potassium (3.5-5.1) mmol/L Chloride (98-107) mmol/L Carbon Dioxide (21-32) mmol/L Anion Gap (3-11) BUN (7-18) mg/dl Creatinine (0.6-1.2) mg/dl Est Cr Clr Drug Dosing ml/min Est GFR ( Amer) Est GFR (Non-Af Amer) BUN/Creatinine Ratio (10-20) Glucose (70-99) mg/dl Calcium (8.5-10.1) mg/dl Magnesium (1.8-2.4) mg/dl Total Bilirubin (0.2-1) mg/dl AST (15-37) U/L ALT (12-78) U/L Alkaline Phosphatase (45-117) U/L Troponin I (0-0.045) ng/ml NT-Pro-B Natriuret Pep (0-900) pg/ml Total Protein (6.4-8.2) gm/dl Albumin (3.4-5.0) gm/dl Globulin (2.5-4.0) gm/dl Albumin/Globulin Ratio (0.9-2) Lipase (73-393) U/L TSH (0.300-4.500) uIu/ml Urine Color Urine Appearance (Clear) Urine pH (4.5-7.5) Ur Specific [place] (1.000-1.030) Urine Protein (Negative) Urine Glucose (UA) (Negative) Urine Ketones (Negative) Urine Blood (Negative) Urine Nitrite (Negative) Urine Bilirubin (Negative) Urine Urobilinogen (Negative) Ur Leukocyte Esterase (Negative) Urine RBC (0-4) /hpf Urine WBC (0-5) /hpf Ur Epithelial Cells (0-5) /lpf Urine Bacteria (Negative) Urine Opiates Screen (Neg) Ur Methadone, Qual (Neg) Urine Barbiturates (Neg) Ur Phencyclidine (PCP) (Neg) U Amphetamin/Meth Scrn (Neg) MDMA (Ecstasy) Screen (Neg) U Benzodiazepines Scrn (Neg) Ur Cocaine Metabolite (Neg) U Marijuana (THC) Screen (Neg) COVID-19 Eval Order SARS-CoV-2 (PCR) (Negative) Influenza Type A (PCR) (Neg) Influenza Type B (PCR) (Neg) RSV (RT-PCR) (Neg) Medications Administered Current Inpatient Medications Heparin Sodium/Dextrose (Heparin Sodium/Dextrose) 25,000 units in 500 mls @ 0 mls/hr IV .Q0M [facility]; Protocol Stop: 02/06/21 05:29 Last Titration: 01/07/21 09:15 Dose: 850 units/hr, 17 mls/hr Documented by: Potassium Chloride/Sodium Chloride (Normal Saline W/20 Meq Kcl) 20 meq in 1,000 mls @ 80 mls/hr IV .[id number] [facility] Stop: 02/06/21 08:59 Last Admin: 01/07/21 08:55 Dose: 80 mls/hr Documented by: Famotidine 20 mg/ Syringe 5 mls @ 2.5 mls/min IV Q12H [facility] Stop: 02/06/21 08:59 Last Admin: 01/07/21 08:55 Dose: 2.5 mls/min Documented by: Lorazepam (Ativan) 0.25 mg in 0.5 mls @ 0.5 mls/min IV Q6H PRN PRN Reason: Anxiety Stop: 02/06/21 08:14 Metoprolol Tartrate (Metoprolol Tartrate 1 Mg/Ml Vial) 5 mg IV Q4 PRN PRN Reason: Tachycardia Stop: 02/06/21 07:59 Ondansetron HCl (Ondansetron Inj 2 Mg/Ml 2 Ml Vial) 4 mg IV Q6H PRN PRN Reason: Nausea Stop: 02/06/21 08:14 Resident Activity Tracking Resident Involvement: Resident Care Provided Care Provided: Adult Hospital Medicine (1) Chest pain Chest pain type: unspecified Qualified Code(s): R07.9 - Chest pain, unspecified (2) A-fib Atrial fibrillation type: unspecified Qualified Code(s): I48.91 - Unspecified atrial fibrillation
--- NOTE | 2021-01-07 11:35 | Nuclear Medicine Report ---
NM pul perfusion CLINICAL HISTORY: Atypical chest pain. Atrial fibrillation. COMPARISON STUDY: Chest x-ray dated January 07, 2021, perfusion study performed January 2015 FINDINGS: A perfusion study was performed. The patient was injected with 5.7 mCi of technetium 99m MA A. Due to risk of Route personnel contamination, ventilation studies are not being performed during t he Covid 19 pandemic There are several small to moderate perfusion defects. Given the lack of a ventilation scan, this rayne dy is indeterminate with regards to acute pulmonary embolism. Several these perfusion defects appear new when compared the preceding study IMPRESSION: 1. There are several small to moderate perfusion defects. Given the lack of a ventilation study, this examination is indeterminate with regards to acute pulmonary embolism. If CT angiography the chest c annot be performed, then correlation with leg ultrasonography should be considered. ACT 112: Negative or not required by law. Electronically signed by: Phuc Burton M.D. 01/07/2021 11:33 AM
[2021-01-07] MEDS ORDERED: SUCRALFATE 1 GM TAB PO PRN (11:38)
[2021-01-07] MEDS ORDERED: ONDANSETRON 4 MG OD TAB PO PRN (11:38)
[2021-01-07] MEDS ORDERED: MELATONIN 3 MG TAB PO PRN (11:39)
[2021-01-07] MEDS ORDERED: FUROSEMIDE 20 MG TAB PO PRN (11:45)
[2021-01-07] MEDS ORDERED: METOPROLOL SUCC 50MG EXT REL TAB PO SCH (11:45)
[2021-01-07] MEDS ORDERED: ALBUTEROL HFA 8 GM INHALER INH PRN (12:03)
[2021-01-07] MEDS: VERAPAMIL HCL 40 MG TAB PO SCH ×3 (12:27→23:34)
[2021-01-07] MEDS: NICOTINE 21 MG/24 HR TDSY TD SCH (12:27)
--- NOTE | 2021-01-07 12:27 | XCELERA ---
[id number]
--- NOTE | 2021-01-07 13:31 | Psychiatric Consultation ---
Date of Consultation January 07, 2021 Impression / Recommendations Impression Dr. Freida Campbell was directly involved in review and discussion of the patient's case and participated in medical decision making regarding treatment recommendations. RECOMMENDATIONS: 01/07/21 - Psychiatric consultation requested by our hospitalist service to evaluate the patient for behavioral changes - patient was reported to have tangential thought process with pressured speech. There is reported concern for possible clair vs. benzodiazepine withdrawal vs. dementia. - Patient's presentation during our encounter is not consistent with clair. She is talkative and somewhat expressive with her personality, but she is not actively demonstrating flight of idea, pressured speech, increased agitation/energy, and is not describing a particularly elevated mood. Per hospitalist documentation, the daughter denies a history of clair and it is unlikely this would be a new presenting given the patient's age. - Cannot entirely rule our delirium vs. possible benzodiazepine withdrawal. The patient states that she had only held her lorazepam on Monday, but then resumed the medication the next day and had been taking it consistently since that time. However, her toxicology screen in the ED was negative for benzodiazepines which suggests she may not have been taking the medication. We will require additional information from the patient's daughter regarding the patient's baseline behavior and medication history. At least at this time of conversation with this provider, the patient is alert and not demonstrating any signs of acute confusion or symptoms of withdrawal. Would encourage continued monitoring of mental status on a regular basis during her hospitalization. - In regard to the question of possible dementia, this is a diagnosis that would need to be explored further in the outpatient setting once patient has stabilized from her hospitalization. At this time she is alert and oriented x4, but deficits were observed in attention and delayed recall per mental status exam completed. Hospitalist documentation suggests the daughter has noticed a change in personality, but there is no documentation of memory or other cognitive changes at this time. It is most appropriate for this diagnosis to be explored outside of an acute medical hospitalization. - The patient is certainly not presenting with any acute mood/anxiety or safety concerns. She denies SI/HI, paranoia, hallucinations, or any symptoms that would suggest the need for inpatient psychiatric admission. We will assist with confirming her next outpatient psychiatry appointment and coordinate care as indicated. Ideally, patient would be slowly tapered off lorazepam given age, numerous other controlled medications, and risk of falls. - Appreciate the opportunity to participate in the care of this patient. Please reach out to our service with any additional questions or updates. Psych History Identifying Data 70-year-old female admitted medically on 01/07/2021 after presenting to the ED with chest pain and reported concern for PE. Psychiatric consultation was requested to evaluate the patient for tangential and disorganized conversation with concern for "clair v benzo withdrawal v dementia." Chief Complaint "What brought me in? A lot..." History of Present Illness Michelle Mckee is a 70-year-old female admitted medically on 01/07/2021 after presenting to the ED with reports of substernal chest pain with concern the patient may have been experiencing a PE. Documentation suggests the patient had had a tangential and disorganized conversation, and psychiatry was consulted to evaluate the patient for concern of "clair v benzo withdrawal v dementia." The patient is cooperative with psychiatric assessment. When asked what brought her to the hospital, the patient states "A lot...my right leg has been swelling up for the past two weeks. I passed a kidney stone, but the pain's not gotten any better since that. Then on Monday I thought I was having a heart attack." The patient does have a somewhat dramatic personality - occasionally taking in whispers or making exaggerated hand movements. She is talkative, but speech is not pressured. Pt states she is aware that providers earlier in the morning were "asking me questions about my mind, seeing if I was going crazy. I'm not going crazy." The patient states that she has not personally observed any change in her memory or concentration. Pt admits to anxiety and states she takes lorazepam TID for this. Pt admits that she did not take her scheduled doses of the medication this past Monday, but it is her belief that she had continued the medication since that time. She states "I'm not depressed. The only time I've been depressed was when I found out I was going blind." The patient states that was when she began seeing Dr. Leblanc and was started on medications. Pt states, however, that she has had GI upset with previous antidepressant trials and refused to continue the medications. Pt states she is aware that refills for sertraline continue to be sent, but she is adamant she is not taking the medication. Pt admits that she has struggled with insomnia for the past 30 years, only getting 2 hours of sleep a night even when taking zolpidem. Pt states she has been seeing her psychiatrist since 05/2020 and does appreciate having someone to talk to when she is feeling overwhelmed but denies formal outpatient therapy. Pt did agree to allowing us to get collateral information from her daughter to ensure we are getting all of the important information. Pt adamantly denies SI/HI or acute safety concerns. She denies paranoia/hallucinations. She denies other needs or concerns at this time and was informed we would continue to follow her case. Past Psychiatric History Current Psychiatric Diagnosis: Anxiety Outpatient Services: Patient's psychiatric medication regimen has most recently been [place] [facility] [place]missions: No available record in EMR to suggest prior psychiatric hospitalization at our facility. Past Medication Trials: Per external medication history: 1. Ambien 2. Doxepin 3. Ativan 4. BuSpar 5. Cymbalta - GI upset; states she never took prescribed antidepressants 6. Zoloft - GI upset; states she continues to have it prescribed but does not take 7. Gabapentin Allergies Allergy/AdvReac Type Severity Reaction Status Date / Time Iodinated Contrast Media Allergy Severe ANAPHYLACTIC Verified 01/07/21 04:30 REACTION tramadol Allergy Mild nausea, Verified 01/07/21 04:30 hives lisinopril AdvReac Intermediate FEELS LIKE Verified 01/07/21 04:30 SOMETHING IS CRAWLING ON HER. acetaminophen AdvReac Mild VOMITING Verified 01/07/21 04:30 Home Medications Medication Instructions Recorded Confirmed Type lorazepam 0.5 mg PO TID 05/30/20 01/07/21 History gabapentin 600 mg PO TID 09/24/20 01/07/21 History apixaban 5 mg tablet 5 mg PO BID #60 tab 10/06/20 01/07/21 Rx metoprolol succinate 100 mg 100 mg PO DAILY #30 tab 10/06/20 01/07/21 Rx tablet,extended release 24 hr zolpidem 10 mg tablet 10 mg PO HS #30 tab 10/06/20 01/07/21 Rx albuterol sulfate 90 mcg/actuation 1 inh INHALATION QID PRN #8.5 g 12/22/20 01/07/21 Rx aerosol inhaler cholecalciferol (vitamin D3) 1,250 50,000 unit PO .weekly #14 cap 12/22/20 01/07/21 Rx mcg (50,000 unit) capsule ondansetron HCl 4 mg tablet 4 mg PO Q8H PRN #30 tab 12/22/20 01/07/21 Rx nicotine See Rx Instructions TRANSDERMAL 12/24/20 01/07/21 Rx 21mg/24hr-14mg/24hr-7mg/24hr daily .COMPLEX #56 patch transderm patches,sequentl furosemide 20 - 40 mg PO DAILY 01/07/21 01/07/21 History sucralfate 1 g PO QID PRN 01/07/21 01/07/21 History Substance Abuse History Pt is reportedly an every day smoker. No clear history to suggest routine use of alcohol or illicit substances. Personal History Living Arrangements: Home (lives with adult daughter) Employment Status: Retired Beliefs That Will Affect Care: Church Patient History Medical History Diabetes mellitus, type 2 NO LONGER HAS, NO MEDS--HAD GASTRIC BYPASS Fibrocystic breast changes of both breasts Generalized edema Hiatal hernia History of anesthesia reaction "TAKES A LOT OF ANESTHESIA TO GET ME DOWN" Kidney stones Peripheral edema Tobacco abuse Surgical History History of appendectomy History of breast biopsy BILT--BENIGN History of cardiac cath 2016 @ [facility], NO STENT History of carpal tunnel release LEFT History of cataract surgery History of section History of colonoscopy History of dilatation and curettage X2 History of gastric bypass 2010 @ [facility] [place] History of tooth extraction ALL TEETH History of total abdominal hysterectomy and bilateral salpingo-oophorectomy Family History Daughter Family history of reaction to anesthesia "TAKES A LOT OF ANESTHESIA TO GET HER DOWN" Mother Family history of diabetes mellitus Social History Smoking Status: Current every day smoker Tobacco Type: Cigarettes Cigarettes Per Day: 20-30; Second Hand Exposure: Yes (parents smoked); Hx Alcohol Use: No Hx Substance Use: No Preferred Language: Indonesian Communication Ability: Effective Epic Trainer Required: No Beliefs That Will Affect Care: None Current Living Situation: Family Current Living Situation Comment: lives with daughter Feels Safe at Home: Yes Assistive Devices: Denture - Upper, Denture - Lower and Glasses Physical Exam Psychiatric: Orientation: alert, oriented x 3 and cooperative (and pleasant) Apperance: appropriately dressed, appropriately groomed and appeared stated age female, sitting upright in bed eating lunch. Pt does not appear to be in acute distress. She is appropriately dressed for clinical setting, wearing a hospital gown. Hair is dyed brown and attention to grooming seems appropriate. Level of hygiene seems appropriate as well. Eye Contact: good eye contact Motor Behavior: no abnormal motor movements (observed while sitting upright in bed) Speech: normal rate/rhythm/volume of speech (pt does seem talkative, but is not rambling or pressured in speech) Affect: euthymic affect; no depressed affect, no tearful affect and no elated affect Mood: + anxious mood ("well of course, I have a lot going on"); no depressed mood Thought Process: goal directed thought process and + circumstantial thought process (mildly so); no flight of ideas and no perseveration Thought Content: reality based without delusions; no hopelessness and no worthlessness Suicidal Thoughts: denies suicidal thoughts, denies suicidal plan and denies suicidal intent "my yazidism is against that" Homicidal Thoughts: denies homicidal thoughts Hallucinations: no auditory hallucinations and no visual hallucinations Cognition: recent memory grossly intact, attention grossly intact and language grossly intact Pt maintains attention during conversation. She does not attempt to spell "world" backwards. There are also observed deficits in delayed recall. The patient's process for her clock drawing assessment seemed appropriate, though the scale of the clock is small and she ran out of room for the numbers - patient does state that she is going blind, which may have an impact on her physical performance of this test. Estimated Intelligence: consistent with education level Insight: + fair insight Judgement: + fair judgement Vital Signs (Past 24 Hours): Last Vital Signs Temp 36.9 C 01/07/21 08:37 Pulse 109 H 01/07/21 08:37 Resp 20 01/07/21 08:37 BP 134/91 01/07/21 08:37 Pulse Ox 91 01/07/21 08:37 Review of Systems Constitutional: denied Cardiovascular: denied Respiratory: denied Gastrointestinal: denied Neurological: denied Psychiatric: denies symptoms other than stated above Total of at least 10 systems reviewed, pertinent positives as above and in HPI. Results & Data (PSY) Medications Administered Heparin Sodium/Dextrose (Heparin Sodium/Dextrose) 25,000 units in 500 mls @ 17 mls/hr IV .Q24H CIERRA; Protocol Stop: 02/06/21 05:29 Last Titration: 01/07/21 09:15 Dose: 850 units/hr, 17 mls/hr Documented by: [id number] Cosigned by: [id number] Titration: 01/07/21 09:02 Dose: 0 units/hr, 0 mls/hr Documented by: [id number] Cosigned by: [id number] Admin: 01/07/21 05:44 Dose: 850 units/hr, 17 mls/hr Documented by: [id number] Cosigned by: [id number] Potassium Chloride/Sodium Chloride (Normal Saline W/20 Meq Kcl) 20 meq in 1,000 mls @ 80 mls/hr IV .[id number] CIERRA Stop: 02/06/21 08:59 Last Admin: 01/07/21 08:55 Dose: 80 mls/hr Documented by: [id number] Famotidine 20 mg/ Syringe 5 mls @ 2.5 mls/min IV Q12H CIERRA Stop: 02/06/21 08:59 Last Admin: 01/07/21 08:55 Dose: 2.5 mls/min Documented by: [id number] Lorazepam (Ativan) 0.25 mg in 0.5 mls @ 0.5 mls/min IV Q6H PRN PRN Reason: Anxiety Stop: 02/06/21 08:14 Last Admin: 01/07/21 13:23 Dose: 0.5 mls/min Documented by: [id number] Nicotine (Nicotine 21 Mg/24 Hr Tdsy) 21 mg TD DAILY CIERRA Stop: 02/06/21 12:29 Last Admin: 01/07/21 12:27 Dose: 21 mg Documented by: [id number] Verapamil HCl (Verapamil Hcl 40 Mg Tab) 40 mg PO Q6 CIERRA Stop: 02/06/21 12:14 Last Admin: 01/07/21 12:27 Dose: 40 mg Documented by: [id number] Coding Level of Care Code 30046 [facility] Intl Hosp Care Lvl 2
[2021-01-07 13:42] LABS: Partial Thromboplastin Ratio 1.1; Partial Thromboplastin Time 29.3 Seconds (21.0-31.0)
[2021-01-07] MEDS ORDERED: HEPARIN IV BOLUS 4,500 UNITS in SYRINGE 0 ML IV ONE (14:15)
[2021-01-07] MEDS: GABAPENTIN 600 MG TAB PO SCH ×2 (14:26→20:45)
--- NOTE | 2021-01-07 14:28 | Cardiology Consultation ---
Date of Consultation January 07, 2021 Assessment & Plan (1) Atrial fibrillation with RVR: (2) Chest pain: (3) Chronic venous insufficiency: (4) Tobacco abuse: (5) Dysuria: (6) Iron deficiency anemia: ASSESSMENT/PLAN: 1. Atrial fibrillation with rapid ventricular response: Appears to be persistent, possibly permanent, given the fact that it was diagnosed recently at another hospital. She appears to be asymptomatic. Agree with rate control strategy. She reports intolerance to metoprolol succinate 100 mg daily. She has been placed on calcium channel leonie as per primary service. Would titrate calcium channel leonie to appropriate heart rate control. Her heart rate is not significantly elevated, and therefore should hopefully be able to be adequately controlled with 1 agent. Agree with anticoagulation for stroke risk reduction if no contraindications. Her hemoglobin is lower than her baseline. Monitor for bleeding. 2. Chest pain: Does not appear to be due to ischemic heart disease. Very atypical pain with unremarkable troponin level. She has been diagnosed with pulmonary emboli by primary service and is being treated as per primary service. No ischemic evaluation necessary at this time. 3. Chronic venous insufficiency: No significant edema today, only trace. She does not appear to be intravascularly hypervolemic based on exam. 4. Tobacco abuse: Recommended that she stop smoking. 5. Anemia: Her hemoglobin is lower than her baseline. Please evaluate/monitor for bleed. 6. Dysuria: Evaluated for UTI. As per primary service. 7. Disposition: Patient care discussed with Dr. Membreno of the primary hospitalist service. Please call with any other questions or concerns. On discharge, recommend follow up with Dr. Jewell within 1-2 weeks to ensure adequate heart rate control. Dr. Jewell was personally updated on her hospitalization via telephone conversation. Thank you for allowing me to participate in the care of your patient. Please call for any other questions or concerns. Sincerely, Thomas Infante M.D. History of Present Illness Reason for Consultation: Atrial fibrillation with RVR Requesting Physician: Dr. Ching Attending Physician: Doroteo Membreno DO History of Present Illness Ms. Mckee is a 70-year-old female with a history significant for atrial fibrillation, lower extremity edema thought to be due to hypoalbuminemia and venous insufficiency, COPD, diabetes, anemia, hypertension, hepatitis-C, and bypass gastroenterostomy. Her primary bead trimmer is Dr. Jewell. Cardiology was consulted due to atrial fibrillation with rapid ventricular response. She was able to provide history but at times would lose train of thought with the particular topic of conversation and move on to another issue or idea. There was an outline of some of her symptoms left by her daughter as well. She has a history of edema and has been seen by Dr. Jewell, most recently on 07/22/2020. Her edema has been evaluated in the past with Dopplers, normal proBNP, and other studies. It was felt to be due to hypoalbuminemia and possibly venous insufficiency. Apparently, her left leg has been more swollen recently. She has been having issues with kidney stone and [place] [facility] [place] [facility]. Following this, she developed a cough with thick phlegm/sputum and wheezing. She thought she had bronchitis and was treated with prednisone and antibiotic therapy with some improvement in the sputum production but continued to feel short of breath. She states that she has been sleeping with 5-6 pillows chronically due to breathing. She has been unable to get out of bed since 01/03/21, due to shortness of breath. She also has been experiencing a right lower anterior chest pain and when pointing to the location, included her upper quadrant of her abdomen as well. She describes this pain as stabbing and very pleuritic in nature. She does not appear short of breath during our conversation and denies shortness of breath at that current time. She has been experiencing polyuria, bladder pain" and dysuria but no fever. Her daughter also outlined 3 episodes of PND last night. She had hematuria when she passed a kidney stone recently but this has since resolved. She denies melena, hematochezia, or other bleeding. She apparently was diagnosed with atrial fibrillation in the last 1-2 months at [place]. She apparently has been seen at 3 different hospitals recently. While there, she was reportedly treated with metoprolol for rate control strategy and also Eliquis for stroke risk reduction. She self discontinued both of these medications due to lightheadedness. She apparently was taking metoprolol succinate 100 mg daily. With her AFib and rapid ventricular response, she is asymptomatic, reporting no palpitations and no general aware ness of the arrhythmia. She has been placed on verapamil here by the primary hospitalist service. While here, she also underwent V/Q scan and is felt to have possible pulmonary emboli. Review of systems: As above. Review of systems otherwise negative/unremarkable. Family history: Mother had CAD. Social history: She has smoked 2 packs per day but is trying to quit. She denies alcohol or drugs. She has 4 children. She is . Her daughter, Anna, lives with her. She was unaccompanied in her hospital room. Allergies Allergy/AdvReac Type Severity Reaction Status Date / Time Iodinated Contrast Media Allergy Severe ANAPHYLACTIC Verified 01/07/21 04:30 REACTION tramadol Allergy Mild nausea, Verified 01/07/21 04:30 hives lisinopril AdvReac Intermediate FEELS LIKE Verified 01/07/21 04:30 SOMETHING IS CRAWLING ON HER. acetaminophen AdvReac Mild VOMITING Verified 01/07/21 04:30 Home Medications Medication Instructions Recorded Confirmed Type lorazepam 0.5 mg PO TID 05/30/20 01/07/21 History gabapentin 600 mg PO TID 09/24/20 01/07/21 History apixaban 5 mg tablet 5 mg PO BID #60 tab 10/06/20 01/07/21 Rx metoprolol succinate 100 mg 100 mg PO DAILY #30 tab 10/06/20 01/07/21 Rx tablet,extended release 24 hr zolpidem 10 mg tablet 10 mg PO HS #30 tab 10/06/20 01/07/21 Rx albuterol sulfate 90 mcg/actuation 1 inh INHALATION QID PRN #8.5 g 12/22/20 01/07/21 Rx aerosol inhaler cholecalciferol (vitamin D3) 1,250 50,000 unit PO .weekly #14 cap 12/22/20 01/07/21 Rx mcg (50,000 unit) capsule ondansetron HCl 4 mg tablet 4 mg PO Q8H PRN #30 tab 12/22/20 01/07/21 Rx nicotine See Rx Instructions TRANSDERMAL 12/24/20 01/07/21 Rx 21mg/24hr-14mg/24hr-7mg/24hr daily .COMPLEX #56 patch transderm patches,sequentl furosemide 20 - 40 mg PO DAILY 01/07/21 01/07/21 History sucralfate 1 g PO QID PRN 01/07/21 01/07/21 History Patient History Medical History Diabetes mellitus, type 2 NO LONGER HAS, NO MEDS--HAD GASTRIC BYPASS Fibrocystic breast changes of both breasts Generalized edema Hiatal hernia History of anesthesia reaction "TAKES A LOT OF ANESTHESIA TO GET ME DOWN" Kidney stones Peripheral edema Tobacco abuse Surgical History History of appendectomy History of breast biopsy BILT--BENIGN History of cardiac cath 2016 @ [facility], NO STENT History of carpal tunnel release LEFT History of cataract surgery History of section History of colonoscopy History of dilatation and curettage X2 [place] [facility] of tooth extraction ALL TEETH History of total abdominal hysterectomy and bilateral salpingo-oophorectomy Family History Daughter Family history of reaction to anesthesia "TAKES A LOT OF ANESTHESIA TO GET HER DOWN" Mother Family history of diabetes mellitus Social History Smoking Status: Current every day smoker Tobacco Type: Cigarettes Cigarettes Per Day: 20-30; Second Hand Exposure: Yes (parents smoked); Hx Alcohol Use: No Hx Substance Use: No Preferred Language: Kinyarwanda Communication Ability: Effective Assembler Unit Required: No Beliefs That Will Affect Care: Yarsanism Current Living Situation: Family Current Living Situation Comment: lives with daughter Feels Safe at Home: Yes Assistive Devices: Denture - Upper, Denture - Lower and Glasses Physical Exam Physical Exam: Gen.: No acute distress. Alert. HEENT: Anicteric sclera. Neck: No JVD. No bruits. Normal carotid upstrokes bilaterally. Cardiac: PMI was nondisplaced. No ventricular heave. Irregularly irregular in the low 100s. Normal S1-S2. No murmurs, rubs, or gallops. Pulmonary: Decreased breath sounds bilaterally, but otherwise clear to auscultation bilaterally without wheezes, rales, or rhonchi. Abdomen: Soft, nondistended, with normoactive bowel sounds. No bruits noted. No significant tender area. Extremities: 2+ radial pulses bilaterally. 2+ posterior tibialis pulses bilaterally. Trace bilateral lower extremity edema. No cyanosis. No palpable cords. Chest: Nontender to palpation. Results & Data ([facility]) Vital Signs (Past 12 Hours) Vital Signs Temp Pulse Pulse Resp BP BP Pulse Ox 01/07/21 08:37 36.9 C 109 H 20 134/91 91 01/07/21 08:23 102 H 01/07/21 07:48 114 H 18 117/75 93 01/07/21 06:57 99 H 18 92/72 L 92 01/07/21 05:53 127/88 01/07/21 04:41 102 H 127/65 01/07/21 03:53 36.4 C L 135 H 16 127/65 93 Laboratory Results Laboratory Results - last 24 hr 01/07/21 01/07/21 01/07/21 04:45 04:45 04:45 WBC 9.06 RBC 3.43 L Hgb 10.8 L Hct 32.8 L MCV 95.6 MCH 31.5 MCHC 32.9 RDW Std Deviation 64.2 H RDW Coeff of Geri 18.7 H Plt Count 265 MPV 11.0 H Immature Gran % (Auto) 0.2 Neut % (Auto) 73.5 Lymph % (Auto) 17.7 [place] % (Auto) 7.4 Eos % (Auto) 0.8 Baso % (Auto) 0.4 Neut # (Auto) 6.66 H Lymph # (Auto) 1.60 [place] # (Auto) 0.67 H Eos # (Auto) 0.07 Baso # (Auto) 0.04 Immature Gran # (Auto) 0.02 APTT 23.3 PTT Ratio 0.9 Sodium 139 Potassium 3.8 Chloride 107 Carbon Dioxide 26 Anion Gap 6.0 BUN 7 Creatinine 0.53 L Est Cr Clr Drug Dosing 103.2 Est GFR ( Amer) 111.5 Est GFR (Non-Af Amer) 96.2 BUN/Creatinine Ratio 13.4 Glucose 101 H Calcium 8.1 L Magnesium 2.1 Total Bilirubin 2.2 H AST 33 ALT 29 Alkaline Phosphatase 234 H Troponin I < 0.015 NT-Pro-B Natriuret Pep 1033 H Total Protein 6.7 Albumin 3.0 L Globulin 3.7 Albumin/Globulin Ratio 0.8 L Lipase 88 TSH 3.220 Urine Color Urine Appearance Urine pH Ur Specific [place] Urine Protein Urine Glucose (UA) Urine Ketones Urine Blood Urine Nitrite Urine Bilirubin Urine Urobilinogen Ur Leukocyte Esterase Urine RBC Urine WBC Ur Epithelial Cells Urine Bacteria Urine Opiates Screen Ur Methadone, Qual Urine Barbiturates Ur Phencyclidine (PCP) U Amphetamin/Meth Scrn MDMA (Ecstasy) Screen U Benzodiazepines Scrn Ur Cocaine Metabolite U Marijuana (THC) Screen COVID-19 Eval Order SARS-CoV-2 (PCR) Influenza Type A (PCR) Influenza Type B (PCR) RSV (RT-PCR) 01/07/21 01/07/21 01/07/21 09:00 09:33 12:30 WBC RBC Hgb Hct MCV MCH MCHC RDW Std Deviation RDW Coeff of Geri Plt Count MPV Immature Gran % (Auto) Neut % (Auto) Lymph % (Auto) [place] % (Auto) Eos % (Auto) Baso % (Auto) Neut # (Auto) Lymph # (Auto) [place] # (Auto) Eos # (Auto) Baso # (Auto) Immature Gran # (Auto) APTT Cancelled PTT Ratio Cancelled Sodium Potassium Chloride Carbon Dioxide Anion Gap BUN Creatinine Est Cr Clr Drug Dosing Est GFR ( Amer) Est GFR (Non-Af Amer) BUN/Creatinine Ratio Glucose Calcium Magnesium Total Bilirubin AST ALT Alkaline Phosphatase Troponin I NT-Pro-B Natriuret Pep Total Protein Albumin Globulin Albumin/Globulin Ratio Lipase TSH Urine Color Lee Urine Appearance Clear Urine pH Ur Specific [place] 1.009 Urine Protein Urine Glucose (UA) Urine Ketones Urine Blood Urine Nitrite Urine Bilirubin Urine Urobilinogen Ur Leukocyte Esterase Urine RBC 5-10 H Urine WBC 10-30 H Ur Epithelial Cells 0-5 Urine Bacteria 1+ H Urine Opiates Screen Neg Ur Methadone, Qual Neg Urine Barbiturates Neg Ur Phencyclidine (PCP) Neg U Amphetamin/Meth Scrn Neg MDMA (Ecstasy) Screen Neg U Benzodiazepines Scrn Neg Ur Cocaine Metabolite Neg U Marijuana (THC) Screen Neg COVID-19 Eval Order SARS-CoV-2 (PCR) Influenza Type A (PCR) Influenza Type B (PCR) RSV (RT-PCR) 01/07/21 01/07/21 01/07/21 12:30 13:12 Unknown WBC RBC Hgb Hct MCV MCH MCHC RDW Std Deviation RDW Coeff of Geri Plt Count MPV Immature Gran % (Auto) Neut % (Auto) Lymph % (Auto) [place] % (Auto) Eos % (Auto) Baso % (Auto) Neut # (Auto) Lymph # (Auto) [place] # (Auto) Eos # (Auto) Baso # (Auto) Immature Gran # (Auto) APTT 29.3 PTT Ratio 1.1 Sodium Potassium Chloride Carbon Dioxide Anion Gap BUN Creatinine Est Cr Clr Drug Dosing Est GFR ( Amer) Est GFR (Non-Af Amer) BUN/Creatinine Ratio Glucose Calcium Magnesium Total Bilirubin AST ALT Alkaline Phosphatase Troponin I < 0.015 NT-Pro-B Natriuret Pep Total Protein Albumin Globulin Albumin/Globulin Ratio Lipase TSH Urine Color Urine Appearance Urine pH Ur Specific [place] Urine Protein Urine Glucose (UA) Urine Ketones Urine Blood Urine Nitrite Urine Bilirubin Urine Urobilinogen Ur Leukocyte Esterase Urine RBC Urine WBC Ur Epithelial Cells Urine Bacteria Urine Opiates Screen Ur Methadone, Qual Urine Barbiturates Ur Phencyclidine (PCP) U Amphetamin/Meth Scrn MDMA (Ecstasy) Screen U Benzodiazepines Scrn Ur Cocaine Metabolite U Marijuana (THC) Screen COVID-19 Eval Order CovFluRsv at [facility] SARS-CoV-2 (PCR) Influenza Type A (PCR) Influenza Type B (PCR) RSV (RT-PCR) 01/07/21 Unknown WBC RBC Hgb Hct MCV MCH MCHC RDW Std Deviation RDW Coeff of Geri Plt Count MPV Immature Gran % (Auto) Neut % (Auto) Lymph % (Auto) [place] % (Auto) Eos % (Auto) Baso % (Auto) Neut # (Auto) Lymph # (Auto) [place] # (Auto) Eos # (Auto) Baso # (Auto) Immature Gran # (Auto) APTT PTT Ratio Sodium Potassium Chloride Carbon Dioxide Anion Gap BUN Creatinine Est Cr Clr Drug Dosing Est GFR ( Amer) Est GFR (Non-Af Amer) BUN/Creatinine Ratio Glucose Calcium Magnesium Total Bilirubin AST ALT Alkaline Phosphatase Troponin I NT-Pro-B Natriuret Pep Total Protein Albumin Globulin Albumin/Globulin Ratio Lipase TSH Urine Color Urine Appearance Urine pH Ur Specific [place] Urine Protein Urine Glucose (UA) Urine Ketones Urine Blood Urine Nitrite Urine Bilirubin Urine Urobilinogen Ur Leukocyte Esterase Urine RBC Urine WBC Ur Epithelial Cells Urine Bacteria Urine Opiates Screen Ur Methadone, Qual Urine Barbiturates Ur Phencyclidine (PCP) U Amphetamin/Meth Scrn MDMA (Ecstasy) Screen U Benzodiazepines Scrn Ur Cocaine Metabolite U Marijuana (THC) Screen COVID-19 Eval Order SARS-CoV-2 (PCR) NEGATIVE Influenza Type A (PCR) Negative Influenza Type B (PCR) Negative RSV (RT-PCR) Negative Diagnostic Findings Telemetry personally reviewed: Atrial fibrillation with heart rates mildly tachycardic. Echo 01/07/2021: Normal LV size. EF 50-55%. Normal wall motion. Mild LVH. Moderate left atrial dilation. Mild MR. ECG personally reviewed: ECG 01/07/2021: AFib with RVR and aberrantly conducted complex versus PVC at 124 beats per minute. V/Q scan 01/07/2021: Several small to moderate perfusion defects. No ventilation study. Indeterminate study in regards to acute pulmonary embolism. Several of these perfusion defects appear new compared to preceding study in January of 2015. Venous Doppler 01/07/2021: No DVT bilateral lower extremities. Chest x-ray 01/07/2021: Persistent elevation of the right hemidiaphragm. Probable small left pleural effusion with left basilar atelectasis per [facility] adiology. Medications Administered Current Inpatient Medications Albuterol (Albuterol Hfa 8 Gm Inhaler) 1 puffs INH QID PRN PRN Reason: shortness of breath or wheezing Stop: 02/06/21 12:02 Ergocalciferol (Ergocalciferol 50,000 Units 1250 Mcg Cap) 50,000 units PO Mo@0900 [facility] Stop: 02/10/21 08:59 Furosemide (Furosemide 20 Mg Tab) 20 mg PO DAILY PRN PRN Reason: leg swelling Stop: 02/06/21 11:44 Gabapentin (Gabapentin 600 Mg Tab) 600 mg PO TID [facility] Stop: 02/06/21 13:59 Last Admin: 01/07/21 14:26 Dose: 600 mg Documented by: Heparin Sodium/Dextrose (Heparin Sodium/Dextrose) 25,000 units in 500 mls @ 21 mls/hr IV .[id number] [facility]; Protocol Stop: 02/06/21 05:29 Last Titration: 01/07/21 14:56 Dose: 1,050 units/hr, 21 mls/hr Documented by: Potassium Chloride/Sodium Chloride (Normal Saline W/20 Meq Kcl) 20 meq in 1,000 mls @ 80 mls/hr IV .[id number] [facility] Stop: 02/06/21 08:59 Last Admin: 01/07/21 08:55 Dose: 80 mls/hr Documented by: Famotidine 20 mg/ Syringe 5 mls @ 2.5 mls/min IV Q12H [facility] Stop: 02/06/21 08:59 Last Admin: 01/07/21 08:55 Dose: 2.5 mls/min Documented by: Lorazepam (Ativan) 0.25 mg in 0.5 mls @ 0.5 mls/min IV Q6H PRN PRN Reason: Anxiety Stop: 02/06/21 08:14 Last Admin: 01/07/21 13:23 Dose: 0.5 mls/min Documented by: Melatonin (Melatonin 3 Mg Tab) 3 mg PO HS PRN PRN Reason: Sleep Stop: 02/06/21 11:38 Nicotine (Nicotine 21 Mg/24 Hr Tdsy) 21 mg TD DAILY [facility] Stop: 02/06/21 12:29 Last Admin: 01/07/21 12:27 Dose: 21 mg Documented by: Ondansetron HCl (Ondansetron Inj 2 Mg/Ml 2 Ml Vial) 4 mg IV Q6H PRN PRN Reason: Nausea Stop: 02/06/21 08:14 Ondansetron HCl (Ondansetron 4 Mg Od Tab) 4 mg PO Q8H PRN PRN Reason: Nausea Sucralfate (Sucralfate 1 Gm Tab) 1 gm PO QID PRN PRN Reason: STOMACH ISSUES Stop: 02/06/21 11:37 Verapamil HCl (Verapamil Hcl 40 Mg Tab) 40 mg PO Q6 [facility] Stop: 02/06/21 12:14 Last Admin: 01/07/21 12:27 Dose: 40 mg Documented by: PG Care Time/CCT Total # of Minutes Spent Total Time Spent with Patient: Total time spent is greater than 50% in coordination of care (as documented) at patient's floor/unit and/or counseling patient: Coding Level of Care Code 91689 Initial Inpt Care Lvl 2 Diagnoses Atrial fibrillation with RVR I48.91 Chest pain R07.9 Chest pain type: unspecified Chronic venous insufficiency I87.2 Tobacco abuse Z72.0 Dysuria R30.0 Iron deficiency anemia D50.9 (1) Chest pain Chest pain type: unspecified Qualified Code(s): R07.9 - Chest pain, unspecified
[2021-01-07] MEDS ORDERED: ZOLPIDEM TARTRATE 10 MG TAB PO PRN (16:04)
[2021-01-07] MEDS: APIXABAN 5 MG TABLET PO SCH (20:45)
[2021-01-07] MEDS: LORazepam 0.5 MG TAB PO PRN (22:33)
--- NOTE | 2021-01-08 06:07 | Electrocardiogram Report ---
Test Reason : Blood Pressure : / mmHG Vent. Rate : 124 BPM Atrial Rate : 156 BPM P-R Int : 000 ms QRS Dur : 076 ms QT Int : 338 ms P-R-T Axes : 000 043 043 degrees QTc Int : 485 ms Poor data quality, interpretation may be adversely affected Atrial fibrillation with rapid ventricular response with premature ventricular or aberrantly conducte d complexes Low voltage QRS Cannot rule out Anterior infarct , age undetermined Abnormal ECG When compared with ECG of 27-SEP-2020 06:31, Minimal criteria for Anterior infarct are now Present Confirmed by Dominguez Infante ([id number]) on 01/08/2021 6:06:59 AM Referred By: REFERRED SELF Confirmed By:Dominguez Infante
[2021-01-08 06:10] LABS: Basophils # (auto) 0.04 K/uL (0-0.2); Basophils % (auto) 0.6 %; Eosinophils % (auto) 1.4 %; Hematocrit (blood only) 28.7 % (37-47); Hemoglobin 9.2 g/dL (12.0-16.0); Immature Granulocytes # (auto) 0.02 K/uL (0.00-0.02); Immature Granulocytes % (auto) 0.3 %; Lymphocytes # (auto) 1.66 K/uL (1.2-3.4); Lymphocytes % (auto) 23.2 %; Mean Corpuscular Hemoglobin 31.6 pg (25-34); Mean Corpuscular Hgb Conc 32.1 g/dL (32-36); Mean Corpuscular Volume 98.6 fL (80-100); Mean Platelet Volume 10.7 fL (7.4-10.4); Monocytes % (auto) 8.4 %; Neutrophils # (auto) 4.75 K/uL (1.4-6.5); Neutrophils % (auto) 66.1 %; Platelet Count 294 K/uL (130-400); RDW Coefficient of Variation 19.9 % (11.5-14.5); RDW Standard Deviation 67.9 fL (36.4-46.3); Red Blood Count 2.91 M/uL (4.2-5.4); White Blood Count 7.17 K/uL (4.8-10.8)
[2021-01-08] MEDS: VERAPAMIL HCL 40 MG TAB PO SCH ×2 (06:24→11:07)
[2021-01-08] MEDS: LORazepam 0.5 MG TAB PO PRN ×2 (06:27→13:35)
[2021-01-08 06:43] LABS: BUN Creatinine Ratio 28.8 (10-20); Calcium 7.5 mg/dl (8.5-10.1); Creatinine Clr Calc Pharmacy 103.2 ml/min; Est GFR (African American) 111.5; Est GFR (Non-African American) 96.2; Potassium 4.2 mmol/L (3.5-5.1)
--- NOTE | 2021-01-08 07:48 | Hospitalist Progress Note ---
Date of Service January 08, 2021 Assessment & Plan (1) Chest pain: #Chest Pain with SOB Acute onset of chest pain May be secondary to atrial fibrillation with RVR by itself, and/or associated with pulmonary embolism. Certainly could be a component of anxiety exacerbation. A CT angio with a PE protocol was attempted last night however the patient had a poor reaction to the dye. Scheduled for VQ scan on 01/07 currently on a heparin drip. -Follow-up echo -LV low normal systolic function EF 50-55 no regional wall motion abnormalities mild concentric left ventricular hypertrophy. -Follow-up VQ scan -Doppler ultrasound negative -Several small to moderate perfusion defects. Indeterminate with regards to PE -Continue heparin transition back to DOAC when able -EKG with chest pain -On telemetry -Continue to trend troponins #Afib with RVR Spoke with patient's daughter regarding history. It is unclear when she was diagnosed with atrial fibrillation however it appears to be many months ago. At that time she was placed on metoprolol and apixaban. On discharge from the hospital she stopped taking apixaban and metoprolol as she thought that they were making her dizzy. She has not been on metoprolol or apixaban for a number of months. The exact timeframe is unclear. In the ED she was given IV 5 Lopressor and responded well. Currently she is on a heparin drip pending results of VQ scan, plan to transition back to oral DOAC -transitioned to q6h verapmil -f/u echo -Transition off heparin and resume DOAC when able #Chronic Venous Insuffiency Chronic venous insufficiency/hypoalbuminemia/likely on the nutritional basis. Asymmetric edema left greater than right with palpable varicosities left lower extremity. Venous Doppler results in ED tonight are negative for DVT bilaterally. #Pressured speech, concern for clair versus dementia Uncertain of patient's baseline. On presentation, she was quite talkative, and intermittently tearful. Her thought process is not logical and is disorder. There is no continuity of thought process. At times her speech seems very p ressured. She does have a history of TId Ativan use.this past weekend due to not feeling well. I attempted to contact her daughter to obtain a collateral history, her daughter explained that a number of months ago she stopped taking the apixaban and metoprolol. This past weekend she stopped taking the Ativan. The daughter reports that there has been a change in her personality recently. I attempted to screen for bipolar symptoms however the daughter said," my mom is not bipolar". To help further clarify the diagnosis we have consulted psych in the interim we will withhold resuming home meds -Psychiatry consulted appreciate help in clarifying differential of clair versus #Depression/anxiety Patient was previously on Ativan 3 times daily, stop taking this past Monday. This could certainly be the cause of her current presentation. -concern for ativan withdrawal #Tobacco abuse Cessation counseling. Patient reports he has not smoked for 3 days. Despite this apparently she attended the light of a cigarette while in the emergency department bathroom. -Nicotine patch #Nutritional deficiency Secondary to previous GI bypass surgeries- -Documented with B12, iron, vitamin D deficiencies #Lower extremity edema -Furosemide 20 mg as needed edema FENa:Regular Code Status: Full DVT PPX: Heparin PT/OT: Not indicated Dispo: Telemetry Lalo Magana MD PGY 2, FCM This chart was completed utilizing [employer] voice recognition software. Grammatical errors, random word insertions, pronoun errors, and in complete sentences are an occasional consequence of the system. Any questions or concerns about the content, text, or information contained within the body of this dictation should be addressed directly to the physician for clarification. (2) Atrial fibrillation with RVR: (3) A-fib: (4) Chronic venous insufficiency: (5) Hypoalbuminemia: (6) H/O bypass gastroenterostomy: (7) Depression: (8) Tobacco abuse: (9) Nutritional deficiency: (10) Lower extremity edema: (11) Hepatitis C: Admission and Anticipated Discharge Date Admission Date: January 07, 2021 Results & Data Results & Data ([facility]) Vital Signs (Past 12 Hours) Vital Signs Temp Pulse Pulse Resp BP Pulse Ox 01/08/21 07:18 36.8 C 84 20 106/68 93 01/08/21 03:18 36.8 C 85 17 100/67 90 01/07/21 23:30 36.8 C 91 H 18 110/68 93 01/07/21 22:56 108 H Laboratory Results 01/08/21 01/08/21 01/07/21 Range/Units 05:42 05:42 18:00 WBC 7.17 (4.8-10.8) K/uL RBC 2.91 L (4.2-5.4) M/uL Hgb 9.2 L (12.0-16.0) g/dL Hct 28.7 L (37-47) % MCV 98.6 (80-100) fL MCH 31.6 (25-34) pg MCHC 32.1 (32-36) g/dL RDW Std Deviation 67.9 H (36.4-46.3) fL RDW Coeff of Geri 19.9 H (11.5-14.5) % Plt Count 294 (130-400) K/uL MPV 10.7 H (7.4-10.4) fL Immature Gran % (Auto) 0.3 % Neut % (Auto) 66.1 % Lymph % (Auto) 23.2 % [place] % (Auto) 8.4 % Eos % (Auto) 1.4 % Baso % (Auto) 0.6 % Neut # (Auto) 4.75 (1.4-6.5) K/uL Lymph # (Auto) 1.66 (1.2-3.4) K/uL [place] # (Auto) 0.60 H (0.11-0.59) K/uL Eos # (Auto) 0.10 (0-0.5) K/uL Baso # (Auto) 0.04 (0-0.2) K/uL Immature Gran # (Auto) 0.02 (0.00-0.02) K/uL APTT PTT Ratio Sodium 144 (136-145) mmol/L Potassium 4.2 (3.5-5.1) mmol/L Chloride 116 H (98-107) mmol/L Carbon Dioxide 21 (21-32) mmol/L Anion Gap 7.0 (3-11) BUN 15 D (7-18) mg/dl Creatinine 0.53 L (0.6-1.2) mg/dl Est Cr Clr Drug Dosing 103.2 ml/min Est GFR ( Amer) 111.5 Est GFR (Non-Af Amer) 96.2 BUN/Creatinine Ratio 28.8 H (10-20) Glucose 74 (70-99) mg/dl Calcium 7.5 L (8.5-10.1) mg/dl Troponin I < 0.015 (0-0.045) ng/ml Urine Color Urine Appearance (Clear) Urine pH (4.5-7.5) Ur Specific [place] (1.000-1.030) Urine Protein (Negative) Urine Glucose (UA) (Negative) Urine Ketones (Negative) Urine Blood (Negative) Urine Nitrite (Negative) Urine Bilirubin (Negative) Urine Urobilinogen (Negative) Ur Leukocyte Esterase (Negative) Urine RBC (0-4) /hpf Urine WBC (0-5) /hpf Ur Epithelial Cells (0-5) /lpf Urine Bacteria (Negative) Urine Opiates Screen (Neg) Ur Methadone, Qual (Neg) Urine Barbiturates (Neg) Ur Phencyclidine (PCP) (Neg) U Amphetamin/Meth Scrn (Neg) MDMA (Ecstasy) Screen (Neg) U Benzodiazepines Scrn (Neg) Ur Cocaine Metabolite (Neg) U Marijuana (THC) Screen (Neg) 01/07/21 01/07/21 01/07/21 Range/Units 13:12 12:30 12:30 WBC (4.8-10.8) K/uL RBC (4.2-5.4) M/uL Hgb (12.0-16.0) g/dL Hct (37-47) % MCV (80-100) fL MCH (25-34) pg MCHC (32-36) g/dL RDW Std Deviation (36.4-46.3) fL RDW Coeff of Geri (11.5-14.5) % Plt Count (130-400) K/uL MPV (7.4-10.4) fL Immature Gran % (Auto) % Neut % (Auto) % Lymph % (Auto) % [place] % (Auto) % Eos % (Auto) % Baso % (Auto) % Neut # (Auto) (1.4-6.5) K/uL Lymph # (Auto) (1.2-3.4) K/uL [place] # (Auto) (0.11-0.59) K/uL Eos # (Auto) (0-0.5) K/uL Baso # (Auto) (0-0.2) K/uL Immature Gran # (Auto) (0.00-0.02) K/uL APTT 29.3 Cancelled PTT Ratio 1.1 Cancelled Sodium (136-145) mmol/L Potassium (3.5-5.1) mmol/L Chloride (98-107) mmol/L Carbon Dioxide (21-32) mmol/L Anion Gap (3-11) BUN (7-18) mg/dl Creatinine (0.6-1.2) mg/dl Est Cr Clr Drug Dosing ml/min Est GFR ( Amer) Est GFR (Non-Af Amer) BUN/Creatinine Ratio (10-20) Glucose (70-99) mg/dl Calcium (8.5-10.1) mg/dl Troponin I < 0.015 (0-0.045) ng/ml Urine Color Urine Appearance (Clear) Urine pH (4.5-7.5) Ur Specific [place] (1.000-1.030) Urine Protein (Negative) Urine Glucose (UA) (Negative) Urine Ketones (Negative) Urine Blood (Negative) Urine Nitrite (Negative) Urine Bilirubin (Negative) Urine Urobilinogen (Negative) Ur Leukocyte Esterase (Negative) Urine RBC (0-4) /hpf Urine WBC (0-5) /hpf Ur Epithelial Cells (0-5) /lpf Urine Bacteria (Negative) Urine Opiates Screen (Neg) Ur Methadone, Qual (Neg) Urine Barbiturates (Neg) Ur Phencyclidine (PCP) (Neg) U Amphetamin/Meth Scrn (Neg) MDMA (Ecstasy) Screen (Neg) U Benzodiazepines Scrn (Neg) Ur Cocaine Metabolite (Neg) U Marijuana (THC) Screen (Neg) 01/07/21 01/07/21 Range/Units 09:33 09:00 WBC (4.8-10.8) K/uL RBC (4.2-5.4) M/uL Hgb (12.0-16.0) g/dL Hct (37-47) % MCV (80-100) fL MCH (25-34) pg MCHC (32-36) g/dL RDW Std Deviation (36.4-46.3) fL RDW Coeff of Geri (11.5-14.5) % Plt Count (130-400) K/uL MPV (7.4-10.4) fL Immature Gran % (Auto) % Neut % (Auto) % Lymph % (Auto) % [place] % (Auto) % Eos % (Auto) % Baso % (Auto) % Neut # (Auto) (1.4-6.5) K/uL Lymph # (Auto) (1.2-3.4) K/uL [place] # (Auto) (0.11-0.59) K/uL Eos # (Auto) (0-0.5) K/uL Baso # (Auto) (0-0.2) K/uL Immature Gran # (Auto) (0.00-0.02) K/uL APTT PTT Ratio Sodium (136-145) mmol/L Potassium (3.5-5.1) mmol/L Chloride (98-107) mmol/L Carbon Dioxide (21-32) mmol/L Anion Gap (3-11) BUN (7-18) mg/dl Creatinine (0.6-1.2) mg/dl Est Cr Clr Drug Dosing ml/min Est GFR ( Amer) Est GFR (Non-Af Amer) BUN/Creatinine Ratio (10-20) Glucose (70-99) mg/dl Calcium (8.5-10.1) mg/dl Troponin I (0-0.045) ng/ml Urine Color [place] Urine Appearance Clear (Clear) Urine pH (4.5-7.5) Ur Specific [place] 1.009 (1.000-1.030) Urine Protein (Negative) Urine Glucose (UA) (Negative) Urine Ketones (Negative) Urine Blood (Negative) Urine Nitrite (Negative) Urine Bilirubin (Negative) Urine Urobilinogen (Negative) Ur Leukocyte Esterase (Negative) Urine RBC 5-10 H (0-4) /hpf Urine WBC 10-30 H (0-5) /hpf Ur Epithelial Cells 0-5 (0-5) /lpf Urine Bacteria 1+ H (Negative) Urine Opiates Screen Neg (Neg) Ur Methadone, Qual Neg (Neg) Urine Barbiturates Neg (Neg) Ur Phencyclidine (PCP) Neg (Neg) U Amphetamin/Meth Scrn Neg (Neg) MDMA (Ecstasy) Screen Neg (Neg) U Benzodiazepines Scrn Neg (Neg) Ur Cocaine Metabolite Neg (Neg) U Marijuana (THC) Screen Neg (Neg) Medications Administered Current Inpatient Medications Albuterol (Albuterol Hfa 8 Gm Inhaler) 1 puffs INH QID PRN PRN Reason: shortness of breath or wheezing Stop: 02/06/21 12:02 Apixaban (Apixaban 5 Mg Tablet) 10 mg PO BID [facility] Stop: 01/14/21 20:59 Last Admin: 01/07/21 20:45 Dose: 10 mg Documented by: Ergocalciferol (Ergocalciferol 50,000 Units 1250 Mcg Cap) 50,000 units PO Mo@0900 [facility] Stop: 02/10/21 08:59 Furosemide (Furosemide 20 Mg Tab) 20 mg PO DAILY PRN PRN Reason: leg swelling Stop: 02/06/21 11:44 Gabapentin (Gabapentin 600 Mg Tab) 600 mg PO TID [facility] Stop: 02/06/21 13:59 Last Admin: 01/07/21 20:45 Dose: 600 mg Documented by: Potassium Chloride/Sodium Chloride (Normal Saline W/20 Meq Kcl) 20 meq in 1,000 mls @ 80 mls/hr IV .[id number] [facility] Stop: 02/06/21 08:59 Last Admin: 01/07/21 21:50 Dose: 80 mls/hr Documented by: Famotidine 20 mg/ Syringe 5 mls @ 2.5 mls/min IV Q12H [facility] Stop: 02/06/21 08:59 Last Admin: 01/07/21 20:42 Dose: 2.5 mls/min Documented by: Lorazepam (Lorazepam 0.5 Mg Tab) 0.5 mg PO TID PRN PRN Reason: Anxiety Stop: 02/06/21 16:02 Last Admin: 01/08/21 06:27 Dose: 0.5 mg Documented by: Melatonin (Melatonin 3 Mg Tab) 3 mg PO HS PRN PRN Reason: Sleep Stop: 02/06/21 11:38 Nicotine (Nicotine 21 Mg/24 Hr Tdsy) 21 mg TD DAILY [facility] Stop: 02/06/21 12:29 Last Admin: 01/07/21 12:27 Dose: 21 mg Documented by: Ondansetron HCl (Ondansetron Inj 2 Mg/Ml 2 Ml Vial) 4 mg IV Q6H PRN PRN Reason: Nausea Stop: 02/06/21 08:14 Ondansetron HCl (Ondansetron 4 Mg Od Tab) 4 mg PO Q8H PRN PRN Reason: Nausea Sucralfate (Sucralfate 1 Gm Tab) 1 gm PO QID PRN PRN Reason: STOMACH ISSUES Stop: 02/06/21 11:37 Last Admin: 01/07/21 18:14 Dose: 1 gm Documented by: Verapamil HCl (Verapamil Hcl 40 Mg Tab) 40 mg PO Q6 [facility] Stop: 02/06/21 12:14 Last Admin: 01/08/21 06:24 Dose: 40 mg Documented by: Zolpidem Tartrate (Zolpidem Tartrate 10 Mg Tab) 10 mg PO HS PRN PRN Reason: Sleep Stop: 02/06/21 16:03 Last Admin: 01/07/21 20:51 Dose: 10 mg Documented by: (1) Chest pain Chest pain type: unspecified Qualified Code(s): R07.9 - Chest pain, unspecified (2) A-fib Atrial fibrillation type: unspecified Qualified Code(s): I48.91 - Unspecified atrial fibrillation
[2021-01-08] MEDS: GABAPENTIN 600 MG TAB PO SCH ×2 (09:14→13:35)
[2021-01-08] MEDS: FAMOTIDINE 20 MG in SYRINGE 3 ML IV SCH (09:14)
[2021-01-08] MEDS: APIXABAN 5 MG TABLET PO SCH (09:15)
[2021-01-08] MEDS: NICOTINE 21 MG/24 HR TDSY TD SCH (09:15)
[2021-01-08] MEDS: NSS + 20MEQ KCL 20 MEQ/1,000 ML BAG IV SCH (09:16)
[2021-01-08] MEDS ORDERED: UMECLIDINIUM BROMIDE 62.5MCG/BLISTER 7 PUFFS/INHALER INH SCH (10:15)
[2021-01-08] MEDS ORDERED: FLUTICASONE/VILANTEROL 200/25MCG 14 PUFFS/INHALER INH SCH (10:15)
[2021-01-08] MEDS ORDERED: cefTRIAXone SODIUM 1,000 MG in DEXTROSE 5% 50 ML IV SCH (11:00)
--- NOTE | 2021-01-08 17:03 | Discharge Summary ---
Date of Service January 08, 2021 Admission HPI Per Admitting Provider The patient is a 70-year-old female with a past medical history including COPD, atrial fibrillation, chronic venous insufficiency, hypoalbuminemia, nutritional deficiency, lower extremity edema, history of bypass gastroenterostomy, diabetes mellitus, iron deficiency anemia, vitamin B12 deficiency, vitamin D deficiency, spinal stenosis, hypertension, hepatitis C, chronic back pain, and erosion of implanted mesh to organ or tissue. She reports that the first time she knew she had atrial fibrillation was when she was in route to one of the hospitals and was told so by the ambulance staff. She reports that she had been started recently on metoprolol and apixaban, but stopped both because she was concerned about being dizzy and was not sure which medications was doing it. She reports her left leg is chronically more swollen than the right, and that is where she is concerned she may have a clot, and/or a clot may have gone from her left leg to her lung. She also has a complicated history of a 7 mm calcification which was thought to be a common bile duct stone, that she reports was initially detected at [facility], then she was sent to [facility], then she was transferred because of her daughter to [place], who then transferred her to [facility]. She reports that at [facility] that they were initially going to remove the stone and then they said they were too busy. She then reports on the second day they went take to her down but she said they decided they were not going to do the procedure. Overall, patient is somewhat confused about how she relates this history. Admission Exam Per Admitting Provider The patient is awake, alert and oriented 3, normocephalic and atraumatic, lying in bed and in no acute distress. HEENT--PERRL, EOMI, mucous membranes and oropharynx dry. Neck--supple. No JVD. No bruits. Thyroid normal, trachea midline, no adenopathy. Heart--normal S1 and S2. No murmurs, rubs or gallops. Lungs--decreased breath sounds throughout, with scattered wheezes. No respiratory distress, no accessory muscle use. Abdomen--normal bowel sounds and soft. Nontender. Nondistended, no hernias or masses, no organomegaly. Extremities--right lower extremity with no edema. Left lower extremity with palpable varicosities and 1+ pitting edema, with larger circumference than the right. Dermatologic--normal skin turgor, normal color, no abnormal lymph nodes, no rash. Neurologic--cranial nerves II through XII grossly intact. Rheumatologic--normal range of motion. Psychiatric--normal affect. Principal Diagnosis Chest pain secondary to atrial fibrillation rapid ventricular response and pulmonary embolism complicated by dementia, depression anxiety, and benzodiazepine withdrawal. Discharge Data Allergies Allergy/AdvReac Type Severity Reaction Status Date / Time Iodinated Contrast Media Allergy Severe ANAPHYLACTIC Verified 01/07/21 04:30 REACTION tramadol Allergy Mild nausea, Verified 01/07/21 04:30 hives lisinopril AdvReac Intermediate FEELS LIKE Verified 01/07/21 04:30 SOMETHING IS CRAWLING ON HER. acetaminophen AdvReac Mild VOMITING Verified 01/07/21 04:30 Consultations 01/07/21 08:15 Consult Cardiology Routine Consult Case Management - Discharge Planning Routine 01/07/21 10:49 Consult Psychiatry Routine Ordered Studies 01/07/21 03:56 US venous doppler [facility] Urgent Hospital Course (1) Chest pain: #Chest Pain with SOB secondary to pulmonary embolism Acute onset of chest pain May be secondary to atrial fibrillation with RVR by itself, and/or associated with pulmonary embolism. Certainly could be a component of anxiety exacerbation. A CT angio with a PE protocol was attempted last night however the patient had a poor reaction to the dye. Scheduled for VQ scan on 01/07 and placed on a heparin drip overnight. VQ scan demonstrated questionable pulmonary emboli, heparin drip DC'd and transition to Eliquis 10 mg twice daily. Patient to be discharged on Eliquis home pack #Afib with RVR Spoke with patient's daughter regarding history. It is unclear when she was diagnosed with atrial fibrillation however it appears to be many months ago. At that time she was placed on metoprolol and apixaban. On discharge from the hospital she stopped taking apixaban and metoprolol as she thought that they were making her dizzy. She has not been on metoprolol or apixaban for a number of months. The exact timeframe is unclear. In the ED she was given IV 5 Lopressor and responded well. Patient was evaluated by cardiology who diagnosed her with chronic atrial fibrillation recommending calcium channel blockers for rate control. Patient was trialed on 60 mg of verapamil 4 times daily and tolerated the medication well. Will be discharged in 180 mg of verapamil extended release daily. #Chronic Venous Insuffiency Chronic venous insufficiency/hypoalbuminemia/likely on the nutritional basis. Asymmetric edema left greater than right with palpable varicosities left lower e xtremity. #Pressured speech, concern for clair versus dementia Uncertain of patient's baseline. On presentation, she was quite talkative, and intermittently tearful. Her thought process is not logical and is disorder. There is no continuity of thought process. At times her speech seems very pressured. She does have a history of TId Ativan use.this past weekend due to not feeling well. I attempted to contact her daughter to obtain a collateral history, her daughter explained that a number of months ago she stopped taking the apixaban and metoprolol. This past weekend she stopped taking the Ativan. The daughter reports that there has been a change in her personality recently. I attempted to screen for bipolar symptoms however the daughter said," my mom is not bipolar". To help further clarify the diagnosis we have consulted psych in the interim we will withhold resuming home meds -Psychiatry consulted appreciate help in clarifying differential of clair versus -Recommending follow-up as an outpatient for dementia and benzodiazepine withdrawal #COPD Patient with a history of COPD not on controller medications. Started Spiriva and Symbicort while patient was hospitalized. Patient tolerated medications well and reported improvement in her breathing to continue as an outpatient -Spiriva daily -Symbicort 2 puffs twice daily #Benzodiazepine withdrawal Likely contributing factor the patient's current presentation, recommend outpatient physician/psychiatrist addressed this with the patient and work on a prolonged taper. #Depression/anxiety Patient was previously on Ativan 3 times daily, stop taking this past Monday. This could certainly be the cause of her current presentation. #Tobacco abuse Cessation counseling. Patient reports he has not smoked for 3 days. Despite this apparently she attended the light of a cigarette while in the emergency department bathroom. -Nicotine patch #Nutritional deficiency Secondary to previous GI bypass surgeries- -Documented with B12, iron, vitamin D deficiencies #Lower extremity edema -Furosemide 20 mg as needed edema FENa:Regular Code Status: Full DVT PPX: Heparin PT/OT: Not indicated Dispo: Telemetry Lalo Magana MD PGY 2, FCM This chart was completed utilizing [employer] voice recognition software. Grammatical errors, random word insertions, pronoun errors, and in complete sentences are an occasional consequence of the system. Any questions or concerns about the content, text, or information contained within the body of this dictation should be addressed directly to the physician for clarification. (2) Atrial fibrillation with RVR: (3) A-fib: (4) Chronic venous insufficiency: (5) Hypoalbuminemia: (6) H/O bypass gastroenterostomy: (7) Depression: (8) Tobacco abuse: (9) Nutritional deficiency: (10) Lower extremity edema: (11) Hepatitis C: Total Time Total Time Spent Total Time Spent (In Minutes): <30 Discharge Plan Discharge Items Patient Disposition: Home - Self-Care Reason For Visit: CHEST PAIN,ATRIAL FIB WITH RVR Discharge Diagnosis: Chest pain secondary to atrial fibrillation rapid ventricular response and pulmonary embolism complicated by dementia, depression anxiety, and benzodiazepine withdrawal. Activity: Resume your previous activity Non-emergency contact: Primary Care Provider and Health Companion Call non-emergency contact if: you have any medication questions, your pain is unusual for you and your temperature is above 101.5 Follow-up/Referrals: Diego Haynes MD [Primary Care Provider] - () Jorden Jewell Jr, MD, [facility] [Physician] - 01/21/21 11:30 am (1-2 WKS PER ORDER ) Diet: Heart Healthy Addtl Attending Provider Instructions: Care instructions: You were admitted to [facility] for treatment of pulmonary embolism complicated by atrial fibrillation with rapid ventricular response. While hospitalized we performed a number of diagnostic tests which determined you had a pulmonary embolism, blood clot in the lungs, we placed you on the appropriate medication to treat this which is an oral anticoagulation agent Eliquis. You have previously been prescribed this. We also diagnosed you with atrial fibrillation and abnormal heartbeat. Because of your abnormal heartbeat, you will likely need lifetime anticoagulation with Eliquis. It is very important that you take this medication as prescribed as it will prevent you from developing strokes in the future. Additionally you were evaluated by psychiatry while hospitalized who is recommending follow-up as an outpatient to discuss medication management. We recommend that you attend the follow-up appointment. Recommend that you maintain a routine a good relationship with your primary care physician follow-up with them on a regular basis to manage your chronic medical conditions. Additionally while hospitalized you were started on a medication called verapamil to control your heart rate, you should take 1 pill/day. Finally we diagnosed you with a UTI and placed on appropriate antibiotic therapy and also started you on inhalers, you should continue taking his inhalers. Verapamil extended release 180 mg daily Eliquis 10mg twice a day for another 6 days to complete a week of initial treatment, then 5 mg twice daily indefinitely Spiriva 1 puff in the morning every day Symbicort 2 puffs twice daily Augmentin 1 pill in the a.m. 1 pill in the p.m. for 6 days A discharge summary will be sent to your primary care physician to ensure continuity of care. Please bring this discharge summary with you to your next office appointment so that your provider can review it at that time. Follow-up appointments: - Keep all your follow-up appointments as already scheduled. If you cannot make an appointment, notify your provider. - Please call to request a follow-up appointment with your primary care physician within one week of discharge. Please let us know if you are unable to obtain an appointment Medications: - Your medication list has been reviewed and reconciled upon discharge to ensure accuracy and continuity of care. - You are provided with a list of all your current medications at this time. Please review this list closely and make note of any changes. - Please take all of your medications exactly as prescribed. - Tell your primary care provider if you cannot afford your medications. - Call your primary care provider if you are having any side effects or any other problems. - Call your primary care provider before taking any over the counter medications or supplements, including herbals and vitamins, because some of these may interact with your current medications and/or make your symptoms worse. Symptoms: Please call your primary care provider for symptoms including, but not limited to: fevers (temperatures greater than 100.4), chills, intractable nausea or vomiting, diarrhea, rash, shortness of breath, bleeding, pain, or if you experience any worsening of the symptoms that brought you to the hospital. For EMERGENCY and VERY SERIOUS health-related issues, such as chest pain, shortness of breath, or sudden onset of the symptoms that brought you to the hospital, you may need to call 911 or go directly to the Emergency Room It has been our privilege to take care of you during your hospital stay. And Above All Else Feel Better! Best Wishes, Lalo Magana MD PGY2 Resident, Family & Community Medicine [facility] FCM Residency at [facility] [place] [address], [address] : [address] [place] [address] Pending Studies at Discharge: No Stand-Alone Forms: My [facility], Smoking Cessation Medications and DC Order Prescriptions: New apixaban 5 mg (74 tabs) tablets,dose pack See Rx Instructions .ROUTE .COMPLEX Qty: 74 RF: 0 amoxicillin-pot clavulanate [Augmentin] 875-125 mg tablet 1 tab PO BID 7 Days Qty: 14 RF: 0 Spiriva Respimat 2.5 mcg/actuation mist 2 inh inhalation DAILY Qty: 4 RF: 0 budesonide-formoterol [Symbicort] 160-4.5 mcg/actuation HFA aerosol inhaler 2 inh inhalation BID Qty: 10.2 RF: 0 verapamil 180 mg capsule,ext rel. pellets 24 hr 180 mg PO DAILY 30 Days Qty: 30 RF: 0 Continued apixaban 5 mg tablet 5 mg PO BID Qty: 60 RF: 5 metoprolol succinate 100 mg tablet extended release 24 hr 100 mg PO DAILY Qty: 30 RF: 5 zolpidem 10 mg tablet 10 mg PO HS Qty: 30 RF: 0 nicotine 21-14-7 mg/24 hr patch, TD daily, sequential See Rx Instructions transdermal .COMPLEX Qty: 56 RF: 0 albuterol sulfate [ProAir HFA] 90 mcg/actuation HFA aerosol inhaler 1 inh inhalation QID PRN (Reason: shortness of breath or wheezing) Qty: 8.5 RF: 5 ondansetron HCl 4 mg tablet 4 mg PO Q8H PRN (Reason: Nausea) Qty: 30 RF: 0 cholecalciferol (vitamin D3) 1,250 mcg (50,000 unit) capsule 50,000 unit PO .weekly Qty: 14 RF: 3 lorazepam 0.5 mg tablet 0.5 mg PO TID RF: 0 gabapentin 600 mg tablet 600 mg PO TID RF: 0 furosemide 40 mg tablet 20 - 40 mg PO DAILY RF: 0 sucralfate 1 gram tablet 1 g PO QID PRN (Reason: STOMACH ISSUES) RF: 0 Discharge Orders: Discharge Order (Routine); Ordered 01/08/21 Ordered By: Lalo Magana Admission Data Admit Date/Time: 01/07/21 06:42 Attending Provider: Doroteo Membreno Admit Provider: Tyshawn Ching Primary Care Provider: Diego Haynes Other Providers: Jorden Jewell Jr ; Freida Campbell ; Tyshawn Ching Other Interventions: PSY Interdisciplinary Discharge Planning Last Done: 01/08/21 12:18 Supervising Physician Co-Signing Physician Notes I personally examined the patient and verified all hill points of history and exam, discussed case, and agree with decision making with Dr Magana. Feeling better and feeling up to going home. Vitals noted, in general she is awake and alert pleasant no distress. HEENT normocephalic atraumatic mucous membranes moist. Breathing unlabored no accessory muscle use good effort. Skin shows no rashes no pallor or icterus. Cardio shows better rate control. Neuro shows no focal deficits. Dyspnealikely multifactorial between subacute pulmonary emboli, and uncontrolled A. fib. Treat both, anticipate slow improvement overall, but it is pleasantly surprising that she showed good improvement just overnight with better rate control. Fortunately, also, she is stable on room air Uncontrolled atrial fibrillationshe had stopped metoprolol due to feeling weak and lightheaded, but had not apparently informed her PCP and therefore no substitution treatment was initiated. Her rates did improve nicely on metoprolol here, but she notes having felt lousy on it before understandably she does not want that to be her ongoing course of therapy. We discussed alternates and arrived at utilizing a calcium channel leonie. In this line, we started with short acting verapamil, and she had good rate control and tolerated 40 mg 4 times daily quite nicelytherefore we will transition this over 280 mg of long- acting p.o. verapamil for home. We also discussed stroke risk and anticoagulation, she is amenable. Eliquis was affordable, and after we discussed that it was almost certainly the metoprolol making her feel weak and lightheaded not the Eliquis, she is okay with going back on it-therefore she will be on Eliquis as her anticoagulation Subacute pulmonary emboliher V/Q was obviously incomplete without ventilation studies, but with her symptoms a little bit of pleuritic pain, and with multiple areas suspicious on the perfusion scan, it certainly fits with pulmonary emboli. Given that she needs to be anticoagulated for atrial fibrillation, the only real difference is starting with 10 mg for the first week with her apixaban. Again with her atrial fibrillation she will need to be lifelong anticoagulated, but given that it appeared that these would have been fairly unprovoked clots, it also would be quite reasonable to suggest that she should have open ended anticoagulation for this as well, given that the risk of recurrence of unprovoked venous thromboembolic events is quite high in the ensuing years Anxietyfor now continue her Ativan at 0.5 mg 3 times daily. We had a very cady discussion that generally speaking long-term anxiety management with benzodiazepines is right with problems, not the least of which being that it does not really treat the underlying cause, but we really emphasized the fact that once anybody has any degree of physical dependency on benzodiazepines it can be very difficult to sort out what is anxiety versus what is simply med wearing off/mild withdrawal. At this point time it would be poor time to put her through benzo withdrawal at all, so for now we will continue her prior regimen, but asked her to discuss better ongoing anxiety treatment as an outpatient. Otherwise as above. Stable for home Resident Activity Tracking Resident Involvement: Resident Care Provided Care Provided: Adult Hospital Medicine
[2021-01-08] MEDS ORDERED: VERAPAMIL HCL 40 MG TAB PO ONE (17:05)
--- NOTE | 2021-01-08 17:11 | Billing Data ---
Date of Service January 08, 2021 Coding Level of Care Code D/C Day Management <30 mins
--- NOTE | 2021-01-09 05:11 | Electrocardiogram Report ---
Test Reason : Blood Pressure : / mmHG Vent. Rate : 091 BPM Atrial Rate : 122 BPM P-R Int : 000 ms QRS Dur : 078 ms QT Int : 364 ms P-R-T Axes : 000 070 069 degrees QTc Int : 447 ms Atrial fibrillation Nonspecific ST abnormality Abnormal ECG When compared with ECG of 07-JAN-2021 04:05, Minimal criteria for Anterior infarct are no longer Present Confirmed by Dominguez Infante ([id number]) on 01/09/2021 5:11:01 AM Referred By: REFERRED SELF Confirmed By:Dominguez Infante
[2021-01-11] MEDS ORDERED: ERGOCALCIFEROL 50,000 UNITS 1250 MCG CAP PO SCH (09:00)
== END 2021-01-08 18:45 | disposition home or self-care (01) | DRG 308 ==
LOC: ED 03:44 → 2S 06:42 → SUATTDRO 06:42 → 2S 07:48

== ENCOUNTER 2021-03-25 23:43 | Inpatient (IN) ==
[2021-03-26] MEDS ORDERED: ACETAMINOPHEN 1,000 MG/100 ML VIAL IV STA (00:26)
--- NOTE | 2021-03-26 00:35 | Emergency Department Note ---
History of Present Illness General Chief complaint: Fall Stated complaint: FALL Time Seen by Provider: 03/26/21 00:13 Source: patient Mode of arrival: EMS Limitations: no limitations History of Present Illness Provider complaint: fall Onset (ago): hour(s) Location: head, neck, back, upper extremity and lower extremity Radiation: non-radiation Severity: moderate Pain Consistency: + constant Maximum Pain Intensity: 7 Current Pain Intensity: 7 Quality: + constant Exacerbated By: + movement Associated symptoms: + denies other symptoms Treatments prior to arrival: none This is a 70-year-old female who presents via EMS after an accidental fall at home. Patient states she was walking down her steps last step, missed the last step, falling onto the floor and landing on her right side. Patient is uncertain if she struck her head. Patient was placed in a c-collar by EMS for transport here. Patient states she is legally blind and due to her vision problems tries to count her steps going down to know when she is at the bottom. Patient is anticoagulated. Patient denies any loss of consciousness during the event. Patient complains of pain along "the entire right side". Patient does have a history of arthritis as well as spinal stenosis. Patient does have a history of chronic back pain and degenerative disc disease. Patient states she does live with family. Pt seen during a time of high acuity and national emergency pandemic while wearing PPE. Home Medications Medication Instructions Recorded Confirmed Type albuterol sulfate 90 mcg/actuation 1 inh INHALATION QID PRN #8.5 g 12/22/20 03/26/21 Rx aerosol inhaler nicotine See Rx Instructions TRANSDERMAL 12/24/20 03/26/21 Rx 21mg/24hr-14mg/24hr-7mg/24hr daily .COMPLEX #56 patch transderm patches,sequentl furosemide 20 - 40 mg PO DAILY 01/07/21 03/26/21 History apixaban 5 mg tablet 5 mg PO BID #180 tab 01/25/21 03/26/21 Rx verapamil 180 mg 24 hr 180 mg PO DAILY #90 cap 01/25/21 03/26/21 Rx capsule,extended release ferrous sulfate 142 mg (45 mg 142 mg PO DAILY #30 tab 02/01/21 03/26/21 Rx iron) tablet,extended release gabapentin 600 mg tablet 600 mg PO TID #90 tab 02/22/21 03/26/21 Rx lorazepam 0.5 mg tablet 0.5 mg PO TID #90 tab 02/22/21 03/26/21 Rx zolpidem 10 mg tablet 10 mg PO HS #30 tab 02/22/21 03/26/21 Rx ondansetron HCl 4 mg tablet 4 mg PO Q8H PRN #30 tab 03/01/21 03/26/21 Rx cholecalciferol (vitamin D3) 50,000 unit PO WK 03/26/21 03/26/21 History Allergies Allergy/AdvReac Type Severity Reaction Status Date / Time Iodinated Contrast Media Allergy Severe ANAPHYLACTIC Verified 03/26/21 00:13 REACTION tramadol Allergy Mild nausea, Verified 03/26/21 00:13 hives lisinopril AdvReac Intermediate FEELS LIKE Verified 03/26/21 00:13 SOMETHING IS CRAWLING ON HER. acetaminophen AdvReac Mild VOMITING Verified 03/26/21 00:13 Past Med/Surg History Medical History Diabetes mellitus, type 2 NO LONGER HAS, NO MEDS--HAD GASTRIC BYPASS Fibrocystic breast changes of both breasts Generalized edema Hiatal hernia History of anesthesia reaction "TAKES A LOT OF ANESTHESIA TO GET ME DOWN" History of diabetes mellitus Kidney stones Tobacco abuse Surgical History History of appendectomy History of breast biopsy BILT--BENIGN History of cardiac cath 2016 @ [facility], NO STENT History of carpal tunnel release LEFT History of cataract surgery History of section History of colonoscopy History of dilatation and curettage X2 History of gastric bypass 2010 @ [facility] [place] History of tooth extraction ALL TEETH History of total abdominal hysterectomy and bilateral salpingo-oophorectomy Family History Daughter Family history of reaction to anesthesia "TAKES A LOT OF ANESTHESIA TO GET HER DOWN" Mother Family history of diabetes mellitus Social History Smoking Status: Current every day smoker Tobacco Type: Cigarettes Cigarettes Per Day: 20-30; Second Hand Exposure: Yes (parents smoked); Hx Alcohol Use: No Hx Substance Use: No Preferred Language: Mexican Communication Ability: Effective Job Printer Apprentice Required: No Beliefs That Will Affect Care: Uatsdin Current Living Situation: Family Current Living Situation Comment: lives with daughter Feels Safe at Home: Yes Assistive Devices: Denture - Upper, Denture - Lower and Glasses Review of Systems See HPI for pertinent positives & negatives. and A total of 10 systems reviewed and were otherwise negative Physical Exam Vital Signs Vital Signs - 24 hr 03/26/21 00:00 03/26/21 00:03 03/26/21 01:00 Temperature 37.4 C Temperature Source Oral Pulse Rate 124 H 120 H Respiratory Rate 14 Blood Pressure 130/103 H 105/64 Blood Pressure Mean 112 77 Pulse Oximetry 97 95 Sepsis Recent Fever Within 48 Hours No Sepsis New/Unexplained Change in Mental Status N/A Sepsis Action Taken by Nursing No Action Required 03/26/21 02:03 03/26/21 02:23 03/26/21 03:00 Temperature Temperature Source Pulse Rate 119 H 104 H 83 Respiratory Rate 14 12 13 Blood Pressure 99/76 L 120/71 95/62 L Blood Pressure Mean 83 87 73 Pulse Oximetry 96 96 92 Sepsis Recent Fever Within 48 Hours Sepsis New/Unexplained Change in Mental Status Sepsis Action Taken by Nursing 03/26/21 04:06 03/26/21 05:00 Temperature Temperature Source Pulse Rate 102 H 84 Respiratory Rate 12 12 Blood Pressure 91/53 L 99/70 L Blood Pressure Mean 65 79 Pulse Oximetry 97 98 Sepsis Recent Fever Within 48 Hours Sepsis New/Unexplained Change in Mental Status Sepsis Action Taken by Nursing GENERAL: alert, uncomfortable appearing, well nourished, mild distress, non- toxic, c-collar in place EYE EXAM: normal conjunctiva, PERRL and EOM's grossly intact OROPHARYNX: no exudate, no erythema, lips, buccal mucosa, and tongue normal and mucous membranes are moist NECK: supple, no nuchal rigidity, no adenopathy, non-tender LUNGS: Clear to auscultation. Normal chest wall mechanics, no w/r/r CHEST WALL: No pain with palpation along the ribs, no crepitus HEART: no murmurs, S1 normal and S2 normal ABDOMEN: abdomen soft, non-tender, normo-active bowel sounds, no masses, no rebound or guarding. No ecchymosis or evidence of trauma BACK: Back is symmetrical on inspection and there is no deformity, no midline tenderness, no CVA tenderness. Pain with palpation along the lumbar spine bilaterally worse on the right than left. PELVIS: Stable to compression, nontender with palpation SKIN: no rashes and no bruising UPPER EXTREMITIES: upper extremities are grossly normal. FROM, nml pulses b/l. Evolving area of ecchymosis to the proximal lateral right upper extremity as well as the distal dorsal forearm. No obvious deformities or swelling. LOWER EXTREMITIES: No pitting edema. FROM, nml pulses b/l. Pain with palpation over the proximal fibula on the right lower extremity. No overlying edema or ecchymosis. Compartments soft. No joint effusions. No other deformities or evidence of trauma to the lower extremities. NEURO EXAM: Normal sensorium, cranial nerves II-XII grossly intact, normal speech, no gross weakness of arms, no gross weakness of legs. Gross sensation intact. Course Course 0210: I was contacted by the treatment technician, Gregor, to make me aware that since patient had already been scanned, in addition appears to be made to her allergy list and that it now list an IV contrast allergy. At the time I ordered this that was not apparent, and the tech felt the same as she did not recall any dye allergies flagging when the orders were placed. Patient has already been injected, we will continue to monitor closely. 0248: C-collar removed. VS stable. No evidence of evolving allergic rxn. Pt states pain improved but still present. 0345: Patient updated on additional results. Patient states she is still having significant pain and does not feel she could go home. We will try additional oral pain medication and investigate options for inpatient rehab. 0411: Per case management, patient unable to be placed directly in inpatient rehab due to insurance reasons. Case discussed with Dr. Magana. Administered Medications Fentanyl Citrate (Fentanyl Citrate 100 Mcg/2 Ml Vial) 50 mcg IV Q15M PRN PRN Reason: Pain Stop: 04/09/21 00:25 Last Admin: 03/26/21 03:24 Dose: 50 mcg Documented by: [id number] Admin: 03/26/21 00:45 Dose: 50 mcg Documented by: [id number] Sodium Chloride (Nss) 500 mls @ 125 mls/hr IV .Q4H CIERRA Stop: 04/25/21 00:29 Last Admin: 03/26/21 04:49 Dose: 125 mls/hr Documented by: [id number] Infusion: 03/26/21 04:47 Dose: 0 mls/hr Documented by: [id number] Admin: 03/26/21 00:45 Dose: 125 mls/hr Documented by: [id number] Discontinued Medications Diphenhydramine HCl (Diphenhydramine 50 Mg/Ml Vial) 25 mg IV NOW STA Stop: 03/26/21 02:16 Last Admin: 03/26/21 02:20 Dose: 25 mg Documented by: [id number] Famotidine (Famotidine 20mg/5ml Iv Push) 20 mg IV ONE STA Stop: 03/26/21 02:16 Last Admin: 03/26/21 02:20 Dose: 20 mg Documented by: [id number] Acetaminophen (Ofirmev) 1,000 mg in 100 mls @ 400 mls/hr IV NOW STA Stop: 03/26/21 00:40 Last Infusion: 03/26/21 01:07 Dose: 0 mls/hr Documented by: [id number] Admin: 03/26/21 00:47 Dose: 400 mls/hr Documented by: [id number] Ioversol (Optiray 300 100ml) 100 ml IV ONCE ONE Stop: 03/26/21 02:12 Last Admin: 03/26/21 02:11 Dose: 100 ml Documented by: [id number] Oxycodone/Acetaminophen (Oxycodone/Acetaminophen 5mg/325mg Tab) 1 tab PO NOW STA Stop: 03/26/21 03:58 Last Admin: 03/26/21 04:04 Dose: 1 tab Documented by: [id number] Medical Decision Making Differential Diagnosis Differential diagnoses include major intracranial, cervical, spinal, thoracic, abdominal, pelvic and neurologic injury. Fracture, contusion, sprain, strain, laceration, abrasions included as well. Medical Records Attestation: I reviewed the patient's medical records. Home Medications Current Medication List: was personally reviewed by me Laboratory Data Attestation: I reviewed the patient's lab results. Lab Results 03/26/21 03/26/21 03/26/21 Range/Units 01:04 04:10 04:10 POC Hgb 11.6 L (12.0-16.0) g/dl POC Hct 34 L (37-47) % POC Sodium 135 (135-144) mmol/L POC Potassium 5.4 H (3.3-5.0) mmol/L POC Chloride 99 L (101-112) mmol/L POC Total CO2 30 (24-31) mmol/L POC Anion Gap 13.0 L (16-25) mmol/L POC BUN 12 (7-18) mg/dl POC Creatinine 0.6 (0.6-1.3) mg/dl POC Glucose (other) 94 (70-99) mg/dl POC Ioniz Calcium Evelyn 1.03 L (1.12-1.32) mmol/l COVID-19 Eval Order CovFluRsv at [facility] SARS-CoV-2 (PCR) NEGATIVE (Negative) Influenza Type A (PCR) Negative (Neg) Influenza Type B (PCR) Negative (Neg) RSV (RT-PCR) Negative (Neg) Imaging Data Radiologist's Impression: CT head: No ICH, mass-effect or edema. No skull fracture. Radiologist: Brigido Strauss MD CT C-spine: No evidence of fracture or malalignment. Radiologist: Brigido Strauss MD CT chest with contrast: Direct comparison made with prior study of January 18, 2015. Heart is normal in size. Thoracic aorta appears normal. There is no mediastinal hematoma. Thoracic esophagus appears normal. Central airways appear normal. There is no confluent areas of consolidation. There is a 11 mm calcified nodule in the left upper lobe. This is stable from the previous study. There is no pneumothorax or pleural effusion. Chest wall appears normal. Impression: No acute findings. Radiologist: Brigido Strauss MD CT abdomen and pelvis with contrast: Direct comparison made with prior study from September 27, 2020. The liver, spleen, pancreas appear normal. Gallbladder surgically absent. There are surgical changes at the gastroesophageal junction with partial gastrectomy. This is stable from the previous study. There is some mildly thickened segments of the distal right lower quadrant small bowel and cecum. There is no pneumatosis or obstruction. The appendix is not specifically identified. The adrenals kidneys ureters and bladder appear normal. Vascular structures appear normal. There is no free peritoneal air or fluid. Abdominal wall appears normal. There is no skeletal fracture. Impression: No solid organ injury or free pelvic fluid. Thickening of the cecum and distal small bowel suggesting nonspecific enterocolitis. Radiologist: Brigido Strauss MD CT lumbar spine: No fracture of the lumbar spine. Radiologist: Brigido Strauss MD MDM Narrative This is a 70-year-old female who presents after a mechanical fall at home. Patient at risk due to poor eyesight. Due to use of anticoagulation, a [id number] chemistry panel was checked and patient sent for multiple CAT scans as well as other extremity x-rays. Patient's imaging reassuring, patient remained hemodynamically stable in the emergency room. Patient was given medication for pain intermittently. Discussed options for disposition with the patient and due to persistent pain despite attempts at pain control with oral medication she could take at home, patient did not feel safe returning home. Discussed option of inpatient rehab, per case management this is not an option based on insurance. Case discussed with hospitalist for additional monitoring, PT/OT evaluation, and additional pain control. An order was placed for continuous cardiac monitoring. The monitor shows a rate of _100_ with _afib_ rhythm. Impression & Plan CHI (closed head injury), Fall, Contusion, Back pain Discharge Plan Visit Data Chief Complaint: Fall Stated Complaint: FALL ED Provider: Julissa Calloway Discharge Problem: CHI (closed head injury), Fall, Contusion, Back pain Forms Stand Alone Forms: [facility] Dr. Tariff Prescriptions Prescriptions: No Action nicotine 21-14-7 mg/24 hr patch, TD daily, sequential See Rx Instructions transdermal .COMPLEX Qty: 56 RF: 0 apixaban 5 mg tablet 5 mg PO BID Qty: 180 RF: 1 verapamil 180 mg capsule,ext rel. pellets 24 hr 180 mg PO DAILY Qty: 90 RF: 1 zolpidem 10 mg tablet 10 mg PO HS Qty: 30 RF: 0 lorazepam 0.5 mg tablet 0.5 mg PO TID Qty: 90 RF: 0 gabapentin 600 mg tablet 600 mg PO TID Qty: 90 RF: 3 ondansetron HCl 4 mg tablet 4 mg PO Q8H PRN (Reason: Nausea) Qty: 30 RF: 0 albuterol sulfate [ProAir HFA] 90 mcg/actuation HFA aerosol inhaler 1 inh inhalation QID PRN (Reason: shortness of breath or wheezing) Qty: 8.5 RF: 5 Slow Fe 142 mg (45 mg iron) tablet extended release 142 mg PO DAILY Qty: 30 RF: 5 furosemide 40 mg tablet 20 - 40 mg PO DAILY RF: 0 cholecalciferol (vitamin D3) 1,250 mcg (50,000 unit) capsule 50,000 unit PO WK RF: 0 Discharge Problem: CHI (closed head injury) Qualifiers: Encounter type: initial encounter Qualified Code(s): S09.90XA - Unspecified injury of head, initial encounter Fall Qualifiers: Encounter type: initial encounter Qualified Code(s): W19.XXXA - Unspecified fall, initial encounter Contusion Qualifiers: Encounter type: initial encounter Contusion area: upper arm Laterality: right Qualified Code(s): S40.021A - Contusion of right upper arm, initial encounter Back pain Qualifiers: Back pain location: low back pain Chronicity: acute Back pain laterality: bilateral Sciatica presence: without sciatica Qualified Code(s): M54.5 - Low back pain
[2021-03-26] MEDS: fentaNYL citrate 100 MCG/2 ML VIAL IV PRN ×2 (00:45→03:24)
[2021-03-26] MEDS: SODIUM CHLORIDE 0.9% 500 ML IV SCH ×2 (00:45→04:49)
[2021-03-26 01:16] LABS: iSTAT Creatinine 0.6 mg/dl (0.6-1.3); iSTAT Hemoglobin 11.6 g/dl (12.0-16.0); iSTAT Ionized Calcium 1.03 mmol/l (1.12-1.32); iSTAT Potassium 5.4 mmol/L (3.3-5.0)
[2021-03-26] MEDS ORDERED: OPTIRAY 300 100mL IV ONE (02:11)
[2021-03-26] MEDS ORDERED: FAMOTIDINE 20MG/5ML IV PUSH IV STA (02:15)
[2021-03-26] MEDS ORDERED: diphenhydrAMINE 50 MG/ML VIAL IV STA (02:15)
[2021-03-26] MEDS ORDERED: oxyCODONE/ACETAMINOPHEN 5mg/325mg TAB PO STA (03:57)
--- NOTE | 2021-03-26 05:00 | History & Physical Report ---
Date of Service March 26, 2021 Assessment & Plan (1) Fall: Patient s/p mechanical fall at home with trauma to right side of body as well as head trauma. Patient is on Apixaban anticoagulation. She is complaining of right sided body pain - arm, flank, leg. Hgb=11.6, Hct=34. Multiple images unremarkable for fracture or bleeding. Patient states that she does not fall frequently. -Check CK and LFTs -Check X-ray right knee -Morphine PRN pain -Colace PRN -PT/OT evaluation - patient desires home rehabilitation services -Fall precautions Present on Admission?: Yes (2) CHI (closed head injury): s/p fall with head trauma. No focal deficits. CT head unremarkable -Neuro checks q 4 hours Present on Admission?: Yes (3) A-fib: Patient slightly tachycardic, 102 bpm at this time -Continue Verapamil -Continue Apixaban Present on Admission?: Yes (4) COPD (chronic obstructive pulmonary disease): No cough, SOB or wheeze -Continue to monitor -Smoking cessation counseling -Nicotine patch Present on Admission?: Yes (5) Pulmonary emboli: Patient on Apixaban. She reports some chronic residual shortness of breath since December -Continue Apixaban Present on Admission?: Yes (6) Depression: Chronic -Continue Ativan 0.5mg po TID for anxiety F/E/N - NSS at 125mL/hr x 1 L, Heart healthy diet as tolerated Ppx - On Apixaban for history of AF and PEs Code - Full, patient would not want intermediate designer life support Dispo - Observation to medical Present on Admission?: Yes History of Present Illness Chief Complaint: fall Primary Care Provider: Justus Haynes MD Michelle Mckee is a 70yo female with history of PE (01/07/21) and AF on Eliquis anticoagulation, history of gastric bypass surgery presenting after a fall at home. Patient is legally blind, no vision in left eye and appx 25% in her right eye. She was walking down the steps this evening when she missed the last step and fell onto the hard floor. She landed on her right side, believes that she struck her head as well. She denies LOC but states that she did feel like she may pass out after the fall. She denies CP/palpitations/dizziness/seizure. Denies abdominal pain or diarrhea. She has chronic nausea with occasional vomiting since her gastric bypass surgery mostly due to dietary indiscretion but states she has had no recent changes in these symptoms. She has had decreased oral intake of late. No additional complaints at this time. Patient voiced desire for rehabilitation services - would prefer inpatient rather than outpatient. ER Course: NSS, Oxycodone/Acetaminophen, Fentanyl, Pepcid Allergies Allergy/AdvReac Type Severity Reaction Status Date / Time Iodinated Contrast Media Allergy Severe ANAPHYLACTIC Verified 03/26/21 00:13 REACTION tramadol Allergy Mild nausea, Verified 03/26/21 00:13 hives lisinopril AdvReac Intermediate FEELS LIKE Verified 03/26/21 00:13 SOMETHING IS CRAWLING ON HER. acetaminophen AdvReac Mild VOMITING Verified 03/26/21 00:13 Home Medications Medication Instructions Recorded Confirmed Type albuterol sulfate 90 mcg/actuation 1 inh INHALATION QID PRN #8.5 g 12/22/20 03/26/21 Rx aerosol inhaler nicotine See Rx Instructions TRANSDERMAL 12/24/20 03/26/21 Rx 21mg/24hr-14mg/24hr-7mg/24hr daily .COMPLEX #56 patch transderm patches,sequentl furosemide 20 - 40 mg PO DAILY 01/07/21 03/26/21 History apixaban 5 mg tablet 5 mg PO BID #180 tab 01/25/21 03/26/21 Rx verapamil 180 mg 24 hr 180 mg PO DAILY #90 cap 01/25/21 03/26/21 Rx capsule,extended release ferrous sulfate 142 mg (45 mg 142 mg PO DAILY #30 tab 02/01/21 03/26/21 Rx iron) tablet,extended release gabapentin 600 mg tablet 600 mg PO TID #90 tab 02/22/21 03/26/21 Rx lorazepam 0.5 mg tablet 0.5 mg PO TID #90 tab 02/22/21 03/26/21 Rx zolpidem 10 mg tablet 10 mg PO HS #30 tab 02/22/21 03/26/21 Rx ondansetron HCl 4 mg tablet 4 mg PO Q8H PRN #30 tab 03/01/21 03/26/21 Rx cholecalciferol (vitamin D3) 50,000 unit PO WK 03/26/21 03/26/21 History Past Med/Surg History Medical History Diabetes mellitus, type 2 NO LONGER HAS, NO MEDS--HAD GASTRIC BYPASS Fibrocystic breast changes of both breasts Generalized edema Hiatal hernia History of anesthesia reaction "TAKES A LOT OF ANESTHESIA TO GET ME DOWN" History of diabetes mellitus Kidney stones Tobacco abuse Surgical History History of appendectomy History of breast biopsy BILT--BENIGN History of cardiac cath 2016 @ [facility], NO STENT History of carpal tunnel release LEFT History of cataract surgery History of section History of colonoscopy History of dilatation and curettage X2 History of gastric bypass 2010 @ [facility] [place] History of tooth extraction ALL TEETH History of total abdominal hysterectomy and bilateral salpingo-oophorectomy Family History Daughter Family history of reaction to anesthesia "TAKES A LOT OF ANESTHESIA TO GET HER DOWN" Mother Family history of diabetes mellitus Social History Smoking Status: Current every day smoker Tobacco Type: Cigarettes Cigarettes Per Day: 20-30; Second Hand Exposure: Yes (parents smoked); Hx Alcohol Use: No Hx Substance Use: No Preferred Language: Luxembourgish Communication Ability: Effective Vending Machine Servicer Required: No Beliefs That Will Affect Care: Restorationism Current Living Situation: Family Current Living Situation Comment: lives with daughter Feels Safe at Home: Yes Assistive Devices: Denture - Upper, Denture - Lower and Glasses Review of Systems Review of Systems: All systems reviewed & are unremarkable except as noted in HPI & below Physical Exam Physical Exam: General: patient resting comfortably, NAD, non-toxic in appearance, AA&O x 4 Skin: warm, dry, intact, no rashes or lesions, faint bruising on RUE, RLE HEENT: NC/AT, PERRL, EOMI, anicteric sclera, conjunctiva without injection, external ear normal to inspection and nontender, nares patent, moist mucus membranes, dentition intact, no oropharyngeal lesions, neck supple, trachea midline, no LAD, no thyromegaly, no JVD Heart: +S1/S2, irregularly irregular, tachycardic, no m/r/g Lungs: equal air entry bilaterally, no rales/rhonchi/wheezes Abd: +BS, soft, NT/ND, no masses/organomegaly/ascites Ext: warm, 2+ pulses in UE/LE bilaterally, no clubbing/cyanosis or edema, right knee tender to palpation, no edema/bruising or deformity Neuro: nonfocal, patient AA&O x 4, speech intact, no facial droop, moving all extremities on command with equal strength 5/5 Results & Data Results & Data ([facility]) Vital Signs (Past 12 Hours) Vital Signs Temp Pulse Resp BP Pulse Ox 03/26/21 04:06 102 H 12 91/53 L 97 03/26/21 03:00 83 13 95/62 L 92 03/26/21 02:23 104 H 12 120/71 96 03/26/21 02:03 119 H 14 99/76 L 96 03/26/21 01:00 120 H 14 105/64 95 03/26/21 00:03 37.4 C 03/26/21 00:00 124 H 130/103 H 97 Laboratory Results Lab Results 03/26/21 03/26/21 Range/Units 01:04 04:10 POC Hgb 11.6 L (12.0-16.0) g/dl POC Hct 34 L (37-47) % POC Sodium 135 (135-144) mmol/L POC Potassium 5.4 H (3.3-5.0) mmol/L POC Chloride 99 L (101-112) mmol/L POC Total CO2 30 (24-31) mmol/L POC Anion Gap 13.0 L (16-25) mmol/L POC BUN 12 (7-18) mg/dl POC Creatinine 0.6 (0.6-1.3) mg/dl POC Glucose (other) 94 (70-99) mg/dl POC Ioniz Calcium Evelyn 1.03 L (1.12-1.32) mmol/l COVID-19 Eval Order CovFluRsv at [facility] Code Status & VTE Plan VTE Prophylaxis Plan VTE Prophylaxis will be ordered: Yes PG Care Time/CCT Total # of Minutes Spent Total Time Spent with Patient: Total time spent is greater than 50% in coordination of care (as documented) at patient's floor/unit and/or counseling patient: Coding Level of Care Code 88368 OBS Care - Level 3 Diagnoses Fall W19.XXXA Encounter type: initial encounter CHI (closed head injury) S09.90XA Encounter type: initial encounter A-fib I48.91 Atrial fibrillation type: unspecified COPD (chronic obstructive pulmonary disease) J44.9 COPD type: unspecified COPD Pulmonary emboli I26.99 Pulmonary embolism type: unspecified Chronicity: unspecified Acute cor pulmonale presence: unspecified Depression F32.9 Depression Type: unspecified (1) Fall Encounter type: initial encounter Qualified Code(s): W19.XXXA - Unspecified fall, initial encounter (2) CHI (closed head injury) Encounter type: initial encounter Qualified Code(s): S09.90XA - Unspecified injury of head, initial encounter (3) COPD (chronic obstructive pulmonary disease) COPD type: unspecified COPD Qualified Code(s): J44.9 - Chronic obstructive pulmonary disease, unspecified (4) A-fib Atrial fibrillation type: unspecified Qualified Code(s): I48.91 - Unspecified atrial fibrillation (5) Depression Depression Type: unspecified Qualified Code(s): F32.9 - Major depressive disorder, single episode, unspecified (6) Pulmonary emboli Pulmonary embolism type: unspecified Chronicity: unspecified Acute cor pulmonale presence: unspecified Qualified Code(s): I26.99 - Other pulmonary embolism without acute cor pulmonale
[2021-03-26 05:06] LABS: Influenza A virus by PCR Negative (Neg); Influenza B virus by PCR Negative (Neg); RSV by PCR Negative (Neg); SARS CoV2 RNA(COVID-19) InHosp NEGATIVE (Negative)
[2021-03-26] MEDS ORDERED: DOCUSATE SODIUM 100 MG CAP PO PRN (05:30)
[2021-03-26] MEDS ORDERED: ACETAMINOPHEN 325 MG TAB PO PRN (05:30)
[2021-03-26] MEDS ORDERED: SODIUM CHLORIDE 0.9% 1000ML 1,000 ML IV SCH (05:45)
[2021-03-26] MEDS: NICOTINE 21 MG/24 HR TDSY TD SCH (06:29)
[2021-03-26] MEDS: APIXABAN 5 MG TABLET PO SCH ×2 (06:30→21:05)
[2021-03-26] MEDS: GABAPENTIN 600 MG TAB PO SCH ×3 (06:30→21:05)
[2021-03-26] MEDS ORDERED: Nursing to Pharmacy Communication SCH (06:45)
[2021-03-26 06:55] LABS: Albumin Level 1.7 gm/dl (3.4-5.0); Bilirubin Direct 0.3 mg/dl (0-0.2); Bilirubin,Total 0.7 mg/dl (0.2-1); Total Protein 5.1 gm/dl (6.4-8.2)
--- NOTE | 2021-03-26 06:56 | XRay Report ---
XR humerus RT 2V CLINICAL HISTORY: Right humeral pain status post trauma COMPARISON: Right shoulder dated 06/28/2018 DISCUSSION: No acute fractures or dislocations are visualized. IMPRESSION: No fractures identified. ACT 112: Negative or not required by law. Electronically signed by: Phuc Burton M.D. 03/26/2021 6:55 AM
--- NOTE | 2021-03-26 06:56 | XRay Report ---
XR tibia fibula RT 2V CLINICAL HISTORY: Right lower leg pain status post trauma COMPARISON: None. DISCUSSION: The bones are osteopenic. No fractures or dislocations are visualized. IMPRESSION: No acute fractures or dislocations identified. ACT 112: Negative or not required by law. Electronically signed by: Phuc Burton M.D. 03/26/2021 6:54 AM
--- NOTE | 2021-03-26 07:02 | CT Scan Report ---
CT head/brain wo con CLINICAL HISTORY: Head pain status post trauma COMPARISON STUDY: CT scan dated 09/27/2020, MRI dated 09/27/2020 TECHNIQUE: Axial CT of the brain is performed from the vertex to the skull base. IV contrast was not administered for this examination. A dose lowering technique was utilized adhering to the principles of ALARA. CT DOSE: 1975.50 mGy.cm FINDINGS: No intra or extra-axial mass lesions are visualized. There is no CT evidence of acute cortical infarc tion. There is no evidence of midline shift. There is no acute hemorrhage. No calvarial fractures ar e visualized. There is no evidence of pathologic ventricular dilatation. There is no evidence of acute sinusitis IMPRESSION: 1. Normal noncontrast head CT for age ACT 112: Negative or not required by law. Electronically signed by: Phuc Burton M.D. 03/26/2021 7:01 AM
--- NOTE | 2021-03-26 07:05 | CT Scan Report ---
CT OF THE CERVICAL SPINE CLINICAL HISTORY: Neck pain status post trauma COMPARISON STUDY: CT scan dated 01/18/2015 CT DOSE: TECHNIQUE: CT scan of the cervical spine was performed from the skull base to the thoracic inlet. Maria E ges are reviewed in the axial, sagittal, and coronal planes. IV contrast was not administered for thi s examination. A dose lowering technique was utilized adhering to the principles of ALARA. FINDINGS: The visualized portions of the lung apices reveal no evidence of pneumothorax. The prevertebral soft tissues are normal. No fractures or subluxations are visualized. There are multilevel degenerative changes most pronounced the C4-5 and C5-6 level. There is C4-5 spin al stenosis. IMPRESSION: No evidence of acute fracture or traumatic subluxation. ACT 112: Negative or not required by law. Electronically signed by: Phuc Burton M.D. 03/26/2021 7:03 AM
[2021-03-26] MEDS: LORazepam 0.5 MG TAB PO SCH ×3 (07:29→21:05)
[2021-03-26] MEDS: ONDANSETRON INJ 2 MG/ML 2 ML VIAL IV PRN ×2 (07:37→14:51)
--- NOTE | 2021-03-26 07:39 | CT Scan Report ---
CT lumbar spine w con CT DOSE: CLINICAL HISTORY: Low back pain status post trauma TECHNIQUE: Helical images were acquired in the transverse plane. Sagittal coronal reformatted images were acquired A dose lowering technique was utilized adhering to the principles of ALARA. The patien t was imaged following administration of 89 cc of Optiray 300 COMPARISON STUDY: MRI dated 04/30/2015 FINDINGS: There are multilevel degenerative changes. There is a grade 1 spondylolisthesis of L4 and L5. There i s moderate L4-5 spinal stenosis. The bones are osteopenic. No acute fractures or traumatic subluxations are visualized. There is a punctate nonobstructing right renal calculus. There are postsurgical changes of a presumed gastric bypass. There is mild bowel wall thickening involving the transverse duodenum. There is trace fluid within the mesentery. IMPRESSION: 1. No evidence of acute fracture or traumatic subluxation 2. Moderate spinal stenosis at the L4-5 level 3. Mild bowel wall thickening involving the transverse colon. Trace fluid within the mesentery ACT 112: Negative or not required by law. Electronically signed by: Phuc Burton M.D. 03/26/2021 7:38 AM
--- NOTE | 2021-03-26 08:08 | CT Scan Report ---
CHEST CT WITH CONTRAST; CT abdomen and pelvis with IV contrast only HISTORY: Acute right-sided chest and abdominal pain status post fall trauma TECHNIQUE: Multiaxial CT images of the chest, abdomen and pelvis were performed following the IV admi nistration of 89 cc of Optiray. A dose lowering technique was utilized adhering to the principles o f ALARA. COMPARISON: CT abdomen and pelvis 09/27/2020, chest CT 01/18/2015 FINDINGS: CT CHEST: No thyroid nodule. Calcified AP window and left hilar lymph nodes. Heart is normal in size. No perica rdial effusion. No thoracic aortic aneurysm or dissection. There is patency of the imaged great vesse ls. Pulmonary artery is unremarkable. Trace left pleural effusion. 13 mm calcified granuloma of the l eft upper lobe demonstrates progressive calcification from the comparison. Mild bibasilar atelectasis /scarring. No overt pulmonary edema or airspace consolidation typical for pneumonia. Mild bronchial w all thickening. The central airways are patent. Mild generalized body wall edema. Degenerative change s of the spine and shoulders. No acute displaced rib fracture. Healed chronic appearing bilateral rib fractures. Vertebral body hemangioma at T9. CT ABDOMEN/PELVIS: There is no pneumatosis or pneumoperitoneum. Unremarkable spleen. 1.2 cm peripherally calcified aneu rysm near the splenic hilum is unchanged. Unremarkable adrenal glands. Cholecystectomy. Intrahepatic and extrahepatic biliary ductal dilation redemonstrated. Hepatic steatosis with diffuse heterogeneity of the liver. Moderately atrophic pancreas. Pancreatic head calcifications are redemonstrated. 7 mm calcification the pancreatic head the region of the distal pancreatic and common bile ducts redemonst rated. There is a new adjacent 3 mm calculus along the medial margin. No pancreatic ductal dilation i dentified. Multifocal cortical scarring with parenchymal thinning of the left kidney. Mild dilation of the right renal pelvis without hydronephrosis. 2 mm nonobstructing calculus of the inferior pole left kidney. No ureteral calculi or hydronephrosis. Mildly distended urinary bladder. Hysterectomy. No abdominal a ortic aneurysm or adenopathy. Postoperative changes of the stomach and proximal small bowel redemonstrated. Moderate fecal retentio n. Mild circumferential wall thickening of the cecum, and ascending colon with wall thickening involv ing numerous loops of stool-filled small bowel. Appendectomy. Diffuse mesenteric and body wall edema. Right hip total joint arthroplasty. Degenerative changes of the spine, pelvis and left hip. No acute fracture identified. IMPRESSION: 1. No acute posttraumatic abnormality identified involving the chest, abdomen or pelvis. 2. No acute fracture. 3. Wall thickening involving numerous loops of small bowel within the abdomen and pelvis with additio nal wall thickening involving the cecum and ascending colon is suggestive of a nonspecific enterocoli tis. 4. Pancreatic head 7 mm calcification redemonstrated within the region of the distal common bile and pancreatic ducts. 5. Nonobstructing left nephrolithiasis. 6. Additional findings as above. ACT 112: Negative or not required by law. Electronically signed by: Chucho Broderick M.D. 03/26/2021 8:07 AM
[2021-03-26] MEDS ORDERED: LORazepam 0.5 MG TAB PO SCH (09:00)
[2021-03-26] MEDS: VERAPAMIL HCL 180 MG TABCR PO SCH (09:20)
[2021-03-26] MEDS: MoRPHine SULFATE 2 MG/ML CARP IV PRN ×3 (09:43→22:52)
--- NOTE | 2021-03-26 10:10 | Electrocardiogram Report ---
Test Reason : Blood Pressure : / mmHG Vent. Rate : 099 BPM Atrial Rate : 092 BPM P-R Int : 000 ms QRS Dur : 068 ms QT Int : 352 ms P-R-T Axes : 000 -01 -19 degrees QTc Int : 451 ms Atrial fibrillation Low voltage QRS Poor R wave progression, consider anterior OR vs. lead placement vs. LVH Diffuse Nonspecific T wave abnormality Abnormal ECG When compared with ECG of 08-JAN-2021 07:28, Minimal criteria for Anteroseptal infarct are now Present Nonspecific T wave abnormality now evident in Inferior leads Confirmed by Robinson Contreras ([id number]) on 03/26/2021 10:09:33 AM Referred By: REFERRED SELF Confirmed By:Robinson Contreras
--- NOTE | 2021-03-26 11:52 | Electrocardiogram Report ---
Test Reason : Blood Pressure : / mmHG Vent. Rate : 108 BPM Atrial Rate : 119 BPM P-R Int : 000 ms QRS Dur : 074 ms QT Int : 314 ms P-R-T Axes : 000 002 014 degrees QTc Int : 420 ms Atrial fibrillation with rapid ventricular response with premature ventricular or aberrantly conducte d complexes Low voltage QRS Poor R wave progression, consider anterior PA vs. lead placement vs. LVH Diffuse Nonspecific T wave abnormality Abnormal ECG When compared with ECG of 26-MAR-2021 05:02, No significant change Confirmed by Robinson Contreras ([id number]) on 03/26/2021 11:52:16 AM Referred By: REFERRED SELF Confirmed By:Robinson Contreras
--- NOTE | 2021-03-26 15:15 | XRay Report ---
XR knee RT 3V CLINICAL HISTORY: Right knee pain status post trauma COMPARISON: None. DISCUSSION: The bones are osteopenic. No acute fractures or dislocations are visualized. There are os teoarthritic changes most pronounced within the medial joint compartment patellofemoral joint. IMPRESSION: 1. No acute fractures or dislocations 2. Osteopenia and osteoarthritic change ACT 112: Negative or not required by law. Electronically signed by: Phuc Burton M.D. 03/26/2021 3:13 PM
[2021-03-26] MEDS: PROMETHAZINE HCL 25 MG TAB PO PRN ×2 (17:03→22:51)
[2021-03-26] MEDS: ZOLPIDEM TARTRATE 10 MG TAB PO PRN (22:58)
[2021-03-27] MEDS: PROMETHAZINE HCL 25 MG TAB PO PRN (07:19)
[2021-03-27] MEDS: MoRPHine SULFATE 2 MG/ML CARP IV PRN ×4 (07:20→23:32)
[2021-03-27 07:56] LABS: Basophils # (auto) 0.03 K/uL (0-0.2); Basophils % (auto) 0.4 %; Eosinophils # (auto) 0.04 K/uL (0-0.5); Eosinophils % (auto) 0.6 %; Hematocrit (blood only) 37.9 % (37-47); Hemoglobin 12.6 g/dL (12.0-16.0); Immature Granulocytes # (auto) 0.01 K/uL (0.00-0.02); Immature Granulocytes % (auto) 0.1 %; Lymphocytes # (auto) 1.29 K/uL (1.2-3.4); Lymphocytes % (auto) 17.8 %; Mean Corpuscular Hemoglobin 34.1 pg (25-34); Mean Corpuscular Hgb Conc 33.2 g/dL (32-36); Mean Corpuscular Volume 102.4 fL (80-100); Mean Platelet Volume 10.3 fL (7.4-10.4); Monocytes # (auto) 0.52 K/uL (0.11-0.59); Monocytes % (auto) 7.2 %; Neutrophils # (auto) 5.36 K/uL (1.4-6.5); Neutrophils % (auto) 73.9 %; Platelet Count 344 K/uL (130-400); RDW Coefficient of Variation 16.2 % (11.5-14.5); White Blood Count 7.25 K/uL (4.8-10.8)
[2021-03-27 08:25] LABS: BUN Creatinine Ratio 19.9 (10-20); Creatinine Clr Calc Pharmacy 136.8 ml/min; Est GFR (African American) 122.3; Est GFR (Non-African American) 105.5; Potassium 4.4 mmol/L (3.5-5.1)
[2021-03-27] MEDS: LORazepam 0.5 MG TAB PO SCH ×3 (08:31→21:52)
[2021-03-27] MEDS: VERAPAMIL HCL 180 MG TABCR PO SCH (08:31)
[2021-03-27] MEDS: NICOTINE 21 MG/24 HR TDSY TD SCH (08:31)
[2021-03-27] MEDS: GABAPENTIN 600 MG TAB PO SCH ×3 (08:31→19:34)
[2021-03-27] MEDS: APIXABAN 5 MG TABLET PO SCH ×2 (08:32→21:53)
[2021-03-27] MEDS: ALBUTEROL HFA 8 GM INHALER INH PRN ×2 (09:26→22:32)
[2021-03-27 10:02] LABS: Appearance Urine Cloudy (Clear); Bacteria Urine Automated 1+ (Negative); Blood Urine Negative (Negative); Color Urine Dark Yellow; Epithelial Cell Urine Auto >30 /lpf (0-5); Glucose Urine UA Negative (Negative); Ketones Urine Negative (Negative); Leukocyte Esterase Urine 1+ (Negative); Nitrite Urine Positive (Negative); Protein Urine Trace (Negative); RBC Urine Automated 0-4 /hpf (0-4); Specific Gravity Urine 1.033 (1.000-1.030); Urobilinogen Urine Positive (Negative); WBC Urine Automated >30 /hpf (0-5); pH Urine 5.5 (4.5-7.5)
[2021-03-27 10:08] LABS: Bilirubin Urine 1+ (Negative)
[2021-03-27] MEDS: ZOLPIDEM TARTRATE 10 MG TAB PO PRN (21:52)
--- NOTE | 2021-03-27 22:08 | Hospitalist Progress Note ---
Date of Service March 27, 2021 Assessment & Plan (1) Fall: Patient s/p mechanical fall at home with trauma to right side of body as well as head trauma. Patient is on Apixaban anticoagulation. She is complaining of right sided body pain - arm, flank, leg. Hgb=11.6, Hct=34. Multiple images unremarkable for fracture or bleeding. Patient states that she does not fall frequently. -obtained x rays: of r Knee which are negative. will recommend followup with ortho as an outpatient. -Morphine PRN pain -Colace PRN -PT/OT evaluation - patient desires home rehabilitation services -Fall precautions (2) CHI (closed head injury): s/p fall with head trauma. No focal deficits. CT head unremarkable -Neuro checks q 4 hours: improved. (3) A-fib: Patient slightly tachycardic, 102 bpm at this time -Continue Verapamil -Continue Apixaban (4) COPD (chronic obstructive pulmonary disease): No cough, SOB or wheeze -Continue to monitor -Smoking cessation counseling -Nicotine patch (5) Pulmonary emboli: Patient on Apixaban. 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 She complaoins of swelling of her right leg. Review of Systems Review of Systems: All systems reviewed & are unremarkable except as noted in HPI & below Physical Exam Physical Exam: General: patient resting comfortably, NAD, non-toxic in appearance, AA&O x 4 Skin: warm, dry, intact, no rashes or lesions, faint bruising on RUE, RLE HEENT: NC/AT, PERRL, EOMI, anicteric sclera, conjunctiva without injection, external ear normal to inspection and nontender, nares patent, moist mucus membranes, dentition intact, no oropharyngeal lesions, neck supple, trachea midline, no LAD, no thyromegaly, no JVD Heart: +S1/S2, irregularly irregular, tachycardic, no m/r/g Lungs: equal air entry bilaterally, no rales/rhonchi/wheezes Abd: +BS, soft, NT/ND, no masses/organomegaly/ascites Ext: warm, 2+ pulses in UE/LE bilaterally, no clubbing/cyanosis or edema, right knee tender to palpation, no edema/bruising or deformity Neuro: nonfocal, patient AA&O x 4, speech intact, no facial droop, moving all extremities on command with equal strength 5/5 Results & Data Results & [facility] ([facility]) Vital Signs (Past 12 Hours) Vital Signs Temp Pulse Resp BP Pulse Ox 03/27/21 16:18 36.7 C 76 18 109/54 L 96 PG Care Time/CCT Total # of Minutes Spent Total Time Spent with Patient: Total time spent is greater than 50% in coordination of care (as documented) at patient's floor/unit and/or counseling patient: Coding Level of Care Code 09562 Subseq Hosp Care Lvl 2 Diagnoses Fall W19.XXXA Encounter type: initial encounter CHI (closed head injury) S09.90XA Encounter type: initial encounter A-fib I48.91 Atrial fibrillation type: unspecified COPD (chronic obstructive pulmonary disease) J44.9 COPD type: unspecified COPD Pulmonary emboli I26.99 Acute cor pulmonale presence: unspecified Chronicity: unspecified Pulmonary embolism type: unspecified Depression F32.9 Depression Type: unspecified Time Spent (min) 25 (1) A-fib Atrial fibrillation type: unspecified Qualified Code(s): I48.91 - Unspecified atrial fibrillation (2) CHI (closed head injury) Encounter type: initial encounter Qualified Code(s): S09.90XA - Unspecified injury of head, initial encounter (3) Depression Depression Type: unspecified Qualified Code(s): F32.9 - Major depressive disorder, single episode, unspecified (4) COPD (chronic obstructive pulmonary disease) COPD type: unspecified COPD Qualified Code(s): J44.9 - Chronic obstructive pulmonary disease, unspecified (5) Pulmonary emboli Acute cor pulmonale presence: unspecified Chronicity: unspecified Pulmonary embolism type: unspecified Qualified Code(s): I26.99 - Other pulmonary embolism without acute cor pulmonale (6) Fall Encounter type: initial encounter Qualified Code(s): W19.XXXA - Unspecified fall, initial encounter
[2021-03-27] MEDS: NITROFURANTOIN MONOHYDRATE 100 MG CAP PO SCH (22:25)
[2021-03-28] MEDS: MoRPHine SULFATE 2 MG/ML CARP IV PRN ×2 (05:30→11:54)
[2021-03-28] MEDS: LORazepam 0.5 MG TAB PO SCH ×3 (07:37→19:30)
--- NOTE | 2021-03-28 07:47 | Ultrasound Report ---
ULTRASOUND BILATERAL LOWER EXTREMITY VENOUS CLINICAL HISTORY: Bilateral leg pain and swelling. COMPARISON STUDY: Bilateral lower extremity venous ultrasound dated 01/07/2021. TECHNIQUE: Real-time, grayscale, and color Doppler sonography of the deep veins of the right and left lower extremity was performed from the inguinal crease to the calf. Compression and augmentation wer e utilized. FINDINGS: There is no sonographic evidence of deep venous thrombosis identified in the right or left lower extremity. The common femoral, superficial femoral, and popliteal veins are patent and normally compressible bilaterally. The greater saphenous vein and the profunda femoris vein at the junction w ith the common femoral vein are clear in both legs. The visualized calf veins are patent bilaterally. IMPRESSION: There is no sonographic evidence of deep venous thrombosis identified in the right or lef t lower extremity. ACT 112: Negative or not required by law. Electronically signed by: Lei Love M.D. 03/28/2021 7:46 AM
[2021-03-28] MEDS: GABAPENTIN 600 MG TAB PO SCH ×3 (08:26→20:09)
[2021-03-28] MEDS: APIXABAN 5 MG TABLET PO SCH ×2 (08:27→20:07)
[2021-03-28] MEDS: NITROFURANTOIN MONOHYDRATE 100 MG CAP PO SCH ×2 (08:27→20:08)
[2021-03-28] MEDS: VERAPAMIL HCL 180 MG TABCR PO SCH (08:27)
[2021-03-28] MEDS: NICOTINE 21 MG/24 HR TDSY TD SCH (08:27)
[2021-03-28] MEDS ORDERED: oxyCODONE HCL IR 5 MG TAB (IMMEDIATE RELEASE) PO PRN (15:44)
[2021-03-28] MEDS ORDERED: LIDOCAINE 5% 1 PATCH TD SCH (15:45)
[2021-03-28] MEDS: ALBUTEROL HFA 8 GM INHALER INH PRN (19:46)
[2021-03-28] MEDS: ACETAMINOPHEN 500 MG TAB PO SCH (20:07)
[2021-03-28] MEDS: ZOLPIDEM TARTRATE 10 MG TAB PO PRN (20:13)
[2021-03-28] MEDS: oxyCODONE HCL IR 5 MG TAB (IMMEDIATE RELEASE) PO PRN (20:13)
--- NOTE | 2021-03-28 22:10 | Hospitalist Progress Note ---
Date of Service March 28, 2021 Assessment & Plan (1) Fall: Patient s/p mechanical fall at home with trauma to right side of body as well as head trauma. Patient is on Apixaban anticoagulation. She is complaining of right sided body pain - arm, flank, leg. Hgb=11.6, Hct=34. Multiple images unremarkable for fracture or bleeding. Patient states that she does not fall frequently. -obtained x rays: of r Knee which are negative. will recommend followup with ortho as an outpatient. will add lidocaine. Appears patient's dose is mainy in the evening. Will discuss with CM for possible home health. Will set up close ortho followup. -Morphine PRN pain -Colace PRN -PT/OT evaluation - patient desires home rehabilitation services -Fall precautions (2) CHI (closed head injury): s/p fall with head trauma. No focal deficits. CT head unremarkable -Neuro checks q 4 hours: improved. (3) A-fib: Patient slightly tachycardic, 102 bpm at this time -Continue Verapamil -Continue Apixaban (4) COPD (chronic obstructive pulmonary disease): No cough, SOB or wheeze -Continue to monitor -Smoking cessation counseling -Nicotine patch (5) Pulmonary emboli: Patient on Apixaban. 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 She continues to have right sided lumbar back pain which radiates down her back to her right leg. Review of Systems Review of Systems: All systems reviewed & are unremarkable except as noted in HPI & below Physical Exam Physical Exam: General: patient resting comfortably, NAD, non-toxic in appearance, AA&O x 4 Skin: warm, dry, intact, no rashes or lesions, faint bruising on RUE, RLE HEENT: NC/AT, PERRL, EOMI, anicteric sclera, conjunctiva without injection, external ear normal to inspection and nontender, nares patent, moist mucus membranes, dentition intact, no oropharyngeal lesions, neck supple, trachea midline, no LAD, no thyromegaly, no JVD Heart: +S1/S2, irregularly irregular, tachycardic, no m/r/g Lungs: equal air entry bilaterally, no rales/rhonchi/wheezes Abd: +BS, soft, NT/ND, no masses/organomegaly/ascites Ext: warm, 2+ pulses in UE/LE bilaterally, no clubbing/cyanosis or edema, right knee tender to palpation, no edema/bruising or deformity Neuro: nonfocal, patient AA&O x 4, speech intact, no facial droop, moving all extremities on command with equal strength 5/5 Results & Data Results & Data ([facility]) Vital Signs (Past 12 Hours) Vital Signs Temp Pulse Resp BP Pulse Ox 03/28/21 19:46 76 20 96 03/28/21 19:34 95 H 20 96 03/28/21 16:29 36.7 C 83 16 106/68 97 PG Care Time/CCT Total # of Minutes Spent Total Time Spent with Patient: Total time spent is greater than 50% in coordination of care (as documented) at patient's floor/unit and/or counseling patient: Coding Level of Care Code 87162 Subseq Hosp Care Lvl 3 Diagnoses Fall W19.XXXA Encounter type: initial encounter CHI (closed head injury) S09.90XA Encounter type: initial encounter A-fib I48.91 Atrial fibrillation type: unspecified COPD (chronic obstructive pulmonary disease) J44.9 COPD type: unspecified COPD Pulmonary emboli I26.99 Acute cor pulmonale presence: unspecified Chronicity: unspecified Pulmonary embolism type: unspecified Depression F32.9 Depression Type: unspecified Time Spent (min) 35 (1) A-fib Atrial fibrillation type: unspecified Qualified Code(s): I48.91 - Unspecified atrial fibrillation (2) CHI (closed head injury) Encounter type: initial encounter Qualified Code(s): S09.90XA - Unspecified i njury of head, initial encounter (3) Depression Depression Type: unspecified Qualified Code(s): F32.9 - Major depressive disorder, single episode, unspecified (4) COPD (chronic obstructive pulmonary disease) COPD type: unspecified COPD Qualified Code(s): J44.9 - Chronic obstructive pulmonary disease, unspecified (5) Pulmonary emboli Acute cor pulmonale presence: unspecified Chronicity: unspecified Pulmonary embolism type: unspecified Qualified Code(s): I26.99 - Other pulmonary embolism without acute cor pulmonale (6) Fall Encounter type: initial encounter Qualified Code(s): W19.XXXA - Unspecified fall, initial encounter
[2021-03-29] MEDS: ACETAMINOPHEN 500 MG TAB PO SCH ×5 (00:24→17:48)
[2021-03-29] MEDS: oxyCODONE HCL IR 5 MG TAB (IMMEDIATE RELEASE) PO PRN (00:29)
[2021-03-29] MEDS ORDERED: Nursing to Pharmacy Communication SCH (00:30)
[2021-03-29] MEDS: MoRPHine SULFATE 2 MG/ML CARP IV PRN ×4 (03:40→17:23)
[2021-03-29] MEDS: LORazepam 0.5 MG TAB PO SCH ×2 (07:20→14:38)
[2021-03-29] MEDS: APIXABAN 5 MG TABLET PO SCH (08:13)
[2021-03-29] MEDS: VERAPAMIL HCL 180 MG TABCR PO SCH (08:13)
[2021-03-29] MEDS: NITROFURANTOIN MONOHYDRATE 100 MG CAP PO SCH (08:13)
[2021-03-29] MEDS: NICOTINE 21 MG/24 HR TDSY TD SCH (08:14)
[2021-03-29] MEDS: GABAPENTIN 600 MG TAB PO SCH ×2 (08:17→14:34)
[2021-03-29] MEDS ORDERED: LIDOCAINE 5% 1 PATCH TD SCH (09:00)
--- NOTE | 2021-04-04 21:27 | Discharge Summary ---
Date of Service March 29, 2021 Admission HPI Per Admitting Provider Michelle Mckee is a 70yo female with history of PE (01/07/21) and AF on Eliquis anticoagulation, history of gastric bypass surgery presenting after a fall at home. Patient is legally blind, no vision in left eye and appx 25% in her right eye. She was walking down the steps this evening when she missed the last step and fell onto the hard floor. She landed on her right side, believes that she struck her head as well. She denies LOC but states that she did feel like she may pass out after the fall. She denies CP/palpitations/dizziness/seizure. Denies abdominal pain or diarrhea. She has chronic nausea with occasional vomiting since her gastric bypass surgery mostly due to dietary indiscretion but states she has had no recent changes in these symptoms. She has had decreased oral intake of late. No additional complaints at this time. Patient voiced desire for rehabilitation services - would prefer inpatient rather than outpatient. ER Course: NSS, Oxycodone/Acetaminophen, Fentanyl, Pepcid Principal Diagnosis mechanical fall Discharge Exam General: patient resting comfortably, NAD, non-toxic in appearance, AA&O x 4 Skin: warm, dry, intact, no rashes or lesions, faint bruising on RUE, RLE HEENT: NC/AT, PERRL, EOMI, anicteric sclera, conjunctiva without injection, external ear normal to inspection and nontender, nares patent, moist mucus membranes, dentition intact, no oropharyngeal lesions, neck supple, trachea midline, no LAD, no thyromegaly, no JVD Heart: +S1/S2, irregularly irregular, tachycardic, no m/r/g Lungs: equal air entry bilaterally, no rales/rhonchi/wheezes Abd: +BS, soft, NT/ND, no masses/organomegaly/ascites Ext: warm, 2+ pulses in UE/LE bilaterally, no clubbing/cyanosis or edema, right knee tender to palpation, no edema/bruising or deformity Neuro: nonfocal, patient AA&O x 4, speech intact, no facial droop, moving all extremities on command with equal strength 5/5 Discharge Data Allergies Allergy/AdvReac Type Severity Reaction Status Date / Time Iodinated Contrast Media Allergy Severe ANAPHYLACTIC Verified 03/26/21 00:13 REACTION tramadol Allergy Mild nausea, Verified 03/26/21 00:13 hives lisinopril AdvReac Intermediate FEELS LIKE Verified 03/26/21 00:13 SOMETHING IS CRAWLING ON HER. acetaminophen AdvReac Mild VOMITING Verified 03/26/21 00:13 Consultations 03/26/21 04:17 ED Decision to Admit Stat 03/29/21 15:39 Burn CD for patient Routine Ordered Studies 03/26/21 00:26 CT abd pelvis IV con only Urgent CT cervical spine wo con Urgent CT chest diagnostic w con Urgent CT head/brain wo con Urgent CT lumbar spine w con Urgent 03/27/21 16:31 US venous doppler LE BI Routine Hospital Course (1) Fall: Patient s/p mechanical fall at home with trauma to right side of body as well as head trauma. Patient is on Apixaban anticoagulation. She is complaining of right sided body pain - arm, flank, leg. Hgb=11.6, Hct=34. Multiple images unremarkable for fracture or bleeding. Patient states that she does not fall frequently. -obtained x rays: of r Knee which are negative. will recommend followup with ortho as an outpatient. will add lidocaine. Appears patient's dose is mainy in the evening. will discharge on home health. Will recommend close ortho followup. (2) CHI (closed head injury): s/p fall with head trauma. No focal deficits. CT head unremarkable -Neuro checks q 4 hours: improved. (3) A-fib: Patient slightly tachycardic, 102 bpm at this time -Continue Verapamil -Continue Apixaban (4) COPD (chronic obstructive pulmonary disease): No cough, SOB or wheeze -Continue to monitor -Smoking cessation counseling -Nicotine patch (5) Pulmonary emboli: Patient on Apixaban. She reports some chronic residual shortness of breath since December -Continue Apixaban (6) Depression: Chronic -Continue Ativan 0.5mg po TID for anxiety Total Time Total Time Spent Total Time Spent (In Minutes): 32 Total Time Includes: Examination of the Patient, Discharge Planning and Medication Reconciliation Discharge Plan Discharge Items Patient Disposition: Home - Home Health Services Reason For Visit: S/P FALL, REHAB NEEDS Discharge Diagnosis: S/P Fall, Activity: Resume your previous activity Non-emergency contact: Primary Care Provider Call non-emergency contact if: you have any medication questions Follow-up/Referrals: Diego Haynes MD [Primary Care Provider] - Lauro Fay DO [Surgeon] - 04/01/21 10:00 am Diet: Heart Healthy Addtl Attending Provider Instructions: You were evaluated after the fall. You had images done which ruled out any broken bones or blood clots in your legs. You did have moderate lumbar stenosis and grade 1 spondylolisthesis of L4-L5. No surgical treatment is required but will recommend you followup with Dr. Fay later this week. You will have a CD for the images. If lidocaine patches are too expensive, you may use the over the counter lidocaine patches which are 4% lidocaine Pending Studies at Discharge: No Stand-Alone Forms: My [facility], Opioid Pain Management, Smoking Cessation Medications and DC Order Prescriptions: New oxycodone 5 mg Tablet 5 mg PO Q12H PRN (Reason: severe pain) Qty: 10 RF: 0 acetaminophen 325 mg capsule 650 mg PO Q6H 14 Days Qty: 90 RF: 0 lidocaine 5 % Adhesive Patch,Medicated 2 patch transdermal QAM Qty: 30 RF: 0 Continued nicotine 21-14-7 mg/24 hr patch, TD daily, sequential See Rx Instructions transdermal .COMPLEX Qty: 56 RF: 0 apixaban 5 mg tablet 5 mg PO BID Qty: 180 RF: 1 verapamil 180 mg capsule,ext rel. pellets 24 hr 180 mg PO DAILY Qty: 90 RF: 1 zolpidem 10 mg tablet 10 mg PO HS Qty: 30 RF: 0 lorazepam 0.5 mg tablet 0.5 mg PO TID Qty: 90 RF: 0 gabapentin 600 mg tablet 600 mg PO TID Qty: 90 RF: 3 ondansetron HCl 4 mg tablet 4 mg PO Q8H PRN (Reason: Nausea) Qty: 30 RF: 0 albuterol sulfate [ProAir HFA] 90 mcg/actuation HFA aerosol inhaler 1 inh inhalation QID PRN (Reason: shortness of breath or wheezing) Qty: 8.5 RF: 5 Slow Fe 142 mg (45 mg iron) tablet extended release 142 mg PO DAILY Qty: 30 RF: 5 furosemide 40 mg tablet 20 - 40 mg PO DAILY RF: 0 cholecalciferol (vitamin D3) 1,250 mcg (50,000 unit) capsule 50,000 unit PO WK RF: 0 Discharge Orders: Discharge Order (Routine); Ordered 03/29/21 Ordered By: Jeremie Barrios/Other Patient Handouts: Preventing Falls Moving Safely ... Admission Data Admit Date/Time: 03/28/21 07:41 Attending Provider: Jeremie Flores Admit Provider: Angelique Magana Primary Care Provider: Diego Haynes Other Providers: Angelique Magana ; [facility] Healthcare Other Interventions: Discharge Summary Assessment (RN) Last Done: 03/29/21 16:50 Coding Level of Care Code D/C Day Management >30 mins Diagnoses Fall W19.XXXA Encounter type: initial encounter CHI (closed head injury) S09.90XA Encounter type: initial encounter A-fib I48.91 Atrial fibrillation type: unspecified COPD (chronic obstructive pulmonary disease) J44.9 COPD type: unspecified COPD Pulmonary emboli I26.99 Pulmonary embolism type: unspecified Chronicity: unspecified Acute cor pulmonale presence: unspecified Depression F32.9 Depression Type: unspecified
== END 2021-03-29 18:12 | disposition home health service (06) | DRG 914 ==
LOC: ED 23:43 → 3W 23:43 → SUATTDRO 03-26 04:43 → 3W 03-26 05:17